=== PATIENT | male | born 1985 | race African-American/Black ===

== ENCOUNTER 2022-05-28 14:54 | Emergency (ER) | payer MEDICAID, SELFPAY ==
--- NOTE | 2022-05-28 07:26 | ECG_ITS ---
Test Reason : CHEST PAIN Blood Pressure : / mmHG Vent. Rate : 058 BPM Atrial Rate : 058 BPM P-R Int : 126 ms QRS Dur : 112 ms QT Int : 436 ms P-R-T Axes : 028 004 167 degrees QTc Int : 428 ms Sinus bradycardia Minimal voltage criteria for LVH, may be normal variant ( Teddy product ) ST elevation, consider early repolarization, pericarditis, or injury T wave abnormality, consider inferior ischemia T wave abnormality, consider anterolateral ischemia Abnormal ECG When compared with ECG of 28-MAY-2022 19:39, No significant change was found Referred By: Mayi Barbour Electronically Signed By:MAHESH ARREOLA MD
[2022-05-28 15:09] VITALS: BP 138/82; BP 179/99; PULSE 93; PULSE 95; RESP 14; O2SAT 95; BMI 21.7
--- NOTE | 2022-05-28 15:13 | PC.NURSE ---
Security at bedside to change pt over, belongings brought to decon. Patient observer at bedside.
--- NOTE | 2022-05-28 15:16 | PC.NURSE ---
Pt keeps stating I don't think the cocaine was cocaine, my bones are on fire .
--- NOTE | 2022-05-28 15:30 | ED.PSYCH ---
HPI - Psych General Chief Complaint: ETOH/Substance Use <Arielle OwensOSIRIS - Last Filed: 05/28/22 17:27> Stated Complaint: crisis <Arielle Owens OSIRIS - Last Filed: 05/28/22 17:27> Time Seen by Provider: 05/28/22 15:08 <Arielle OwensOSIRIS - Last Filed: 05/28/22 17:27> Source: patient <Arielle Owens OSIRIS - Last Filed: 05/28/22 17:27> Mode of arrival: EMS <Arielle OwensOSIRIS - Last Filed: 05/28/22 17:27> Limitations: no limitations <Arielle Owens OSIRIS - Last Filed: 05/28/22 17:27> History of Present Illness HPI Narrative: Patient is a 36-year-old male who presents to the emergency department today requesting detox services. He states he is tired and has not slept in the past 3 days. He reports ?my bones are on fire? reporting to his entire body. He states that he has been snorting and injecting cocaine that he believes is laced, at 1 point of time he states it was laced with methadone. Denies knowingly using methadone or taking prescribed methadone. He denies any additional recreational drug usage. Reports some alcohol consumption stating that he drinks about 10 minutes a week, is not certain when he last drank. Denies fevers, chills, dizziness, lightheadedness, chest pain, palpitations, shortness of breath, difficulty breathing, upper respiratory symptoms, nausea, vomiting, abdominal pain, numbness and tingling of his extremities. Denies any difficulty with ambulation. Denies any suicidal or homicidal ideations. <Arielle OwensOSIRIS - Last Filed: 05/28/22 17:27> Related Data Allergies/Adverse Reactions: Allergies Allergy/AdvReac Type Severity Reaction Status Date / Time No Known Allergies Allergy Verified 05/28/22 15:29 <Arielle OwensOSIRIS - Last Filed: 05/28/22 17:27> Review of Systems Review of Systems: Constitutional : No Fever, No Chills ENT/Mouth : No Ear Pain, No Nasal Congestion, No sore throat Eyes: No Eye Pain, No Swelling, No Redness Cardiovascular : No Chest Pain, No SOB Respiratory : No Cough, No Sputum, No Dyspnea Gastrointestinal : No Nausea, No Vomiting, No Diarrhea, No Hematochezia, No Melena Genitourinary : No Dysuria, No Urinary Frequency, No Hematuria Musculoskeletal : No Myalgias Skin : No Skin Lesions, No rash Neuro : No Weakness, No Numbness, No Paresthesias, No Dizziness, No Headache Psych : No Anxiety, no Depression, no SI/HI, positive substance use <Arielle Owens CNP - Last Filed: 05/28/22 17:27> Yes all other systems are reviewed and are negative <Arielle Owens CNP - Last Filed: 05/28/22 17:27> [facility] Past Medical History Attestation statement: The following information was validated with the patient. <Arielle Owens CNP - Last Filed: 05/28/22 17:27> Source: old records reviewed <Arielle Owens CNP - Last Filed: 05/28/22 17:27> Social History Social History: Social History Advance Directives: No Advance Directives Information Provided: No <Arielle Owens CNP - Last Filed: 05/28/22 17:27> Physical Exam Vital Signs: Vital Signs: Last Vital Signs Temp 97.8 F 05/28/22 21:10 Pulse 57 05/28/22 21:10 Resp 17 05/28/22 21:10 BP 138/82 05/28/22 21:10 Pulse Ox 95 05/28/22 21:10 O2 Del Method 05/28/22 21:10 BMI result Body Mass Index 21.9 <Arielle Owens CNP - Last Filed: 05/28/22 17:27> Vital Signs: Last Vital Signs Temp 97.8 F 05/28/22 21:10 Pulse 57 05/28/22 21:10 Resp 17 05/28/22 21:10 BP 138/82 05/28/22 21:10 Pulse Ox 95 05/28/22 21:10 O2 Del Method 05/28/22 21:10 BMI result Body Mass Index 21.9 <GENTRY Rodríguez - Last Filed: 05/28/22 22:15> Appearance: Oriented to person, place and time. No acute distress.? Biazarre affect, noted at times to be twitching, unable to sit still, and then falling asleep while talking Eyes: Pupils equal, round and reactive to light.? ENT: Pharynx normal.?? Neck: Normal inspection.? Neck supple.?? CVS: Heart sounds normal. Normal heart rate and rhythm.? Pulses normal.?? Respiratory: No respiratory distress.? Lung sounds clear to auscultation bilaterally?? Abdomen: Soft and non-tender. Normoactive bowel sounds. Skin: Skin warm and dry.? Normal skin color.? Extremities: No lower extremity edema.? Neuro: Moves all extremities spontaneously. Sensation intact bilaterally. No focal neuro deficits. Ambulates with normal steady gait. <Arielle Owens CNP - Last Filed: 05/28/22 17:27> Course Course Course Narrative: Patient is a 36-year-old male presents emergency department for evaluation requesting detox services. Only endorses cocaine usage, but does state that he believes his cocaine may have been laced recently. Is unclear exactly how much cocaine he is currently using he reports $200-$300 dollars worth daily, and states that he drinks approximately 10 nips of alcohol weekly uncertain of when last consumption was. He does appear to have a bizarre affect, which appears consistent with drug usage. Will obtain basic labs, drug of abuse screen, ethanol screen, and referred to care team for assistance detox services. Denying any suicidal or homicidal ideations. Patient received acetaminophen for pain at this time. <Arielle Owens CNP - Last Filed: 05/28/22 17:27> Reevaluation(s) Reevaluation #1: Labs overall unremarkable. Drug abuse screen is positive for fentanyl and cocaine. Patient placed in physician obervation at this time, reson being that he requires additional time to be evaluated by caare team for assistance with detox, he is here voluntarily, he is CA&Ox4, no apparent distress. <Arielle Owens CNP - Last Filed: 05/28/22 17:27> Time: 17:01 <Arielle Owens CNP - Last Filed: 05/28/22 17:27> Reevaluation #2: I ordered an EKG on this patient for medical clearance and went to evaluate him myself, patient reports that he has been experiencing intermittent substernal 4 to 5/10 chest pain described as stabbing in nature, patient tells me it is intermittent and he does not have it at this time however it comes back last a few seconds and then subsides. Patient does report using 200-300 dollars worth of cocaine last night along w/ alcohol, patient tells me that the chest pain is very uncomfortable when it comes on. Never had anything like this before. No significant personal or family history of heart disease. Patient tells me other than polysubstance abuse he has no significant medical history. I sent 8 image of the initial EKG to Cardiology and obtain troponin troponin negative EKG is showing abnormal ST segments diffusely ? Wellens with a rate of 60, concerns for ischemia. Will reach out to Cardiology for input will give aspirin. <GENTRY Rodríguez - Last Filed: 05/28/22 22:15> Time: 21:01 <GENTRY Rodríguez - Last Filed: 05/28/22 22:15> Reevaluation #3: Banks text from Dr. Rao requesting heparin, and requesting input from interventional cardiology will reach out to [facility] at this time STAT. Patient will be transferred to [facility] Dr. Chu, for abnormal EKG that may require laboratory aide. Heparin ordered at this time. Calling ambulance to schedule stat transport. Patient is still reporting chest pain. <GENTRY Rodríguez - Last Filed: 05/28/22 22:15> Time: 21:57 <GENTRY Rodríguez - Last Filed: 05/28/22 22:15> Medications Administered Discontinued Medications Generic Name Dose Route Start Last Admin Trade Name Charla PRN Reason Stop Dose Admin Aspirin 325 mg 05/28/22 21:21 05/28/22 22:06 Aspirin Enteric Coated 325 [address] Tablet.Dr VASQUEZ 05/28/22 21:22 325 mg ONCE ONE Administration Heparin Sodium (Porcine) 4,000 unit 05/28/22 21:45 05/28/22 22:06 Heparin Sodium,Porcine 5,000 Unit/Ml Vial IVPUSH 05/28/22 21:46 4,000 unit ONCE ONE Administration <Arielle Owens CNP - Last Filed: 05/28/22 17:27> Medications Administered Discontinued Medications Generic Name Dose Route Start Last Admin Trade Name Charla PRN Reason Stop Dose Admin Aspirin 325 mg 05/28/22 21:21 05/28/22 22:06 Aspirin Enteric Coated 325 Mg Tablet.Dr VASQUEZ 05/28/22 21:22 325 mg ONCE ONE Administration Heparin Sodium (Porcine) 4,000 unit 05/28/22 21:45 05/28/22 22:06 Heparin Sodium,Porcine 5,000 Unit/Ml Vial IVPUSH 05/28/22 21:46 4,000 unit ONCE ONE Administration <GENTRY Rodríguez - Last Filed: 05/28/22 22:15> MDM - Psych Medical Records Attestation: I reviewed the patient's medical records. <Arielle Owens CNP - Last Filed: 05/28/22 17:27> Lab Data Attestation: I reviewed the patient's lab results. <Arielle Owens CNP - Last Filed: 05/28/22 17:27> Result diagrams: : 05/28/22 22:00 05/28/22 16:11 <Arielle Owens CNP - Last Filed: 05/28/22 17:27> Labs: Lab Results 05/28/22 05/28/22 05/28/22 Range/Units 15:45 16:11 16:11 WBC 5.6 (4.8-10.8) X10*3/uL RBC 4.96 (4.60-5.80) X10*6/uL Hgb 14.2 (14.0-18.0) g/dl Hct 42.4 (42.0-52.0) % MCV 85.5 (80.0-98.0) fL MCH 28.6 (27.0-33.0) pg MCHC 33.5 (31.0-36.0) g/dl RDW 12.3 (11.0-16.0) % Plt Count 218 (160-400) X10*3/uL MPV 9.9 (9.4-12.4) fL Immature Gran % (Auto) 0.2 (0.0-0.4) % Neut % (Auto) 48.8 (45-73) % Lymph % (Auto) 36.7 (20-40) % [place] % (Auto) 10.8 (2-11) % Eos % (Auto) 2.8 (0-4) % Baso % (Auto) 0.7 (0-2) % Lymph # (Auto) 2.1 (1.2-4.9) X10*3/uL [place] # (Auto) 0.6 (0.1-1.2) X10*3/uL Eos # (Auto) 0.2 (0.0-0.4) X10*3/uL Baso # (Auto) 0.0 (0.0-0.2) X10*3/uL Abs Immat Gran (auto) 0.01 (0.00-0.03) X10*3/uL Absolute Neuts (auto) 2.8 (2.0-8.3) x10*3/uL Absolute Nucleated RBC 0.000 (0.0-0.012) X10*3/uL Nucleated RBC % (auto) 0.0 (0.0-0.2) /100WBC PT (10.0-13.1) SEC INR (0.9-1.1) Sodium 141 (135-145) mmol/L Potassium 3.6 (3.3-5.1) mmol/L Chloride 103 (96-108) mmol/L Carbon Dioxide 27 (22-29) mmol/L Anion Gap 15 (12-20) BUN 11 (9-16) mg/dL Creatinine 1.07 (0.5-1.4) mg/dL Estim Creat Clear Calc 94.3 Estimated GFR > 60 Random Glucose 152 H (60-115) mg/dL Calcium 9.4 (8.4-10.2) mg/dL Total Bilirubin 0.6 (0.0-1.0) mg/dL AST 34 (5-37) U/L ALT 37 (0-40) U/L Alkaline Phosphatase 76 (39-117) U/L Total Creatine Kinase 449 H (38-174) U/L Troponin I High Sens (<3.5-35.0) ng/L Total Protein 6.6 (6.5-8.0) g/dL Albumin 3.8 (3.5-5.0) g/dL Urine Color Yellow Urine Appearance Clear Urine pH 7.0 (5.0-9.0) Ur Specific [place] <= 1.005 (1.005-1.025) Urine Protein Negative (Neg-Trace) mg/dL Urine Glucose (UA) Negative (Negative) mg/dL Urine Ketones Negative (Negative) mg/dL Urine Blood Negative (Negative) Urine Nitrite Negative (Negative) Ur Leukocyte Esterase Negative (Negative) Urine Opiates Screen (Not Detect) Urine Fentanyl Screen (Not Detect) Ur Barbiturates Screen (Not Detect) Ur Phencyclidine Scrn (Not Detect) Ur Amphetamines Screen (Not Detect) U Benzodiazepines Scrn (Not Detect) Urine Cocaine Screen (Not Detect) U Marijuana (THC) Screen (Not Detect) Ethyl Alcohol < 10 mg/dL COVID-19 ([facility]) (Negative) COVID-19 Clin Com 05/28/22 05/28/22 05/28/22 Range/Units 16:11 16:11 20:25 WBC (4.8-10.8) X10*3/uL RBC (4.60-5.80) X10*6/uL Hgb (14.0-18.0) g/dl Hct (42.0-52.0) % MCV (80.0-98.0) fL MCH (27.0-33.0) pg MCHC (31.0-36.0) g/dl RDW (11.0-16.0) % Plt Count (160-400) X10*3/uL MPV (9.4-12.4) fL Immature Gran % (Auto) (0.0-0.4) % Neut % (Auto) (45-73) % Lymph % (Auto) (20-40) % [place] % (Auto) (2-11) % Eos % (Auto) (0-4) % Baso % (Auto) (0-2) % Lymph # (Auto) (1.2-4.9) X10*3/uL [place] # (Auto) (0.1-1.2) X10*3/uL Eos # (Auto) (0.0-0.4) X10*3/uL Baso # (Auto) (0.0-0.2) X10*3/uL Abs Immat Gran (auto) (0.00-0.03) X10*3/uL Absolute Neuts (auto) (2.0-8.3) x10*3/uL Absolute Nucleated RBC (0.0-0.012) X10*3/uL Nucleated RBC % (auto) (0.0-0.2) /100WBC PT (10.0-13.1) SEC INR (0.9-1.1) Sodium (135-145) mmol/L Potassium (3.3-5.1) mmol/L Chloride (96-108) mmol/L Carbon Dioxide (22-29) mmol/L Anion Gap (12-20) BUN (9-16) mg/dL Creatinine (0.5-1.4) mg/dL Estim Creat Clear Calc Estimated GFR Random Glucose (60-115) mg/dL Calcium (8.4-10.2) mg/dL Total Bilirubin (0.0-1.0) mg/dL AST (5-37) U/L ALT (0-40) U/L Alkaline Phosphatase (39-117) U/L Total Creatine Kinase (38-174) U/L Troponin I High Sens < 3.5 (<3.5-35.0) ng/L Total Protein (6.5-8.0) g/dL Albumin (3.5-5.0) g/dL Urine Color Urine Appearance Urine pH (5.0-9.0) Ur Specific [place] (1.005-1.025) Urine Protein (Neg-Trace) mg/dL Urine Glucose (UA) (Negative) mg/dL Urine Ketones (Negative) mg/dL Urine Blood (Negative) Urine Nitrite (Negative) Ur Leukocyte Esterase (Negative) Urine Opiates Screen Not Detected (Not Detect) Urine Fentanyl Screen POSITIVE H (Not Detect) Ur Barbiturates Screen Not Detected (Not Detect) Ur Phencyclidine Scrn Not Detected (Not Detect) Ur Amphetamines Screen Not Detected (Not Detect) U Benzodiazepines Scrn Not Detected (Not Detect) Urine Cocaine Screen POSITIVE H (Not Detect) U Marijuana (THC) Screen Not Detected (Not Detect) Ethyl Alcohol mg/dL COVID-19 ([place]) Negative (Negative) COVID-19 Clin Com See Note 05/28/22 05/28/22 Range/Units 21:12 22:00 WBC 6.7 (4.8-10.8) X10*3/uL RBC 4.94 (4.60-5.80) X10*6/uL Hgb 14.4 (14.0-18.0) g/dl Hct 42.5 (42.0-52.0) % MCV 86.0 (80.0-98.0) fL MCH 29.1 (27.0-33.0) pg MCHC 33.9 (31.0-36.0) g/dl RDW 12.4 (11.0-16.0) % Plt Count 213 (160-400) X10*3/uL MPV 9.8 (9.4-12.4) fL Immature Gran % (Auto) (0.0-0.4) % Neut % (Auto) (45-73) % Lymph % (Auto) (20-40) % [place] % (Auto) (2-11) % Eos % (Auto) (0-4) % Baso % (Auto) (0-2) % Lymph # (Auto) (1.2-4.9) X10*3/uL [place] # (Auto) (0.1-1.2) X10*3/uL Eos # (Auto) (0.0-0.4) X10*3/uL Baso # (Auto) (0.0-0.2) X10*3/uL Abs Immat Gran (auto) (0.00-0.03) X10*3/uL Absolute Neuts (auto) (2.0-8.3) x10*3/uL Absolute Nucleated RBC 0.000 (0.0-0.012) X10*3/uL Nucleated RBC % (auto) 0.0 (0.0-0.2) /100WBC PT 12.2 (10.0-13.1) SEC INR 1.1 (0.9-1.1) Sodium (135-145) mmol/L Potassium (3.3-5.1) mmol/L Chloride (96-108) mmol/L Carbon Dioxide (22-29) mmol/L Anion Gap (12-20) BUN (9-16) mg/dL Creatinine (0.5-1.4) mg/dL Estim Creat Clear Calc Estimated GFR Random Glucose (60-115) mg/dL Calcium (8.4-10.2) mg/dL Total Bilirubin (0.0-1.0) mg/dL AST (5-37) U/L ALT (0-40) U/L Alkaline Phosphatase (39-117) U/L Total Creatine Kinase (38-174) U/L Troponin I High Sens (<3.5-35.0) ng/L Total Protein (6.5-8.0) g/dL Albumin (3.5-5.0) g/dL Urine Color Urine Appearance Urine pH (5.0-9.0) Ur Specific [place] (1.005-1.025) Urine Protein (Neg-Trace) mg/dL Urine Glucose (UA) (Negative) mg/dL Urine Ketones (Negative) mg/dL Urine Blood (Negative) Urine Nitrite (Negative) Ur Leukocyte Esterase (Negative) Urine Opiates Screen (Not Detect) Urine Fentanyl Screen (Not Detect) Ur Barbiturates Screen (Not Detect) Ur Phencyclidine Scrn (Not Detect) Ur Amphetamines Screen (Not Detect) U Benzodiazepines Scrn (Not Detect) Urine Cocaine Screen (Not Detect) U Marijuana (THC) Screen (Not Detect) Ethyl Alcohol mg/dL COVID-19 ([place]) (Negative) COVID-19 Clin Com <Arielle Owens, CULINARY SPECIALIST - Last Filed: 05/28/22 17:27> Lab Results 05/28/22 05/28/22 05/28/22 Range/Units 15:45 16:11 16:11 WBC 5.6 (4.8-10.8) X10*3/uL RBC 4.96 (4.60-5.80) X10*6/uL Hgb 14.2 (14.0-18.0) g/dl Hct 42.4 (42.0-52.0) % MCV 85.5 (80.0-98.0) fL MCH 28.6 (27.0-33.0) pg MCHC 33.5 (31.0-36.0) g/dl RDW 12.3 (11.0-16.0) % Plt Count 218 (160-400) X10*3/uL MPV 9.9 (9.4-12.4) fL Immature Gran % (Auto) 0.2 (0.0-0.4) % Neut % (Auto) 48.8 (45-73) % Lymph % (Auto) 36.7 (20-40) % [place] % (Auto) 10.8 (2-11) % Eos % (Auto) 2.8 (0-4) % Baso % (Auto) 0.7 (0-2) % Lymph # (Auto) 2.1 (1.2-4.9) X10*3/uL [place] # (Auto) 0.6 (0.1-1.2) X10*3/uL Eos # (Auto) 0.2 (0.0-0.4) X10*3/uL Baso # (Auto) 0.0 (0.0-0.2) X10*3/uL Abs Immat Gran (auto) 0.01 (0.00-0.03) X10*3/uL Absolute Neuts (auto) 2.8 (2.0-8.3) x10*3/uL Absolute Nucleated RBC 0.000 (0.0-0.012) X10*3/uL Nucleated RBC % (auto) 0.0 (0.0-0.2) /100WBC PT (10.0-13.1) SEC INR (0.9-1.1) Sodium 141 (135-145) mmol/L Potassium 3.6 (3.3-5.1) mmol/L Chloride 103 (96-108) mmol/L Carbon Dioxide 27 (22-29) mmol/L Anion Gap 15 (12-20) BUN 11 (9-16) mg/dL Creatinine 1.07 (0.5-1.4) mg/dL Estim Creat Clear Calc 94.3 Estimated GFR > 60 Random Glucose 152 H (60-115) mg/dL Calcium 9.4 (8.4-10.2) mg/dL Total Bilirubin 0.6 (0.0-1.0) mg/dL AST 34 (5-37) U/L ALT 37 (0-40) U/L Alkaline Phosphatase 76 (39-117) U/L Total Creatine Kinase 449 H (38-174) U/L Troponin I High Sens (<3.5-35.0) ng/L Total Protein 6.6 (6.5-8.0) g/dL Albumin 3.8 (3.5-5.0) g/dL Urine Color Yellow Urine Appearance Clear Urine pH 7.0 (5.0-9.0) Ur Specific [place] <= 1.005 (1.005-1.025) Urine Protein Negative (Neg-Trace) mg/dL Urine Glucose (UA) Negative (Negative) mg/dL Urine Ketones Negative (Negative) mg/dL Urine Blood Negative (Negative) Urine Nitrite Negative (Negative) Ur Leukocyte Esterase Negative (Negative) Urine Opiates Screen (Not Detect) Urine Fentanyl Screen (Not Detect) Ur Barbiturates Screen (Not Detect) Ur Phencyclidine Scrn (Not Detect) Ur Amphetamines Screen (Not Detect) U Benzodiazepines Scrn (Not Detect) Urine Cocaine Screen (Not Detect) U Marijuana (THC) Screen (Not Detect) Ethyl Alcohol < 10 mg/dL COVID-19 ([place]) (Negative) COVID-19 Clin Com 05/28/22 05/28/22 05/28/22 Range/Units 16:11 16:11 20:25 WBC (4.8-10.8) X10*3/uL RBC (4.60-5.80) X10*6/uL Hgb (14.0-18.0) g/dl Hct (42.0-52.0) % MCV (80.0-98.0) fL MCH (27.0-33.0) pg MCHC (31.0-36.0) g/dl RDW (11.0-16.0) % Plt Count (160-400) X10*3/uL MPV (9.4-12.4) fL Immature Gran % (Auto) (0.0-0.4) % Neut % (Auto) (45-73) % Lymph % (Auto) (20-40) % [place] % (Auto) (2-11) % Eos % (Auto) (0-4) % Baso % (Auto) (0-2) % Lymph # (Auto) (1.2-4.9) X10*3/uL [place] # (Auto) (0.1-1.2) X10*3/uL Eos # (Auto) (0.0-0.4) X10*3/uL Baso # (Auto) (0.0-0.2) X10*3/uL Abs Immat Gran (auto) (0.00-0.03) X10*3/uL Absolute Neuts (auto) (2.0-8.3) x10*3/uL Absolute Nucleated RBC (0.0-0.012) X10*3/uL Nucleated RBC % (auto) (0.0-0.2) /100WBC PT (10.0-13.1) SEC INR (0.9-1.1) Sodium (135-145) mmol/L Potassium (3.3-5.1) mmol/L Chloride (96-108) mmol/L Carbon Dioxide (22-29) mmol/L Anion Gap (12-20) BUN (9-16) mg/dL Creatinine (0.5-1.4) mg/dL Estim Creat Clear Calc Estimated GFR Random Glucose (60-115) mg/dL Calcium (8.4-10.2) mg/dL Total Bilirubin (0.0-1.0) mg/dL AST (5-37) U/L ALT (0-40) U/L Alkaline Phosphatase (39-117) U/L Total Creatine Kinase (38-174) U/L Troponin I High Sens < 3.5 (<3.5-35.0) ng/L Total Protein (6.5-8.0) g/dL Albumin (3.5-5.0) g/dL Urine Color Urine Appearance Urine pH (5.0-9.0) Ur Specific [place] (1.005-1.025) Urine Protein (Neg-Trace) mg/dL Urine Glucose (UA) (Negative) mg/dL Urine Ketones (Negative) mg/dL Urine Blood (Negative) Urine Nitrite (Negative) Ur Leukocyte Esterase (Negative) Urine Opiates Screen Not Detected (Not Detect) Urine Fentanyl Screen POSITIVE H (Not Detect) Ur Barbiturates Screen Not Detected (Not Detect) Ur Phencyclidine Scrn Not Detected (Not Detect) Ur Amphetamines Screen Not Detected (Not Detect) U Benzodiazepines Scrn Not Detected (Not Detect) Urine Cocaine Screen POSITIVE H (Not Detect) U Marijuana (THC) Screen Not Detected (Not Detect) Ethyl Alcohol mg/dL COVID-19 ([place]) Negative (Negative) COVID-19 Clin Com See Note 05/28/22 05/28/22 Range/Units 21:12 22:00 WBC 6.7 (4.8-10.8) X10*3/uL RBC 4.94 (4.60-5.80) X10*6/uL Hgb 14.4 (14.0-18.0) g/dl Hct 42.5 (42.0-52.0) % MCV 86.0 (80.0-98.0) fL MCH 29.1 (27.0-33.0) pg MCHC 33.9 (31.0-36.0) g/dl RDW 12.4 (11.0-16.0) % Plt Count 213 (160-400) X10*3/uL MPV 9.8 (9.4-12.4) fL Immature Gran % (Auto) (0.0-0.4) % Neut % (Auto) (45-73) % Lymph % (Auto) (20-40) % [place] % (Auto) (2-11) % Eos % (Auto) (0-4) % Baso % (Auto) (0-2) % Lymph # (Auto) (1.2-4.9) X10*3/uL [place] # (Auto) (0.1-1.2) X10*3/uL Eos # (Auto) (0.0-0.4) X10*3/uL Baso # (Auto) (0.0-0.2) X10*3/uL Abs Immat Gran (auto) (0.00-0.03) X10*3/uL Absolute Neuts (auto) (2.0-8.3) x10*3/uL Absolute Nucleated RBC 0.000 (0.0-0.012) X10*3/uL Nucleated RBC % (auto) 0.0 (0.0-0.2) /100WBC PT 12.2 (10.0-13.1) SEC INR 1.1 (0.9-1.1) Sodium (135-145) mmol/L Potassium (3.3-5.1) mmol/L Chloride (96-108) mmol/L Carbon Dioxide (22-29) mmol/L Anion Gap (12-20) BUN (9-16) mg/dL Creatinine (0.5-1.4) mg/dL Estim Creat Clear Calc Estimated GFR Random Glucose (60-115) mg/dL Calcium (8.4-10.2) mg/dL Total Bilirubin (0.0-1.0) mg/dL AST (5-37) U/L ALT (0-40) U/L Alkaline Phosphatase (39-117) U/L Total Creatine Kinase (38-174) U/L Troponin I High Sens (<3.5-35.0) ng/L Total Protein (6.5-8.0) g/dL Albumin (3.5-5.0) g/dL Urine Color Urine Appearance Urine pH (5.0-9.0) Ur Specific [place] (1.005-1.025) Urine Protein (Neg-Trace) mg/dL Urine Glucose (UA) (Negative) mg/dL Urine Ketones (Negative) mg/dL Urine Blood (Negative) Urine Nitrite (Negative) Ur Leukocyte Esterase (Negative) Urine Opiates Screen (Not Detect) Urine Fentanyl Screen (Not Detect) Ur Barbiturates Screen (Not Detect) Ur Phencyclidine Scrn (Not Detect) Ur Amphetamines Screen (Not Detect) U Benzodiazepines Scrn (Not Detect) Urine Cocaine Screen (Not Detect) U Marijuana (THC) Screen (Not Detect) Ethyl Alcohol mg/dL COVID-19 (FRANCISCO) (Negative) COVID-19 Clin Com <GENTRY Rodríguez - Last Filed: 05/28/22 22:15> Critical Care Time Critical Care Time Critical Care Time: Yes <GENTRY Rodríguez - Last Filed: 05/28/22 22:15> Total Critical Care Time: 60 <GENTRY Rodríguez - Last Filed: 05/28/22 22:15> Attestation: I attest to this time spent taking care of the patient, obtaining history, physical, reviewing labs, imaging, speaking to my attending, speaking to specialist. <GENTRY Rodríguez - Last Filed: 05/28/22 22:15> Discharge Plan Discharge Clinical Impression: Polysubstance use disorder, Abnormal EKG <Arielle Owens CNP - Last Filed: 05/28/22 17:27> Patient Disposition: Still a Patient <Arielle Owens CNP - Last Filed: 05/28/22 17:27> Transfer Details: [facility] [id number] <Arielle Owens CNP - Last Filed: 05/28/22 17:27> [facility] [address] [id number] <GENTRY Rodríguez - Last Filed: 05/28/22 22:15>
[2022-05-28 15:40] VITALS: TEMP 36.7
[2022-05-28 15:55] LABS: Appearance Urine Clear; Color Urine Yellow; Glucose Urine UA Negative (Negative); Leukocyte Esterase Urine Negative (Negative); Nitrite Urine Negative (Negative); Specific Gravity - Urine <= 1.005 (1.005-1.025); Urine Blood Negative (Negative); Urine Ketones Negative (Negative); Urine Protein Negative (Neg-Trace)
[2022-05-28 16:17] LABS: MANUAL DIFF FLAG NO
[2022-05-28 16:19] LABS: Basophils Percent Auto 0.7 % (0-2); Eosinophils Absolute Auto 0.2 X10*3/uL (0.0-0.4); Eosinophils Percent Auto 2.8 % (0-4); Hematocrit 42.4 % (42.0-52.0); Hemoglobin 14.2 g/dl (14.0-18.0); Imm Gran Abs Auto 0.01 X10*3/uL (0.00-0.03); Imm Gran Pct Auto 0.2 % (0.0-0.4); Lymphocytes Absolute Auto 2.1 X10*3/uL (1.2-4.9); Lymphocytes Percent Auto 36.7 % (20-40); Mean Corpuscular HGB Conc 33.5 g/dl (31.0-36.0); Mean Corpuscular Hemoglobin 28.6 pg (27.0-33.0); Mean Corpuscular Volume 85.5 fL (80.0-98.0); Mean Platelet Volume 9.9 fL (9.4-12.4); Monocytes Absolute Auto 0.6 X10*3/uL (0.1-1.2); Monocytes Percent Auto 10.8 % (2-11); Neutrophils Absolute Auto 2.8 x10*3/uL (2.0-8.3); Neutrophils Percent Auto 48.8 % (45-73); Platelet Count 218 X10*3/uL (160-400); Red Blood Count 4.96 X10*6/uL (4.60-5.80); Red Cell Distribution Width 12.3 % (11.0-16.0); White Blood Count 5.6 X10*3/uL (4.8-10.8)
[2022-05-28 16:34] LABS: Amphetamine Screen Urine Not Detected (Not Detect); Barbiturates, Urine Not Detected (Not Detect); Benzodiazepines Screen Urine Not Detected (Not Detect); COVID-19 Test Negative (Negative); Cannabinoid Screen Urine Not Detected (Not Detect); Cocaine Screen Urine POSITIVE (Not Detect); Fentanyl, urine POSITIVE (Not Detect); Opiate Screen Urine Not Detected (Not Detect); Phencyclidine Screen Urine Not Detected (Not Detect)
[2022-05-28 16:46] LABS: Alanine Aminotransferase 37 U/L (0-40); Albumin Level 3.8 g/dL (3.5-5.0); Alkaline Phosphatase 76 U/L (39-117); Anion Gap 15 (12-20); Aspartate Amino Transferase 34 U/L (5-37); Bilirubin Total 0.6 mg/dL (0.0-1.0); Blood Urea Nitrogen 11 mg/dL (9-16); Calcium 9.4 mg/dL (8.4-10.2); Carbon Dioxide 27 mmol/L (22-29); Chloride 103 mmol/L (96-108); Creatinine Clr Calc Pharmacy 94.3; Estimated Glomerular Filt Rate > 60; Ethanol < 10 mg/dL; Glucose Random 152 mg/dL (60-115); Potassium 3.6 mmol/L (3.3-5.1); Sodium 141 mmol/L (135-145); Total Protein 6.6 g/dL (6.5-8.0)
[2022-05-28 16:58] VITALS: RESP 20
--- NOTE | 2022-05-28 18:54 | ECG_ITS ---
Test Reason : ETOH Blood Pressure : / mmHG Vent. Rate : 060 BPM Atrial Rate : 060 BPM P-R Int : 128 ms QRS Dur : 116 ms QT Int : 420 ms P-R-T Axes : 040 001 242 degrees QTc Int : 420 ms Normal sinus rhythm Minimal voltage criteria for LVH, may be normal variant ( Teddy product ) ST elevation, consider early repolarization, pericarditis, or injury T wave abnormality, consider inferior ischemia T wave abnormality, consider anterolateral ischemia Abnormal ECG No previous ECGs available Referred By: Mayi Barbour Electronically Signed By:MAHESH ARREOLA MD
--- NOTE | 2022-05-28 19:00 | MHC.CARE ---
CARE team met with pt to discuss interest in detox services. Pt endorsed IV cocaine use and alcohol use. Tox screen positive for cocaine and fentanyl. Pt reported that he has a preference for a facility in the [facility]. Referral has been faxed to [facility].
[2022-05-28 19:59] VITALS: BP 135/85; PULSE 96; RESP 15; TEMP 36.8; O2SAT 95
[2022-05-28 20:51] LABS: Troponin-I High Sensitivity < 3.5 ng/L (<3.5-35.0)
[2022-05-28 21:10] VITALS: BP 138/82; PULSE 57; RESP 17; TEMP 36.6; O2SAT 95
[2022-05-28 21:28] LABS: INTERNATIONAL NORM RATIO 1.1 (0.9-1.1); Prothrombin Time 12.2 SEC (10.0-13.1)
--- NOTE | 2022-05-28 21:54 | MHC.CARE ---
[facility] declined patient. No other beds available this evening. Recovery team will follow up with pt in the morning.
[2022-05-28 22:01] VITALS: BMI 21.9
[2022-05-28] MEDS: Aspirin Enteric Coated 325 MG TABLET.DR PO (22:06)
[2022-05-28] MEDS: Heparin Sodium,Porcine 5,000 UNIT/ML VIAL 4000 UNIT IVPUSH (22:06)
[2022-05-28 22:08] LABS: Hematocrit 42.5 % (42.0-52.0); Hemoglobin 14.4 g/dl (14.0-18.0); Mean Corpuscular HGB Conc 33.9 g/dl (31.0-36.0); Mean Corpuscular Hemoglobin 29.1 pg (27.0-33.0); Mean Platelet Volume 9.8 fL (9.4-12.4); Platelet Count 213 X10*3/uL (160-400); Red Blood Count 4.94 X10*6/uL (4.60-5.80); Red Cell Distribution Width 12.4 % (11.0-16.0); White Blood Count 6.7 X10*3/uL (4.8-10.8)
[2022-05-28 22:17] LABS: Prothrombin Time 11.9 SEC (10.0-13.1)
[2022-05-28 22:20] LABS: PTT Heparin Drip 29.1 SEC (53-77.9)
[2022-05-28 22:28] VITALS: BP 125/84; PULSE 65; RESP 22; O2SAT 99
[2022-05-28] MEDS: Heparin Sodium,Porcine/1/2NS 25,000 UNIT/250 ML IV.SOLN 8.54 UNIT IVCONT (22:34)
--- NOTE | 2022-05-28 23:10 | PC.NURSE ---
RN to RN report given to ZULY Blue at [facility]. Pt being transferred and aware of plan of care.
== END 2022-05-28 23:11 | disposition still patient (30) ==
PROVIDERS: Nurse Practitioner Family; Physician Assistant; Emergency Provider Emergency Medicine
DX: F14.19 Cocaine abuse with unspecified cocaine-induced disorder (principal); R07.89 Other chest pain; Z20.822 Contact with and (suspected) exposure to COVID-19; Z71.51 Drug abuse counseling and surveillance of drug abuser; Z79.899 Other long term (current) drug therapy
CPT/HCPCS: 36415; 80053; 80307; 81003; 82077; 82550; 84484; 85025; 85027; 85610; 85730; 87635; 93005; 99285

== ENCOUNTER 2022-07-20 06:08 | Inpatient (IN) | payer OTHER, MEDICAID, SELFPAY ==
--- NOTE | 2022-07-20 | ECG_ITS ---
Test Reason : SYNCOPE Blood Pressure : / mmHG Vent. Rate : 062 BPM Atrial Rate : 062 BPM P-R Int : 146 ms QRS Dur : 104 ms QT Int : 398 ms P-R-T Axes : 048 002 103 degrees QTc Int : 403 ms Normal sinus rhythm Minimal voltage criteria for LVH, may be normal variant ( [place] product ) ST & T wave abnormality, consider anterolateral ischemia Abnormal ECG When compared with ECG of 28-MAY-2022 21:04, T wave inversion no longer evident in Inferior leads T wave inversion less evident in Lateral leads Referred By: Generic ED Physician Electronically Signed By:JASMIN ORO
--- NOTE | ~2022-07-20 | CT_ITS ---
EXAMINATION: CT HEAD AND FACIAL BONES WITHOUT CONTRAST CLINICAL INFORMATION: Status post fall, positive loss of consciousness, right orbital tenderness and swelling COMPARISON: None TECHNIQUE: Contiguous axial imaging was performed from the skull base to vertex without intravenous administration of contrast. This CT examination was performed using dose optimization techniques as appropriate, variously including the following: *Automated exposure control *Adjustment of mA and/or kV according to patient size (this includes techniques or standardized protocols for targeted exams where dose is matched to indication/reason for exam; i.e. extremities or head) *Use of iterative reconstruction technique DLP: 1120 mGy-cm FINDINGS: There is no evidence of acute intracranial hemorrhage or territorial infarction. No abnormal mass effect or midline shift is seen. Jackson to white matter differentiation is well preserved. No extra-axial fluid collections are identified. The ventricles are normal in size. There is no abnormal attenuation within the brain parenchyma. Mild soft tissue swelling overlying the left paramedian posterior scalp without underlying bony defect. The osseous structures and soft tissues are normal. The mastoid air cells and visualized portions of the paranasal sinuses are well aerated. CT/CT head/brain wo IV con IMPRESSION: 1. No acute intracranial pathology. 2. Mild soft tissue swelling overlying the left paramedian posterior scalp without underlying bony defect.
--- NOTE | ~2022-07-20 | MR_ITS ---
EXAMINATION: MR CERVICAL AND THORACIC SPINE WITHOUT CONTRAST CLINICAL INFORMATION: Paresthesias. COMPARISON: None TECHNIQUE: Multiplanar multisequence MRI of the cervical and thoracic spine was performed without contrast. FINDINGS: Cervical spine: There is expansile intramedullary T2 hyperintensity at the C5-C6 level with contiguous long segment T2 hyperintense intramedullary signal change extending cranially to the C2 level and caudally to the T2 level. No definite intramedullary hemorrhage is seen. The cervical vertebral bodies maintain normal heights and alignment. There is no significant disc height loss. There is disc osteophyte complex at C5-C6 and at C6-C7 with approximately mild spinal canal stenosis at both these levels. Extensive edema is seen within the posterior soft tissues (asymmetrically on the left) including within the paraspinal musculature as well as within the supraspinous and interspinous ligaments. Some ligamentum flavum edema is also seen across multiple levels without evidence of gross disruption. The craniovertebral stabilizing structures appear intact without edema. The imaged intracranial contents appear normal. Thoracic spine: The thoracic vertebral bodies maintain normal heights and alignment. The disc heights are preserved. No bone marrow edema is seen. The thoracic cord signal appears normal. There is no focal disc herniation, spinal canal stenosis, or neural foraminal stenosis. The extraspinal soft tissues are within normal limits allowing for small bilateral pleural effusions. MR/MR thoracic spine wo con IMPRESSION: CERVICAL SPINE: 1. Expansile intramedullary T2 hyperintensity at the C5-C6 level with contiguous long segment intramedullary signal abnormality extending cranially to the C2 level and caudally to the T2 level. No definite intramedullary hemorrhage. In a prolonged unconsciousness state, a flexion myelopathy resulting in acute edematous cord infarct could account for these findings. An acute cord contusion is a consideration however the degree of edema appears disproportionate. Toxic/metabolic myelopathy is also a differential consideration but considered less likely. 2. Extensive edema is seen within the posterior soft tissues including within the left-sided paraspinal soft tissues. THORACIC SPINE: 1. Normal cord signal. No spinal canal or neural foraminal stenosis. 2. Small bilateral pleural effusions. This critical result was discussed with Dr. Renee on 07/26/2022 3:54 PM, and it was ascertained that the content and urgency of the report was understood at the time of direct communication.
--- NOTE | ~2022-07-20 | CT_ITS ---
EXAMINATION: CT CHEST, ABDOMEN AND PELVIS WITH CONTRAST CLINICAL INFORMATION: Reason for Exam Fall, positive LOC, on floor 4 hours COMPARISON: No pertinent prior studies are available for comparison. TECHNIQUE: Multidetector volumetric imaging was performed from the thoracic inlet through the pubic symphysis following administration of 85 mL of Omnipaque 350. Sagittal and coronal reformatted images were obtained on the technologist's workstation. This CT examination was performed using dose optimization techniques as appropriate, variously including the following: *Automated exposure control *Adjustment of mA and/or kV according to patient size (this includes techniques or standardized protocols for targeted exams where dose is matched to indication/reason for exam; i.e. extremities or head) *Use of iterative reconstruction technique DLP: 588 mGy-cm FINDINGS: CHEST: Lung: Consolidation is present throughout the right lung with the densest consolidation seen in the lower lobe adjacent to the fissure with branching opacities in the right upper lobe and to a lesser extent the right middle lobe. Left lung is clear. Mediastinum: The mediastinum is unremarkable. The central vascular structures are unremarkable. No hilar or mediastinal lymphadenopathy. Pericardium/Pleura: No significant effusion. No pleural mass or thickening. Chest Wall/Axilla: Unremarkable ABDOMEN/PELVIS: Peritoneal Space: No significant free air or free fluid identified. Liver, Gallbladder, Biliary Tree: The liver is normal in size, shape, and attenuation. No focal hepatic lesion or biliary ductal dilatation is present. The gallbladder is contracted but otherwise unremarkable with no evidence of radiopaque gallstones, gallbladder wall thickening, or obvious pericholecystic inflammatory changes. Pancreas: Unremarkable Spleen: Unremarkable Adrenal Glands: Unremarkable Kidneys and Ureters: The kidneys are normal in size, shape, and attenuation. No hydronephrosis, hydroureter, or calculi seen. No perinephric stranding. Bladder: The bladder is very distended extending up to the umbilicus. Gastrointestinal Tract: The small and large bowel are unremarkable. The appendix is unremarkable. Abdominal Wall: No significant hernia is appreciated. Lymph Nodes: No lymphadenopathy. Vascular: The aorta appears normal.. The IVC appears unremarkable. PELVIC VISCERA: Unremarkable OSSEUS STRUCTURES: Unremarkable. No fractures are seen. CT/CT abdomen pelvis w IV con IMPRESSION: 1. No evidence of a traumatic injury in the chest, abdomen or pelvis. 2. Extensive right-sided pneumonia. Infectious etiologies are considerations as is aspiration given this patient's history. 3. Distended bladder. Consider Melendrez catheter is patient cannot void. Fleischner guidelines were followed.
--- NOTE | ~2022-07-20 | CT_ITS ---
EXAMINATION: CT HEAD AND FACIAL BONES WITHOUT CONTRAST CLINICAL INFORMATION: Status post fall, positive loss of consciousness, right orbital tenderness and swelling COMPARISON: None TECHNIQUE: Contiguous axial imaging was performed from the skull base to vertex without intravenous administration of contrast. This CT examination was performed using dose optimization techniques as appropriate, variously including the following: *Automated exposure control *Adjustment of mA and/or kV according to patient size (this includes techniques or standardized protocols for targeted exams where dose is matched to indication/reason for exam; i.e. extremities or head) *Use of iterative reconstruction technique DLP: 1120 mGy-cm FINDINGS: There is no evidence of acute intracranial hemorrhage or territorial infarction. No abnormal mass effect or midline shift is seen. [place] to white matter differentiation is well preserved. No extra-axial fluid collections are identified. The ventricles are normal in size. There is no abnormal attenuation within the brain parenchyma. Mild soft tissue swelling overlying the left paramedian posterior scalp without underlying bony defect. The osseous structures and soft tissues are normal. The mastoid air cells and visualized portions of the paranasal sinuses are well aerated. CT/CT facial bones wo IV con IMPRESSION: 1. No acute intracranial pathology. 2. Mild soft tissue swelling overlying the left paramedian posterior scalp without underlying bony defect.
[2022-07-20 06:32] LABS: Glucose, Whole Blood 115 mg/dL (60-115)
[2022-07-20 06:36] VITALS: BP 139/88; BP 152/97; PULSE 52; PULSE 54; RESP 16; TEMP 34.8; O2SAT 97; BMI 27.2
--- NOTE | 2022-07-20 06:48 | PC.NURSE ---
Patient is alert and oriented to baseline. Complains of pain. Patient come in with 20 in to Left AC. New IV 18 placed to Left AC. Patient is placed under warmer blanket, appears to be comfortable. Patient belongings are by a side. Doctor is by bed side.
[2022-07-20 06:52] LABS: MANUAL DIFF FLAG NO
[2022-07-20 06:53] LABS: Basophils Percent Auto 0.2 % (0-2); Hematocrit 50.1 % (42.0-52.0); Hemoglobin 16.4 g/dl (14.0-18.0); Imm Gran Abs Auto 0.02 X10*3/uL (0.00-0.03); Imm Gran Pct Auto 0.2 % (0.0-0.4); Lymphocytes Absolute Auto 0.6 X10*3/uL (1.2-4.9); Lymphocytes Percent Auto 6.7 % (20-40); Mean Corpuscular HGB Conc 32.7 g/dl (31.0-36.0); Mean Corpuscular Hemoglobin 28.4 pg (27.0-33.0); Mean Corpuscular Volume 86.8 fL (80.0-98.0); Mean Platelet Volume 9.5 fL (9.4-12.4); Monocytes Absolute Auto 0.5 X10*3/uL (0.1-1.2); Monocytes Percent Auto 5.7 % (2-11); Neutrophils Absolute Auto 8.2 x10*3/uL (2.0-8.3); Neutrophils Percent Auto 87.2 % (45-73); Platelet Count 208 X10*3/uL (160-400); Red Blood Count 5.77 X10*6/uL (4.60-5.80); Red Cell Distribution Width 13.1 % (11.0-16.0); White Blood Count 9.4 X10*3/uL (4.8-10.8)
--- NOTE | 2022-07-20 06:59 | ED_ITS ---
HPI - Fall General Chief Complaint: Overdose Stated Complaint: FALL,BRADYCARDIA Time Seen by Provider: 07/20/22 06:35 Source: patient Mode of arrival: EMS Limitations: no limitations History of Present Illness HPI Narrative: 36-year-old male who presents emergency department for evaluation non intentional overdose, loss of consciousness, fall, prolonged time on floor of his kitchen with exposure to cold. The patient has a history of polysubstance use. He states that he injected cocaine mixed with heroin. He states that he was in his kitchen and then loss consciousness. The patient woke up on the floor of his kitchen, the kitchen door was open making the kitchen very cold. The patient states that when he woke up he was unable to move secondary to weakness. He is not certain how long he was on the floor but he believes that it was 8 hours or more. Patient states he woke up on his kitchen floor yelled for help in his neighbor called an ambulance. At the time my evaluation the patient is complaining of a headache, right facial pain, diffuse abdominal swelling and pain, right hip pain. He states that his abdominal pain is a constant, severe, sharp pain which is new and, he has never had this type of pain before. States that the pain is greater than 10/10. States that his entire body feels weak and he is having difficulty moving his muscles. Patient is also complaining of right hip pain which is worse with movement. On presentation the patient was found to be hypothermic with a temperature of 94.6 degrees. Related Data Home Medications Medication Instructions Recorded Confirmed No Known Home Meds 07/20/22 07/20/22 Allergies Allergy/AdvReac Type Severity Reaction Status Date / Time No Known Allergies Allergy Verified 05/28/22 15:29 Review of Systems Review of Systems: Yes all other systems are reviewed and are negative COUNTS INCLUDE 234 BEDS AT THE [facility] Past Medical History COUNTS INCLUDE 234 BEDS AT THE [facility] Narrative: Past medical history: Diabetes mellitus, hypertension, gastritis, cocaine and opiate use disorder. Social history: The patient does smoke cigarettes, 1 pack per day times many years. Occasionally drinks alcohol, he does admit to drinking 2 vodka drinks last night, the patient uses injection and intranasal cocaine 2 to 3 times a week. He states that he often injects heroin with cocaine. Social History Social History Alcohol intake: current Alcohol intake frequency: a few times a week Smoked in Last 30 Days: Yes Use of substances other than those prescribed or required for medical reasons: Yes Substance Use Type: Crack/Cocaine and Heroin Substance Use Frequency: Weekly Advance Directives: No Advance Directives Information Provided: Yes Physical Exam Vital Signs: Vital Signs: Last Vital Signs Temp 99.0 F 07/20/22 10:19 Pulse 66 07/20/22 10:19 Resp 18 07/20/22 10:19 BP 111/68 07/20/22 10:19 Pulse Ox 95 07/20/22 10:19 O2 Del Method 07/20/22 10:19 O2 Flow Rate 2 07/20/22 10:19 BMI result Body Mass Index 27.2 Const: Other: Awake, alert, male patient, able to give a history without any difficulty, he has generalized weakness but is able to move his extremities from side to side but limited movement against gravity secondary to weakness, his weakness is symmetric HEENT: Head: Yes normal to inspection and Yes normocephalic Ears: external ears normal General nose exam: Normal external nose present Face and sinus: Yes other (Ecchymosis to the right inferior orbital rim with tenderness) Mouth: Normal oral and palatal mucosa present Throat: Yes posterior oropharynx normal Eyes: General: appearance normal, both eyes and all related structures Neck: Neck: Yes normal visual inspection, Yes no lymphadenopathy, Yes trachea midline and Yes supple Chest: Chest palpation & inspection: normal inspection of the chest and normal palpation of entire chest wall Resp: Effort & Inspection: normal respiratory effort and able to speak in complete sentences Auscultation: clear to auscultation bilaterally Cardio: Rate: regular rate Rhythm: regular rhythm Heart sounds: S1 normal heart sound present, S2 normal heart sound present and no murmurs GI: Other: Patient's abdomen does appear to be distended, he has diffuse moderate to severe tenderness, he has detectable bowel sounds but this sound diminished : General: Yes no CVA tenderness Back/Spine/Pelvis: Back: no CVA tenderness Skin: General skin exam: no rashes or lesions noted Neuro: Other: Patient is awake and alert, oriented to person place, cranial nerves are intact, the patient has symmetric weakness of his upper and lower extremities Extrem: General: Yes normal to inspection Psych: Appearance: grossly normal Speech and movement: Normal speech and movement present Affect: normal affect Attitude: cooperative Thought process: Normal thought process present Thought content: Normal thought content present Medications Administered Discontinued Medications Generic Name Dose Route Start Last Admin Trade Name Charla PRN Reason Stop Dose Admin Sodium Chloride 2,299.71 mls @ 2,299.71 mls/hr 07/20/22 06:53 07/20/22 10:21 Ns 30 ml/kg infuse over 1 hr (2299.71 ml) 07/20/22 07:52 Infused IV Infusion .Q1H STA Iohexol 100 ml 07/20/22 09:44 07/20/22 09:45 Iohexol 350 Mg/Ml 100 Ml Infus..Btl IV 07/20/22 09:45 85 ml ONCE ONE Administration Morphine Sulfate 4 mg 07/20/22 06:53 07/20/22 07:25 Morphine Sulfate 4 Mg/Ml Cartridge IVPUSH 07/20/22 06:54 4 mg ONCE STA Administration Protocol Ondansetron HCl 4 mg 07/20/22 06:53 07/20/22 07:25 Ondansetron Hcl 4 Mg/2 Ml Vial IVPUSH 07/20/22 06:54 4 mg ONCE ONE Administration Medical Decision Making Medical Decision Making MDM Narrative: 36-year-old male patient who presents emergency department for evaluation syncopal episode and fall after using IV cocaine and heroin as well as drinking alcohol. The patient fell in his kitchen and believes that he had a down time of approximately 8 hours. The patient's kitchen door was open and the patient's kitchen was very cold when the paramedics I arrived on the scene. Patient states that he woke up on the kitchen floor and yelled for help in his neighbor called an ambulance. The patient is hypothermic with a temperature of 94.6 degrees most likely secondary to exposure to cold. The patient has evidence of head injury and facial injury with swelling of his right lower orbital rim and tenderness with palpation of this area. Patient also has diffuse abdominal pain with abdominal swelling, concerned that he may have ischemic bowel. Patient is also high risk of rhabdomyolysis. I ordered CBC, BMP, liver profile, BNP, CK, urine tox screen, alcohol level, troponin, lactic acid, lipase, PT/INR, PTT blood cultures x2. Given the patient's fall and his unknown down time, I ordered CT scan of the patient's head, cervical spine, without IV contrast. I ordered CT scan of the chest, abdomen, pelvis with IV contrast. I also ordered right hip x-ray with pelvic x-rays. The patient was placed on a Rodriguez Hugger. The patient is at high risk for rhabdomyolysis I ordered a 30 cc/kilogram normal saline IV bolus, the fluid will be given through a fluid warmer. Patient was also ordered to get morphine 4 mg IV and Zofran 4 mg IV for pain and nausea. 11 20: Laboratory evaluation: My independent interpretation is as follows: CBC normal, CMP revealed elevated AST and ALT of 051624. CK markedly elevated at 31,433 one thousand four hundred thirty three consistent with rhabdomyolysis. Troponin was detectable but not elevated at 14.9. Lactic acid is normal 1.4. COVID-19, influenza and RSV were negative. Urinalysis was positive for blood, microscopic negative for blood which is consistent with rhabdomyolysis. Urine tox screen was positive for opiates, fentanyl and cocaine. Patient most likely had a fentanyl overdose. CT scan of the patient's head, neck and facial bones revealed no acute fracture, bleed. CT scan chest, abdomen pelvis revealed no acute fractures, right lower lobe solid a delvalle which is consistent with an aspiration pneumonia. Patient was also noted to have a distended bladder, he was unable to urinate so Melendrez catheter was placed by the nursing staff. The patient has a normal temperature and was taken off the Rodriguez Hugger. I did order Zofran 4.5 g IV for aspiration pneumonia. Patient has completed his 3 L of warmed normal saline and I will repeat his CK. I will discuss admission with the covering hospitalist. The patient is feeling better after the above treatment but he is requesting more pain medications and he was ordered to get morphine 4 mg IV. Differential Diagnosis Differential diagnosis includes but is not limited to the following: Rhabdomyolysis, skull fracture/intracranial bleed, cervical spine fracture, rib fractures, aspiration pneumonia, ischemic bowel, traumatic bowel injury, spinal fracture, hypothermia secondary to cold exposure, right hip fracture, pelvic fracture Consult Healthcare Provider Management of the patient was discussed with: Hospitalist Lab Data MDM Lab Attestation statement: I reviewed the patient's lab results. Please see MDM from my independent interpretation of laboratories. Result Diagrams: 07/20/22 06:45 07/20/22 06:45 Labs: Lab Results 07/20/22 07/20/22 07/20/22 Range/Units 06:29 06:45 06:45 WBC 9.4 (4.8-10.8) X10*3/uL RBC 5.77 (4.60-5.80) X10*6/uL Hgb 16.4 (14.0-18.0) g/dl Hct 50.1 (42.0-52.0) % MCV 86.8 (80.0-98.0) fL MCH 28.4 (27.0-33.0) pg MCHC 32.7 (31.0-36.0) g/dl RDW 13.1 (11.0-16.0) % Plt Count 208 (160-400) X10*3/uL MPV 9.5 (9.4-12.4) fL Immature Gran % (Auto) 0.2 (0.0-0.4) % Neut % (Auto) 87.2 H (45-73) % Lymph % (Auto) 6.7 L (20-40) % [place] % (Auto) 5.7 (2-11) % Eos % (Auto) 0.0 (0-4) % Baso % (Auto) 0.2 (0-2) % Lymph # (Auto) 0.6 L (1.2-4.9) X10*3/uL [place] # (Auto) 0.5 (0.1-1.2) X10*3/uL Eos # (Auto) 0.0 (0.0-0.4) X10*3/uL Baso # (Auto) 0.0 (0.0-0.2) X10*3/uL Abs Immat Gran (auto) 0.02 (0.00-0.03) X10*3/uL Absolute Neuts (auto) 8.2 (2.0-8.3) x10*3/uL Absolute Nucleated RBC 0.000 (0.0-0.012) X10*3/uL Nucleated RBC % (auto) 0.0 (0.0-0.2) /100WBC Sodium 139 (135-145) mmol/L Potassium 4.5 D (3.3-5.1) mmol/L Chloride 100 (96-108) mmol/L Carbon Dioxide 28 (22-29) mmol/L Anion Gap 16 (12-20) BUN 16 (9-16) mg/dL Creatinine 1.05 (0.5-1.4) mg/dL Estim Creat Clear Calc 93.9 Estimated GFR > 60 POC Glucose 115 (60-115) mg/dL Random Glucose 114 (60-115) mg/dL Lactic Acid (0.5-2.0) mmol/L Calcium 9.8 (8.4-10.2) mg/dL Total Bilirubin 0.6 (0.0-1.0) mg/dL Direct Bilirubin 0.3 (0.0-0.5) mg/dL AST 489 H (5-37) U/L ALT 145 H (0-40) U/L Alkaline Phosphatase 72 (39-117) U/L Total Creatine Kinase (38-174) U/L Troponin I High Sens (<3.5-35.0) ng/L B-Natriuretic Peptide (<100) pg/mL Total Protein 7.5 (6.5-8.0) g/dL Albumin 4.3 (3.5-5.0) g/dL Lipase 18 (8-78) U/L TSH 0.35 (0.32-4.0) uIU/mL Urine Color Urine Appearance Urine pH (5.0-9.0) Ur Specific [place] (1.005-1.025) Urine Protein (Neg-Trace) mg/dL Urine Glucose (UA) (Negative) mg/dL Urine Ketones (Negative) mg/dL Urine Blood (Negative) Urine Nitrite (Negative) Ur Leukocyte Esterase (Negative) Urine RBC (0-2) /HPF Urine WBC (0-5) /HPF Ur Squamous Epith Cells (0-2) /HPF Urine Bacteria (None Seen) Hyaline Casts (0-2) /LPF Granular Casts Urine Opiates Screen (Not Detect) Urine Fentanyl Screen (Not Detect) Ur Barbiturates Screen (Not Detect) Ur Phencyclidine Scrn (Not Detect) Ur Amphetamines Screen (Not Detect) U Benzodiazepines Scrn (Not Detect) Urine Cocaine Screen (Not Detect) U Marijuana (THC) Screen (Not Detect) Ethyl Alcohol mg/dL Influenza Type A (PCR) (Negative) Influenza Type B (PCR) (Negative) RSV RNA Qual (PCR) (Negative) SARS-CoV-2 RNA (RT-PCR) (Negative) 07/20/22 07/20/22 07/20/22 Range/Units 06:45 06:45 06:45 WBC (4.8-10.8) X10*3/uL RBC (4.60-5.80) X10*6/uL Hgb (14.0-18.0) g/dl Hct (42.0-52.0) % MCV (80.0-98.0) fL MCH (27.0-33.0) pg MCHC (31.0-36.0) g/dl RDW (11.0-16.0) % Plt Count (160-400) X10*3/uL MPV (9.4-12.4) fL Immature Gran % (Auto) (0.0-0.4) % Neut % (Auto) (45-73) % Lymph % (Auto) (20-40) % [place] % (Auto) (2-11) % Eos % (Auto) (0-4) % Baso % (Auto) (0-2) % Lymph # (Auto) (1.2-4.9) X10*3/uL [place] # (Auto) (0.1-1.2) X10*3/uL Eos # (Auto) (0.0-0.4) X10*3/uL Baso # (Auto) (0.0-0.2) X10*3/uL Abs Immat Gran (auto) (0.00-0.03) X10*3/uL Absolute Neuts (auto) (2.0-8.3) x10*3/uL Absolute Nucleated RBC (0.0-0.012) X10*3/uL Nucleated RBC % (auto) (0.0-0.2) /100WBC Sodium (135-145) mmol/L Potassium (3.3-5.1) mmol/L Chloride (96-108) mmol/L Carbon Dioxide (22-29) mmol/L Anion Gap (12-20) BUN (9-16) mg/dL Creatinine (0.5-1.4) mg/dL Estim Creat Clear Calc Estimated GFR POC Glucose (60-115) mg/dL Random Glucose (60-115) mg/dL Lactic Acid 1.4 (0.5-2.0) mmol/L Calcium (8.4-10.2) mg/dL Total Bilirubin (0.0-1.0) mg/dL Direct Bilirubin (0.0-0.5) mg/dL AST (5-37) U/L ALT (0-40) U/L Alkaline Phosphatase (39-117) U/L Total Creatine Kinase (38-174) U/L Troponin I High Sens 14.9 D (<3.5-35.0) ng/L B-Natriuretic Peptide 75 (<100) pg/mL Total Protein (6.5-8.0) g/dL Albumin (3.5-5.0) g/dL Lipase (8-78) U/L TSH (0.32-4.0) uIU/mL Urine Color Urine Appearance Urine pH (5.0-9.0) Ur Specific [place] (1.005-1.025) Urine Protein (Neg-Trace) mg/dL Urine Glucose (UA) (Negative) mg/dL Urine Ketones (Negative) mg/dL Urine Blood (Negative) Urine Nitrite (Negative) Ur Leukocyte Esterase (Negative) Urine RBC (0-2) /HPF Urine WBC (0-5) /HPF Ur Squamous Epith Cells (0-2) /HPF Urine Bacteria (None Seen) Hyaline Casts (0-2) /LPF Granular Casts Urine Opiates Screen (Not Detect) Urine Fentanyl Screen (Not Detect) Ur Barbiturates Screen (Not Detect) Ur Phencyclidine Scrn (Not Detect) Ur Amphetamines Screen (Not Detect) U Benzodiazepines Scrn (Not Detect) Urine Cocaine Screen (Not Detect) U Marijuana (THC) Screen (Not Detect) Ethyl Alcohol mg/dL Influenza Type A (PCR) (Negative) Influenza Type B (PCR) (Negative) RSV RNA Qual (PCR) (Negative) SARS-CoV-2 RNA (RT-PCR) (Negative) 07/20/22 07/20/22 07/20/22 Range/Units 06:45 06:45 10:12 WBC (4.8-10.8) X10*3/uL RBC (4.60-5.80) X10*6/uL Hgb (14.0-18.0) g/dl Hct (42.0-52.0) % MCV (80.0-98.0) fL MCH (27.0-33.0) pg MCHC (31.0-36.0) g/dl RDW (11.0-16.0) % Plt Count (160-400) X10*3/uL MPV (9.4-12.4) fL Immature Gran % (Auto) (0.0-0.4) % Neut % (Auto) (45-73) % Lymph % (Auto) (20-40) % [place] % (Auto) (2-11) % Eos % (Auto) (0-4) % Baso % (Auto) (0-2) % Lymph # (Auto) (1.2-4.9) X10*3/uL [place] # (Auto) (0.1-1.2) X10*3/uL Eos # (Auto) (0.0-0.4) X10*3/uL Baso # (Auto) (0.0-0.2) X10*3/uL Abs Immat Gran (auto) (0.00-0.03) X10*3/uL Absolute Neuts (auto) (2.0-8.3) x10*3/uL Absolute Nucleated RBC (0.0-0.012) X10*3/uL Nucleated RBC % (auto) (0.0-0.2) /100WBC Sodium (135-145) mmol/L Potassium (3.3-5.1) mmol/L Chloride (96-108) mmol/L Carbon Dioxide (22-29) mmol/L Anion Gap (12-20) BUN (9-16) mg/dL Creatinine (0.5-1.4) mg/dL Estim Creat Clear Calc Estimated GFR POC Glucose (60-115) mg/dL Random Glucose (60-115) mg/dL Lactic Acid (0.5-2.0) mmol/L Calcium (8.4-10.2) mg/dL Total Bilirubin (0.0-1.0) mg/dL Direct Bilirubin (0.0-0.5) mg/dL AST (5-37) U/L ALT (0-40) U/L Alkaline Phosphatase (39-117) U/L Total Creatine Kinase 70910 H D (38-174) U/L Troponin I High Sens (<3.5-35.0) ng/L B-Natriuretic Peptide (<100) pg/mL Total Protein (6.5-8.0) g/dL Albumin (3.5-5.0) g/dL Lipase (8-78) U/L TSH (0.32-4.0) uIU/mL Urine Color Dark Yellow Urine Appearance Cloudy Urine pH 6.0 (5.0-9.0) Ur Specific [place] 1.020 (1.005-1.025) Urine Protein 100 (2+) H (Neg-Trace) mg/dL Urine Glucose (UA) Negative (Negative) mg/dL Urine Ketones Negative (Negative) mg/dL Urine Blood Large (3+) H (Negative) Urine Nitrite Negative (Negative) Ur Leukocyte Esterase Trace H (Negative) Urine RBC 0-2 (0-2) /HPF Urine WBC 0-5 (0-5) /HPF Ur Squamous Epith Cells 3-5 (0-2) /HPF Urine Bacteria None Seen (None Seen) Hyaline Casts 6-10 (0-2) /LPF Granular Casts Present Urine Opiates Screen (Not Detect) Urine Fentanyl Screen (Not Detect) Ur Barbiturates Screen (Not Detect) Ur Phencyclidine Scrn (Not Detect) Ur Amphetamines Screen (Not Detect) U Benzodiazepines Scrn (Not Detect) Urine Cocaine Screen (Not Detect) U Marijuana (THC) Screen (Not Detect) Ethyl Alcohol < 10 mg/dL Influenza Type A (PCR) NEGATIVE (Negative) Influenza Type B (PCR) NEGATIVE (Negative) RSV RNA Qual (PCR) NEGATIVE (Negative) SARS-CoV-2 RNA (RT-PCR) NEGATIVE (Negative) 07/20/22 Range/Units 10:12 WBC (4.8-10.8) X10*3/uL RBC (4.60-5.80) X10*6/uL Hgb (14.0-18.0) g/dl Hct (42.0-52.0) % MCV (80.0-98.0) fL MCH (27.0-33.0) pg MCHC (31.0-36.0) g/dl RDW (11.0-16.0) % Plt Count (160-400) X10*3/uL MPV (9.4-12.4) fL Immature Gran % (Auto) (0.0-0.4) % Neut % (Auto) (45-73) % Lymph % (Auto) (20-40) % [place] % (Auto) (2-11) % Eos % (Auto) (0-4) % Baso % (Auto) (0-2) % Lymph # (Auto) (1.2-4.9) X10*3/uL [place] # (Auto) (0.1-1.2) X10*3/uL Eos # (Auto) (0.0-0.4) X10*3/uL Baso # (Auto) (0.0-0.2) X10*3/uL Abs Immat Gran (auto) (0.00-0.03) X10*3/uL Absolute Neuts (auto) (2.0-8.3) x10*3/uL Absolute Nucleated RBC (0.0-0.012) X10*3/uL Nucleated RBC % (auto) (0.0-0.2) /100WBC Sodium (135-145) mmol/L Potassium (3.3-5.1) mmol/L Chloride (96-108) mmol/L Carbon Dioxide (22-29) mmol/L Anion Gap (12-20) BUN (9-16) mg/dL Creatinine (0.5-1.4) mg/dL Estim Creat Clear Calc Estimated GFR POC Glucose (60-115) mg/dL Random Glucose (60-115) mg/dL Lactic Acid (0.5-2.0) mmol/L Calcium (8.4-10.2) mg/dL Total Bilirubin (0.0-1.0) mg/dL Direct Bilirubin (0.0-0.5) mg/dL AST (5-37) U/L ALT (0-40) U/L Alkaline Phosphatase (39-117) U/L Total Creatine Kinase (38-174) U/L Troponin I High Sens (<3.5-35.0) ng/L B-Natriuretic Peptide (<100) pg/mL Total Protein (6.5-8.0) g/dL Albumin (3.5-5.0) g/dL Lipase (8-78) U/L TSH (0.32-4.0) uIU/mL Urine Color Urine Appearance Urine pH (5.0-9.0) Ur Specific [place] (1.005-1.025) Urine Protein (Neg-Trace) mg/dL Urine Glucose (UA) (Negative) mg/dL Urine Ketones (Negative) mg/dL Urine Blood (Negative) Urine Nitrite (Negative) Ur Leukocyte Esterase (Negative) Urine RBC (0-2) /HPF Urine WBC (0-5) /HPF Ur Squamous Epith Cells (0-2) /HPF Urine Bacteria (None Seen) Hyaline Casts (0-2) /LPF Granular Casts Urine Opiates Screen POSITIVE H (Not Detect) Urine Fentanyl Screen POSITIVE H (Not Detect) Ur Barbiturates Screen Not Detected (Not Detect) Ur Phencyclidine Scrn Not Detected (Not Detect) Ur Amphetamines Screen Not Detected (Not Detect) U Benzodiazepines Scrn Not Detected (Not Detect) Urine Cocaine Screen POSITIVE H (Not Detect) U Marijuana (THC) Screen Not Detected (Not Detect) Ethyl Alcohol mg/dL Influenza Type A (PCR) (Negative) Influenza Type B (PCR) (Negative) RSV RNA Qual (PCR) (Negative) SARS-CoV-2 RNA (RT-PCR) (Negative) Independent Interpretation I performed an independent interpretation of an: EKG Interpretation: 0 7 1 3: My independent interpretation of the patient's EKG done at 06:27 hours: Normal sinus rhythm rate of 62, normal PA interval of 146 milliseconds, prolonged QRS duration of 104 milliseconds, normal QTC interval of 403 milliseconds, inverted T-waves in lead 1, V2 and V3, ST segment elevation 1 mm in V2 V3 and V4, no ST segment depression, no PVCs, no PACs. Compared to EKG dated 05/28/2022 the inverted T-waves and ST segment elevations are not new. Radiology Impression Discussion of test interpretation with radiology: I have reviewed the radiologist's reading. Radiologist Impression: CT chest, abdomen, pelvis with IV contrast: IMPRESSION: 1. No evidence of a traumatic injury in the chest, abdomen or pelvis. 2. Extensive right-sided pneumonia. Infectious etiologies are considerations as is aspiration given this patient's history. 3. Distended bladder. Consider Melendrez catheter is patient cannot void. Fleischner guidelines were followed. Dictated By:Rolando Borrero MDSigned By:<Electronically signed by Rolando Borrero MD in [place]>07/20/[address] scan head, cervical spine and facial bones Critical Care Time Critical Care Time Critical Care Time: Yes Total Critical Care Time: 65 Attestation: Critical Care: The patient was critically ill with a high probability of imminent or life threatening deterioration. I spent greater than 30 minutes of discontinuous time evaluating the patient,delivering critical care at the bedside, discussing and evaluating pertinent data with consultants. Critical care time does not include time spent performing separately billable procedures or teaching. Total time spent performing critical care was 55 minutes. Discharge Plan Discharge Patient Disposition: Admitted As Inpatient Prescriptions: No Action No Known Home Meds Interventions: [place]-Suicide Risk Severity Scale Last Done: 07/20/22 07:31
[2022-07-20 07:04] LABS: Lactic Acid 1.4 mmol/L (0.5-2.0)
[2022-07-20 07:11] LABS: Alanine Aminotransferase 145 U/L (0-40); Albumin Level 4.3 g/dL (3.5-5.0); Alkaline Phosphatase 72 U/L (39-117); Anion Gap 16 (12-20); Aspartate Amino Transferase 489 U/L (5-37); Bilirubin Direct 0.3 mg/dL (0.0-0.5); Bilirubin Total 0.6 mg/dL (0.0-1.0); Blood Urea Nitrogen 16 mg/dL (9-16); Calcium 9.8 mg/dL (8.4-10.2); Carbon Dioxide 28 mmol/L (22-29); Chloride 100 mmol/L (96-108); Creatinine Clr Calc Pharmacy 93.9; Estimated Glomerular Filt Rate > 60; Glucose Random 114 mg/dL (60-115); Lipase 18 U/L (8-78); Potassium 4.5 mmol/L (3.3-5.1); Sodium 139 mmol/L (135-145); Total Protein 7.5 g/dL (6.5-8.0)
[2022-07-20 07:12] LABS: Ethanol < 10 mg/dL
[2022-07-20 07:17] LABS: B Type Natriuretic Peptide 75 pg/mL (<100)
[2022-07-20 07:21] LABS: Troponin-I High Sensitivity 14.9 ng/L (<3.5-35.0)
[2022-07-20] MEDS: ondansetron HCL 4 MG/2 ML VIAL IVPUSH ×2 (07:25→21:09)
[2022-07-20] MEDS: Morphine Sulfate 4 MG/ML CARTRIDGE IVPUSH ×4 (07:25→21:09)
[2022-07-20 07:29] VITALS: BP 136/87; PULSE 55; RESP 18; O2SAT 100
[2022-07-20 07:30] LABS: Influenza A PCR NEGATIVE (Negative); Influenza B PCR NEGATIVE (Negative); Resp Syncy Virus RNA Qual PCR NEGATIVE (Negative); SARS COV2 PCR INHOUSE NEGATIVE (Negative)
--- NOTE | 2022-07-20 07:37 | PC.NURSE ---
pt is sleepy but easily arousable, skin appropriate for ethnicity, respirations even and unlabored, pupils pin point but reactive, pt reports bilateral shoulder pain, pain at 6/10, daryl to normal sinus on the monitor, bp stable, and the bear hugger on and fluids running through the warmer.
[2022-07-20 07:49] LABS: TSH reflex Free T4 0.35 uIU/mL (0.32-4.0)
--- NOTE | 2022-07-20 07:59 | PHA.MEDREC ---
Pharmacy Consult ? Medication Reconciliation Pharmacy has completed the medication reconciliation. Spoke to patient at bedside, however, the patient was very out of it. He mentioned he does not know his meds, he takes whats prescribed and told me he picks up at [facility]. Called [facility] and [place] near [facility] and they have no claims. Patient has no claim history available other than a doxycycline from [facility] a couple months ago. In the midst of talking to the patient he briefly mentioned metformin but did not say a dose or anything. Could not find a metformin claim.
[2022-07-20] MEDS: iohexoL 350 MG/ML 100 ML INFUS..BTL IV (09:45)
--- NOTE | 2022-07-20 10:16 | PC.NURSE ---
pt reporting need to urinate, pt unable to voide at this time, having lots of pain and pressure, unable to find the bladder scannermd aware, plan to insert a alvarez- alvarez in place about 750ml of tea color urine. core team at 99.0, the bear hugger off at this time
[2022-07-20 10:19] VITALS: BP 111/68; PULSE 66; RESP 18; TEMP 37.2; O2SAT 95
[2022-07-20 10:38] LABS: Amphetamine Screen Urine Not Detected (Not Detect); Barbiturates, Urine Not Detected (Not Detect); Benzodiazepines Screen Urine Not Detected (Not Detect); Cannabinoid Screen Urine Not Detected (Not Detect); Cocaine Screen Urine POSITIVE (Not Detect); Fentanyl, urine POSITIVE (Not Detect); Opiate Screen Urine POSITIVE (Not Detect); Phencyclidine Screen Urine Not Detected (Not Detect)
[2022-07-20 10:44] LABS: Appearance Urine Cloudy; Glucose Urine UA Negative (Negative); Leukocyte Esterase Urine Trace (Negative); Nitrite Urine Negative (Negative); UMIC TRIGGER UACC YES; Urine Blood Large (3+) (Negative); Urine Ketones Negative (Negative); Urine Protein 100 (2+) mg/dL (Neg-Trace)
[2022-07-20 10:45] LABS: Color Urine Dark Yellow
[2022-07-20 10:46] LABS: Bacteria Urine None Seen (None Seen); Granular Casts Urine Present; RBC Urine 0-2 /HPF (0-2); WBC Urine 0-5 /HPF (0-5)
--- NOTE | 2022-07-20 11:38 | P.HPHOSP_ITS ---
History of Present Illness Date of Service: 07/20/22 Attending physician on admission: Steve Edwards Chief Complaint: Opiate Overdose Pt is a 36-year-old male with a PMH significant for?opiate use disorder and diabetes who presents to the ED after an apparent overdose. Patient injected heroin abuse cocaine last night, went to kitchen and then passed out. Was on the floor unresponsive for an undetermined amount of time, somewhere between 4 and 8 hours. When he awoke he could not move and called out to a neighbor who called for an ambulance. Patient complains of overall body weakness and numbness especially in his hands and feet. Also has tingling in fingertips and toes. Patient also complains of right sided facial pain where he says he likely struck the floor. Endorses abdominal pain as well. Patient said he has not been able to urinate on his own. In the ED patient was hypothermic 94.6 F. Labs were significant for no leukocytosis, AST 489, ALT of 145, creatinine kinase 31,433. Tox screen positive for opiates, fentanyl, cocaine. CT?of head, face, cervical spine were negative for acute intracranial pathology. CT of chest and abdomen found no evidence of traumatic injury to chest abdomen pelvis, were positive for extensive right- sided pneumonia with likely etiology of aspiration. Also found bladder distended. EKG negative for acute ischemia. Pt was placed in a Bear Hugger and treated with 3 L of warm saline and treated with morphine and Zosyn. Pt will be admitted to the hospital for treatment of rhabdomyolysis with aggressive IV fluids. Review of Systems Review of Systems: Generalized body weakness and the numbness Tingling in fingers and toes Diffuse abdominal pain 10/10 Right-sided facial pain and swelling Yes all other systems are reviewed and are negative [facility] Family History (Updated 07/20/22 @ 12:42 by GENTRY Smith) Father HTN (hypertension) Diabetes Social History Alcohol intake: current Alcohol intake frequency: a few times a week Smoked in Last 30 Days: Yes Use of substances other than those prescribed or required for medical reasons: Yes Substance Use Type: Crack/Cocaine and Heroin Substance Use Frequency: Weekly Advance Directives: No Advance Directives Information Provided: Yes Meds Allergies Allergy/AdvReac Type Severity Reaction Status Date / Time No Known Allergies Allergy Verified 05/28/22 15:29 Active Medications: Current Medications Lactated Ringer's (Lr) 1,000 mls @ 150 mls/hr IVCONT .[id number] [facility] Pharmacy Consult (Consult Rx Perform Med Rec) 1 each MISCELLANE ONCE PRN PRN Reason: Consult order Home Medications Medication Instructions Recorded Confirmed Last Taken Type No Known Home Meds 07/20/22 07/20/22 Unknown History Physical Exam Vital Signs and Narrative: Vital Signs: Last Vital Signs Temp 99.0 F 07/20/22 10:19 Pulse 66 07/20/22 10:19 Resp 18 07/20/22 10:19 BP 111/68 07/20/22 10:19 Pulse Ox 95 07/20/22 10:19 O2 Del Method 07/20/22 10:19 O2 Flow Rate 2 07/20/22 10:19 BMI result Body Mass Index 27.2 Constitutional: Somnolent, in no acute distress. Mental Status: Oriented to person, place and time. Eyes: Pupils are equal, round, and reactive to light. Ear, Nose, and Throat: Oropharynx clear, mucous membranes moist. Ears and nose without deformities. Trachea midline. Respiratory: Diffuse expiratory rhonci bilaterally. Cardiovascular: S1, S2 regular. No murmurs, rubs, or gallops. Gastrointestinal: Abdomen soft, diffusely tender, non-distended. Normal bowel sounds. Radial and dorsalis pedal pulses 2+ Genitourinary: Alvarez in place, draining dark brown urine Neurologic: Cranial nerves II-XI are grossly intact. No focal neurological deficits. Skin: No rashes or lesions noted. Musculoskeletal: Reduced strength throughout, unable to move legs, feet, or toes. Fingers cool to the touch bilaterally, cap refill diminished Extremities: No edema. Psychiatric: Normal mood and affect. Results Labs 07/21/22 04:22 07/21/22 04:22 Labs: Laboratory Results - last 24 hr 07/20/22 07/20/22 07/20/22 06:29 06:45 06:45 MCV 86.8 MCH 28.4 MCHC 32.7 RDW 13.1 Plt Count 208 MPV 9.5 Immature Gran % (Auto) 0.2 Neut % (Auto) 87.2 H Lymph % (Auto) 6.7 L [place] % (Auto) 5.7 Eos % (Auto) 0.0 Baso % (Auto) 0.2 Lymph # (Auto) 0.6 L [place] # (Auto) 0.5 Eos # (Auto) 0.0 Baso # (Auto) 0.0 Abs Immat Gran (auto) 0.02 Absolute Neuts (auto) 8.2 Absolute Nucleated RBC 0.000 Nucleated RBC % (auto) 0.0 Anion Gap 16 Estim Creat Clear Calc 93.9 Estimated GFR > 60 POC Glucose 115 Random Glucose 114 Lactic Acid Calcium 9.8 Total Bilirubin 0.6 Direct Bilirubin 0.3 AST 489 H ALT 145 H Alkaline Phosphatase 72 Total Creatine Kinase Troponin I High Sens B-Natriuretic Peptide Total Protein 7.5 Albumin 4.3 Lipase 18 TSH 0.35 Urine Color Urine Appearance Urine pH Ur Specific [place] Urine Protein Urine Glucose (UA) Urine Ketones Urine Blood Urine Nitrite Ur Leukocyte Esterase Urine RBC Urine WBC Ur Squamous Epith Cells Urine Bacteria Hyaline Casts Granular Casts Urine Opiates Screen Urine Fentanyl Screen Ur Barbiturates Screen Ur Phencyclidine Scrn Ur Amphetamines Screen U Benzodiazepines Scrn Urine Cocaine Screen U Marijuana (THC) Screen Ethyl Alcohol Influenza Type A (PCR) Influenza Type B (PCR) RSV RNA Qual (PCR) SARS-CoV-2 RNA (RT-PCR) 07/20/22 07/20/22 07/20/22 06:45 06:45 06:45 MCV MCH MCHC RDW Plt Count MPV Immature Gran % (Auto) Neut % (Auto) Lymph % (Auto) [place] % (Auto) Eos % (Auto) Baso % (Auto) Lymph # (Auto) [place] # (Auto) Eos # (Auto) Baso # (Auto) Abs Immat Gran (auto) Absolute Neuts (auto) Absolute Nucleated RBC Nucleated RBC % (auto) Anion Gap Estim Creat Clear Calc Estimated GFR POC Glucose Random Glucose Lactic Acid 1.4 Calcium Total Bilirubin Direct Bilirubin AST ALT Alkaline Phosphatase Total Creatine Kinase Troponin I High Sens 14.9 D B-Natriuretic Peptide 75 Total Protein Albumin Lipase TSH Urine Color Urine Appearance Urine pH Ur Specific [place] Urine Protein Urine Glucose (UA) Urine Ketones Urine Blood Urine Nitrite Ur Leukocyte Esterase Urine RBC Urine WBC Ur Squamous Epith Cells Urine Bacteria Hyaline Casts Granular Casts Urine Opiates Screen Urine Fentanyl Screen Ur Barbiturates Screen Ur Phencyclidine Scrn Ur Amphetamines Screen U Benzodiazepines Scrn Urine Cocaine Screen U Marijuana (THC) Screen Ethyl Alcohol Influenza Type A (PCR) Influenza Type B (PCR) RSV RNA Qual (PCR) SARS-CoV-2 RNA (RT-PCR) 07/20/22 07/20/22 07/20/22 06:45 06:45 10:12 MCV MCH MCHC RDW Plt Count MPV Immature Gran % (Auto) Neut % (Auto) Lymph % (Auto) [place] % (Auto) Eos % (Auto) Baso % (Auto) Lymph # (Auto) [place] # (Auto) Eos # (Auto) Baso # (Auto) Abs Immat Gran (auto) Absolute Neuts (auto) Absolute Nucleated RBC Nucleated RBC % (auto) Anion Gap Estim Creat Clear Calc Estimated GFR POC Glucose Random Glucose Lactic Acid Calcium Total Bilirubin Direct Bilirubin AST ALT Alkaline Phosphatase Total Creatine Kinase 93802 H D Troponin I High Sens B-Natriuretic Peptide Total Protein Albumin Lipase TSH Urine Color Dark Yellow Urine Appearance Cloudy Urine pH 6.0 Ur Specific [place] 1.020 Urine Protein 100 (2+) H Urine Glucose (UA) Negative Urine Ketones Negative Urine Blood Large (3+) H Urine Nitrite Negative Ur Leukocyte Esterase Trace H Urine RBC 0-2 Urine WBC 0-5 Ur Squamous Epith Cells 3-5 Urine Bacteria None Seen Hyaline Casts 6-10 Granular Casts Present Urine Opiates Screen Urine Fentanyl Screen Ur Barbiturates Screen Ur Phencyclidine Scrn Ur Amphetamines Screen U Benzodiazepines Scrn Urine Cocaine Screen U Marijuana (THC) Screen Ethyl Alcohol < 10 Influenza Type A (PCR) NEGATIVE Influenza Type B (PCR) NEGATIVE RSV RNA Qual (PCR) NEGATIVE SARS-CoV-2 RNA (RT-PCR) NEGATIVE 07/20/22 10:12 MCV MCH MCHC RDW Plt Count MPV Immature Gran % (Auto) Neut % (Auto) Lymph % (Auto) [place] % (Auto) Eos % (Auto) Baso % (Auto) Lymph # (Auto) [place] # (Auto) Eos # (Auto) Baso # (Auto) Abs Immat Gran (auto) Absolute Neuts (auto) Absolute Nucleated RBC Nucleated RBC % (auto) Anion Gap Estim Creat Clear Calc Estimated GFR POC Glucose Random Glucose Lactic Acid Calcium Total Bilirubin Direct Bilirubin AST ALT Alkaline Phosphatase Total Creatine Kinase Troponin I High Sens B-Natriuretic Peptide Total Protein Albumin Lipase TSH Urine Color Urine Appearance Urine pH Ur Specific [place] Urine Protein Urine Glucose (UA) Urine Ketones Urine Blood Urine Nitrite Ur Leukocyte Esterase Urine RBC Urine WBC Ur Squamous Epith Cells Urine Bacteria Hyaline Casts Granular Casts Urine Opiates Screen POSITIVE H Urine Fentanyl Screen POSITIVE H Ur Barbiturates Screen Not Detected Ur Phencyclidine Scrn Not Detected Ur Amphetamines Screen Not Detected U Benzodiazepines Scrn Not Detected Urine Cocaine Screen POSITIVE H U Marijuana (THC) Screen Not Detected Ethyl Alcohol Influenza Type A (PCR) Influenza Type B (PCR) RSV RNA Qual (PCR) SARS-CoV-2 RNA (RT-PCR) Imaging Radiologist's Impressions: Impressions Face CT 07/20/22 09:41 IMPRESSION: 1. No acute intracranial pathology. 2. Mild soft tissue swelling overlying the left paramedian posterior scalp without underlying bony defect. Head CT 07/20/22 09:41 IMPRESSION: 1. No acute intracranial pathology. 2. Mild soft tissue swelling overlying the left paramedian posterior scalp without underlying bony defect. Abdomen/Pelvis CT 07/20/22 09:42 IMPRESSION: 1. No evidence of a traumatic injury in the chest, abdomen or pelvis. 2. Extensive right-sided pneumonia. Infectious etiologies are considerations as is aspiration given this patient's history. 3. Distended bladder. Consider Alvarez catheter is patient cannot void. Fleischner guidelines were followed. Chest CT 07/20/22 09:42 IMPRESSION: 1. No evidence of a traumatic injury in the chest, abdomen or pelvis. 2. Extensive right-sided pneumonia. Infectious etiologies are considerations as is aspiration given this patient's history. 3. Distended bladder. Consider Alvarez catheter is patient cannot void. Fleischner guidelines were followed. Assessment and Plan (1) Accidental overdose of non-opiate analgesics: Status: Acute (2) Cocaine use disorder: Status: Acute (3) Rhabdomyolysis: Qualifiers: Rhabdomyolysis type: non-traumatic Qualified Code(s): M62.82 - Rhabdomyolysis Status: Acute (4) Pneumonia: Qualifiers: Laterality: right Lung location: lower lobe of lung Pneumonia type: aspiration pneumonia Status: Acute (5) Acute urinary retention: Status: Acute Plan Pt is a 36-year-old male with a PMH significant for?opiate use disorder and diabetes who presents to the ED after an apparent overdose with LOC and unknown period of unresponsiveness, likely 48 hours long. Patient remained in hospital for treatment of rhabdomyolysis with aggressive IV fluids. Rhabdomyolysis Creatinine kinase 31,433 at time of presentation Urine dark brown Aggressive volume expansion with IVF Bicarb Keep alvarez in until can urinate on own Repeat labs tomorrow Hypothermia, resolved Patient's temperature 94.6 degrees presentation, now 99.0 F Patient placed on Bear Hugger in ED Given 3 L of warmed saline Cool upper extremities Pt's fingers still cool to the touch, 0/5 ROM and strength Radial pulses intact Should improve with IVF Question of aspiration pneumonia CT showed evidence of extensive right-sided pneumonia consistent with aspiration No leukocytosis, physical exam revealed diffuse rhonchi Zosyn q6, 1 day/7 Opioid use disorder Morphine for pain and as a bridge to methadone [place] medicine consult [id number] DM 2 Prescribed metformin but has not been taking SSI Full Code Attending:?Dr. Suarez DVT Prophylaxis: Lovenox Pt will require a hospitalization of at least two nights for treatment of?rhabdomyolysis with aggressive volume expansion with IVF. Time Spent With Patient Time: Total time managing care of this patient today ____ minutes. Quality Stroke Does the patient have a stroke diagnosis?: No VTE Prior VTE?: No VTE Risk Level:: Medical - moderate - high VTE Device Contraindication: Treatment Not Indicated VTE Drug Contraindication: N/A - Med Ordered
[2022-07-20] MEDS: Piperacillin Sodium/Tazobactam 4.5 GM in 0.9 % Sodium Chloride 100 ML IV ×2 (11:51→18:44)
[2022-07-20] MEDS: Lactated Ringers 1,000 ML 150 ML IVCONT ×2 (11:51→19:11)
[2022-07-20 14:23] VITALS: BP 129/65; PULSE 64; RESP 19; O2SAT 95
[2022-07-20] MEDS: Sodium Bicarbonate 8.4% 150 MEQ in Dextrose 5 % 850 ML 100 MEQ IV (14:41)
[2022-07-20] MEDS: Lactated Ringers 1,000 ML 999 ML IV ×2 (14:41)
--- NOTE | 2022-07-20 16:46 | MHC.RECOVRN ---
This automobile and property underwriter met w/ patient, patient awake, sitting up in bed. Patient reports using 1-2 times per week a dime of heroin, and a dime of KT, ETOH 2 shots per week. Patient reports this is first overdose. Patient reports no history of substance use treatment, no history of medications for opiate use. This automobile and property underwriter reviewed MAT for opiates. Patient reports not interested at this time. Harm reduction reviewed. Patient agreeable to meet with Addiction team tomorrow, as patient reports lots of physical discomfort currently. This automobile and property underwriter inquired about s/s of withdrawal, patient replied its hard to tell whats going on in my body. Will check in with patient tomorrow.
[2022-07-20 17:22] VITALS: BP 122/82; PULSE 63; RESP 19; O2SAT 92
[2022-07-20] MEDS: Acetaminophen 325 MG TABLET 650 MG PO (17:37)
[2022-07-20 20:35] LABS: Glucose, Whole Blood 119 mg/dL (60-115)
[2022-07-20 20:35] LABS: Glucose, Whole Blood 126 mg/dL (60-115)
[2022-07-20 20:57] VITALS: BP 128/77; PULSE 64; RESP 22; TEMP 36.4; O2SAT 91
--- NOTE | 2022-07-20 21:01 | MHC.EDTECH ---
pt is watching tv , he was put on 2 liters of O2 he stated he had trouble breathing, and in pain . his bed was lower down for comfort. vitals were taken and POC was done , his alvarez bag was leaking has a pin hole in it must of been rolled over
[2022-07-21] VITALS (8 sets, daily range): BP systolic 112–136; BP diastolic 60–79; PULSE 52–75; RESP 11–19; TEMP 36.7–38.2; O2SAT 94–98
[2022-07-21] MEDS: Sodium Bicarbonate 8.4% 150 MEQ in Dextrose 5 % 850 ML 100 MEQ IV ×3 (00:24→21:26)
[2022-07-21] MEDS: Piperacillin Sodium/Tazobactam 4.5 GM in 0.9 % Sodium Chloride 100 ML IV ×4 (00:25→18:19)
[2022-07-21] MEDS: Morphine Sulfate 4 MG/ML CARTRIDGE IVPUSH ×5 (01:08→21:21)
[2022-07-21] MEDS: Lactated Ringers 1,000 ML 150 ML IVCONT ×4 (01:29→21:29)
[2022-07-21] MEDS: Acetaminophen 325 MG TABLET 650 MG PO ×3 (04:12→19:53)
[2022-07-21 05:12] LABS: Hematocrit 37.4 % (42.0-52.0); Hemoglobin 12.3 g/dl (14.0-18.0); Mean Corpuscular HGB Conc 32.9 g/dl (31.0-36.0); Mean Corpuscular Hemoglobin 29.3 pg (27.0-33.0); Mean Platelet Volume 10.2 fL (9.4-12.4); Platelet Count 160 X10*3/uL (160-400); Red Cell Distribution Width 13.3 % (11.0-16.0); White Blood Count 7.1 X10*3/uL (4.8-10.8)
[2022-07-21 05:31] LABS: Anion Gap 10 (12-20); Blood Urea Nitrogen 8 mg/dL (9-16); Calcium 8.1 mg/dL (8.4-10.2); Carbon Dioxide 30 mmol/L (22-29); Chloride 106 mmol/L (96-108); Creatinine Clr Calc Pharmacy 99.6; Estimated Glomerular Filt Rate > 60; Glucose Random 125 mg/dL (60-115); Sodium 142 mmol/L (135-145)
--- NOTE | 2022-07-21 06:50 | PC.NURSE ---
Patient c/o 8/10 generalized pain. Morphine administered as ordered with good effect. Patient resting comfortably.
[2022-07-21 07:21] LABS: Glucose, Whole Blood 100 mg/dL (60-115)
--- NOTE | 2022-07-21 09:17 | P.PNIM_ITS ---
Subjective Subjective Date of Service: 07/21/22 Interval History: Patient is feeling much better today, continued to have pain in the fingers and difficulty moving the fingers. No longer hypoxic Review of Systems Generalized body weakness and the numbness Tingling in fingers and toes Diffuse abdominal pain 10/10 Right-sided facial pain and swelling Physical Exam Vital Signs: Vital Signs: Last Vital Signs Temp 98.0 F 07/21/22 00:00 Pulse 56 07/21/22 08:06 Resp 17 07/21/22 08:06 BP 112/66 07/21/22 08:06 Pulse Ox 94 07/21/22 08:06 O2 Del Method 07/21/22 08:06 O2 Flow Rate 2 07/21/22 04:09 BMI result Body Mass Index 27.2 Const: Other: General: AO X 3, no acute distress Resp: CTA bilateral CVS: S1,S2,RRR GI: +BS, NT, no distention Skin: extremities are slightly cool on fingers, no sings of frosbite Neuro: motor grossly intact Psych: appropriate affect Objective Data Active Medications Acetaminophen (Acetaminophen 325 Mg Tablet) 650 mg PO Q6H PRN PRN Reason: Pain, Mild (Pain Scale 1-3) Last Admin: 07/21/22 04:12 Dose: 650 mg Documented By: ROSA M Dextrose (Dextrose 50 % 25 Gm/50 Ml Syringe) 25 gm IVPUSH Q15M PRN; Protocol PRN Reason: per Hypoglycemia Standing Ord. Docusate Sodium (Docusate Sodium 100 Mg Capsule) 100 mg PO DAILY PRN PRN Reason: Constipation Enoxaparin Sodium (Enoxaparin Sodium 40 Mg/0.4 Ml Syringe) 40 mg SUBCUT Q24H [facility] Last Admin: 07/20/22 15:46 Dose: Not Given Documented By: KOLE-LLOYD Non-Admin Reason: Patient Refused Glucose (Glucose Gel 15 Gm Gel..Gram.) 15 gm PO Q15M PRN; Protocol PRN Reason: per Hypoglycemia Standing Ord. Lactated Ringer's (Lr) 1,000 mls @ 150 mls/hr IVCONT .Q6H40M [facility] Last Admin: 07/21/22 06:17 Dose: 150 mls/hr Documented By: ROSA M Piperacillin Sod/Tazobactam (Sod 4.5 gm/ Sodium Chloride) 100 mls @ 200 mls/hr IV Q6H [facility] Last Infusion: 07/21/22 06:52 Dose: 200 mls/hr Documented By: ROSA M Sodium Bicarbonate 150 meq/ (Dextrose) 1,000 mls @ 100 mls/hr IV .Q10H [facility] Last Admin: 07/21/22 00:24 Dose: 100 mls/hr Documented By: ROSA M Insulin Human Lispro (Insulin Lispro 100 Unit/Ml 3 Ml Vial) 0 unit SUBCUT QIDACHS [facility]; Protocol Last Admin: 07/21/22 07:08 Dose: Not Given Documented By: AURORA Non-Admin Reason: No Insulin Coverage Comments: 100 Morphine Sulfate (Morphine Sulfate 4 Mg/Ml Cartridge) 4 mg IVPUSH Q4H PRN; Protocol PRN Reason: Pain, Severe (Pain Scale 7-10) Last Admin: 07/21/22 06:05 Dose: 4 mg Documented By: ROSA M Ondansetron HCl (Ondansetron Hcl 4 Mg/2 Ml Vial) 4 mg IVPUSH Q8H PRN PRN Reason: Nausea and Vomiting Last Admin: 07/20/22 21:09 Dose: 4 mg Documented By: HE Pharmacy Consult (Consult Rx Perform Med Rec) 1 each MISCELLANE ONCE PRN PRN Reason: Consult order Sodium Chloride (0.9 % Sodium Chloride Flush 3 Ml Syringe) 3 ml IVFLUSH QSHIFT [facility] Last Admin: 07/21/22 07:09 Dose: Not Given Documented By: AURORA Non-Admin Reason: IV Running Labs 07/21/22 04:22 07/21/22 04:22 Labs: Laboratory Results - last 24 hr 07/20/22 07/20/22 07/20/22 10:12 10:12 11:43 MCV MCH MCHC RDW Plt Count MPV Absolute Nucleated RBC Nucleated RBC % (auto) Anion Gap Estim Creat Clear Calc Estimated GFR POC Glucose Random Glucose Calcium Total Creatine Kinase 81102 H Urine Color Dark Yellow Urine Appearance Cloudy Urine pH 6.0 Ur Specific [place] 1.020 Urine Protein 100 (2+) H Urine Glucose (UA) Negative Urine Ketones Negative Urine Blood Large (3+) H Urine Nitrite Negative Ur Leukocyte Esterase Trace H Urine RBC 0-2 Urine WBC 0-5 Ur Squamous Epith Cells 3-5 Urine Bacteria None Seen Hyaline Casts 6-10 Granular Casts Present Urine Opiates Screen POSITIVE H Urine Fentanyl Screen POSITIVE H Ur Barbiturates Screen Not Detected Ur Phencyclidine Scrn Not Detected Ur Amphetamines Screen Not Detected U Benzodiazepines Scrn Not Detected Urine Cocaine Screen POSITIVE H U Marijuana (THC) Screen Not Detected 07/20/22 07/20/22 07/20/22 13:35 18:32 20:32 MCV MCH MCHC RDW Plt Count MPV Absolute Nucleated RBC Nucleated RBC % (auto) Anion Gap Estim Creat Clear Calc Estimated GFR POC Glucose 119 H 126 H Random Glucose Calcium Total Creatine Kinase 45202 H Urine Color Urine Appearance Urine pH Ur Specific [place] Urine Protein Urine Glucose (UA) Urine Ketones Urine Blood Urine Nitrite Ur Leukocyte Esterase Urine RBC Urine WBC Ur Squamous Epith Cells Urine Bacteria Hyaline Casts Granular Casts Urine Opiates Screen Urine Fentanyl Screen Ur Barbiturates Screen Ur Phencyclidine Scrn Ur Amphetamines Screen U Benzodiazepines Scrn Urine Cocaine Screen U Marijuana (THC) Screen 07/21/22 07/21/22 07/21/22 04:22 04:22 07:07 MCV 89.0 MCH 29.3 MCHC 32.9 RDW 13.3 Plt Count 160 MPV 10.2 Absolute Nucleated RBC 0.000 Nucleated RBC % (auto) 0.0 Anion Gap 10 L Estim Creat Clear Calc 99.6 Estimated GFR > 60 POC Glucose 100 Random Glucose 125 H Calcium 8.1 L D Total Creatine Kinase Urine Color Urine Appearance Urine pH Ur Specific [place] Urine Protein Urine Glucose (UA) Urine Ketones Urine Blood Urine Nitrite Ur Leukocyte Esterase Urine RBC Urine WBC Ur Squamous Epith Cells Urine Bacteria Hyaline Casts Granular Casts Urine Opiates Screen Urine Fentanyl Screen Ur Barbiturates Screen Ur Phencyclidine Scrn Ur Amphetamines Screen U Benzodiazepines Scrn Urine Cocaine Screen U Marijuana (THC) Screen Microbiology Microbiology Results: Microbiology 07/20/22 06:44 Blood Culture - Preliminary Blood - Venous No growth after 24 hours. 07/20/22 06:45 Blood Culture - Preliminary Blood - Venous No growth after 24 hours. Assessment and Plan (1) Accidental overdose of non-opiate analgesics: Status: Acute (2) Cocaine use disorder: Status: Acute (3) Rhabdomyolysis: Status: Acute (4) Opiate use: Status: Acute Plan Pt is a 36-year-old male with a PMH significant for?opiate use disorder and diabetes who presents to the ED after an apparent overdose with LOC and unknown period of unresponsiveness, likely 48 hours long. Patient remained in hospital for treatment of rhabdomyolysis with aggressive IV fluids. Rhabdomyolysis Creatinine kinase 31K-->23K same day repeat CPK, continue IVF with baicab follow renal function Hypothermia, resolved Patient's temperature 94.6 degrees presentation, now 99.0 F Patient placed on Bear Hugger in ED Given 3 L of warmed saline Cool upper extremities but ashlie frosbite Pt's fingers still cool to the touch, 0/5 ROM and strength Radial pulses intact Should improve with IVF Aspiration pneumonia as shown on CT, continue Zosyn, once improve change to Augmentin Opioid use disorder Morphine for pain and as a bridge to methadone Addition medicine consult [id number] DM 2 Prescribed metformin but has not been taking SSI Full Code Attending:?Dr. Suarez DVT Prophylaxis: Lovenox Need for inpatient: Pt will require a hospitalization of at least two nights for treatment of?rhabdomyolysis with aggressive volume expansion with IVF. Time Spent With Patient Time: Total time managing care of this patient today ____ minutes. Quality Stroke Does the patient have a stroke diagnosis?: No VTE Prior VTE?: No VTE Risk Level:: Medical - moderate - high VTE Device Contraindication: Treatment Not Indicated VTE Drug Contraindication: N/A - Med Ordered
--- NOTE | 2022-07-21 10:04 | MHC.EDTECH ---
Pt repositioned with PT, bed in low, locked position. Call chi in reach, able to make needs known.
--- NOTE | 2022-07-21 11:28 | P.CDIC_ITS ---
CDI Concurrent Query Documentation Clarification: PHYSICIAN'S DOCUMENTATION REQUEST Date of Query: 07/21/22 1129 Patient Name: Mikey Lester Admit Date: 07/20/22 Dear Doctor, A review of the medical record indicates additional documentation may be needed. Please review below and update the documentation accordingly. Clinical Indicators: Risk Factors/Clinical Indicators/Treatments Dx. Rhabdomyolysis Patient had a head injury, fell at home, lost consciousness, prolonged time on the floor, right hip pain, headache, [place] [id number] Based on the above, could you clarify in the Progress Notes the appropriate diagnosis, if significant, that supports the above abnormalities and additional evaluation, monitoring, and/or treatment rendered: * Rhabdomyolysis * Traumatic Rhabdomyolysis * Other (please specify) * Unable to determine Use of terms such as suspected, likely, concern for, or probable (associated with a specific diagnosis that is being evaluated, monitored, or treated as if it exists) are acceptable and can be coded in the inpatient setting, when documented at the time of discharge. Thank you, Vanna Mayfield [facility], CDIS Extension: [phone] Please use your independent medical judgment in providing your response. THIS QUERY IS PART OF THE PERMANENT MEDICAL RECORD Provider Response: Other Other Diagnosis: rhabdomylosis,
--- NOTE | 2022-07-21 11:32 | MHC.RECOVRN ---
Attempted to meet with pt this morning to follow up regarding substance use. Pt falling asleep during conversation, requesting t/w to return later. Lucila Epstein APRN, aware.
--- NOTE | 2022-07-21 12:24 | MHC.EDTECH ---
Melendrez catheter emptied and recorded. Pt repositioned for comfort
[2022-07-21 13:02] LABS: Glucose, Whole Blood 74 mg/dL (60-115)
--- NOTE | 2022-07-21 15:19 | PM.CNNEP ---
History of Present Illness Reason for Consult Consult date: 07/21/22 Reason for consult: Rhabdomyolysis management Chief Complaint Chief complaint: I cannot move my feet History of Present Illness Narrative: Mikey is a 36 yo AA male who was admitted after LOC associated with opioid use. He was admitted for management of rhabdomyolysis. He has been receiving IVF and his CPK is slowly improving. I was not notified of this patient's problem but he was on my list of hospital coverage today with no sign out for me to see as a consult. His initial CPK was >30,000. The patient tells me that since yesterday, he has been unable to move his feet or toes. He denies back pain or bowel or bladder dysfunction. He has muscle aches in his legs and hands and arms and paresthesias in his toes and fingers. He also had some right sided facial swelling and pain which is resolving. Review of Systems Review of Systems Paresthesias in fingers and toes Unable to move his toes Unable to flex his ankles numbness in feet right facial discomfort No shortness of breath or chest pain Yes all other systems are reviewed and are negative [facility] Family History Family History Father HTN (hypertension) Diabetes Social History Social History Alcohol intake: current Alcohol intake frequency: a few times a week Smoked in Last 30 Days: Yes Use of substances other than those prescribed or required for medical reasons: Yes Substance Use Type: Crack/Cocaine and Heroin Substance Use Frequency: Weekly Advance Directives: No Advance Directives Information Provided: Yes Meds Allergies Allergy/AdvReac Type Severity Reaction Status Date / Time No Known Allergies Allergy Verified 05/28/22 15:29 Active Medications: Current Medications Acetaminophen (Acetaminophen 325 Mg Tablet) 650 mg PO Q6H PRN PRN Reason: Pain, Mild (Pain Scale 1-3) Last Admin: 07/21/22 04:12 Dose: 650 mg Dextrose (Dextrose 50 % 25 Gm/50 Ml Syringe) 25 gm IVPUSH Q15M PRN; Protocol PRN Reason: per Hypoglycemia Standing Ord. Docusate Sodium (Docusate Sodium 100 Mg Capsule) 100 mg PO DAILY PRN PRN Reason: Constipation Enoxaparin Sodium (Enoxaparin Sodium 40 Mg/0.4 Ml Syringe) 40 mg SUBCUT Q24H [facility] Last Admin: 07/20/22 15:46 Dose: Not Given Glucose (Glucose Gel 15 Gm Gel..Gram.) 15 gm PO Q15M PRN; Protocol PRN Reason: per Hypoglycemia Standing Ord. Lactated Ringer's (Lr) 1,000 mls @ 150 mls/hr IVCONT .Q6H40M [facility] Last Admin: 07/21/22 14:45 Dose: 150 mls/hr Piperacillin Sod/Tazobactam (Sod 4.5 gm/ Sodium Chloride) 100 mls @ 200 mls/hr IV Q6H [facility] Last Infusion: 07/21/22 14:46 Dose: Infused Sodium Bicarbonate 150 meq/ (Dextrose) 1,000 mls @ 100 mls/hr IV .Q10H [facility] Last Admin: 07/21/22 12:34 Dose: 100 mls/hr Insulin Human Lispro (Insulin Lispro 100 Unit/Ml 3 Ml Vial) 0 unit SUBCUT QIDACHS [facility]; Protocol Last Admin: 07/21/22 12:46 Dose: Not Given Morphine Sulfate (Morphine Sulfate 4 Mg/Ml Cartridge) 4 mg IVPUSH Q4H PRN; Protocol PRN Reason: Pain, Severe (Pain Scale 7-10) Last Admin: 07/21/22 12:25 Dose: 4 mg Ondansetron HCl (Ondansetron Hcl 4 Mg/2 Ml Vial) 4 mg IVPUSH Q8H PRN PRN Reason: Nausea and Vomiting Last Admin: 07/20/22 21:09 Dose: 4 mg Pharmacy Consult (Consult Rx Perform Med Rec) 1 each MISCELLANE ONCE PRN PRN Reason: Consult order Sodium Chloride (0.9 % Sodium Chloride Flush 3 Ml Syringe) 3 ml IVFLUSH QSHIFT [facility] Last Admin: 07/21/22 07:09 Dose: Not Given Home Medications Medication Instructions Recorded Confirmed Last Taken Type No Known Home Meds 07/20/22 07/20/22 Unknown History Physical Exam Vital Signs: Last Vital Signs Temp 100.2 F 07/21/22 12:22 Pulse 65 07/21/22 12:22 Resp 11 L 07/21/22 12:22 BP 135/79 07/21/22 12:22 Pulse Ox 95 07/21/22 12:22 O2 Del Method 07/21/22 12:22 O2 Flow Rate 2 07/21/22 04:09 BMI result Body Mass Index 27.2 Const Other: General: AO X 3, no acute distress Resp: CTA bilateral CVS: S1,S2,RRR GI: +BS, NT, no distention Skin: without skin loss or ulceration Legs: no significant edema Unable to flex ankles or wiggle toes on either foot Facial muscles intact on exam Sensation to touch intact at ankles and dorsum of feet HEENT Head: Yes normal to inspection and Yes normocephalic Ears: external ears normal General nose exam: Normal external nose present Face and sinus: Yes other (Ecchymosis to the right inferior orbital rim with tenderness) Mouth: Normal oral and palatal mucosa present Throat: Yes posterior oropharynx normal Eyes General: appearance normal, both eyes and all related structures Neck Neck: Yes normal visual inspection, Yes no lymphadenopathy, Yes trachea midline and Yes supple Chest Chest palpation & inspection: normal inspection of the chest and normal palpation of entire chest wall Resp Effort & Inspection: normal respiratory effort and able to speak in complete sentences Auscultation: clear to auscultation bilaterally Cardio Rate: regular rate Rhythm: regular rhythm Heart sounds: S1 normal heart sound present, S2 normal heart sound present and no murmurs GI Other: Patient's abdomen does appear to be distended, he has diffuse moderate to severe tenderness, he has detectable bowel sounds but this sound diminished General: Yes no CVA tenderness Back/Spine/Pelvis Back: no CVA tenderness Skin General skin exam: no rashes or lesions noted Neuro Other: Patient is awake and alert, oriented to person place, cranial nerves are intact, the patient has symmetric weakness of his upper and lower extremities Extrem General: Yes normal to inspection Psych Appearance: grossly normal Speech and movement: Normal speech and movement present Affect: normal affect Attitude: cooperative Thought process: Normal thought process present Thought content: Normal thought content present Results Lab Results 07/21/22 04:22 07/21/22 04:22 Lab results: Chemistry 07/20/22 07/21/22 06:45 04:22 Sodium 139 142 Potassium 4.5 D 4.0 Carbon Dioxide 28 30 H BUN 16 8 L Creatinine 1.05 0.99 Calcium 9.8 8.1 L D Hematology 07/20/22 07/21/22 06:45 04:22 WBC 9.4 7.1 Hgb 16.4 12.3 L D Plt Count 208 160 Urinalysis 07/20/22 10:12 Urine Color Dark Yellow Urine Appearance Cloudy Urine pH 6.0 Ur Specific [place] 1.020 Urine Protein 100 (2+) H Urine Glucose (UA) Negative Urine Ketones Negative Urine Blood Large (3+) H Urine Nitrite Negative Ur Leukocyte Esterase Trace H Urine RBC 0-2 Urine WBC 0-5 Ur Squamous Epith Cells 3-5 Hyaline Casts 6-10 Assessment and Plan (1) Rhabdomyolysis: Qualifiers: Rhabdomyolysis type: non-traumatic Qualified Code(s): M62.82 - Rhabdomyolysis Status: Acute (2) Cocaine use disorder: Status: Acute (3) Opiate use: Status: Acute Plan Pt is a 36-year-old male with a PMH significant for?opiate use disorder and diabetes who presents to the ED after an apparent overdose with LOC and unknown period of unresponsiveness, likely 48 hours long. Patient remained in hospital for treatment of rhabdomyolysis with aggressive IV fluids. His bicarb now is 30 and renal function is normal. He is claiming he cannot move his feet or flex ankles. Pulses are intact but I would advise getting vascular surgical consult to rule out compartment syndrome given history. This could be neuropathic given hx of diabetes. Recommend: Surgical consult/vascular: rule out compartment syndrome Neuro consult to assess for acute spinal or peripheral nerve injury Change fluids to normal saline as now he has alkalosis Track CPK Reduce IVF rate now to 100/hr Time Spent With Patient Time: Total time managing care of this patient today ____ minutes. Procedures Date of Service Date of Service: 07/21/22
--- NOTE | 2022-07-21 16:24 | HO.ADDICT_ITS ---
History of Present Illness Date of Service: 07/21/2022 Chief Complaint: I cannot move my feet Reason for Consult: eval and rec for substance use HPI Narrative: Patient is a 36 year old male currently medically admitted following accidental opioid overdose,rhabdo and frostbite. Patient seen in room 1 overflow area. Awake, alert, somewhat engaged in interview. Patient denies opioid use to this fha underwriter, states opioid overdose was an acc ident as he didn't know he was using it. Difficult to obtain history, as patient presented as guarded and providing minimal responses--very focused on not having feeling in his toes. Denies any withdrawal sx. Denies any history of withdrawal sx. Review of Systems Constitutional: Reports as per HPI Diagnostics Vital Signs (24Hr): Vital Signs - 24 hr 07/20/22 17:22 07/20/22 20:57 07/21/22 00:00 Temperature 97.5 F 98.0 F Pulse Rate 63 64 58 Respiratory Rate 19 22 H 19 Blood Pressure 122/82 128/77 112/70 Pulse Oximetry 92 91 L 96 Oxygen Delivery Method Room Air Nasal Cannula Nasal Cannula Oxygen Flow Rate 2 2 07/21/22 04:09 07/21/22 08:06 07/21/22 10:04 Temperature Pulse Rate 52 56 56 Respiratory Rate 19 17 Blood Pressure 122/69 112/66 112/66 Pulse Oximetry 98 94 94 Oxygen Delivery Method Nasal Cannula Room Air Oxygen Flow Rate 2 07/21/22 12:22 07/21/22 15:27 Temperature 100.2 F 99.6 F Pulse Rate 65 75 Respiratory Rate 11 L 16 Blood Pressure 135/79 131/60 Pulse Oximetry 95 94 Oxygen Delivery Method Room Air Room Air Oxygen Flow Rate BMI result Body Mass Index 27.2 Labs 07/21/22 04:22 07/21/22 04:22 Labs: Laboratory Results - last 48 hr 07/20/22 07/20/22 07/20/22 06:29 06:45 06:45 WBC 9.4 RBC 5.77 Hgb 16.4 Hct 50.1 MCV 86.8 MCH 28.4 MCHC 32.7 RDW 13.1 Plt Count 208 MPV 9.5 Immature Gran % (Auto) 0.2 Neut % (Auto) 87.2 H Lymph % (Auto) 6.7 L [place] % (Auto) 5.7 Eos % (Auto) 0.0 Baso % (Auto) 0.2 Lymph # (Auto) 0.6 L [place] # (Auto) 0.5 Eos # (Auto) 0.0 Baso # (Auto) 0.0 Abs Immat Gran (auto) 0.02 Absolute Neuts (auto) 8.2 Absolute Nucleated RBC 0.000 Nucleated RBC % (auto) 0.0 Sodium 139 Potassium 4.5 D Chloride 100 Carbon Dioxide 28 Anion Gap 16 BUN 16 Creatinine 1.05 Estim Creat Clear Calc 93.9 Estimated GFR > 60 POC Glucose 115 Random Glucose 114 Lactic Acid Calcium 9.8 Total Bilirubin 0.6 Direct Bilirubin 0.3 AST 489 H ALT 145 H Alkaline Phosphatase 72 Total Creatine Kinase Troponin I High Sens B-Natriuretic Peptide Total Protein 7.5 Albumin 4.3 Lipase 18 TSH 0.35 Urine Color Urine Appearance Urine pH Ur Specific Willis Urine Protein Urine Glucose (UA) Urine Ketones Urine Blood Urine Nitrite Ur Leukocyte Esterase Urine RBC Urine WBC Ur Squamous Epith Cells Urine Bacteria Hyaline Casts Granular Casts Urine Opiates Screen Urine Fentanyl Screen Ur Barbiturates Screen Ur Phencyclidine Scrn Ur Amphetamines Screen U Benzodiazepines Scrn Urine Cocaine Screen U Marijuana (THC) Screen Ethyl Alcohol Influenza Type A (PCR) Influenza Type B (PCR) RSV RNA Qual (PCR) SARS-CoV-2 RNA (RT-PCR) 07/20/22 07/20/22 07/20/22 06:45 06:45 06:45 WBC RBC Hgb Hct MCV MCH MCHC RDW Plt Count MPV Immature Gran % (Auto) Neut % (Auto) Lymph % (Auto) [place] % (Auto) Eos % (Auto) Baso % (Auto) Lymph # (Auto) [place] # (Auto) Eos # (Auto) Baso # (Auto) Abs Immat Gran (auto) Absolute Neuts (auto) Absolute Nucleated RBC Nucleated RBC % (auto) Sodium Potassium Chloride Carbon Dioxide Anion Gap BUN Creatinine Estim Creat Clear Calc Estimated GFR POC Glucose Random Glucose Lactic Acid 1.4 Calcium Total Bilirubin Direct Bilirubin AST ALT Alkaline Phosphatase Total Creatine Kinase Troponin I High Sens 14.9 D B-Natriuretic Peptide 75 Total Protein Albumin Lipase TSH Urine Color Urine Appearance Urine pH Ur Specific Willis Urine Protein Urine Glucose (UA) Urine Ketones Urine Blood Urine Nitrite Ur Leukocyte Esterase Urine RBC Urine WBC Ur Squamous Epith Cells Urine Bacteria Hyaline Casts Granular Casts Urine Opiates Screen Urine Fentanyl Screen Ur Barbiturates Screen Ur Phencyclidine Scrn Ur Amphetamines Screen U Benzodiazepines Scrn Urine Cocaine Screen U Marijuana (THC) Screen Ethyl Alcohol Influenza Type A (PCR) Influenza Type B (PCR) RSV RNA Qual (PCR) SARS-CoV-2 RNA (RT-PCR) 07/20/22 07/20/22 07/20/22 06:45 06:45 10:12 WBC RBC Hgb Hct MCV MCH MCHC RDW Plt Count MPV Immature Gran % (Auto) Neut % (Auto) Lymph % (Auto) [place] % (Auto) Eos % (Auto) Baso % (Auto) Lymph # (Auto) [place] # (Auto) Eos # (Auto) Baso # (Auto) Abs Immat Gran (auto) Absolute Neuts (auto) Absolute Nucleated RBC Nucleated RBC % (auto) Sodium Potassium Chloride Carbon Dioxide Anion Gap BUN Creatinine Estim Creat Clear Calc Estimated GFR POC Glucose Random Glucose Lactic Acid Calcium Total Bilirubin Direct Bilirubin AST ALT Alkaline Phosphatase Total Creatine Kinase 49567 H D Troponin I High Sens B-Natriuretic Peptide Total Protein Albumin Lipase TSH Urine Color Dark Yellow Urine Appearance Cloudy Urine pH 6.0 Ur Specific Willis 1.020 Urine Protein 100 (2+) H Urine Glucose (UA) Negative Urine Ketones Negative Urine Blood Large (3+) H Urine Nitrite Negative Ur Leukocyte Esterase Trace H Urine RBC 0-2 Urine WBC 0-5 Ur Squamous Epith Cells 3-5 Urine Bacteria None Seen Hyaline Casts 6-10 Granular Casts Present Urine Opiates Screen Urine Fentanyl Screen Ur Barbiturates Screen Ur Phencyclidine Scrn Ur Amphetamines Screen U Benzodiazepines Scrn Urine Cocaine Screen U Marijuana (THC) Screen Ethyl Alcohol < 10 Influenza Type A (PCR) NEGATIVE Influenza Type B (PCR) NEGATIVE RSV RNA Qual (PCR) NEGATIVE SARS-CoV-2 RNA (RT-PCR) NEGATIVE 07/20/22 07/20/22 07/20/22 10:12 11:43 13:35 WBC RBC Hgb Hct MCV MCH MCHC RDW Plt Count MPV Immature Gran % (Auto) Neut % (Auto) Lymph % (Auto) [place] % (Auto) Eos % (Auto) Baso % (Auto) Lymph # (Auto) [place] # (Auto) Eos # (Auto) Baso # (Auto) Abs Immat Gran (auto) Absolute Neuts (auto) Absolute Nucleated RBC Nucleated RBC % (auto) Sodium Potassium Chloride Carbon Dioxide Anion Gap BUN Creatinine Estim Creat Clear Calc Estimated GFR POC Glucose Random Glucose Lactic Acid Calcium Total Bilirubin Direct Bilirubin AST ALT Alkaline Phosphatase Total Creatine Kinase 02945 H 10529 H Troponin I High Sens B-Natriuretic Peptide Total Protein Albumin Lipase TSH Urine Color Urine Appearance Urine pH Ur Specific [place] Urine Protein Urine Glucose (UA) Urine Ketones Urine Blood Urine Nitrite Ur Leukocyte Esterase Urine RBC Urine WBC Ur Squamous Epith Cells Urine Bacteria Hyaline Casts Granular Casts Urine Opiates Screen POSITIVE H Urine Fentanyl Screen POSITIVE H Ur Barbiturates Screen Not Detected Ur Phencyclidine Scrn Not Detected Ur Amphetamines Screen Not Detected U Benzodiazepines Scrn Not Detected Urine Cocaine Screen POSITIVE H U Marijuana (THC) Screen Not Detected Ethyl Alcohol Influenza Type A (PCR) Influenza Type B (PCR) RSV RNA Qual (PCR) SARS-CoV-2 RNA (RT-PCR) 07/20/22 07/20/22 07/21/22 18:32 20:32 04:22 WBC 7.1 RBC 4.20 L D Hgb 12.3 L D Hct 37.4 L D MCV 89.0 MCH 29.3 MCHC 32.9 RDW 13.3 Plt Count 160 MPV 10.2 Immature Gran % (Auto) Neut % (Auto) Lymph % (Auto) [place] % (Auto) Eos % (Auto) Baso % (Auto) Lymph # (Auto) [place] # (Auto) Eos # (Auto) Baso # (Auto) Abs Immat Gran (auto) Absolute Neuts (auto) Absolute Nucleated RBC 0.000 Nucleated RBC % (auto) 0.0 Sodium Potassium Chloride Carbon Dioxide Anion Gap BUN Creatinine Estim Creat Clear Calc Estimated GFR POC Glucose 119 H 126 H Random Glucose Lactic Acid Calcium Total Bilirubin Direct Bilirubin AST ALT Alkaline Phosphatase Total Creatine Kinase Troponin I High Sens B-Natriuretic Peptide Total Protein Albumin Lipase TSH Urine Color Urine Appearance Urine pH Ur Specific [place] Urine Protein Urine Glucose (UA) Urine Ketones Urine Blood Urine Nitrite Ur Leukocyte Esterase Urine RBC Urine WBC Ur Squamous Epith Cells Urine Bacteria Hyaline Casts Granular Casts Urine Opiates Screen Urine Fentanyl Screen Ur Barbiturates Screen Ur Phencyclidine Scrn Ur Amphetamines Screen U Benzodiazepines Scrn Urine Cocaine Screen U Marijuana (THC) Screen Ethyl Alcohol Influenza Type A (PCR) Influenza Type B (PCR) RSV RNA Qual (PCR) SARS-CoV-2 RNA (RT-PCR) 07/21/22 07/21/22 07/21/22 04:22 07:07 12:40 WBC RBC Hgb Hct MCV MCH MCHC RDW Plt Count MPV Immature Gran % (Auto) Neut % (Auto) Lymph % (Auto) [place] % (Auto) Eos % (Auto) Baso % (Auto) Lymph # (Auto) [place] # (Auto) Eos # (Auto) Baso # (Auto) Abs Immat Gran (auto) Absolute Neuts (auto) Absolute Nucleated RBC Nucleated RBC % (auto) Sodium 142 Potassium 4.0 Chloride 106 Carbon Dioxide 30 H Anion Gap 10 L BUN 8 L Creatinine 0.99 Estim Creat Clear Calc 99.6 Estimated GFR > 60 POC Glucose 100 74 Random Glucose 125 H Lactic Acid Calcium 8.1 L D Total Bilirubin Direct Bilirubin AST ALT Alkaline Phosphatase Total Creatine Kinase 40841 H Troponin I High Sens B-Natriuretic Peptide Total Protein Albumin Lipase TSH Urine Color Urine Appearance Urine pH Ur Specific [place] Urine Protein Urine Glucose (UA) Urine Ketones Urine Blood Urine Nitrite Ur Leukocyte Esterase Urine RBC Urine WBC Ur Squamous Epith Cells Urine Bacteria Hyaline Casts Granular Casts Urine Opiates Screen Urine Fentanyl Screen Ur Barbiturates Screen Ur Phencyclidine Scrn Ur Amphetamines Screen U Benzodiazepines Scrn Urine Cocaine Screen U Marijuana (THC) Screen Ethyl Alcohol Influenza Type A (PCR) Influenza Type B (PCR) RSV RNA Qual (PCR) SARS-CoV-2 RNA (RT-PCR) Imaging Radiology Impressions: ITS Impressions Face CT 07/20/22 09:41 IMPRESSION: 1. No acute intracranial pathology. 2. Mild soft tissue swelling overlying the left paramedian posterior scalp without underlying bony defect. Head CT 07/20/22 09:41 IMPRESSION: 1. No acute intracranial pathology. 2. Mild soft tissue swelling overlying the left paramedian posterior scalp without underlying bony defect. Abdomen/Pelvis CT 07/20/22 09:42 IMPRESSION: 1. No evidence of a traumatic injury in the chest, abdomen or pelvis. 2. Extensive right-sided pneumonia. Infectious etiologies are considerations as is aspiration given this patient's history. 3. Distended bladder. Consider Melendrez catheter is patient cannot void. Fleischner guidelines were followed. Chest CT 07/20/22 09:42 IMPRESSION: 1. No evidence of a traumatic injury in the chest, abdomen or pelvis. 2. Extensive right-sided pneumonia. Infectious etiologies are considerations as is aspiration given this patient's history. 3. Distended bladder. Consider Melendrez catheter is patient cannot void. Fleischner guidelines were followed. Mental Status Exam Mental Status Exam Patient Appearance: Appropriate Level of Consciousness: Awake and Alert Patient Behavior: Appropriate and Guarded Affect Description: Constricted Medications Medications Current Medications Acetaminophen (Acetaminophen 325 Mg Tablet) 650 mg PO Q6H PRN PRN Reason: Pain, Mild (Pain Scale 1-3) Last Admin: 07/21/22 15:51 Dose: 650 mg Dextrose (Dextrose 50 % 25 Gm/50 Ml Syringe) 25 gm IVPUSH Q15M PRN; Protocol PRN Reason: per Hypoglycemia Standing Ord. Docusate Sodium (Docusate Sodium 100 Mg Capsule) 100 mg PO DAILY PRN PRN Reason: Constipation Enoxaparin Sodium (Enoxaparin Sodium 40 Mg/0.4 Ml Syringe) 40 mg SUBCUT Q24H [facility] Last Admin: 07/21/22 15:22 Dose: Not Given Glucose (Glucose Gel 15 Gm Gel..Gram.) 15 gm PO Q15M PRN; Protocol PRN Reason: per Hypoglycemia Standing Ord. Lactated Ringer's (Lr) 1,000 mls @ 150 mls/hr IVCONT .Q6H40M [facility] Last Admin: 07/21/22 14:45 Dose: 150 mls/hr Piperacillin Sod/Tazobactam (Sod 4.5 gm/ Sodium Chloride) 100 mls @ 200 mls/hr IV Q6H [facility] Last Infusion: 07/21/22 14:46 Dose: Infused Sodium Bicarbonate 150 meq/ (Dextrose) 1,000 mls @ 100 mls/hr IV .Q10H [facility] Last Admin: 07/21/22 12:34 Dose: 100 mls/hr Insulin Human Lispro (Insulin Lispro 100 Unit/Ml 3 Ml Vial) 0 unit SUBCUT QIDACHS [facility]; Protocol Last Admin: 07/21/22 12:46 Dose: Not Given Morphine Sulfate (Morphine Sulfate 4 Mg/Ml Cartridge) 4 mg IVPUSH Q4H PRN; Protocol PRN Reason: Pain, Severe (Pain Scale 7-10) Last Admin: 07/21/22 12:25 Dose: 4 mg Ondansetron HCl (Ondansetron Hcl 4 Mg/2 Ml Vial) 4 mg IVPUSH Q8H PRN PRN Reason: Nausea and Vomiting Last Admin: 07/20/22 21:09 Dose: 4 mg Pharmacy Consult (Consult Rx Perform Med Rec) 1 each MISCELLANE ONCE PRN PRN Reason: Consult order Sodium Chloride (0.9 % Sodium Chloride Flush 3 Ml Syringe) 3 ml IVFLUSH QSHIFT [facility] Last Admin: 07/21/22 15:22 Dose: Not Given Allergies Allergies Allergy/AdvReac Type Severity Reaction Status Date / Time No Known Allergies Allergy Verified 05/28/22 15:29 Assessment & Plan Assessment & Plan (1) Opiate use: Status: Acute Code(s): F11.90 - Opioid use, unspecified, uncomplicated Assessment and Plan: * patient open to meet with Recovery Support RN over the weekend. * no medication recs at this time Total time managing care of this patient today _15___ minutes. PMFSH Family History Family History Father HTN (hypertension) Diabetes Social History Social History Household Members: None Housing: Apartment Do you presently have visiting nurse or other home services: No Alcohol intake: current Alcohol intake frequency: a few times a week Patient Tobacco Use Status: Current someday Tobacco user Tobacco use type: Cigarette Cigarette Packs Per Day: 0.25 Cigarettes Per Day: 5.0 e-Cigarette/Vaping Use: Never Used Second Hand Smoke Exposure: No Substance Use Type: Crack/Cocaine
[2022-07-21 16:35] LABS: Glucose, Whole Blood 140 mg/dL (60-115)
--- NOTE | 2022-07-21 18:56 | PM.EVENT ---
Event Note Date of Service: 07/21/22 Event Note: Pt reassess for leg pain, difficulty moving the legs, legs are wark, all distal pulses are palpable, leg, calf, tigh soft to touch, with no clinical evidence of compartmental syndrome, pain and lack of movement likely related to rhabdo and expected to improve and will continue to closely monitored Time Spent With Patient Time: Total time managing care of this patient today ____ minutes.
[2022-07-21] MEDS: Docusate Sodium 100 MG CAPSULE PO (19:53)
[2022-07-21 20:31] LABS: Glucose, Whole Blood 156 mg/dL (60-115)
[2022-07-21] MEDS: Insulin Lispro 100 UNIT/ML 3 ML VIAL SUBCUT (21:20)
[2022-07-22] MEDS: Piperacillin Sodium/Tazobactam 4.5 GM in 0.9 % Sodium Chloride 100 ML IV ×5 (00:02→23:56)
[2022-07-22] MEDS: Morphine Sulfate 4 MG/ML CARTRIDGE IVPUSH ×5 (01:25→21:58)
[2022-07-22 04:00] VITALS: BP 133/79; PULSE 61; RESP 17; TEMP 36.8; O2SAT 95
[2022-07-22] MEDS: Lactated Ringers 1,000 ML 150 ML IVCONT ×2 (04:53→17:26)
[2022-07-22] MEDS: Sodium Bicarbonate 8.4% 150 MEQ in Dextrose 5 % 850 ML 100 MEQ IV (07:51)
[2022-07-22 07:53] LABS: Glucose, Whole Blood 108 mg/dL (60-115)
[2022-07-22 08:00] VITALS: BP 127/68; PULSE 68; RESP 18; TEMP 37.7; O2SAT 93
--- NOTE | 2022-07-22 08:01 | P.PNIM_ITS ---
Subjective Subjective Date of Service: 07/22/22 Interval History: Patient is feeling much better today, continued to have pain in the fingers and difficulty moving the fingers. Off oxygen, has good movement in the arms and hands now, he's now able to wiggle the left toes, he continues to have pain everywhere, and difficulty moving legs Review of Systems Generalized body weakness and the numbness no more tingling in hands, sensation is intact Diffuse abdominal pain 10/10 Right-sided facial pain and swelling Physical Exam Vital Signs: Vital Signs: Last Vital Signs Temp 98.2 F 07/22/22 04:00 Pulse 61 07/22/22 04:00 Resp 17 07/22/22 04:00 BP 133/79 07/22/22 04:00 Pulse Ox 95 07/22/22 04:00 O2 Del Method 07/22/22 04:00 O2 Flow Rate 2 07/21/22 04:09 BMI result Body Mass Index 27.2 Const: Other: General: AO X 3, no acute distress Resp: CTA bilateral CVS: S1,S2,RRR GI: +BS, NT, no distention Skin: without skin loss or ulceration (fretted instruments inspector all the extremities without signs of ischemic_ Legs: no significant edema, legs are soft not tense --including tighs Unable to flex ankles or wiggle toes on either foot he has normal movment in the arms now and more movement in the hands digits and able to use finger to more extent today normal sensation to touch intact at ankles and dorsum of feet Objective Data Active Medications Acetaminophen (Acetaminophen 325 Mg Tablet) 650 mg PO Q6H PRN PRN Reason: Pain, Mild (Pain Scale 1-3) Last Admin: 07/21/22 19:53 Dose: 650 mg Documented By: SYLVIA Dextrose (Dextrose 50 % 25 Gm/50 Ml Syringe) 25 gm IVPUSH Q15M PRN; Protocol PRN Reason: per Hypoglycemia Standing Ord. Docusate Sodium (Docusate Sodium 100 Mg Capsule) 100 mg PO DAILY PRN PRN Reason: Constipation Last Admin: 07/21/22 19:53 Dose: 100 mg Documented By: SYLVIA Enoxaparin Sodium (Enoxaparin Sodium 40 Mg/0.4 Ml Syringe) 40 mg SUBCUT Q24H [facility] Last Admin: 07/21/22 15:22 Dose: Not Given Documented By: LELE Non-Admin Reason: Patient Refused Glucose (Glucose Gel 15 Gm Gel..Gram.) 15 gm PO Q15M PRN; Protocol PRN Reason: per Hypoglycemia Standing Ord. Lactated Ringer's (Lr) 1,000 mls @ 150 mls/hr IVCONT .Q6H40M [facility] Last Admin: 07/22/22 04:53 Dose: 150 mls/hr Documented By: SYLVIA Piperacillin Sod/Tazobactam (Sod 4.5 gm/ Sodium Chloride) 100 mls @ 200 mls/hr IV Q6H [facility] Last Infusion: 07/22/22 05:54 Dose: 0 mls/hr Documented By: SYLVIA Sodium Bicarbonate 150 meq/ (Dextrose) 1,000 mls @ 100 mls/hr IV .Q10H [facility] Last Admin: 07/22/22 07:51 Dose: 100 mls/hr Documented By: MAJO Insulin Human Lispro (Insulin Lispro 100 Unit/Ml 3 Ml Vial) 0 unit SUBCUT QIDACHS [facility] [place]; Protocol Last Admin: 07/22/22 07:54 Dose: Not Given Documented By: MAJO Non-Admin Reason: No Insulin Coverage Morphine Sulfate (Morphine Sulfate 4 Mg/Ml Cartridge) 4 mg IVPUSH Q4H PRN; Protocol PRN Reason: Pain, Severe (Pain Scale 7-10) Last Admin: 07/22/22 05:16 Dose: 4 mg Documented By: SYLVIA Ondansetron HCl (Ondansetron Hcl 4 Mg/2 Ml Vial) 4 mg IVPUSH Q8H PRN PRN Reason: Nausea and Vomiting Last Admin: 07/20/22 21:09 Dose: 4 mg Documented By: HE Pharmacy Consult (Consult Rx Perform Med Rec) 1 each MISCELLANE ONCE PRN PRN Reason: Consult order Sodium Chloride (0.9 % Sodium Chloride Flush 3 Ml Syringe) 3 ml IVFLUSH QSHIFT [facility] Last Admin: 07/22/22 07:54 Dose: Not Given Documented By: MAJO Non-Admin Reason: IV Running Labs 07/21/22 04:22 07/21/22 04:22 Labs: Laboratory Results - last 24 hr 07/21/22 07/21/22 07/21/22 04:22 12:40 16:30 POC Glucose 74 140 H Total Creatine Kinase 63512 H 07/21/22 07/22/22 20:25 07:41 POC Glucose 156 H 108 Total Creatine Kinase Microbiology Microbiology Results: Microbiology 07/20/22 06:44 Blood Culture - Preliminary Blood - Venous No growth after 24 hours. 07/20/22 06:45 Blood Culture - Preliminary Blood - Venous No growth after 24 hours. Assessment and Plan (1) Accidental overdose of non-opiate analgesics: Status: Acute (2) Cocaine use disorder: Status: Acute (3) Rhabdomyolysis: Status: Acute (4) Opiate use: Status: Acute Plan Pt is a 36-year-old male with a PMH significant for?opiate use disorder and diabetes who presents to the ED after an apparent overdose with LOC and unknown period of unresponsiveness, likely 48 hours long. Patient remained in hospital for treatment of rhabdomyolysis with aggressive IV fluids. Rhabdomyolysis Creatinine kinase 31K-->23K same day-->13k Continue IVF follow renal function Hypothermia, resolved after Bear Hugger and warm IVF in ED Cool upper extremities but no ashlie frosbite fingers are now warm, has difficulty moving fingers and legs Aspiration pneumonia as shown on CT, continue Zosyn, once improve change to Augmentin Opioid use disorder Morphine for pain and as a bridge to methadone Addition medicine following [id number] DM 2 Prescribed metformin but has not been taking SSI Paralysis of legs.. legs are warm with no evidence of frosbite, soft to touch wi thout any feature of compartmental syndrome, he has normal distal pules in dorsalis pedis, posterior tibia Full Code Attending:?Dr. Suarez DVT Prophylaxis: Lovenox Need for inpatient: Pt will require a hospitalization of at least two nights for treatment of?rhabdomyolysis with aggressive volume expansion with IVF. Time Spent With Patient Time: Total time managing care of this patient today ____ minutes. Quality Stroke Does the patient have a stroke diagnosis?: No VTE Prior VTE?: No VTE Risk Level:: Medical - moderate - high VTE Device Contraindication: Treatment Not Indicated VTE Drug Contraindication: N/A - Med Ordered
[2022-07-22 08:42] LABS: Anion Gap 11 (12-20); Blood Urea Nitrogen 7 mg/dL (9-16); Calcium 8.4 mg/dL (8.4-10.2); Carbon Dioxide 29 mmol/L (22-29); Chloride 106 mmol/L (96-108); Creatinine Clr Calc Pharmacy 92.1; Estimated Glomerular Filt Rate > 60; Glucose Random 101 mg/dL (60-115); Potassium 3.9 mmol/L (3.3-5.1); Sodium 142 mmol/L (135-145)
--- NOTE | 2022-07-22 10:14 | MHC.RECOVRN ---
Met with pt to follow up and provide support. Pt resting in bed, awake, alert, engages in conversation, guarded. Does not appear to be in withdrawal, denies withdrawal symptoms. Pt continues to deny opiate use, states this was a fluke. Pt reports using cocaine a couple times a week and is open to fentanyl test strips, which will be provided.. Denies questions or concerns, t/w available as needed.
[2022-07-22 11:43] LABS: Glucose, Whole Blood 119 mg/dL (60-115)
[2022-07-22] MEDS: Enoxaparin Sodium 40 MG/0.4 ML SYRINGE SUBCUT (12:06)
[2022-07-22] MEDS: Morphine Sulfate 2 MG/ML CARTRIDGE IVPUSH (14:31)
[2022-07-22] MEDS: 0.9 % Sodium Chloride Flush 3 ML SYRINGE IVFLUSH ×2 (14:33→21:59)
--- NOTE | 2022-07-22 15:18 | MHC.CM.PN ---
PT REPORT SHE LIVES ALONE AND IS USUALLY INDEPENDENT HE DENIES USE OF DME OR SERVICES PT HAS NO PCP AND NO HEALTH INSURANCE PT REPORTS HE IS COVID VAX REFERRAL SENT TO [facility] FS DCP TBD PENDING RECOVERY AND PT USMANAL
[2022-07-22 15:46] VITALS: BP 129/61; PULSE 64; RESP 16; TEMP 38.3; O2SAT 93
[2022-07-22] MEDS: Docusate Sodium 100 MG CAPSULE PO (16:26)
[2022-07-22 16:29] LABS: Glucose, Whole Blood 128 mg/dL (60-115)
[2022-07-22] MEDS: Acetaminophen 325 MG TABLET 650 MG PO (18:53)
[2022-07-22] MEDS: Milk of Magnesia 30 ML ORAL.SUSP PO (18:54)
[2022-07-22 19:51] VITALS: BP 125/65; PULSE 65; RESP 16; TEMP 37.7; O2SAT 95
[2022-07-22 21:01] LABS: Glucose, Whole Blood 156 mg/dL (60-115)
[2022-07-22] MEDS: Insulin Lispro 100 UNIT/ML 3 ML VIAL SUBCUT (22:03)
[2022-07-23] VITALS (7 sets, daily range): BP systolic 116–128; BP diastolic 56–73; PULSE 56–71; RESP 16–18; TEMP 36.3–38.3; O2SAT 94–95
[2022-07-23] MEDS: Lactated Ringers 1,000 ML 150 ML IVCONT ×4 (00:02→20:58)
[2022-07-23] MEDS: Acetaminophen 325 MG TABLET 650 MG PO ×2 (00:36→16:23)
[2022-07-23] MEDS: Morphine Sulfate 4 MG/ML CARTRIDGE IVPUSH ×6 (03:05→20:59)
[2022-07-23] MEDS: Piperacillin Sodium/Tazobactam 4.5 GM in 0.9 % Sodium Chloride 100 ML IV ×4 (06:19→23:36)
[2022-07-23 07:44] LABS: PLT CLUMP 1
[2022-07-23 07:46] LABS: Red Blood Count 4.15 X10*6/uL (4.60-5.80)
[2022-07-23 07:52] LABS: Hematocrit 36.8 % (42.0-52.0); Hemoglobin 12.2 g/dl (14.0-18.0); Mean Corpuscular HGB Conc 33.2 g/dl (31.0-36.0); Mean Corpuscular Hemoglobin 29.4 pg (27.0-33.0); Mean Corpuscular Volume 88.7 fL (80.0-98.0); Mean Platelet Volume 10.1 fL (9.4-12.4); Red Cell Distribution Width 13.2 % (11.0-16.0)
[2022-07-23 07:53] LABS: White Blood Count 5.5 X10*3/uL (4.8-10.8)
[2022-07-23 07:54] LABS: Platelet Count 137 X10*3/uL (160-400)
[2022-07-23 08:01] LABS: Glucose, Whole Blood 78 mg/dL (60-115)
[2022-07-23 08:02] LABS: Anion Gap 10 (12-20); Blood Urea Nitrogen 9 mg/dL (9-16); Calcium 8.3 mg/dL (8.4-10.2); Carbon Dioxide 29 mmol/L (22-29); Chloride 106 mmol/L (96-108); Creatinine Clr Calc Pharmacy 90.4; Estimated Glomerular Filt Rate > 60; Glucose Random 86 mg/dL (60-115); Potassium 4.2 mmol/L (3.3-5.1); Sodium 141 mmol/L (135-145)
--- NOTE | 2022-07-23 08:31 | P.PNIM_ITS ---
Subjective Subjective Date of Service: 07/23/22 Interval History: Doing better, has more movement in the feet, particularly the left side, hand movement is also better, especially on the left side as he is able eat which he wasn't able to do better Review of Systems weakness in the legs Physical Exam Vital Signs: Vital Signs: Last Vital Signs Temp 98.4 F 07/23/22 07:48 Pulse 56 07/23/22 07:48 Resp 18 07/23/22 07:48 BP 121/73 07/23/22 07:48 Pulse Ox 94 07/23/22 07:48 O2 Del Method 07/23/22 07:48 O2 Flow Rate 2 07/21/22 04:09 BMI result Body Mass Index 27.2 Const: Other: General: AO X 3, no acute distress Resp: CTA bilateral CVS: S1,S2,RRR GI: +BS, NT, no distention 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_ Legs: no significant edema, legs are soft not tense --including tighs Unable to flex ankles or wiggle toes on either foot he has normal movment in the arms now and more movement in the hands digits and able to use finger to more extent today normal sensation to touch intact at ankles and dorsum of feet Objective Data Active Medications Acetaminophen (Acetaminophen 325 Mg Tablet) 650 mg PO Q6H PRN PRN Reason: Pain, Mild (Pain Scale 1-3) Last Admin: 07/23/22 00:36 Dose: 650 mg Documented By: MIKO Dextrose (Dextrose 50 % 25 Gm/50 Ml Syringe) 25 gm IVPUSH Q15M PRN; Protocol PRN Reason: per Hypoglycemia Standing Ord. Docusate Sodium (Docusate Sodium 100 Mg Capsule) 100 mg PO DAILY PRN PRN Reason: Constipation Last Admin: 07/22/22 16:26 Dose: 100 mg Documented By: MAJO Enoxaparin Sodium (Enoxaparin Sodium 40 Mg/0.4 Ml Syringe) 40 mg SUBCUT Q24H HARRY Last Admin: 07/22/22 12:06 Dose: 40 mg Documented By: MAJO Glucose (Glucose Gel 15 Gm Gel..Gram.) 15 gm PO Q15M PRN; Protocol PRN Reason: per Hypoglycemia Standing Ord. Piperacillin Sod/Tazobactam (Sod 4.5 gm/ Sodium Chloride) 100 mls @ 200 mls/hr IV Q6H ON LICENSE OF [facility] Last Infusion: 07/23/22 07:09 Dose: 0 mls/hr Documented By: MAJO Lactated Ringer's (Lr) 1,000 mls @ 150 mls/hr IVCONT .Q6H40M ON LICENSE OF [facility] Last Admin: 07/23/22 08:16 Dose: 150 mls/hr Documented By: MAJO Insulin Human Lispro (Insulin Lispro 100 Unit/Ml 3 Ml Vial) 0 unit SUBCUT QIDACHS ON LICENSE OF [facility]; Protocol Last Admin: 07/23/22 07:48 Dose: Not Given Documented By: MAJO Non-Admin Reason: No Insulin Coverage Morphine Sulfate (Morphine Sulfate 4 Mg/Ml Cartridge) 4 mg IVPUSH Q3H PRN; Protocol PRN Reason: Pain, Severe (Pain Scale 7-10) Last Admin: 07/23/22 06:24 Dose: 4 mg Documented By: MIKO Ondansetron HCl (Ondansetron Hcl 4 Mg/2 Ml Vial) 4 mg IVPUSH Q8H PRN PRN Reason: Nausea and Vomiting Last Admin: 07/20/22 21:09 Dose: 4 mg Documented By: HE Pharmacy Consult (Consult Rx Perform Med Rec) 1 each MISCELLANE ONCE PRN PRN Reason: Consult order Sodium Chloride (0.9 % Sodium Chloride Flush 3 Ml Syringe) [facility] Last Admin: 07/22/22 21:59 Dose: 3 ml Documented By: FLORY Labs 07/23/22 07:37 07/23/22 07:37 Labs: Laboratory Results - last 24 hr 07/22/22 07/22/22 07/22/22 08:10 11:40 16:21 MCV MCH MCHC RDW Plt Count MPV Absolute Nucleated RBC Nucleated RBC % (auto) Anion Gap 11 L Estim Creat Clear Calc 92.1 Estimated GFR > 60 POC Glucose 119 H 128 H Random Glucose 101 Calcium 8.4 Total Creatine Kinase 6154 H 07/22/22 07/23/22 07/23/22 20:51 07:33 07:37 MCV 88.7 MCH 29.4 MCHC 33.2 RDW 13.2 Plt Count 137 L MPV 10.1 Absolute Nucleated RBC 0.000 Nucleated RBC % (auto) 0.0 Anion Gap Estim Creat Clear Calc Estimated GFR POC Glucose 156 H 78 Random Glucose Calcium Total Creatine Kinase 07/23/22 07:37 MCV MCH MCHC RDW Plt Count MPV Absolute Nucleated RBC Nucleated RBC % (auto) Anion Gap 10 L Estim Creat Clear Calc 90.4 Estimated GFR > 60 POC Glucose Random Glucose 86 Calcium 8.3 L Total Creatine Kinase 2670 H D Microbiology Microbiology Results: Microbiology 07/20/22 06:44 Blood Culture - Preliminary Blood - Venous No growth after 48 hours. 07/20/22 06:45 Blood Culture - Preliminary Blood - Venous No growth after 48 hours. Assessment and Plan (1) Accidental overdose of non-opiate analgesics: Status: Acute (2) Cocaine use disorder: Status: Acute (3) Rhabdomyolysis: Status: Acute (4) Opiate use: Status: Acute Plan Pt is a 36-year-old male with a PMH significant for?opiate use disorder and diabetes who presents to the ED after an apparent overdose with LOC and unknown period of unresponsiveness, likely 48 hours long. Patient remained in hospital for treatment of rhabdomyolysis with aggressive IV fluids. Rhabdomyolysis Creatinine kinase 31K-->23K same day-->13k-->2K today Continue IVF follow renal function Hypothermia, resolved after Bear Hugger and warm IVF in ED Cool upper extremities but no ashlie frosbite fingers are now warm, has difficulty moving fingers and legs Aspiration pneumonia as shown on CT, continue Zosyn, once improve change to Au gmentin Opioid use disorder Morphine for pain and as a bridge to methadone Addition medicine following Kny-tbaheqh-yrpirolap DM 2 Prescribed metformin but has not been taking SSI Paralysis .. legs are warm with no evidence of frosbite, soft to touch without any feature of compartmental syndrome, he has normal distal pules in dorsalis pedis, posterior tibia there is more movments in the legs, his arm movement and strenght are nearly back to normal..I will get Neuro input to see if any additional recommendation othe conservative mangement, he will need extensive therapy Full Code Attending:?Dr. Suarez DVT Prophylaxis: Lovenox Need for inpatient: Pt will require a hospitalization of at least two nights for treatment of?rhabdomyolysis with aggressive volume expansion with IVF. Time Spent With Patient Time: Total time managing care of this patient today ____ minutes. Quality Stroke Does the patient have a stroke diagnosis?: No VTE Prior VTE?: No VTE Risk Level:: Medical - moderate - high VTE Device Contraindication: Treatment Not Indicated VTE Drug Contraindication: N/A - Med Ordered
[2022-07-23 11:56] LABS: Glucose, Whole Blood 127 mg/dL (60-115)
[2022-07-23] MEDS: Enoxaparin Sodium 40 MG/0.4 ML SYRINGE SUBCUT (12:12)
[2022-07-23 16:21] LABS: Glucose, Whole Blood 91 mg/dL (60-115)
[2022-07-23 20:28] LABS: Glucose, Whole Blood 146 mg/dL (60-115)
[2022-07-24] MEDS: Morphine Sulfate 4 MG/ML CARTRIDGE IVPUSH ×6 (00:16→20:22)
[2022-07-24] MEDS: Lactated Ringers 1,000 ML 150 ML IVCONT ×3 (03:41→15:49)
[2022-07-24 03:57] VITALS: BP 124/68; PULSE 50; RESP 18; TEMP 37.2; O2SAT 95
[2022-07-24] MEDS: Piperacillin Sodium/Tazobactam 4.5 GM in 0.9 % Sodium Chloride 100 ML IV ×3 (06:34→18:03)
[2022-07-24 07:28] VITALS: BP 119/60; PULSE 55; RESP 16; TEMP 37.7; O2SAT 93
[2022-07-24 07:43] LABS: Glucose, Whole Blood 84 mg/dL (60-115)
[2022-07-24] MEDS: 0.9 % Sodium Chloride Flush 3 ML SYRINGE IVFLUSH (08:54)
--- NOTE | 2022-07-24 09:58 | P.PNIM_ITS ---
Subjective Subjective Date of Service: 07/24/22 Interval History: Found down Doing better, has more movement in the feet, particularly the left side, right side remain limp, hand movement is nearing normal, no other complaint Review of Systems weakness in the legs Physical Exam Vital Signs: Vital Signs: Last Vital Signs Temp 99.9 F 07/24/22 07:28 Pulse 55 07/24/22 07:28 Resp 16 07/24/22 07:28 BP 119/60 07/24/22 07:28 Pulse Ox 93 07/24/22 07:28 O2 Del Method 07/24/22 07:28 O2 Flow Rate 2 07/21/22 04:09 BMI result Body Mass Index 27.2 Const: Other: General: AO X 3, no acute distress Resp: CTA bilateral CVS: S1,S2,RRR GI: +BS, NT, no distention 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_ Legs: no significant edema, legs are soft not tense --including tighs Unable to flex ankles or wiggle toes on either foot he has normal movment in the arms now and more movement in the hands digits and able to use finger to more extent today normal sensation to touch intact at ankles and dorsum of feet Objective Data Active Medications Acetaminophen (Acetaminophen 325 Mg Tablet) 650 mg PO Q6H PRN PRN Reason: Pain, Mild (Pain Scale 1-3) Last Admin: 07/23/22 16:23 Dose: 650 mg Documented By: MAJO Dextrose (Dextrose 50 % 25 Gm/50 Ml Syringe) 25 gm IVPUSH Q15M PRN; Protocol PRN Reason: per Hypoglycemia Standing Ord. Docusate Sodium (Docusate Sodium 100 Mg Capsule) 100 mg PO DAILY PRN PRN Reason: Constipation Last Admin: 07/22/22 16:26 Dose: 100 mg Documented By: MAJO Enoxaparin Sodium (Enoxaparin Sodium 40 Mg/0.4 Ml Syringe) 40 mg SUBCUT Q24H HARRY Last Admin: 07/23/22 12:12 Dose: 40 mg Documented By: MAJO Glucose (Glucose Gel 15 Gm Gel..Gram.) 15 gm PO Q15M PRN; Protocol PRN Reason: per Hypoglycemia Standing Ord. Piperacillin Sod/Tazobactam (Sod 4.5 gm/ Sodium Chloride) 100 mls @ 200 mls/hr IV Q6H [facility] Last Infusion: 07/24/22 08:52 Dose: 0 mls/hr Documented By: CHIP Lactated Ringer's (Lr) 1,000 mls @ 150 mls/hr IVCONT .Q6H40M [facility] Last Admin: 07/24/22 03:41 Dose: 150 mls/hr Documented By: CHANDRAKANT Insulin Human Lispro (Insulin Lispro 100 Unit/Ml 3 Ml Vial) 0 unit SUBCUT QIDACHS [facility]; Protocol Last Admin: 07/24/22 08:51 Dose: Not Given Documented By: CHIP Non-Admin Reason: No Insulin Coverage Morphine Sulfate (Morphine Sulfate 4 Mg/Ml Cartridge) 4 mg IVPUSH Q3H PRN; Protocol PRN Reason: Pain, Severe (Pain Scale 7-10) Last Admin: 07/24/22 06:37 Dose: 4 mg Documented By: CHANDRAKANT Ondansetron HCl (Ondansetron Hcl 4 Mg/2 Ml Vial) 4 mg IVPUSH Q8H PRN PRN Reason: Nausea and Vomiting Last Admin: 07/20/22 21:09 Dose: 4 mg Documented By: HE Pharmacy Consult (Consult Rx Perform Med Rec) 1 each MISCELLANE ONCE PRN PRN Reason: Consult order Sodium Chloride (0.9 % Sodium Chloride Flush 3 Ml Syringe) 3 ml IVFLUSH QSHIFT [facility] Last Admin: 07/24/22 08:54 Dose: 3 ml Documented By: CHIP Labs 07/23/22 07:37 07/23/22 07:37 Labs: Laboratory Results - last 24 hr 07/23/22 07/23/22 07/23/22 11:51 16:17 20:23 POC Glucose 127 H 91 146 H 07/24/22 07:30 POC Glucose 84 Assessment and Plan (1) Accidental overdose of non-opiate analgesics: Status: Acute (2) Cocaine use disorder: Status: Acute (3) Rhabdomyolysis: Status: Acute (4) Opiate use: Status: Acute Plan Pt is a 36-year-old male with a PMH significant for?opiate use disorder and diabetes who presents to the ED after an apparent overdose with LOC and unknown period of unresponsiveness, likely 48 hours long. Patient remained in hospital for treatment of rhabdomyolysis with aggressive IV fluids. Rhabdomyolysis Creatinine kinase 31K-->23K same day-->13k-->2K as of 07/23 DC IVF at this time renal function has been ok HypOthermia, resolved after Bear Hugger and warm IVF in ED Cool upper extremities but no ashlie frosbite fingers toes are normal and normal in appearnce, normal distal pulses, hand and fingers movements are markedly improved, legs movement remain tepid but improving on the right left more so Aspiration pneumonia as shown on CT, continue Zosyn, once improve change to Augmentin Opioid use disorder Morphine for pain and as a bridge to methadone Addition medicine following Mfn-lynqfno-ymfloeqez DM 2 Prescribed metformin but has not been taking SSI Paralysis .. legs are warm with no evidence of frosbite, soft to touch without any feature of compartmental syndrome, he has normal distal pules in dorsalis pedis, posterior tibia there is more movments in the legs, his arm movement and strenght are nearly back to normal..I will get Neuro input to see if any additional recommendation othe conservative management, he will need extensive therapy Full Code Attending:?Dr. Suarez DVT Prophylaxis: Lovenox Need for inpatient: Pt will require a hospitalization of at least two nights for treatment of?rhabdomyolysis with aggressive volume expansion with IVF. Time Spent With Patient Time: Total time managing care of this patient today ____ minutes. Quality Stroke Does the patient have a stroke diagnosis?: No VTE Prior VTE?: No VTE Risk Level:: Medical - moderate - high VTE Device Contraindication: Treatment Not Indicated VTE Drug Contraindication: N/A - Med Ordered
[2022-07-24 11:23] LABS: Glucose, Whole Blood 95 mg/dL (60-115)
[2022-07-24] MEDS: Enoxaparin Sodium 40 MG/0.4 ML SYRINGE SUBCUT (12:06)
[2022-07-24 15:14] VITALS: BP 134/79; PULSE 53; RESP 18; TEMP 37.1; O2SAT 94
[2022-07-24] MEDS: Acetaminophen 325 MG TABLET 650 MG PO (15:48)
--- NOTE | 2022-07-24 16:12 | MHC.CM.PN ---
EMR REVIEWED, FS REQUESTING ASSISTANCE W/PT HE NEEDED A PHONE/TABLET TO LOOK UP HIS [facility] AND TO CALL [facility] PT DID NOT LET THEM KNOW HE WAS ADMITTED. CM DID ASSIST W/TABLET AND FS CAME UP TO ASSIST PT HE WAS HAVING DIFFICULTY TYPING. PT ALSO NEEDED ASSISTANCE CONTACTING [facility] WHICH THIS CM DID FOR PT AND [facility] REPORTED THEY COULD COVER STAY RETROACTIVELY AND PROVIDED CM W/AUTH #[id number].
--- NOTE | 2022-07-24 16:21 | PM.NEUROCN ---
History of Present Illness Data of Consult Service Date: 07/24/22 Primary Care Provider: None Physician HPI Reason for consult: Leg weakness 36 years old man with polydrug abuse came to hospital after he passed out probably from overdosing. Down time was unclear but his CPK level was quite high suggestive of prolonged time in rhabdomyolysis. He complained of bilateral leg weakness and continued to complain of that problem. There was no speech or language difficulty or any significant back pain. Review of Systems Review of Systems: No recent cold or flu-like illness PMFSH Family History Family History Father HTN (hypertension) Diabetes Social History Social History Household Members: None Housing: Apartment Do you presently have visiting nurse or other home services: No Alcohol intake: current Alcohol intake frequency: a few times a week Patient Tobacco Use Status: Current someday Tobacco user Tobacco use type: Cigarette Cigarette Packs Per Day: 0.25 Cigarettes Per Day: 5.0 e-Cigarette/Vaping Use: Never Used Second Hand Smoke Exposure: No Substance Use Type: Crack/Cocaine service: No Current occupational status: unemployed Meds Allergies Allergy/AdvReac Type Severity Reaction Status Date / Time No Known Allergies Allergy Verified 05/28/22 15:29 Active Medications: Current Medications Acetaminophen (Acetaminophen 325 Mg Tablet) 650 mg PO Q6H PRN PRN Reason: Pain, Mild (Pain Scale 1-3) Last Admin: 07/24/22 15:48 Dose: 650 mg Dextrose (Dextrose 50 % 25 Gm/50 Ml Syringe) 25 gm IVPUSH Q15M PRN; Protocol PRN Reason: per Hypoglycemia Standing Ord. Docusate Sodium (Docusate Sodium 100 Mg Capsule) 100 mg PO DAILY PRN PRN Reason: Constipation Last Admin: 07/22/22 16:26 Dose: 100 mg Enoxaparin Sodium (Enoxaparin Sodium 40 Mg/0.4 Ml Syringe) 40 mg SUBCUT Q24H HARRY Last Admin: 07/24/22 12:06 Dose: 40 mg Glucose (Glucose Gel 15 Gm Gel..Gram.) 15 gm PO Q15M PRN; Protocol PRN Reason: per Hypoglycemia Standing Ord. Piperacillin Sod/Tazobactam (Sod 4.5 gm/ Sodium Chloride) 100 mls @ 200 mls/hr IV Q6H [facility] Last Infusion: 07/24/22 12:49 Dose: Infused Lactated Ringer's (Lr) 1,000 mls @ 150 mls/hr IVCONT .Q6H40M [facility] Last Admin: 07/24/22 15:49 Dose: 150 mls/hr Insulin Human Lispro (Insulin Lispro 100 Unit/Ml 3 Ml Vial) 0 unit SUBCUT QIDACHS [facility]; Protocol Last Admin: 07/24/22 11:52 Dose: Not Given Morphine Sulfate (Morphine Sulfate 4 Mg/Ml Cartridge) 4 mg IVPUSH Q3H PRN; Protocol PRN Reason: Pain, Severe (Pain Scale 7-10) Last Admin: 07/24/22 15:48 Dose: 4 mg Ondansetron HCl (Ondansetron Hcl 4 Mg/2 Ml Vial) 4 mg IVPUSH Q8H PRN PRN Reason: Nausea and Vomiting Last Admin: 07/20/22 21:09 Dose: 4 mg Pharmacy Consult (Consult Rx Perform Med Rec) 1 each MISCELLANE ONCE PRN PRN Reason: Consult order Sodium Chloride (0.9 % Sodium Chloride Flush 3 Ml Syringe) 3 ml IVFLUSH QSHIFT [facility] Last Admin: 07/24/22 15:44 Dose: Not Given Home Medications Medication Instructions Recorded Confirmed Last Taken Type No Known Home Meds 07/20/22 07/20/22 Unknown History Physical Exam Vital Signs: Vital Signs: Last Vital Signs Temp 98.7 F 07/24/22 15:14 Pulse 53 07/24/22 15:14 Resp 18 07/24/22 15:14 BP 134/79 07/24/22 15:14 Pulse Ox 94 07/24/22 15:14 O2 Del Method 07/24/22 15:14 O2 Flow Rate 2 07/21/22 04:09 BMI result Body Mass Index 27.2 Neuro: Other: he is alert and awake with normal spontaneity of speech fluency comprehension and affect. There was no obvious arm or hand weakness. He was unable to lift each leg against gravity but was able to wiggle toes. Deep tendon reflexes in legs were absent. Plantars were flat. Results Labs 07/23/22 07:37 07/23/22 07:37 Microbiology Microbiology Results: Microbiology 07/20/22 06:44 Blood - Venous Blood Culture - Preliminary No growth after 48 hours. 07/20/22 06:45 Blood - Venous Blood Culture - Preliminary No growth after 48 hours. Assessment and Plan (1) Rhabdomyolysis: Qualifiers: Rhabdomyolysis type: non-traumatic Qualified Code(s): M62.82 - Rhabdomyolysis Status: Acute 36 years old man with polydrug abuse passing out from probably overdosing came to hospital with bilateral leg weakness and passing out and was noted to have quite high CPK. As far as is leg exam is concerned, there is no sign of upper motor neuron pathology. Probably rhabdomyolysis is the main pathology and treatment is hydration and rehab. There is a small possibility of spinal cord pathology which in acute setting could be confusing. If he does not improve with improving CPK levels, I would recommend a noncontrast MRI of cervical and thoracic spine to rule out any cord pathology like a stroke Time Spent With Patient Time: Total time managing care of this patient today ____ minutes. Procedures Date of Service Date of Service: 07/24/22
[2022-07-24 16:53] LABS: Glucose, Whole Blood 98 mg/dL (60-115)
--- NOTE | 2022-07-24 18:43 | PC.NURSE ---
Pt is alert and oriented x4. C/O of 8-9/10 pain to the back and bilateral lower extremities. Pt continues on IV ABT therapy as well as IV Hydration. Melendrez cath removed for void trail but failed. Pt retained >900c of urine with bladder scan. Fioley cath reinserted and immediately 500cc drained.
[2022-07-24 19:40] VITALS: BP 126/59; PULSE 52; RESP 18; TEMP 37.2; O2SAT 97
[2022-07-24 19:48] LABS: Glucose, Whole Blood 152 mg/dL (60-115)
[2022-07-25] MEDS: Piperacillin Sodium/Tazobactam 4.5 GM in 0.9 % Sodium Chloride 100 ML IV ×4 (00:12→17:57)
[2022-07-25] MEDS: 0.9 % Sodium Chloride Flush 3 ML SYRINGE IVFLUSH (00:18)
[2022-07-25 04:00] VITALS: BP 116/64; PULSE 60; RESP 18; TEMP 36.3; O2SAT 99
[2022-07-25] MEDS: Morphine Sulfate 4 MG/ML CARTRIDGE IVPUSH ×5 (06:17→22:04)
[2022-07-25 07:36] VITALS: BP 119/55; PULSE 50; RESP 16; TEMP 36.9; O2SAT 95
[2022-07-25 07:41] LABS: Glucose, Whole Blood 101 mg/dL (60-115)
[2022-07-25 09:34] VITALS: BP 119/55; PULSE 50; O2SAT 95
[2022-07-25 11:13] LABS: Glucose, Whole Blood 117 mg/dL (60-115)
[2022-07-25] MEDS: Acetaminophen 325 MG TABLET 650 MG PO (12:20)
[2022-07-25] MEDS: Enoxaparin Sodium 40 MG/0.4 ML SYRINGE SUBCUT (12:21)
--- NOTE | 2022-07-25 12:53 | MHC.CM.PN ---
CM RECEIVED MESSAGES FROM [facility] AND [facility] REPORTING THEY ARE UNABLE TO OFFER PT A BED D/T VARIOUS REASONS. CM TO PLACE SNF REFERRAL TO LOCAL SNF'S AND CONT TO FOLLOW D/C NEEDS.
--- NOTE | 2022-07-25 13:52 | HO.PM.IMPN ---
Subjective Subjective Date of Service: 07/25/22 Interval History: Admitted with rhabdo and relative paralysis. States able to move right leg more today. No worsening of symptoms Review of Systems Denies chest pain Denies shortness of breath Denies nausea vomiting diarrhea Denies fever chills Physical Exam Vital Signs: Vital Signs: Last Vital Signs Temp 98.5 F 07/25/22 07:36 Pulse 50 07/25/22 09:34 Resp 16 07/25/22 07:36 BP 119/55 L 07/25/22 09:34 Pulse Ox 95 07/25/22 09:34 O2 Del Method 07/25/22 07:36 O2 Flow Rate 2 07/21/22 04:09 BMI result Body Mass Index 27.2 Const: Other: Awake alert oriented x3 no acute distress Resp: Other: Clear to auscultation bilaterally no rales rhonchi or wheezes Cardio: Other: No S4; positive S1-S2; no S3 murmurs rubs or gallops Neuro: Other: Cranial nerves 2-12 grossly intact motor 3 to 4/5 in the left lower extremity now right lower extremity with hip flexor/quadriceps movement 2 to 3/5. Sensation intact distally Extrem: Other: No edema bilaterally Objective Data Active Medications Acetaminophen (Acetaminophen 325 Mg Tablet) 650 mg PO Q6H PRN PRN Reason: Pain, Mild (Pain Scale 1-3) Last Admin: 07/25/22 12:20 Dose: 650 mg Documented By: MANOLO Dextrose (Dextrose 50 % 25 Gm/50 Ml Syringe) 25 gm IVPUSH Q15M PRN; Protocol PRN Reason: per Hypoglycemia Standing Ord. Docusate Sodium (Docusate Sodium 100 Mg Capsule) 100 mg PO DAILY PRN PRN Reason: Constipation Last Admin: 07/22/22 16:26 Dose: 100 mg Documented By: MAJO Enoxaparin Sodium (Enoxaparin Sodium 40 Mg/0.4 Ml Syringe) 40 mg SUBCUT Q24H HARRY Last Admin: 07/25/22 12:21 Dose: 40 mg Documented By: MANOLO Glucose (Glucose Gel 15 Gm Gel..Gram.) 15 gm PO Q15M PRN; Protocol PRN Reason: per Hypoglycemia Standing Ord. Piperacillin Sod/Tazobactam (Sod 4.5 gm/ Sodium Chloride) 100 mls @ 200 mls/hr IV Q6H [facility] Last Infusion: 07/25/22 13:14 Dose: 0 mls/hr Documented By: MANOLO Insulin Human Lispro (Insulin Lispro 100 Unit/Ml 3 Ml Vial) 0 unit SUBCUT QIDACHS [facility]; Protocol Last Admin: 07/25/22 11:15 Dose: Not Given Documented By: KOLE-JERRY Non-Admin Reason: See Note Morphine Sulfate (Morphine Sulfate 4 Mg/Ml Cartridge) 4 mg IVPUSH Q3H PRN; Protocol PRN Reason: Pain, Severe (Pain Scale 7-10) Last Admin: 07/25/22 10:32 Dose: 4 mg Documented By: MANOLO Ondansetron HCl (Ondansetron Hcl 4 Mg/2 Ml Vial) 4 mg IVPUSH Q8H PRN PRN Reason: Nausea and Vomiting Last Admin: 07/20/22 21:09 Dose: 4 mg Documented By: HE Pharmacy Consult (Consult Rx Perform Med Rec) 1 each MISCELLANE ONCE PRN PRN Reason: Consult order Sodium Chloride (0.9 % Sodium Chloride Flush 3 Ml Syringe) 3 ml IVFLUSH QSHIFT [facility] Last Admin: 07/25/22 12:33 Dose: Not Given Documented By: MANOLO Non-Admin Reason: See Note Labs 07/23/22 07:37 07/23/22 07:37 Labs: Laboratory Results - last 24 hr 07/24/22 07/24/22 07/25/22 16:46 19:44 07:35 POC Glucose 98 152 H 101 07/25/22 11:07 POC Glucose 117 H Microbiology Microbiology Results: Microbiology 07/20/22 06:44 Blood Culture - Final Blood - Venous No growth after 5 days. 07/20/22 06:45 Blood Culture - Final Blood - Venous No growth after 5 days. Assessment and Plan (1) Rhabdomyolysis: Status: Acute (2) Accidental overdose of non-opiate analgesics: Status: Acute (3) Pneumonia: Status: Acute (4) Opiate use: Status: Acute (5) Acute urinary retention: Status: Acute (6) Hyperglycemia: Status: Acute Plan Pt is a 36-year-old male with a PMH significant for?opiate use disorder and diabetes who presents to the ED after an apparent overdose with LOC and unknown period of unresponsiveness, likely 48 hours long. Patient remained in hospital for treatment of rhabdomyolysis with aggressive IV fluids. Noted to have relative paralysis on arrival; as rhabdo improved functioning returning 1.Rhabdomyolysis -will check total CKs in a.m. -likely improved secondary to increase movement and extremities 2.Aspiration pneumonia -continue Zosyn -switch to Augmentin upon DC 3.Opioid use disorder -Morphine for pain and as a bridge to methadone -Addition medicine following....CSS search 4.Axw-gxzpwrm-pmozuxdse DM 2 -lispro sliding scale 5.Paralysis . -likely related to rhabdo. -function improving; improved since a.m. Full Code Sylvie Will need ongoing hospitalization to monitor total CKs and utilize volume repletion if remained elevated and to begin extensive therapy Time Spent With Patient Time: Total time managing care of this patient today ____ minutes. Quality Stroke Does the patient have a stroke diagnosis?: No VTE Prior VTE?: No VTE Risk Level:: Medical - moderate - high VTE Device Contraindication: Treatment Not Indicated VTE Drug Contraindication: N/A - Med Ordered
[2022-07-25] MEDS: Lactated Ringers 1,000 ML 125 ML IVCONT ×2 (14:32→22:07)
[2022-07-25 15:17] VITALS: BP 107/59; PULSE 49; RESP 17; TEMP 36.3; O2SAT 95
[2022-07-25 15:47] LABS: Glucose, Whole Blood 115 mg/dL (60-115)
[2022-07-25 17:57] VITALS: BP 101/54; PULSE 53; RESP 20
[2022-07-25 19:30] VITALS: BP 119/55; PULSE 50; RESP 16; TEMP 37.1; O2SAT 95
[2022-07-25 19:44] LABS: Glucose, Whole Blood 131 mg/dL (60-115)
[2022-07-26] VITALS (7 sets, daily range): BP systolic 101–126; BP diastolic 53–63; PULSE 50–60; RESP 16–20; TEMP 36.6–37.4; O2SAT 93–97
[2022-07-26] MEDS: Morphine Sulfate 4 MG/ML CARTRIDGE IVPUSH ×6 (01:22→22:57)
[2022-07-26] MEDS: Piperacillin Sodium/Tazobactam 4.5 GM in 0.9 % Sodium Chloride 100 ML IV ×4 (06:07→19:07)
[2022-07-26] MEDS: Lactated Ringers 1,000 ML 125 ML IVCONT ×3 (06:37→19:54)
[2022-07-26 07:04] LABS: MANUAL DIFF FLAG NO
[2022-07-26 07:08] LABS: Basophils Percent Auto 0.9 % (0-2); Eosinophils Absolute Auto 0.4 X10*3/uL (0.0-0.4); Eosinophils Percent Auto 8.5 % (0-4); Hematocrit 37.1 % (42.0-52.0); Hemoglobin 12.1 g/dl (14.0-18.0); Lymphocytes Absolute Auto 1.8 X10*3/uL (1.2-4.9); Lymphocytes Percent Auto 40.3 % (20-40); Mean Corpuscular HGB Conc 32.6 g/dl (31.0-36.0); Mean Corpuscular Hemoglobin 28.5 pg (27.0-33.0); Mean Corpuscular Volume 87.5 fL (80.0-98.0); Mean Platelet Volume 10.7 fL (9.4-12.4); Monocytes Absolute Auto 0.5 X10*3/uL (0.1-1.2); Monocytes Percent Auto 10.2 % (2-11); Neutrophils Absolute Auto 1.8 x10*3/uL (2.0-8.3); Neutrophils Percent Auto 40.1 % (45-73); Platelet Count 150 X10*3/uL (160-400); Red Blood Count 4.24 X10*6/uL (4.60-5.80); Red Cell Distribution Width 13.2 % (11.0-16.0); White Blood Count 4.5 X10*3/uL (4.8-10.8)
[2022-07-26 07:22] LABS: Glucose, Whole Blood 109 mg/dL (60-115)
[2022-07-26 07:49] LABS: Alanine Aminotransferase 60 U/L (0-40); Albumin Level 2.6 g/dL (3.5-5.0); Alkaline Phosphatase 40 U/L (39-117); Anion Gap 10 (12-20); Aspartate Amino Transferase 46 U/L (5-37); Bilirubin Total 0.4 mg/dL (0.0-1.0); Blood Urea Nitrogen 17 mg/dL (9-16); Calcium 8.2 mg/dL (8.4-10.2); Carbon Dioxide 25 mmol/L (22-29); Chloride 108 mmol/L (96-108); Creatinine Clr Calc Pharmacy 95.7; Estimated Glomerular Filt Rate > 60; Glucose Fasting 91 mg/dL (60-99); Potassium 4.3 mmol/L (3.3-5.1); Sodium 139 mmol/L (135-145); Total Protein 4.8 g/dL (6.5-8.0)
[2022-07-26] MEDS: Enoxaparin Sodium 40 MG/0.4 ML SYRINGE SUBCUT (12:42)
--- NOTE | 2022-07-26 13:02 | P.PNIM_ITS ---
Subjective Subjective Date of Service: 07/26/22 Interval History: Notes little improvement overnight with IV fluids. States possibly right hand is a little better. No worsening per patient Review of Systems Denies chest pain Denies shortness of breath Denies nausea vomiting diarrhea Denies fever chills Physical Exam Vital Signs: Vital Signs: Last Vital Signs Temp 98.8 F 07/26/22 07:23 Pulse 51 07/26/22 09:50 Resp 16 07/26/22 07:23 BP 101/53 L 07/26/22 09:50 Pulse Ox 97 07/26/22 09:50 O2 Del Method 07/26/22 07:23 O2 Flow Rate 2 07/21/22 04:09 BMI result Body Mass Index 27.2 Const: Other: Awake alert oriented x3 no acute distress Resp: Other: Clear to auscultation bilaterally no rales rhonchi or wheezes Cardio: Other: No S4; positive S1-S2; no S3 murmurs rubs or gallops Neuro: Other: Cranial nerves 2-12 grossly intact motor 3 to 4/5 in the left lower extremity now right lower extremity with hip flexor/quadriceps movement 2 to 3/5. Sensation intact distally Extrem: Other: No edema bilaterally Objective Data Active Medications Acetaminophen (Acetaminophen 325 Mg Tablet) 650 mg PO Q6H PRN PRN Reason: Pain, Mild (Pain Scale 1-3) Last Admin: 07/25/22 12:20 Dose: 650 mg Documented By: MANOLO Dextrose (Dextrose 50 % 25 Gm/50 Ml Syringe) 25 gm IVPUSH Q15M PRN; Protocol PRN Reason: per Hypoglycemia Standing Ord. Docusate Sodium (Docusate Sodium 100 Mg Capsule) 100 mg PO DAILY PRN PRN Reason: Constipation Last Admin: 07/22/22 16:26 Dose: 100 mg Documented By: MAJO Enoxaparin Sodium (Enoxaparin Sodium 40 Mg/0.4 Ml Syringe) 40 mg SUBCUT Q24H [facility] Last Admin: 07/26/22 12:42 Dose: 40 mg Documented By: EVIE Glucose (Glucose Gel 15 Gm Gel..Gram.) 15 gm PO Q15M PRN; Protocol PRN Reason: per Hypoglycemia Standing Ord. Piperacillin Sod/Tazobactam (Sod 4.5 gm/ Sodium Chloride) 100 mls @ 200 mls/hr IV Q6H [facility] Last Admin: 07/26/22 12:44 Dose: 200 mls/hr Documented By: EVIE Lactated Ringer's (Lr) 1,000 mls @ 125 mls/hr IVCONT .Q8H [facility] Last Admin: 07/26/22 06:37 Dose: 125 mls/hr Documented By: EVELIO Insulin Human Lispro (Insulin Lispro 100 Unit/Ml 3 Ml Vial) 0 unit SUBCUT QIDACHS [facility]; Protocol Last Admin: 07/26/22 11:08 Dose: Not Given Documented By: EVIE Non-Admin Reason: to bed dc'd Morphine Sulfate (Morphine Sulfate 4 Mg/Ml Cartridge) 4 mg IVPUSH Q3H PRN; Protocol PRN Reason: Pain, Severe (Pain Scale 7-10) Last Admin: 07/26/22 12:43 Dose: 4 mg Documented By: EVIE Ondansetron HCl (Ondansetron Hcl 4 Mg/2 Ml Vial) 4 mg IVPUSH Q8H PRN PRN Reason: Nausea and Vomiting Last Admin: 07/20/22 21:09 Dose: 4 mg Documented By: HE Pharmacy Consult (Consult Rx Perform Med Rec) 1 each MISCELLANE ONCE PRN PRN Reason: Consult order Sodium Chloride (0.9 % Sodium Chloride Flush 3 Ml [facility]) [facility] Last Admin: 07/26/22 07:31 Dose: Not Given Documented By: EVIE Non-Admin Reason: IV Running Labs 07/26/22 06:08 07/26/22 06:08 Labs: Laboratory Results - last 24 hr 07/25/22 07/25/22 07/26/22 15:20 19:31 06:08 MCV 87.5 MCH 28.5 MCHC 32.6 RDW 13.2 Plt Count 150 L MPV 10.7 Immature Gran % (Auto) 0.0 Neut % (Auto) 40.1 L Lymph % (Auto) 40.3 H Leon % (Auto) 10.2 Eos % (Auto) 8.5 H Baso % (Auto) 0.9 Lymph # (Auto) 1.8 Leon # (Auto) 0.5 Eos # (Auto) 0.4 Baso # (Auto) 0.0 Abs Immat Gran (auto) 0.00 Absolute Neuts (auto) 1.8 L Absolute Nucleated RBC 0.000 Nucleated RBC % (auto) 0.0 Anion Gap Estim Creat Clear Calc Estimated GFR POC Glucose 115 131 H Fasting Glucose Calcium Total Bilirubin AST ALT Alkaline Phosphatase Total Creatine Kinase Total Protein Albumin 07/26/22 07/26/22 06:08 07:17 MCV MCH MCHC RDW Plt Count MPV Immature Gran % (Auto) Neut % (Auto) Lymph % (Auto) Leon % (Auto) Eos % (Auto) Baso % (Auto) Lymph # (Auto) Leon # (Auto) Eos # (Auto) Baso # (Auto) Abs Immat Gran (auto) Absolute Neuts (auto) Absolute Nucleated RBC Nucleated RBC % (auto) Anion Gap 10 L Estim Creat Clear Calc 95.7 Estimated GFR > 60 POC Glucose 109 Fasting Glucose 91 Calcium 8.2 L Total Bilirubin 0.4 AST 46 H ALT 60 H Alkaline Phosphatase 40 Total Creatine Kinase 1111 H Total Protein 4.8 L Albumin 2.6 L Microbiology Microbiology Results: Microbiology 07/20/22 06:44 Blood Culture - Final Blood - Venous No growth after 5 days. 07/20/22 06:45 Blood Culture - Final Blood - Venous No growth after 5 days. Assessment and Plan (1) Rhabdomyolysis: Status: Acute (2) Pneumonia: Status: Acute (3) Opiate use: Status: Acute Plan Pt is a 36-year-old male with a PMH significant for?opiate use disorder and diabetes who presents to the ED after an apparent overdose with LOC and unknown period of unresponsiveness, likely 48 hours long. Patient remained in hospital for treatment of rhabdomyolysis with aggressive IV fluids. Noted to have relati ve paralysis on arrival; as rhabdo improved functioning returning 1.Rhabdomyolysis -improved; now 1100 -continue IV fluids times 24 hours 2.Aspiration pneumonia -continue Zosyn -switch to Augmentin upon DC 3.Opioid use disorder -Morphine for pain and as a bridge to methadone -Addition medicine following....CSS search 4.[id number] DM 2 -lispro sliding scale 5.Paralysis . -given minimal improvement will order MRIs as per Neurology Full Code Lovenox Will need ongoing hospitalization to monitor total CKs and utilize volume repletion if remained elevated and to begin extensive therapy Time Spent With Patient Time: Total time managing care of this patient today ____ minutes. Quality Stroke Does the patient have a stroke diagnosis?: No VTE Prior VTE?: No VTE Risk Level:: Medical - moderate - high VTE Device Contraindication: Treatment Not Indicated VTE Drug Contraindication: N/A - Med Ordered
[2022-07-26] MEDS: 0.9 % Sodium Chloride Flush 3 ML SYRINGE IVFLUSH ×2 (18:13)
[2022-07-26] MEDS: methylPREDNISolone Sod Succ 1,000 MG in 0.9 % Sodium Chloride 50 ML 66 MG IV (18:14)
[2022-07-26] MEDS: Acetaminophen 325 MG TABLET 650 MG PO (22:44)
[2022-07-27 00:05] VITALS: TEMP 36.8
[2022-07-27] MEDS: Piperacillin Sodium/Tazobactam 4.5 GM in 0.9 % Sodium Chloride 100 ML IV ×4 (00:08→18:33)
[2022-07-27] MEDS: 0.9 % Sodium Chloride Flush 3 ML SYRINGE IVFLUSH ×2 (00:09→09:06)
[2022-07-27 04:00] VITALS: BP 131/67; PULSE 54; RESP 18; TEMP 36.6; O2SAT 94
[2022-07-27] MEDS: Lactated Ringers 1,000 ML 125 ML IVCONT (04:17)
[2022-07-27] MEDS: Morphine Sulfate 4 MG/ML CARTRIDGE IVPUSH ×3 (04:24→12:25)
[2022-07-27 07:35] LABS: Glucose, Whole Blood 164 mg/dL (60-115)
[2022-07-27 08:00] VITALS: BP 130/65; PULSE 53; RESP 18; TEMP 36.7; O2SAT 95
--- NOTE | 2022-07-27 08:54 | MHC.CM.PN ---
PER [facility], PT [place] [facility] PRIMARY HOWEVER WILL ALSO LIKELY QUALIFY FOR [place] ONCE THEY ARE ABLE TO OBTAIN ALL OF THE NECESSARY DOCUMENTATION. CURRENT DCP IS [facility]. REFERRALS ARE MADE AWAITING BED OFFERS
[2022-07-27 09:06] VITALS: BP 130/65; PULSE 53; O2SAT 95
[2022-07-27] MEDS: methylPREDNISolone Sod Succ 1,000 MG in 0.9 % Sodium Chloride 50 ML 66 MG IV (09:06)
--- NOTE | 2022-07-27 10:59 | MHC.CM.PN ---
Addendum entered by Elizabeth Salas 07/27/22 14:51: ALL ACUTE REHABS CONTINUE TO DECLINE REFERRAL DUE TO PTS NEEDS, THEY INDICATE THEY DO NOT FEEL HE WOULD BE ABLE TO DC IN AN APPROPRIATE TIME FRAME SUB-ACUTE PLACEMENT REFERRALS ARE OUT Original Note: PT NOW IDENTIFIED BEING ACTIVE WITH [employer] INS[facility]ANCE REFERRAL HAS BEEN RESENT TO ACUTE REHABS WITH PTS INSURANCE INFORMATION AND PT/OT EVALS SHOWING PTS PROGRESS
[2022-07-27] MEDS: Enoxaparin Sodium 40 MG/0.4 ML SYRINGE SUBCUT (12:20)
--- NOTE | 2022-07-27 15:40 | HO.PM.IMPN ---
Subjective Subjective Date of Service: 07/27/22 Interval History: Notes improvement overnight with steroids. No acute issues Review of Systems Denies chest pain Denies shortness of breath Denies nausea vomiting diarrhea Denies fever chills Physical Exam Vital Signs: Vital Signs: Last Vital Signs Temp 98.0 F 07/27/22 08:00 Pulse 53 07/27/22 09:06 Resp 18 07/27/22 08:00 BP 130/65 07/27/22 09:06 Pulse Ox 95 07/27/22 09:06 O2 Del Method 07/27/22 08:00 O2 Flow Rate 2 07/21/22 04:09 BMI result Body Mass Index 27.2 Const: Other: Awake alert oriented x3 no acute distress Resp: Other: Clear to auscultation bilaterally no rales rhonchi or wheezes Cardio: Other: No S4; positive S1-S2; no S3 murmurs rubs or gallops Neuro: Other: Cranial nerves 2-12 grossly intact motor 3 to 4/5 in the left lower extremity now right lower extremity with hip flexor/quadriceps movement 2 to 3/5. Sensation intact distally Extrem: Other: No edema bilaterally Objective Data Active Medications Acetaminophen (Acetaminophen 325 Mg Tablet) 650 mg PO Q6H PRN PRN Reason: Pain, Mild (Pain Scale 1-3) Last Admin: 07/26/22 22:44 Dose: 650 mg Documented By: ANT Docusate Sodium (Docusate Sodium 100 Mg Capsule) 100 mg PO DAILY PRN PRN Reason: Constipation Last Admin: 07/22/22 16:26 Dose: 100 mg Documented By: MAJO Enoxaparin Sodium (Enoxaparin Sodium 40 Mg/0.4 Ml Syringe) 40 mg SUBCUT Q24H [facility] Last Admin: 07/27/22 12:20 Dose: 40 mg Documented By: QUINTIN Piperacillin Sod/Tazobactam (Sod 4.5 gm/ Sodium Chloride) 100 mls @ 200 mls/hr IV Q6H [facility] Last Infusion: 07/27/22 13:14 Dose: 0 mls/hr Documented By: QUINTIN Methylprednisolone Sodium Succinate 1,000 mg/ Sodium Chloride 66 mls @ 66 mls/hr IV DAILY [facility] Stop: 07/28/22 09:59 Last Infusion: 07/27/22 10:16 Dose: 0 mls/hr Documented By: QUINTIN Ondansetron HCl (Ondansetron Hcl 4 Mg/2 Ml Vial) 4 mg IVPUSH Q8H PRN PRN Reason: Nausea and Vomiting Last Admin: 07/20/22 21:09 Dose: 4 mg Documented By: HE Pharmacy Consult (Consult Rx Perform Med Rec) 1 each MISCELLANE ONCE PRN PRN Reason: Consult order Sodium Chloride (0.9 % Sodium Chloride Flush 3 Ml Syringe) 3 ml IVFLUSH QSHIFT [facility] Last Admin: 07/27/22 15:30 Dose: Not Given Documented By: QUINTIN Non-Admin Reason: IV Running Labs 07/26/22 06:08 07/26/22 06:08 Labs: Laboratory Results - last 24 hr 07/27/22 07:18 POC Glucose 164 H Assessment and Plan (1) Rhabdomyolysis: Status: Acute (2) Pneumonia: Status: Acute (3) Opiate use: Status: Acute Plan Pt is a 36-year-old male with a PMH significant for?opiate use disorder and diabetes who presents to the ED after an apparent overdose with LOC and unknown period of unresponsiveness, likely 48 hours long. Patient remained in hospital for treatment of rhabdomyolysis with aggressive IV fluids. Noted to have relative paralysis on arrival; as rhabdo improved functioning returning 1.Rhabdomyolysis -improved -DC IV fluids 2.Aspiration pneumonia -continue Zosyn -switch to Augmentin upon DC 3.Opioid use disorder -switch morphine to q.6 hours p.r.n.; add oxycodone -Addition medicine following....CSS search 4. Hyperglycemia -continue correctional scale 5.Paralysis . -continue Solu-Medrol as per Neurology -follow clinically Full Code Sylvie Will need ongoing hospitalization to monitor total CKs and utilize volume repletion if remained elevated and to begin steroid dosing for cord edema Time Spent With Patient Time: Total time managing care of this patient today ____ minutes. Quality Stroke Does the patient have a stroke diagnosis?: No VTE Prior VTE?: No VTE Risk Level:: Medical - moderate - high VTE Device Contraindication: Treatment Not Indicated VTE Drug Contraindication: N/A - Med Ordered
[2022-07-27 16:00] VITALS: BP 132/67; PULSE 55; RESP 17; TEMP 37; O2SAT 94
[2022-07-27] MEDS: oxyCODONE HCl Immed Release 5 MG TABLET 10 MG PO ×2 (16:29→21:51)
[2022-07-27 20:00] VITALS: BP 133/68; PULSE 63; RESP 17; TEMP 36.8; O2SAT 94
[2022-07-28] MEDS: 0.9 % Sodium Chloride Flush 3 ML SYRINGE IVFLUSH ×3 (00:06→17:51)
[2022-07-28] MEDS: oxyCODONE HCl Immed Release 5 MG TABLET 10 MG PO ×4 (02:17→22:34)
[2022-07-28 04:00] VITALS: BP 128/76; PULSE 66; RESP 18; TEMP 36.7; O2SAT 99
[2022-07-28] MEDS: Piperacillin Sodium/Tazobactam 4.5 GM in 0.9 % Sodium Chloride 100 ML IV ×4 (05:14→17:50)
[2022-07-28 07:17] VITALS: BP 119/63; PULSE 55; RESP 16; TEMP 36.1; O2SAT 95
[2022-07-28] MEDS: Acetaminophen 325 MG TABLET 650 MG PO (09:45)
[2022-07-28] MEDS: methylPREDNISolone Sod Succ 1,000 MG in 0.9 % Sodium Chloride 50 ML 66 MG IV (09:45)
[2022-07-28 09:49] VITALS: BP 119/63; PULSE 55; O2SAT 95
--- NOTE | 2022-07-28 11:21 | P.PNIM_ITS ---
Subjective Subjective Date of Service: 07/28/22 Interval History: Continues to note improvement on a daily basis Review of Systems Denies chest pain Denies shortness of breath Denies nausea vomiting diarrhea Denies fever chills Physical Exam Vital Signs: Vital Signs: Last Vital Signs Temp 97 F 07/28/22 07:17 Pulse 55 07/28/22 09:49 Resp 16 07/28/22 07:17 BP 119/63 07/28/22 09:49 Pulse Ox 95 07/28/22 09:49 O2 Del Method 07/28/22 07:17 O2 Flow Rate 2 07/21/22 04:09 BMI result Body Mass Index 27.2 Const: Other: Awake alert oriented x3 no acute distress Resp: Other: Clear to auscultation bilaterally no rales rhonchi or wheezes Cardio: Other: No S4; positive S1-S2; no S3 murmurs rubs or gallops Neuro: Other: Cranial nerves 2-12 grossly intact motor 3 to 4/5 in the left lower extremity now right lower extremity with hip flexor/quadriceps movement 2 to 3/5. Sensation intact distally Extrem: Other: No edema bilaterally Objective Data Active Medications Acetaminophen (Acetaminophen 325 Mg Tablet) 650 mg PO Q6H PRN PRN Reason: Pain, Mild (Pain Scale 1-3) Last Admin: 07/28/22 09:45 Dose: 650 mg Documented By: COTMIRNA Docusate Sodium (Docusate Sodium 100 Mg Capsule) 100 mg PO DAILY PRN PRN Reason: Constipation Last Admin: 07/22/22 16:26 Dose: 100 mg Documented By: MAJO Enoxaparin Sodium (Enoxaparin Sodium 40 Mg/0.4 Ml Syringe) 40 mg SUBCUT Q24H [facility] Last Admin: 07/27/22 12:20 Dose: 40 mg Documented By: QUINTIN Piperacillin Sod/Tazobactam (Sod 4.5 gm/ Sodium Chloride) 100 mls @ 200 mls/hr IV Q6H [facility] Last Infusion: 07/28/22 06:07 Dose: 0 mls/hr Documented By: MARQUISE Ondansetron HCl (Ondansetron Hcl 4 Mg/2 Ml Vial) 4 mg IVPUSH Q8H PRN PRN Reason: Nausea and Vomiting Last Admin: 07/20/22 21:09 Dose: 4 mg Documented By: HE Oxycodone HCl (Oxycodone Hcl Immed Release 5 Mg Tablet) 10 mg PO Q4H PRN PRN Reason: Pain, Moderate (Pain Scale 4-6 Last Admin: 07/28/22 09:45 Dose: 10 mg Documented By: LELE Pharmacy Consult (Consult Rx Perform Med Rec) 1 each MISCELLANE ONCE PRN PRN Reason: Consult order Sodium Chloride (0.9 % Sodium Chloride Flush 3 Ml Syringe) [address] [facility] Last Admin: 07/28/22 09:46 Dose: 3 ml Documented By: LELE Labs 07/26/22 06:08 07/26/22 06:08 Assessment and Plan (1) Rhabdomyolysis: Status: Acute (2) Pneumonia: Status: Acute (3) Opiate use: Status: Acute Plan Pt is a 36-year-old male with a PMH significant for?opiate use disorder and diabetes who presents to the ED after an apparent overdose with LOC and unknown period of unresponsiveness, likely 48 hours long. Patient remained in hospital for treatment of rhabdomyolysis with aggressive IV fluids. Noted to have relat clay paralysis on arrival; as rhabdo improved functioning returning 1.Rhabdomyolysis -resolved -DC IV fluids 2.Aspiration pneumonia -continue Zosyn -switch to Augmentin upon DC 3.Opioid use disorder -switch morphine to q.6 hours p.r.n.; add oxycodone -Addition medicine following....CSS search 4. Hyperglycemia -continue correctional scale 5.Paralysis . -continue Solu-Medrol as per Neurology -follow clinically Full Code Sylvie Will need ongoing hospitalization to monitor total CKs and utilize volume repletion if remained elevated and to begin steroid dosing for cord edema Time Spent With Patient Time: Total time managing care of this patient today ____ minutes. Quality Stroke Does the patient have a stroke diagnosis?: No VTE Prior VTE?: No VTE Risk Level:: Medical - moderate - high VTE Device Contraindication: Treatment Not Indicated VTE Drug Contraindication: N/A - Med Ordered
[2022-07-28] MEDS: Enoxaparin Sodium 40 MG/0.4 ML SYRINGE SUBCUT (12:27)
--- NOTE | 2022-07-28 14:08 | MHC.CM.PN ---
STR REFERRALS HAVE BEEN BROADCASTED THERE ARE NO BED OFFERS AT THIS TIME CM WILL CONTINUE TO EXPAND/UPDATE REFERRAL
[2022-07-28 15:20] VITALS: BP 123/60; PULSE 66; RESP 20; TEMP 37; O2SAT 96
[2022-07-28 20:00] VITALS: BP 136/64; PULSE 60; RESP 18; TEMP 36.8; O2SAT 97
[2022-07-29] MEDS: Piperacillin Sodium/Tazobactam 4.5 GM in 0.9 % Sodium Chloride 100 ML IV ×4 (00:09→18:07)
[2022-07-29] MEDS: 0.9 % Sodium Chloride Flush 3 ML SYRINGE IVFLUSH (00:22)
[2022-07-29 03:29] VITALS: BP 138/67; PULSE 50; RESP 16; TEMP 36.2; O2SAT 94
[2022-07-29] MEDS: oxyCODONE HCl Immed Release 5 MG TABLET 10 MG PO ×3 (05:57→19:24)
[2022-07-29 07:44] LABS: Glucose, Whole Blood 264 mg/dL (60-115)
[2022-07-29 08:00] VITALS: BP 127/69; PULSE 46; RESP 16; TEMP 36.3; O2SAT 94
--- NOTE | 2022-07-29 11:47 | P.PNIM_ITS ---
Subjective Subjective Date of Service: 07/29/22 Interval History: Continues to improve with Solu-Medrol. Pain control adequate Review of Systems Denies chest pain Denies shortness of breath Denies nausea vomiting diarrhea Denies fever chills Physical Exam Vital Signs: Vital Signs: Last Vital Signs Temp 97.4 F 07/29/22 08:00 Pulse 46 L 07/29/22 08:00 Resp 16 07/29/22 08:00 BP 127/69 07/29/22 08:00 Pulse Ox 94 07/29/22 08:00 O2 Del Method 07/29/22 08:00 O2 Flow Rate 2 07/21/22 04:09 BMI result Body Mass Index 27.2 Const: Other: Awake alert oriented x3 no acute distress Resp: Other: Clear to auscultation bilaterally no rales rhonchi or wheezes Cardio: Other: No S4; positive S1-S2; no S3 murmurs rubs or gallops Neuro: Other: Cranial nerves 2-12 grossly intact motor 3 to 4/5 in the left lower extremity now right lower extremity with hip flexor/quadriceps movement 2 to 3/5. Sensation intact distally Extrem: Other: No edema bilaterally Objective Data Active Medications Acetaminophen (Acetaminophen 325 Mg Tablet) 650 mg PO Q6H PRN PRN Reason: Pain, Mild (Pain Scale 1-3) Last Admin: 07/28/22 09:45 Dose: 650 mg Documented By: LELE Docusate Sodium (Docusate Sodium 100 Mg Capsule) 100 mg PO DAILY PRN PRN Reason: Constipation Last Admin: 07/22/22 16:26 Dose: 100 mg Documented By: MAJO Enoxaparin Sodium (Enoxaparin Sodium 40 Mg/0.4 Ml Syringe) 40 mg SUBCUT Q24H [facility] Last Admin: 07/28/22 12:27 Dose: 40 mg Documented By: LELE Piperacillin Sod/Tazobactam (Sod 4.5 gm/ Sodium Chloride) 100 mls @ 200 mls/hr IV Q6H [facility] Last Infusion: 07/29/22 06:27 Dose: 0 mls/hr Documented By: MARQUISE Ondansetron HCl (Ondansetron Hcl 4 Mg/2 Ml Vial) 4 mg IVPUSH Q8H PRN PRN Reason: Nausea and Vomiting Last Admin: 07/20/22 21:09 Dose: 4 mg Documented By: HE Oxycodone HCl (Oxycodone Hcl Immed Release 5 Mg Tablet) 10 mg PO Q4H PRN PRN Reason: Pain, Moderate (Pain Scale 4-6 Last Admin: 07/29/22 05:57 Dose: 10 mg Documented By: MARQUISE Pharmacy Consult (Consult Rx Perform Med Rec) 1 each MISCELLANE ONCE PRN PRN Reason: Consult order Sodium Chloride (0.9 % Sodium Chloride Flush 3 Ml Syringe) 3 ml IVFLUSH QSHIFT [facility] Last Admin: 07/29/22 09:35 Dose: Not Given Documented By: SUKHDEV Non-Admin Reason: IV Running Labs 07/26/22 06:08 07/26/22 06:08 Labs: Laboratory Results - last 24 hr 07/29/22 07:40 POC Glucose 264 H Assessment and Plan (1) Paralysis: Status: Acute (2) Pneumonia: Status: Acute (3) Opiate use: Status: Acute Plan Pt is a 36-year-old male with a PMH significant for?opiate use disorder and diabetes who presents to the ED after an apparent overdose with LOC and unknown period of unresponsiveness, likely 48 hours long. Patient remained in hospital for treatment of rhabdomyolysis with aggressive IV fluids. Noted to have relative paralysis on arrival; as rhabdo improved functioning returning 1.Paralysis . -continue Solu-Medrol ..2 more doses -follow clinically 2.Aspiration pneumonia -completed therapy no further antibiotics at this time 3.Opioid use disorder -switch morphine to q.6 hours p.r.n.; add oxycodone -Addition medicine following....CSS search 4. Hyperglycemia -continue correctional scale Full Code Gavix Will need ongoing hospitalization to monitor total CKs and utilize volume rep letion if remained elevated and to begin steroid dosing for cord edema Time Spent With Patient Time: Total time managing care of this patient today ____ minutes. Quality Stroke Does the patient have a stroke diagnosis?: No VTE Prior VTE?: No VTE Risk Level:: Medical - moderate - high VTE Device Contraindication: Treatment Not Indicated VTE Drug Contraindication: N/A - Med Ordered
[2022-07-29] MEDS: Enoxaparin Sodium 40 MG/0.4 ML SYRINGE SUBCUT (14:29)
[2022-07-29 15:34] VITALS: BP 131/64; PULSE 73; RESP 18; TEMP 37.1; O2SAT 95
[2022-07-29 19:17] VITALS: BP 128/71; PULSE 67; RESP 18; TEMP 36.6; O2SAT 95
[2022-07-29 20:00] VITALS: RESP 18
[2022-07-30] MEDS: oxyCODONE HCl Immed Release 5 MG TABLET 10 MG PO ×4 (01:17→19:48)
[2022-07-30] MEDS: Piperacillin Sodium/Tazobactam 4.5 GM in 0.9 % Sodium Chloride 100 ML IV ×4 (01:19→17:28)
[2022-07-30] MEDS: 0.9 % Sodium Chloride Flush 3 ML SYRINGE IVFLUSH ×4 (01:21→19:50)
[2022-07-30 03:31] VITALS: BP 111/57; PULSE 51; RESP 16; TEMP 36.8; O2SAT 96
[2022-07-30 07:39] VITALS: BP 121/65; PULSE 50; RESP 12; TEMP 36.7; O2SAT 95
[2022-07-30] MEDS: Acetaminophen 325 MG TABLET 650 MG PO (09:01)
[2022-07-30] MEDS: Docusate Sodium 100 MG CAPSULE PO (10:11)
--- NOTE | 2022-07-30 11:46 | P.PNIM_ITS ---
Subjective Subjective Date of Service: 07/30/22 Interval History: Continues to improve; complains of constipation today Review of Systems Denies chest pain Denies shortness of breath Denies nausea vomiting diarrhea Denies fever chills Physical Exam Vital Signs: Vital Signs: Last Vital Signs Temp 98.0 F 07/30/22 07:39 Pulse 50 07/30/22 07:39 Resp 12 07/30/22 07:39 BP 121/65 07/30/22 07:39 Pulse Ox 95 07/30/22 07:39 O2 Del Method 07/30/22 07:39 O2 Flow Rate 2 07/21/22 04:09 BMI result Body Mass Index 27.2 Const: Other: Awake alert oriented x3 no acute distress Resp: Other: Clear to auscultation bilaterally no rales rhonchi or wheezes Cardio: Other: No S4; positive S1-S2; no S3 murmurs rubs or gallops Neuro: Other: Cranial nerves 2-12 grossly intact motor 3 to 4/5 in the left lower extremity now right lower extremity with hip flexor/quadriceps movement 2 to 3/5. Sensation intact distally Extrem: Other: No edema bilaterally Objective Data Active Medications Acetaminophen (Acetaminophen 325 Mg Tablet) 650 mg PO Q6H PRN PRN Reason: Pain, Mild (Pain Scale 1-3) Last Admin: 07/30/22 09:01 Dose: 650 mg Documented By: CHIP Docusate Sodium (Docusate Sodium 100 Mg Capsule) 100 mg PO DAILY PRN PRN Reason: Constipation Last Admin: 07/30/22 10:11 Dose: 100 mg Documented By: CHIP Enoxaparin Sodium (Enoxaparin Sodium 40 Mg/0.4 Ml Syringe) 40 mg SUBCUT Q24H [facility] Last Admin: 07/29/22 14:29 Dose: 40 mg Documented By: SUKHDEV Piperacillin Sod/Tazobactam (Sod 4.5 gm/ Sodium Chloride) 100 mls @ 200 mls/hr IV Q6H [facility] Last Infusion: 07/30/22 06:32 Dose: 100 mls/hr Documented By: ROSA M Ondansetron HCl (Ondansetron Hcl 4 Mg/2 Ml Vial) 4 mg IVPUSH Q8H PRN PRN Reason: Nausea and Vomiting Last Admin: 07/20/22 21:09 Dose: 4 mg Documented By: HE Oxycodone HCl (Oxycodone Hcl Immed Release 5 Mg Tablet) 10 mg PO Q4H PRN PRN Reason: Pain, Moderate (Pain Scale 4-6 Last Admin: 07/30/22 10:10 Dose: 10 mg Documented By: CHIP Pharmacy Consult (Consult Rx Perform Med Rec) 1 each MISCELLANE ONCE PRN PRN Reason: Consult order Sodium Chloride (0.9 % Sodium Chloride Flush 3 Ml Syringe) 3 ml IVFLUSH QSHIFT [facility] Last Admin: 07/30/22 09:02 Dose: 3 ml Documented By: CHIP Labs 07/26/22 06:08 07/26/22 06:08 Assessment and Plan (1) Paralysis: Status: Acute (2) Opiate use: Status: Acute (3) Hyperglycemia: Status: Acute Plan Pt is a 36-year-old male with a PMH significant for?opiate use disorder and diabetes who presents to the ED after an apparent overdose with LOC and unknown period of unresponsiveness, likely 48 hours long. Patient remained in hospital for treatment of rhabdomyolysis with aggressive IV fluids. Noted to have relative paralysis on arrival; as rhabdo improved functioning returning 1.Paralysis . -continue Solu-Medrol with some affect... Question role of additional doses versus oral taper -follow clinically 2.Opioid use disorder -switch morphine to q.6 hours p.r.n.; add oxycodone -Addition medicine following....CSS search 4. Hyperglycemia -continue correctional scale Full Code Gavix Will need ongoing hospitalization to monitor total CKs and utilize volume repl etion if remained elevated and to begin steroid dosing for cord edema Time Spent With Patient Time: Total time managing care of this patient today ____ minutes. Quality Stroke Does the patient have a stroke diagnosis?: No VTE Prior VTE?: No VTE Risk Level:: Medical - moderate - high VTE Device Contraindication: Treatment Not Indicated VTE Drug Contraindication: N/A - Med Ordered
[2022-07-30] MEDS: Enoxaparin Sodium 40 MG/0.4 ML SYRINGE SUBCUT (12:01)
[2022-07-30] MEDS: Lactulose 20 GM/30 ML SOLUTION 30 GM PO (12:09)
[2022-07-30 15:31] VITALS: BP 116/60; PULSE 58; RESP 19; TEMP 36.9; O2SAT 95
[2022-07-30 19:56] VITALS: BP 120/63; PULSE 65; RESP 17; TEMP 37.1; O2SAT 97
[2022-07-31 03:55] VITALS: BP 116/74; PULSE 55; RESP 16; TEMP 37.7; O2SAT 95
[2022-07-31 07:06] VITALS: BP 106/61; PULSE 49; RESP 16; TEMP 36.8; O2SAT 95
[2022-07-31] MEDS: 0.9 % Sodium Chloride Flush 3 ML SYRINGE IVFLUSH ×3 (09:40→20:51)
[2022-07-31 09:44] LABS: Anion Gap 8 (12-20); Blood Urea Nitrogen 15 mg/dL (9-16); Calcium 8.2 mg/dL (8.4-10.2); Carbon Dioxide 30 mmol/L (22-29); Chloride 105 mmol/L (96-108); Creatinine Clr Calc Pharmacy 118.8; Estimated Glomerular Filt Rate > 60; Glucose Random 109 mg/dL (60-115); Potassium 3.5 mmol/L (3.3-5.1); Sodium 139 mmol/L (135-145)
[2022-07-31 11:26] VITALS: PULSE 52
[2022-07-31] MEDS: Enoxaparin Sodium 40 MG/0.4 ML SYRINGE SUBCUT (13:13)
--- NOTE | 2022-07-31 14:13 | HO.PM.IMPN ---
Subjective Subjective Date of Service: 07/31/22 Interval History: still weak in legs though improving no pain Review of Systems Review of Systems: Yes all other systems are reviewed and are negative Physical Exam Vital Signs: Vital Signs: Last Vital Signs Temp 98.2 F 07/31/22 07:06 Pulse 52 07/31/22 11:26 Resp 16 07/31/22 07:06 BP 106/61 07/31/22 07:06 Pulse Ox 95 07/31/22 07:06 O2 Del Method 07/31/22 07:06 O2 Flow Rate 2 07/21/22 04:09 BMI result Body Mass Index 27.2 Gen: in no acute distress HEENT: sclera anicteric, moist mucus membranes Neck: supple Lungs: clear to auscultation bilaterally Heart: regular rate and rhythm, no murmurs Abd: soft, non-tender, non-distended Ext: no edema Skin: warm/well-perfused Neuro: alert and oriented x3, bilateral lower extremities with 3/5 strength throughout Psych: appropriate affect Objective Data Active Medications Acetaminophen (Acetaminophen 325 Mg Tablet) 650 mg PO Q6H PRN PRN Reason: Pain, Mild (Pain Scale 1-3) Last Admin: 07/30/22 09:01 Dose: 650 mg Documented By: CHIP Docusate Sodium (Docusate Sodium 100 Mg Capsule) 100 mg PO DAILY PRN PRN Reason: Constipation Last Admin: 07/30/22 10:11 Dose: 100 mg Documented By: CHIP Enoxaparin Sodium (Enoxaparin Sodium 40 Mg/0.4 Ml Syringe) 40 mg SUBCUT Q24H [facility] Last Admin: 07/31/22 13:13 Dose: 40 mg Documented By: QUINTIN Lactulose (Lactulose 20 Gm/30 Ml Solution) 30 gm PO DAILY [facility] Last Admin: 07/31/22 09:40 Dose: Not Given Documented By: QUINTIN Non-Admin Reason: Patient Refused Ondansetron HCl (Ondansetron Hcl 4 Mg/2 Ml Vial) 4 mg IVPUSH Q8H PRN PRN Reason: Nausea and Vomiting Last Admin: 07/20/22 21:09 Dose: 4 mg Documented By: KOLE-SVETLANA Oxycodone HCl (Oxycodone Hcl Immed Release 5 Mg Tablet) 10 mg PO Q4H PRN PRN Reason: Pain, Moderate (Pain Scale 4-6 Last Admin: 07/30/22 19:48 Dose: 10 mg Documented By: MARQUISE Pharmacy Consult (Consult Rx Perform Med Rec) 1 each MISCELLANE ONCE PRN PRN Reason: Consult order Sodium Chloride (0.9 % Sodium Chloride Flush 3 Ml Syringe) 3 ml IVFLUSH QSHIFT [facility] Last Admin: 07/31/22 09:40 Dose: 3 ml Documented By: QUINTIN Labs 07/26/22 06:08 07/31/22 09:15 Labs: Laboratory Results - last 24 hr 07/31/22 09:15 Anion Gap 8 L Estim Creat Clear Calc 118.8 Estimated GFR > 60 Random Glucose 109 Calcium 8.2 L Total Creatine Kinase [address] 07/20/22 09:41 IMPRESSION: 1. No acute intracranial pathology. 2. Mild soft tissue swelling overlying the left paramedian posterior scalp without underlying bony defect. Head CT 07/20/22 09:41 IMPRESSION: 1. No acute intracranial pathology. 2. Mild soft tissue swelling overlying the left paramedian posterior scalp without underlying bony defect. Abdomen/Pelvis CT 07/20/22 09:42 IMPRESSION: 1. No evidence of a traumatic injury in the chest, abdomen or pelvis. 2. Extensive right-sided pneumonia. Infectious etiologies are considerations as is aspiration given this patient's history. 3. Distended bladder. Consider Melendrez catheter is patient cannot void. Fleischner guidelines were followed. Chest CT 07/20/22 09:42 IMPRESSION: 1. No evidence of a traumatic injury in the chest, abdomen or pelvis. 2. Extensive right-sided pneumonia. Infectious etiologies are considerations as is aspiration given this patient's history. 3. Distended bladder. Consider Melendrez catheter is patient cannot void. Fleischner guidelines were followed. Cervical Spine MRI 07/26/22 14:25 IMPRESSION: CERVICAL SPINE: 1. Expansile intramedullary T2 hyperintensity at the C5-C6 level with contiguous long segment intramedullary signal abnormality extending cranially to the C2 level and caudally to the T2 level. No definite intramedullary hemorrhage. In a prolonged unconsciousness state, a flexion myelopathy resulting in acute edematous cord infarct could account for these findings. An acute cord contusion is a consideration however the degree of edema appears disproportionate. Toxic/metabolic myelopathy is also a differential consideration but considered less likely. 2. Extensive edema is seen within the posterior soft tissues including within the left-sided paraspinal soft tissues. THORACIC SPINE: 1. Normal cord signal. No spinal canal or neural foraminal stenosis. 2. Small bilateral pleural effusions. This critical result was discussed with Dr. Renee on 07/26/2022 3:54 PM, and it was ascertained that the content and urgency of the report was understood at the time of direct communication. Thoracic Spine MRI 07/26/22 14:55 IMPRESSION: CERVICAL SPINE: 1. Expansile intramedullary T2 hyperintensity at the C5-C6 level with contiguous long segment intramedullary signal abnormality extending cranially to the C2 level and caudally to the T2 level. No definite intramedullary hemorrhage. In a prolonged unconsciousness state, a flexion myelopathy resulting in acute edematous cord infarct could account for these findings. An acute cord contusion is a consideration however the degree of edema appears disproportionate. Toxic/metabolic myelopathy is also a differential consideration but considered less likely. 2. Extensive edema is seen within the posterior soft tissues including within the left-sided paraspinal soft tissues. THORACIC SPINE: 1. Normal cord signal. No spinal canal or neural foraminal stenosis. 2. Small bilateral pleural effusions. This critical result was discussed with Dr. Renee on 07/26/2022 3:54 PM, and it was ascertained that the content and urgency of the report was understood at the time of direct communication. 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 Quality Stroke Does the patient have a stroke diagnosis?: No VTE Prior VTE?: No VTE Risk Level:: Medical - moderate - high VTE Device Contraindication: Treatment Not Indicated VTE Drug Contraindication: N/A - Med Ordered
[2022-07-31 15:02] VITALS: PULSE 52
[2022-07-31 15:19] VITALS: BP 112/53; PULSE 60; RESP 17; TEMP 36.3; O2SAT 96
[2022-07-31 15:51] LABS: Glucose, Whole Blood 157 mg/dL (60-115)
[2022-07-31] MEDS: Insulin Lispro 100 UNIT/ML 3 ML VIAL SUBCUT ×2 (17:41→20:49)
[2022-07-31] MEDS: oxyCODONE HCl Immed Release 5 MG TABLET 10 MG PO ×2 (17:43→21:56)
[2022-07-31 19:49] LABS: Glucose, Whole Blood 163 mg/dL (60-115)
[2022-07-31 19:54] VITALS: BP 99/53; PULSE 55; RESP 18; TEMP 36; O2SAT 95
[2022-08-01 03:47] VITALS: BP 103/60; PULSE 52; RESP 18; TEMP 36.8; O2SAT 95
--- NOTE | 2022-08-01 06:38 | PC.NURSE ---
while getting pt to bed this evening SEISMOGRAPH CHIEF had to lower him to floor because he wasnt able to hold balance, she was given in report that pt is 1x assist out o bed, pt didnt get injured he was holding to bed in chair and slowly was lowered to floor. When director of recruitment and admissions called for help he was sitting comfortable on the floor. security was notified to help with transfer, all stalff was informed pt is max assist out of bed, and he was high fall risk with camera in room prior. Nursing belt and link assembly supervisor notified. incident filed .
[2022-08-01 07:37] VITALS: BP 108/59; PULSE 45; RESP 16; TEMP 36.6; O2SAT 95
[2022-08-01 07:50] LABS: Glucose, Whole Blood 125 mg/dL (60-115)
[2022-08-01] MEDS: 0.9 % Sodium Chloride Flush 3 ML SYRINGE IVFLUSH ×3 (09:23→20:19)
[2022-08-01 09:26] VITALS: BP 108/59; PULSE 45; O2SAT 95
--- NOTE | 2022-08-01 11:00 | P.PNIM_ITS ---
Subjective Subjective Date of Service: 08/01/22 Interval History: c/o bilateral leg weakness Review of Systems Review of Systems: Yes all other systems are reviewed and are negative Physical Exam Vital Signs: Vital Signs: Last Vital Signs Temp 97.9 F 08/01/22 07:37 Pulse 45 L 08/01/22 09:26 Resp 16 08/01/22 07:37 BP 108/59 L 08/01/22 09:26 Pulse Ox 95 08/01/22 09:26 O2 Del Method 08/01/22 07:37 O2 Flow Rate 2 07/21/22 04:09 BMI result Body Mass Index 27.2 Gen: in no acute distress HEENT: sclera anicteric, moist mucus membranes Neck: supple Lungs: clear to auscultation bilaterally Heart: regular rate and rhythm, no murmurs Abd: soft, non-tender, non-distended Ext: no edema Skin: warm/well-perfused Neuro: alert and oriented x3, bilateral lower extremities with 3/5 strength throughout Psych: appropriate affect ? Objective Data Active Medications Acetaminophen (Acetaminophen 325 Mg Tablet) 650 mg PO Q6H PRN PRN Reason: Pain, Mild (Pain Scale 1-3) Last Admin: 07/30/22 09:01 Dose: 650 mg Documented By: CHIP Dextrose (Dextrose 50 % 25 Gm/50 Ml Syringe) 25 gm IVPUSH Q15M PRN; Protocol PRN Reason: per Hypoglycemia Standing Ord. Docusate Sodium (Docusate Sodium 100 Mg Capsule) 100 mg PO DAILY PRN PRN Reason: Constipation Last Admin: 07/30/22 10:11 Dose: 100 mg Documented By: CHIP Enoxaparin Sodium (Enoxaparin Sodium 40 Mg/0.4 Ml Syringe) 40 mg SUBCUT Q24H [facility] Last Admin: 07/31/22 13:13 Dose: 40 mg Documented By: LYSZ Glucose (Glucose Gel 15 Gm Gel..Gram.) 15 gm PO Q15M PRN; Protocol PRN Reason: per Hypoglycemia Standing Ord. Insulin Human Lispro (Insulin Lispro 100 Unit/Ml 3 Ml Vial) 0 unit SUBCUT QIDACHS [facility]; Protocol Last Admin: 08/01/22 07:52 Dose: Not Given Documented By: DABA Non-Admin Reason: No Insulin Coverage Lactulose (Lactulose 20 Gm/30 Ml Solution) 30 gm PO DAILY [facility] Last Admin: 08/01/22 09:25 Dose: Not Given Documented By: RIANNA Non-Admin Reason: Patient Refused Ondansetron HCl (Ondansetron Hcl 4 Mg/2 Ml Vial) 4 mg IVPUSH Q8H PRN PRN Reason: Nausea and Vomiting Last Admin: 07/20/22 21:09 Dose: 4 mg Documented By: JASMINSVETLANA Oxycodone HCl (Oxycodone Hcl Immed Release 5 Mg Tablet) 10 mg PO Q4H PRN PRN Reason: Pain, Moderate (Pain Scale 4-6 Last Admin: 07/31/22 21:56 Dose: 10 mg Documented By: MARQUISE Pharmacy Consult (Consult Rx Perform Med Rec) 1 each MISCELLANE ONCE PRN PRN Reason: Consult order Sodium Chloride (0.9 % Sodium Chloride Flush 3 Ml Syringe) 3 ml IVFLUSH QSHIFT [facility] Last Admin: 08/01/22 09:23 Dose: 3 ml Documented By: RIANNA Labs 07/26/22 06:08 07/31/22 09:15 Labs: Laboratory Results - last 24 hr 07/31/22 07/31/22 08/01/22 15:18 19:12 07:42 POC Glucose 157 H 163 H 125 H Assessment and Plan (1) Paralysis: Status: Acute (2) Opiate use: Status: Acute (3) Hyperglycemia: Status: Acute Plan d#13 36yo M with OUD, DM2 presented after overdose/LOC/unknown period of unresponsiveness perhaps as long as 48 hr, admitted for rhabdomyolysis and relative paralysis # paralysis likely due to 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 Quality Stroke Does the patient have a stroke diagnosis?: No VTE Prior VTE?: No VTE Risk Level:: Medical - moderate - high VTE Device Contraindication: Treatment Not Indicated VTE Drug Contraindication: N/A - Med Ordered
[2022-08-01 11:24] LABS: Glucose, Whole Blood 138 mg/dL (60-115)
[2022-08-01] MEDS: Enoxaparin Sodium 40 MG/0.4 ML SYRINGE SUBCUT (14:07)
[2022-08-01] MEDS: oxyCODONE HCl Immed Release 5 MG TABLET 10 MG PO (14:13)
[2022-08-01 15:52] VITALS: BP 98/59; PULSE 45; RESP 18; TEMP 36.7; O2SAT 97
[2022-08-01 16:35] LABS: Glucose, Whole Blood 110 mg/dL (60-115)
[2022-08-01 19:59] VITALS: BP 104/59; PULSE 48; RESP 18; TEMP 36.8; O2SAT 97
[2022-08-01] MEDS: Acetaminophen 325 MG TABLET 650 MG PO (20:19)
[2022-08-01 20:30] LABS: Glucose, Whole Blood 176 mg/dL (60-115)
[2022-08-01] MEDS: Insulin Lispro 100 UNIT/ML 3 ML VIAL SUBCUT (20:34)
[2022-08-01] MEDS: oxyCODONE HCl Immed Release 5 MG TABLET PO (22:05)
[2022-08-02 03:11] VITALS: BP 112/52; PULSE 48; RESP 16; TEMP 37.1; O2SAT 96
[2022-08-02 07:12] VITALS: BP 107/63; PULSE 46; RESP 16; TEMP 36.3; O2SAT 97
[2022-08-02 07:20] LABS: Glucose, Whole Blood 106 mg/dL (60-115)
--- NOTE | 2022-08-02 09:54 | HO.PM.IMPN ---
Subjective Subjective Date of Service: 08/02/22 Interval History: still quite weak in legs arms/hands are fine Review of Systems Review of Systems: Yes all other systems are reviewed and are negative Physical Exam Vital Signs: Vital Signs: Last Vital Signs Temp 97.4 F 08/02/22 07:12 Pulse 46 L 08/02/22 07:12 Resp 16 08/02/22 07:12 BP 107/63 08/02/22 07:12 Pulse Ox 97 08/02/22 07:12 O2 Del Method 08/02/22 07:12 O2 Flow Rate 2 07/21/22 04:09 BMI result Body Mass Index 27.2 Gen: in no acute distress HEENT: sclera anicteric, moist mucus membranes Neck: supple Lungs: clear to auscultation bilaterally Heart: regular rate and rhythm, no murmurs Abd: soft, non-tender, non-distended Ext: no edema Skin: warm/well-perfused Neuro: alert and oriented x3, bilateral lower extremities with 3/5 strength throughout Psych: appropriate affect Objective Data Active Medications Acetaminophen (Acetaminophen 325 Mg Tablet) 650 mg PO Q6H PRN PRN Reason: Pain, Mild (Pain Scale 1-3) Last Admin: 08/01/22 20:19 Dose: 650 mg Documented By: GELA Dextrose (Dextrose 50 % 25 Gm/50 Ml Syringe) 25 gm IVPUSH Q15M PRN; Protocol PRN Reason: per Hypoglycemia Standing Ord. Docusate Sodium (Docusate Sodium 100 Mg Capsule) 100 mg PO DAILY PRN PRN Reason: Constipation Last Admin: 07/30/22 10:11 Dose: 100 mg Documented By: GILDAENOINDIA Enoxaparin Sodium (Enoxaparin Sodium 40 Mg/0.4 Ml Syringe) 40 mg SUBCUT Q24H [facility] Last Admin: 08/01/22 14:07 Dose: 40 mg Documented By: RIANNA Glucose (Glucose Gel 15 Gm Gel..Gram.) 15 gm PO Q15M PRN; Protocol PRN Reason: per Hypoglycemia Standing Ord. Insulin Human Lispro (Insulin Lispro 100 Unit/Ml 3 Ml Vial) 0 unit SUBCUT QIDACHS [facility]; Protocol Last Admin: 08/02/22 07:21 Dose: Not Given Documented By: RIANNA Non-Admin Reason: No Insulin Coverage Lactulose (Lactulose 20 Gm/30 Ml Solution) 30 gm PO DAILY [facility] Last Admin: 08/02/22 09:07 Dose: Not Given Documented By: RIANNA Non-Admin Reason: Patient Refused Ondansetron HCl (Ondansetron Hcl 4 Mg/2 Ml Vial) 4 mg IVPUSH Q8H PRN PRN Reason: Nausea and Vomiting Last Admin: 07/20/22 21:09 Dose: 4 mg Documented By: HE Oxycodone HCl (Oxycodone Hcl Immed Release 5 Mg Tablet) 5 mg PO Q4H PRN PRN Reason: Pain, Severe (Pain Scale 7-10) Last Admin: 08/01/22 22:05 Dose: 5 mg Documented By: GELA Pharmacy Consult (Consult Rx Perform Med Rec) 1 each MISCELLANE ONCE PRN PRN Reason: Consult order Sodium Chloride (0.9 % Sodium Chloride Flush 3 Ml Syringe) 3 ml IVFLUSH QSHIFT [facility] Last Admin: 08/01/22 20:19 Dose: 3 ml Documented By: GELA Labs 07/26/22 06:08 07/31/22 09:15 Labs: Laboratory Results - last 24 hr 08/01/22 08/01/22 08/01/22 11:12 16:32 20:23 POC Glucose 138 H 110 176 H 08/02/22 07:15 POC Glucose 106 Assessment and Plan (1) Paralysis: Status: Acute (2) Opiate use: Status: Acute (3) Hyperglycemia: Status: Acute Plan d#14 36yo M with OUD, DM2 presented after overdose/LOC/unknown period of unresponsiveness perhaps as long as 48 hr, admitted for rhabdomyolysis and relative paralysis # paralysis likely due to 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 Quality Stroke Does the patient have a stroke diagnosis?: No VTE Prior VTE?: No VTE Risk Level:: Medical - moderate - high VTE Device Contraindication: Treatment Not Indicated VTE Drug Contraindication: N/A - Med Ordered
[2022-08-02] MEDS: 0.9 % Sodium Chloride Flush 3 ML SYRINGE IVFLUSH ×3 (10:29→20:22)
[2022-08-02 11:02] VITALS: BP 107/63; PULSE 46; O2SAT 97
[2022-08-02 11:12] VITALS: BP 123/57; PULSE 48; RESP 16; TEMP 36.9; O2SAT 97
[2022-08-02 11:18] LABS: Glucose, Whole Blood 150 mg/dL (60-115)
[2022-08-02] MEDS: Enoxaparin Sodium 40 MG/0.4 ML SYRINGE SUBCUT (12:40)
[2022-08-02] MEDS: Acetaminophen 325 MG TABLET 650 MG PO (12:43)
[2022-08-02] MEDS: oxyCODONE HCl Immed Release 5 MG TABLET PO ×2 (12:43→20:27)
[2022-08-02 15:50] VITALS: BP 104/56; PULSE 47; RESP 18; TEMP 36.6; O2SAT 97
--- NOTE | 2022-08-02 16:21 | MHC.CM.PN ---
Addendum entered by Nadiay Nava RN 08/02/22 16:26: CM CONTACTED FS WHO REPORT PT'S MH IS PENDING INCOME VERIFICATION AND THAT HAS BEEN SENT IN TO MH, FS TO FOOLOW UP W/MH TO CHECK ON STATUS. Original Note: EMR REVIEWED, PT HAS BEEN DECLINED BY ACUTE REHABS AND CM HAS NOT RECEIVED ANY SNF BED OFFERS, SNF REFERRAL HAS BEEN UPDATED AND EXPANDED TO [facility], CM WILL CONT TO FOLLOW D/C NEEDS AND CM AWAITING UPDATE FROM FS ON STATUS OF MH CHARLENE.
[2022-08-02 16:29] LABS: Glucose, Whole Blood 112 mg/dL (60-115)
[2022-08-02 19:32] VITALS: BP 106/58; PULSE 57; RESP 18; TEMP 36.6; O2SAT 96
[2022-08-02 19:46] LABS: Glucose, Whole Blood 187 mg/dL (60-115)
[2022-08-02] MEDS: Insulin Lispro 100 UNIT/ML 3 ML VIAL SUBCUT (20:22)
[2022-08-03 03:16] VITALS: BP 100/58; PULSE 55; RESP 18; TEMP 36.7; O2SAT 98
[2022-08-03 07:48] VITALS: BP 112/54; PULSE 43; RESP 16; TEMP 37.1; O2SAT 97
[2022-08-03 07:48] LABS: Glucose, Whole Blood 118 mg/dL (60-115)
[2022-08-03] MEDS: 0.9 % Sodium Chloride Flush 3 ML SYRINGE IVFLUSH ×3 (08:29→20:39)
[2022-08-03] MEDS: oxyCODONE HCl Immed Release 5 MG TABLET PO ×3 (08:29→20:39)
[2022-08-03] MEDS: Acetaminophen 325 MG TABLET 650 MG PO ×2 (08:29→16:30)
--- NOTE | 2022-08-03 09:16 | HO.PM.IMPN ---
Subjective Subjective Date of Service: 08/03/22 Interval History: Weakness in legs No pain or paresthesias Review of Systems Review of Systems: Yes all other systems are reviewed and are negative Physical Exam Vital Signs: Vital Signs: Last Vital Signs Temp 98.8 F 08/03/22 07:48 Pulse 43 L 08/03/22 07:48 Resp 16 08/03/22 07:48 BP 112/54 L 08/03/22 07:48 Pulse Ox 97 08/03/22 07:48 O2 Del Method 08/03/22 07:48 O2 Flow Rate 2 07/21/22 04:09 BMI result Body Mass Index 27.2 Gen: in no acute distress HEENT: sclera anicteric, moist mucus membranes Neck: supple Lungs: clear to auscultation bilaterally Heart: regular rate and rhythm, no murmurs Abd: soft, non-tender, non-distended Ext: no edema Skin: warm/well-perfused Neuro: alert and oriented x3, bilateral lower extremities with 3/5 strength throughout Psych: appropriate affect Objective Data Active Medications Acetaminophen (Acetaminophen 325 Mg Tablet) 650 mg PO Q6H PRN PRN Reason: Pain, Mild (Pain Scale 1-3) Last Admin: 08/03/22 08:29 Dose: 650 mg Documented By: RIANNA Dextrose (Dextrose 50 % 25 Gm/50 Ml Syringe) 25 gm IVPUSH Q15M PRN; Protocol PRN Reason: per Hypoglycemia Standing Ord. Docusate Sodium (Docusate Sodium 100 Mg Capsule) 100 mg PO DAILY PRN PRN Reason: Constipation Last Admin: 07/30/22 10:11 Dose: 100 mg Documented By: GILDAENOAL Enoxaparin Sodium (Enoxaparin Sodium 40 Mg/0.4 Ml Syringe) 40 mg SUBCUT Q24H [facility] Last Admin: 08/02/22 12:40 Dose: 40 mg Documented By: RIANNA Glucose (Glucose Gel 15 Gm Gel..Gram.) 15 gm PO Q15M PRN; Protocol PRN Reason: per Hypoglycemia Standing Ord. Insulin Human Lispro (Insulin Lispro 100 Unit/Ml 3 Ml Vial) 0 unit SUBCUT QIDACHS [facility]; Protocol Last Admin: 08/03/22 07:21 Dose: Not Given Documented By: RIANNA Non-Admin Reason: No Insulin Coverage Lactulose (Lactulose 20 Gm/30 Ml Solution) 30 gm PO DAILY [facility] Last Admin: 08/03/22 08:31 Dose: Not Given Documented By: RIANNA Non-Admin Reason: Patient Refused Ondansetron HCl (Ondansetron Hcl 4 Mg/2 Ml Vial) 4 mg IVPUSH Q8H PRN PRN Reason: Nausea and Vomiting Last Admin: 07/20/22 21:09 Dose: 4 mg Documented By: KOLE-SVETLANA Oxycodone HCl (Oxycodone Hcl Immed Release 5 Mg Tablet) 5 mg PO Q4H PRN PRN Reason: Pain, Severe (Pain Scale 7-10) Last Admin: 08/03/22 08:29 Dose: 5 mg Documented By: RIANNA Pharmacy Consult (Consult Rx Perform Med Rec) 1 each MISCELLANE ONCE PRN PRN Reason: Consult order Sodium Chloride (0.9 % Sodium Chloride Flush 3 Ml Syringe) 3 ml IVFLUSH QSHIFT [facility] Last Admin: 08/03/22 08:29 Dose: 3 ml Documented By: RIANNA Labs 07/26/22 06:08 07/31/22 09:15 Labs: Laboratory Results - last 24 hr 08/02/22 08/02/22 08/02/22 11:14 16:23 19:22 POC Glucose 150 H 112 187 H 08/03/22 07:10 POC Glucose 118 H Assessment and Plan (1) Paralysis: Status: Acute (2) Opiate use: Status: Acute (3) Hyperglycemia: Status: Acute Plan d#15 36yo M with OUD, DM2 presented after overdose/LOC/unknown period of unresponsiveness perhaps as long as 48 hr, admitted for rhabdomyolysis and relative paralysis # paralysis likely due to 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 Quality Stroke Does the patient have a stroke diagnosis?: No VTE Prior VTE?: No VTE Risk Level:: Medical - moderate - high VTE Device Contraindication: Treatment Not Indicated VTE Drug Contraindication: N/A - Med Ordered
[2022-08-03 09:51] LABS: Estimated Average Glucose 117 mg/dL; Hemoglobin A1c % 5.7 %
--- NOTE | 2022-08-03 10:25 | PC.NURSE ---
alvarez cath removed at 1030 pt due to void at 1630
[2022-08-03 10:32] LABS: HBS Num1 > 1000.00 mIU/mL (0-7.99); HBc Num1 0.05 S/CO (0.00-0.79); HBsAGNum1 0.31 S/CO (0.00-0.99); HIV AB/AG Nonreactive (Nonreactive); HIV Num 1 0.05 S/CO (0.00-0.99); Hepatitis B Core Antibody Nonreactive (Nonreactive); Hepatitis B Surface Antigen Negative (Negative); ~HepC Num1 14.38 S/CO (0.00-0.79); ~Hepatitis B Surface Antibody REACTIVE (Nonreactive); ~Hepatitis C Antibody Reactive (Nonreactive)
--- NOTE | 2022-08-03 11:14 | MHC.CM.PN ---
PT CONTINUES TO REQUIRE REHAB PLACEMENT REFERRAL HAS BEEN DECLINED BY ALL ACUTE REHABS PT WILL LIKLEY REQUIRE A LONGER STAY THAN THAT LOC PERMITS STR REFERRALS HAVE BEEN BROADCASTED NO BED OFFERS AT THIS TIME CM UPDATED REFERRAL AND EXPANDED IT TO 100 MILES AWAITING RESPONSES
[2022-08-03 11:28] VITALS: BP 112/54; PULSE 43; O2SAT 97
[2022-08-03 12:00] LABS: Glucose, Whole Blood 110 mg/dL (60-115)
[2022-08-03] MEDS: Enoxaparin Sodium 40 MG/0.4 ML SYRINGE SUBCUT (12:53)
[2022-08-03 16:27] VITALS: BP 102/55; PULSE 45; RESP 18; TEMP 36.4; O2SAT 97
--- NOTE | 2022-08-03 16:32 | PC.NURSE ---
pt bladder scanned for 930mls , new order to place Alvarez back , 1000mls of yellow urine from alvarez bag urology consult is in for retention .
[2022-08-03 16:42] LABS: Glucose, Whole Blood 91 mg/dL (60-115)
[2022-08-03 19:58] VITALS: BP 106/58; PULSE 54; RESP 16; TEMP 36.3; O2SAT 96
[2022-08-03 20:33] LABS: Glucose, Whole Blood 161 mg/dL (60-115)
[2022-08-03] MEDS: Insulin Lispro 100 UNIT/ML 3 ML VIAL SUBCUT (20:39)
[2022-08-04 03:12] VITALS: BP 104/64; PULSE 44; RESP 18; TEMP 36.4; O2SAT 96
[2022-08-04 07:44] VITALS: BP 103/63; PULSE 44; RESP 18; TEMP 37.1; O2SAT 94
[2022-08-04] MEDS: oxyCODONE HCl Immed Release 5 MG TABLET PO ×2 (07:59→20:19)
[2022-08-04 08:04] LABS: Glucose, Whole Blood 98 mg/dL (60-115)
[2022-08-04] MEDS: 0.9 % Sodium Chloride Flush 3 ML SYRINGE IVFLUSH ×3 (08:04→20:20)
--- NOTE | 2022-08-04 10:46 | P.PNIM_ITS ---
Subjective Subjective Date of Service: 08/04/22 Interval History: Weakness in legs No pain or paresthesias Review of Systems Review of Systems: Yes all other systems are reviewed and are negative Physical Exam Vital Signs: Vital Signs: Last Vital Signs Temp 98.7 F 08/04/22 07:44 Pulse 44 L 08/04/22 07:44 Resp 18 08/04/22 07:44 BP 103/63 08/04/22 07:44 Pulse Ox 94 08/04/22 07:44 O2 Del Method 08/04/22 07:44 O2 Flow Rate 2 07/21/22 04:09 BMI result Body Mass Index 27.2 Appearing in no acute distress lung sounds are clear to auscultation heart regular rate rhythm, clear S1, S2 positive bowel sounds, abdomen is soft, nontender neuro patient is alert x3, no focal deficits Objective Data Active Medications Acetaminophen (Acetaminophen 325 Mg Tablet) 650 mg PO Q6H PRN PRN Reason: Pain, Mild (Pain Scale 1-3) Last Admin: 08/03/22 16:30 Dose: 650 mg Documented By: RIANNA Dextrose (Dextrose 50 % 25 Gm/50 Ml Syringe) 25 gm IVPUSH Q15M PRN; Protocol PRN Reason: per Hypoglycemia Standing Ord. Docusate Sodium (Docusate Sodium 100 Mg Capsule) 100 mg PO DAILY PRN PRN Reason: Constipation Last Admin: 07/30/22 10:11 Dose: 100 mg Documented By: GILDAENOAL Enoxaparin Sodium (Enoxaparin Sodium 40 Mg/0.4 Ml Syringe) 40 mg SUBCUT Q24H [facility] Last Admin: 08/03/22 12:53 Dose: 40 mg Documented By: RIANNA Glucose (Glucose Gel 15 Gm Gel..Gram.) 15 gm PO Q15M PRN; Protocol PRN Reason: per Hypoglycemia Standing Ord. Insulin Human Lispro (Insulin Lispro 100 Unit/Ml 3 Ml Vial) 0 unit SUBCUT QIDACHS [facility]; Protocol Last Admin: 08/04/22 08:20 Dose: Not Given Documented By: KB Non-Admin Reason: No Insulin Coverage Lactulose (Lactulose 20 Gm/30 Ml Solution) 30 gm PO DAILY [facility] Last Admin: 08/04/22 08:03 Dose: Not Given Documented By: KB Non-Admin Reason: Patient Refused Ondansetron HCl (Ondansetron Hcl 4 Mg/2 Ml Vial) 4 mg IVPUSH Q8H PRN PRN Reason: Nausea and Vomiting Last Admin: 07/20/22 21:09 Dose: 4 mg Documented By: HE Oxycodone HCl (Oxycodone Hcl Immed Release 5 Mg Tablet) 5 mg PO Q4H PRN PRN Reason: Pain, Severe (Pain Scale 7-10) Last Admin: 08/04/22 07:59 Dose: 5 mg Documented By: KB Pharmacy Consult (Consult Rx Perform Med Rec) 1 each MISCELLANE ONCE PRN PRN Reason: Consult order Sodium Chloride (0.9 % Sodium Chloride Flush 3 Ml Syringe) 3 ml IVFLUSH [facility] Last Admin: 08/04/22 08:04 Dose: 3 ml Documented By: KB Labs 07/26/22 06:08 07/31/22 09:15 Labs: Laboratory Results - last 24 hr 08/03/22 08/03/22 08/03/22 11:31 16:31 20:22 POC Glucose 110 91 161 H 08/04/22 07:11 POC Glucose 98 Assessment and Plan (1) Paralysis: Status: Acute (2) Opiate use: Status: Acute (3) Hyperglycemia: Status: Acute Plan 36yo M with OUD, DM2 presented after overdose/LOC/unknown period of unresponsiveness perhaps as long as 48 hr, admitted for rhabdomyolysis and relative paralysis Paralysis likely due to 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 very slowly improving after 3d of high-dose steroids 07/26-07/28/21 per Neuro Needs intensive rehab Rhabdomyolysis resolved after IV fluid hydration no renal injury OUD prn oxycodone Addiction Medicine following but pt declines MAT Hep c positive DM2 SS, ada diet A1C 5.7 VTE ppx: LMWH Attending Dr. Edwards In my clinical judgment, the patient requires continued inpatient hospitalization for the following reasons: safe disposition Time Spent With Patient Time: Total time managing care of this patient today ____ minutes. Quality Stroke Does the patient have a stroke diagnosis?: No VTE Prior VTE?: No VTE Risk Level:: Medical - moderate - high VTE Device Contraindication: Treatment Not Indicated VTE Drug Contraindication: N/A - Med Ordered
[2022-08-04 10:52] VITALS: BP 103/63; PULSE 44; O2SAT 94
[2022-08-04 11:25] LABS: Glucose, Whole Blood 104 mg/dL (60-115)
--- NOTE | 2022-08-04 12:30 | MHC.CM.PN ---
Addendum entered by Nadiya Nava RN 08/04/22 12:59: PER HOSPITALIST PT'S SISTER MARK WOOD [phone] REPORTS PT IS WELL LOVED AND CAN RETURN HOME AND HAD MOVED TO [place] D/T SUBSTANCE USE AND NOT WANTING TO EFFECT HIS FAMILY, ANTIC PT WILL BE ABLE TO RETURN HOME TO FAMILY ONCE REHAB IS COMPLETED. Original Note: EMR REVIEWED, PT/OT STILL RECOMMENDING REHAB FOR PT, CM STILL CONT'S TO WAIT FOR A BED OFFER, [facility] IN [facility] ASKING QUESTIONS HOWEVER HAS NOT OFFERED PT A BED AT TIME OF THIS NOTE, CM WILL CONT TO FOLLOW.
[2022-08-04] MEDS: Enoxaparin Sodium 40 MG/0.4 ML SYRINGE SUBCUT (13:45)
[2022-08-04 15:23] VITALS: BP 106/53; PULSE 56; RESP 18; TEMP 36.9; O2SAT 99
[2022-08-04 16:47] LABS: Glucose, Whole Blood 96 mg/dL (60-115)
[2022-08-04 20:00] VITALS: BP 106/57; PULSE 60; RESP 18; TEMP 37.2; O2SAT 98
[2022-08-04 20:07] LABS: Glucose, Whole Blood 157 mg/dL (60-115)
[2022-08-04] MEDS: Insulin Lispro 100 UNIT/ML 3 ML VIAL SUBCUT (20:19)
--- NOTE | 2022-08-04 22:56 | P.CNUR_ITS ---
History of Present Illness Consult details Consult date: 08/04/22 Reason for consult: other (urinary retention) Narrative: Mikey is a 36 year old male patient who presented to the ER on 07/20/22 after over dose, loss of consciousness for an unknown period of time and admitted for rhabdomyolysis and relative paralysis. Patient is being consulted with Urology for urinary retention. It appears since patient was admitted he has been voiding on his own however was noted to be in retention yesterday thus an indwelling alvarez was placed. Upon assessment of the patient today he was sitting up in the bedside recliner watching television. He reports to be doing better than he has been however still reports generalized pain throughout his entire body. Described pain as an ache and generalized. Endorses to feel better when given medications for pain however never gets pain below a 5. Denies aggravating factors. In discussion with the patient today he states he lives in [facility] that is sponsored by the [employer] as he does not have family around this area. Patient denies any urinary issues in his past and states I have always been able to pee on my own . It appears that yesterday 08-03 patient was found to be retention with over 1000ml's in his bladder. Alvarez today draining clear yellow urine. At this time discussed with patient alpha ree in the setting of retention. Encouraged patient to continue to drink plenty of fluids. Given retention amount of 1L patient likely to benefit from terazosin 5mg daily. Review of Systems Constitutional: Constitutional: Reports as per HPI and Reports weakness Eyes: Eyes: Reports no additional eye complaints ENT: Reports system reviewed and no additional complaints, except as documented Cardiovascular: Cardiovascular: Reports no additional cardiovascular com plaints Respiratory: Respiratory: Reports no additional respiratory complaints Gastrointestinal: Gastrointestinal: Reports no additional gastrointestinal complaints Genitourinary: Genitourinary: Reports as per HPI Musculoskeletal: Musculoskeletal: Reports as per HPI Neurologic: Reports weakness [facility] Family History Family History Father HTN (hypertension) Diabetes Social History Social History Household Members: None Housing: Apartment Do you presently have visiting nurse or other home services: No Alcohol intake: current Alcohol intake frequency: a few times a week Patient Tobacco Use Status: Current someday Tobacco user Tobacco use type: Cigarette Cigarette Packs Per Day: 0.25 Cigarettes Per Day: 5.0 e-Cigarette/Vaping Use: Never Used Second Hand Smoke Exposure: No Substance Use Type: Crack/Cocaine service: No Current occupational status: unemployed Meds Allergies Allergy/AdvReac Type Severity Reaction Status Date / Time No Known Allergies Allergy Verified 05/28/22 15:29 Active Medications: Current Medications Acetaminophen (Acetaminophen 325 Mg Tablet) 650 mg PO Q6H PRN PRN Reason: Pain, Mild (Pain Scale 1-3) Last Admin: 08/03/22 16:30 Dose: 650 mg Dextrose (Dextrose 50 % 25 Gm/50 Ml Syringe) 25 gm IVPUSH Q15M PRN; Protocol PRN Reason: per Hypoglycemia Standing Ord. Docusate Sodium (Docusate Sodium 100 Mg Capsule) 100 mg PO DAILY PRN PRN Reason: Constipation Last Admin: 07/30/22 10:11 Dose: 100 mg Enoxaparin Sodium (Enoxaparin Sodium 40 Mg/0.4 Ml Syringe) 40 mg SUBCUT Q24H [facility] Last Admin: 08/04/22 13:45 Dose: 40 mg Glucose (Glucose Gel 15 Gm Gel..Gram.) 15 gm PO Q15M PRN; Protocol PRN Reason: per Hypoglycemia Standing Ord. Insulin Human Lispro (Insulin Lispro 100 Unit/Ml 3 Ml Vial) 0 unit SUBCUT QIDACHS [facility]; Protocol Last Admin: 08/04/22 20:19 Dose: 2 unit Lactulose (Lactulose 20 Gm/30 Ml Solution) 30 gm PO DAILY [facility] Last Admin: 08/04/22 08:03 Dose: Not Given Ondansetron HCl (Ondansetron Hcl 4 Mg/2 Ml Vial) 4 mg IVPUSH Q8H PRN PRN Reason: Nausea and Vomiting Last Admin: 07/20/22 21:09 Dose: 4 mg Oxycodone HCl (Oxycodone Hcl Immed Release 5 Mg Tablet) 5 mg PO Q4H PRN PRN Reason: Pain, Severe (Pain Scale 7-10) Last Admin: 08/04/22 20:19 Dose: 5 mg Pharmacy Consult (Consult Rx Perform Med Rec) 1 each MISCELLANE ONCE PRN PRN Reason: Consult order Sodium Chloride (0.9 % Sodium Chloride Flush 3 Ml Syringe) [address] [facility] Last Admin: 08/04/22 20:20 Dose: 3 ml Home Medications Medication Instructions Recorded Confirmed Last Taken Type No Known Home Meds 07/20/22 07/20/22 Unknown History Physical Exam Vital Signs: Vital Signs: Last Vital Signs Temp 99 F 08/04/22 20:00 Pulse 60 08/04/22 20:00 Resp 18 08/04/22 20:00 BP 106/57 L 08/04/22 20:00 Pulse Ox 98 08/04/22 20:00 O2 Del Method 08/04/22 20:00 O2 Flow Rate 2 07/21/22 04:09 BMI result Body Mass Index 27.2 Const: General: cooperative, no acute distress, well developed, alert, awake and tired appearing Orientation/consciousness: patient oriented x3 HEENT: Head: Yes normal to inspection, Yes normocephalic and Yes atraumatic Eyes: General: appearance normal, both eyes and all related structures Neck: Neck: Yes normal visual inspection and Yes trachea midline Chest: Chest palpation & inspection: normal inspection of the chest Resp: Effort & Inspection: normal respiratory effort and able to speak in complete sentences Cardio: Rate: regular rate : Other: indwelling alvarez catheter in place. Draining clear yellow urine General: Yes no CVA tenderness Back/Spine/Pelvis: Back: no CVA tenderness Neuro: General: patient oriented x3 Extrem: Other: dry skin Psych: Speech and movement: Clear speech present (slow to respond at times ) Attitude: cooperative Thought process: Normal thought process present Judgement: Fair judgement present (Psych) Results Labs 07/26/22 06:08 07/31/22 09:15 Labs: Abnormal lab results 08/04/22 Range/Units 20:02 POC Glucose 157 H (60-115) mg/dL Urine 07/20/22 Range/Units 10:12 Urine Color Dark Yellow Urine Appearance Cloudy Urine pH 6.0 (5.0-9.0) Ur Specific [place] 1.020 (1.005-1.025) Urine Protein 100 (2+) H (Neg-Trace) mg/dL Urine Glucose (UA) Negative (Negative) mg/dL All other labs normal. Assessment and Plan (1) Acute urinary retention: Status: Acute Plan Alvarez in place draining clear yellow urine. Recommend 5mg Terazosin daily. Continue with alvarez/carey care. Discussed follow up in office once discharged from hospital to further assess and evaluate. Educated and instructed to continue with adequate amount of daily fluid intake. Time Spent With Patient Time: Total time managing care of this patient today ____ minutes. Procedures Date of Service Date of Service: 08/04/22
[2022-08-05 03:32] VITALS: BP 105/62; PULSE 51; RESP 17; TEMP 36.6; O2SAT 97
[2022-08-05 07:35] LABS: Glucose, Whole Blood 78 mg/dL (60-115)
[2022-08-05 07:56] VITALS: BP 100/61; PULSE 44; RESP 17; TEMP 36.3; O2SAT 96
[2022-08-05] MEDS: 0.9 % Sodium Chloride Flush 3 ML SYRINGE IVFLUSH ×3 (08:15→22:39)
[2022-08-05] MEDS: oxyCODONE HCl Immed Release 5 MG TABLET PO (08:15)
[2022-08-05] MEDS: Lactulose 20 GM/30 ML SOLUTION 30 GM PO (08:15)
--- NOTE | 2022-08-05 08:26 | HO.PM.IMPN ---
Subjective Subjective Date of Service: 08/05/22 Interval History: Weakness in legs No pain or paresthesias feeling a bit stronger but still not ambulating Review of Systems Review of Systems: Yes all other systems are reviewed and are negative Physical Exam Vital Signs: Vital Signs: Last Vital Signs Temp 97.3 F 08/05/22 07:56 Pulse 44 L 08/05/22 07:56 Resp 17 08/05/22 07:56 BP 100/61 08/05/22 07:56 Pulse Ox 96 08/05/22 07:56 O2 Del Method 08/05/22 07:56 O2 Flow Rate 2 07/21/22 04:09 BMI result Body Mass Index 27.2 Appearing in no acute distress lung sounds are clear to auscultation heart regular rate rhythm, clear S1, S2 positive bowel sounds, abdomen is soft, nontender neuro patient is alert x3, no focal deficits Objective Data Active Medications Acetaminophen (Acetaminophen 325 Mg Tablet) 650 mg PO Q6H PRN PRN Reason: Pain, Mild (Pain Scale 1-3) Last Admin: 08/03/22 16:30 Dose: 650 mg Documented By: RIANNA Dextrose (Dextrose 50 % 25 Gm/50 Ml Syringe) 25 gm IVPUSH Q15M PRN; Protocol PRN Reason: per Hypoglycemia Standing Ord. Docusate Sodium (Docusate Sodium 100 Mg Capsule) 100 mg PO DAILY PRN PRN Reason: Constipation Last Admin: 07/30/22 10:11 Dose: 100 mg Documented By: CHIP Enoxaparin Sodium (Enoxaparin Sodium 40 Mg/0.4 Ml Syringe) 40 mg SUBCUT Q24H [facility] Last Admin: 08/04/22 13:45 Dose: 40 mg Documented By: KB Glucose (Glucose Gel 15 Gm Gel..Gram.) 15 gm PO Q15M PRN; Protocol PRN Reason: per Hypoglycemia Standing Ord. Insulin Human Lispro (Insulin Lispro 100 Unit/Ml 3 Ml Vial) 0 unit SUBCUT QIDACHS [facility]; Protocol Last Admin: 08/05/22 08:17 Dose: Not Given Documented By: KB Non-Admin Reason: No Insulin Coverage Lactulose (Lactulose 20 Gm/30 Ml Solution) 30 gm PO DAILY [facility] Last Admin: 08/05/22 08:15 Dose: 30 gm Documented By: KB Ondansetron HCl (Ondansetron Hcl 4 Mg/2 Ml Vial) 4 mg IVPUSH Q8H PRN PRN Reason: Nausea and Vomiting Last Admin: 07/20/22 21:09 Dose: 4 mg Documented By: JASMINSVETLANA Oxycodone HCl (Oxycodone Hcl Immed Release 5 Mg Tablet) 5 mg PO Q4H PRN PRN Reason: Pain, Severe (Pain Scale 7-10) Last Admin: 08/05/22 08:15 Dose: 5 mg Documented By: KB Pharmacy Consult (Consult Rx Perform Med Rec) 1 each MISCELLANE ONCE PRN PRN Reason: Consult order Sodium Chloride (0.9 % Sodium Chloride Flush 3 Ml Syringe) 3 ml IVFLUSH QSWVFT [facility] Last Admin: 08/05/22 08:15 Dose: 3 ml Documented By: KB Labs 07/26/22 06:08 07/31/22 09:15 Labs: Laboratory Results - last 24 hr 08/04/22 08/04/22 08/04/22 11:20 16:42 20:02 POC Glucose 104 96 157 H 08/05/22 07:21 POC Glucose 78 Assessment and Plan (1) Paralysis: Status: Acute (2) Opiate use: Status: Acute (3) Hyperglycemia: Status: Acute Plan 36yo M with OUD, DM2 presented after overdose/LOC/unknown period of unresponsiveness perhaps as long as 48 hr, admitted for rhabdomyolysis and relative paralysis 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 Edwards Talked with his sister, Brandy, yesterday ([phone]). All of his family lives in [facility]. They would like him to return there once he is better. Plan for him is acute rehab In my clinical judgment, the patient requires continued inpatient hospitalization for the following reasons: safe disposition Time Spent With Patient Time: Total time managing care of this patient today ____ minutes. Quality Stroke Does the patient have a stroke diagnosis?: No VTE Prior VTE?: No VTE Risk Level:: Medical - moderate - high VTE Device Contraindication: Treatment Not Indicated VTE Drug Contraindication: N/A - Med Ordered
[2022-08-05 11:28] LABS: Glucose, Whole Blood 130 mg/dL (60-115)
[2022-08-05] MEDS: Enoxaparin Sodium 40 MG/0.4 ML SYRINGE SUBCUT (13:26)
[2022-08-05 15:48] VITALS: BP 105/61; PULSE 46; RESP 17; TEMP 37; O2SAT 94
[2022-08-05 16:28] LABS: Glucose, Whole Blood 86 mg/dL (60-115)
[2022-08-05 19:47] VITALS: BP 114/59; PULSE 56; RESP 18; TEMP 36.6; O2SAT 97
[2022-08-05 20:28] LABS: Glucose, Whole Blood 147 mg/dL (60-115)
[2022-08-06 03:33] VITALS: BP 104/54; PULSE 52; RESP 16; TEMP 36.6; O2SAT 95
[2022-08-06 07:47] VITALS: BP 110/58; PULSE 45; RESP 17; TEMP 36.7; O2SAT 94
[2022-08-06 07:49] LABS: Glucose, Whole Blood 86 mg/dL (60-115)
[2022-08-06] MEDS: oxyCODONE HCl Immed Release 5 MG TABLET PO ×2 (08:16→19:40)
[2022-08-06] MEDS: 0.9 % Sodium Chloride Flush 3 ML SYRINGE IVFLUSH ×3 (08:17→22:08)
[2022-08-06 08:46] LABS: Hematocrit 37.8 % (42.0-52.0); Hemoglobin 12.3 g/dl (14.0-18.0); Mean Corpuscular HGB Conc 32.5 g/dl (31.0-36.0); Mean Corpuscular Hemoglobin 28.4 pg (27.0-33.0); Mean Corpuscular Volume 87.3 fL (80.0-98.0); Mean Platelet Volume 9.9 fL (9.4-12.4); Platelet Count 238 X10*3/uL (160-400); Red Blood Count 4.33 X10*6/uL (4.60-5.80); Red Cell Distribution Width 13.3 % (11.0-16.0)
[2022-08-06 09:13] LABS: Anion Gap 12 (12-20); Blood Urea Nitrogen 14 mg/dL (9-16); Calcium 9.1 mg/dL (8.4-10.2); Carbon Dioxide 27 mmol/L (22-29); Chloride 107 mmol/L (96-108); Creatinine Clr Calc Pharmacy 113.3; Estimated Glomerular Filt Rate > 60; Glucose Random 82 mg/dL (60-115); Potassium 4.3 mmol/L (3.3-5.1); Sodium 142 mmol/L (135-145)
--- NOTE | 2022-08-06 10:16 | P.PNIM_ITS ---
Subjective Subjective Date of Service: 08/06/22 Interval History: Weakness in legs No pain or paresthesias feeling a bit stronger but still not ambulating Review of Systems Review of Systems: Yes all other systems are reviewed and are negative Physical Exam Vital Signs: Vital Signs: Last Vital Signs Temp 98.0 F 08/06/22 07:47 Pulse 45 L 08/06/22 07:47 Resp 17 08/06/22 07:47 BP 110/58 L 08/06/22 07:47 Pulse Ox 94 08/06/22 07:47 O2 Del Method 08/06/22 07:47 O2 Flow Rate 2 07/21/22 04:09 BMI result Body Mass Index 27.2 Appearing in no acute distress lung sounds are clear to auscultation heart regular rate rhythm, clear S1, S2 positive bowel sounds, abdomen is soft, nontender neuro patient is alert x3, no focal deficits Objective Data Active Medications Acetaminophen (Acetaminophen 325 Mg Tablet) 650 mg PO Q6H PRN PRN Reason: Pain, Mild (Pain Scale 1-3) Last Admin: 08/03/22 16:30 Dose: 650 mg Documented By: RIANNA Dextrose (Dextrose 50 % 25 Gm/50 Ml Syringe) 25 gm IVPUSH Q15M PRN; Protocol PRN Reason: per Hypoglycemia Standing Ord. Docusate Sodium (Docusate Sodium 100 Mg Capsule) 100 mg PO DAILY PRN PRN Reason: Constipation Last Admin: 07/30/22 10:11 Dose: 100 mg Documented By: CHIP Enoxaparin Sodium (Enoxaparin Sodium 40 Mg/0.4 Ml Syringe) 40 mg SUBCUT Q24H [facility] Last Admin: 08/05/22 13:26 Dose: 40 mg Documented By: KB Glucose (Glucose Gel 15 Gm Gel..Gram.) 15 gm PO Q15M PRN; Protocol PRN Reason: per Hypoglycemia Standing Ord. Insulin Human Lispro (Insulin Lispro 100 Unit/Ml 3 Ml Vial) 0 unit SUBCUT QIDACHS [facility]; Protocol Last Admin: 08/06/22 08:01 Dose: Not Given Documented By: STEVE Non-Admin Reason: No Insulin Coverage Lactulose (Lactulose 20 Gm/30 Ml Solution) 30 gm PO DAILY [facility] Last Admin: 08/06/22 08:17 Dose: Not Given Documented By: STEVE Non-Admin Reason: Patient Refused Ondansetron HCl (Ondansetron Hcl 4 Mg/2 Ml Vial) 4 mg IVPUSH Q8H PRN PRN Reason: Nausea and Vomiting Last Admin: 07/20/22 21:09 Dose: 4 mg Documented By: HE Oxycodone HCl (Oxycodone Hcl Immed Release 5 Mg Tablet) 5 mg PO Q4H PRN PRN Reason: Pain, Severe (Pain Scale 7-10) Last Admin: 08/06/22 08:16 Dose: 5 mg Documented By: STEVE Pharmacy Consult (Consult Rx Perform Med Rec) 1 each MISCELLANE ONCE PRN PRN Reason: Consult order Sodium Chloride (0.9 % Sodium Chloride Flush 3 Ml Syringe) [facility] Last Admin: 08/06/22 08:17 Dose: 3 ml Documented By: STEVE Labs 08/06/22 08:05 08/06/22 08:05 Labs: Laboratory Results - last 24 hr 08/05/22 08/05/22 08/05/22 11:22 16:21 20:24 MCV MCH MCHC RDW Plt Count MPV Absolute Nucleated RBC Nucleated RBC % (auto) Anion Gap Estim Creat Clear Calc Estimated GFR POC Glucose 130 H 86 147 H Random Glucose Calcium 08/06/22 08/06/22 08/06/22 07:40 08:05 08:05 MCV 87.3 MCH 28.4 MCHC 32.5 RDW 13.3 Plt Count 238 D MPV 9.9 Absolute Nucleated RBC 0.000 Nucleated RBC % (auto) 0.0 Anion Gap 12 Estim Creat Clear Calc 113.3 Estimated GFR > 60 POC Glucose 86 Random Glucose 82 Calcium 9.1 D Assessment and Plan (1) Paralysis: Status: Acute (2) Opiate use: Status: Acute (3) Hyperglycemia: Status: Acute Plan 36yo M with OUD, DM2 presented after overdose/LOC/unknown period of unresponsiveness perhaps as long as 48 hr, admitted for rhabdomyolysis and relative paralysis Bradycardia has been ongoing for the most part not on BB or rate lowering medications follow closely 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 Renee Talked with his sister, Brandy, yesterday ([phone]). All of his family lives in [facility]. They would like him to return there once he is better. Plan for him is acute rehab In my clinical judgment, the patient requires continued inpatient ho spitalization for the following reasons: safe disposition Time Spent With Patient Time: Total time managing care of this patient today ____ minutes. Quality Stroke Does the patient have a stroke diagnosis?: No VTE Prior VTE?: No VTE Risk Level:: Medical - moderate - high VTE Device Contraindication: Treatment Not Indicated VTE Drug Contraindication: N/A - Med Ordered
[2022-08-06 11:28] LABS: Glucose, Whole Blood 107 mg/dL (60-115)
[2022-08-06] MEDS: Enoxaparin Sodium 40 MG/0.4 ML SYRINGE SUBCUT (12:04)
[2022-08-06 16:00] VITALS: BP 99/55; PULSE 45; RESP 18; TEMP 36.5; O2SAT 99
[2022-08-06 16:42] LABS: Glucose, Whole Blood 118 mg/dL (60-115)
[2022-08-06 20:00] VITALS: BP 101/55; PULSE 50; RESP 18; TEMP 36.6; O2SAT 97
[2022-08-06 20:39] LABS: Glucose, Whole Blood 179 mg/dL (60-115)
[2022-08-06] MEDS: Insulin Lispro 100 UNIT/ML 3 ML VIAL SUBCUT (20:45)
--- NOTE | 2022-08-07 | ECG_ITS ---
Test Reason : bradycardia Blood Pressure : / mmHG Vent. Rate : 042 BPM Atrial Rate : 042 BPM P-R Int : 150 ms QRS Dur : 108 ms QT Int : 470 ms P-R-T Axes : 037 017 104 degrees QTc Int : 392 ms Marked sinus bradycardia Minimal voltage criteria for LVH, may be normal variant ( Teddy product ) ST elevation, consider early repolarization, pericarditis, or injury T wave abnormality, consider anterolateral ischemia Abnormal ECG When compared with ECG of 20-JUL-2022 06:27, Vent. rate has decreased BY 20 BPM Referred By: Veronique Wilson Electronically Signed By:JASMIN ORO
[2022-08-07 03:39] VITALS: BP 101/56; PULSE 43; RESP 18; TEMP 36.5; O2SAT 97
[2022-08-07 07:10] VITALS: BP 101/59; PULSE 44; RESP 16; TEMP 36.1; O2SAT 97
[2022-08-07 07:13] LABS: Glucose, Whole Blood 95 mg/dL (60-115)
[2022-08-07] MEDS: 0.9 % Sodium Chloride Flush 3 ML SYRINGE IVFLUSH ×3 (09:00→23:45)
--- NOTE | 2022-08-07 09:01 | HO.PM.IMPN ---
Subjective Subjective Date of Service: 08/07/22 Interval History: Weakness in legs No pain or paresthesias feeling a bit stronger but still not ambulating Review of Systems Review of Systems: Yes all other systems are reviewed and are negative Physical Exam Vital Signs: Vital Signs: Last Vital Signs Temp 97 F 08/07/22 07:10 Pulse 44 L 08/07/22 07:10 Resp 16 08/07/22 07:10 BP 101/59 L 08/07/22 07:10 Pulse Ox 97 08/07/22 07:10 O2 Del Method 08/07/22 07:10 O2 Flow Rate 2 07/21/22 04:09 BMI result Body Mass Index 27.2 Appearing in no acute distress lung sounds are clear to auscultation heart regular rate rhythm, clear S1, S2 positive bowel sounds, abdomen is soft, nontender neuro patient is alert x3, no focal deficits Objective Data Active Medications Acetaminophen (Acetaminophen 325 Mg Tablet) 650 mg PO Q6H PRN PRN Reason: Pain, Mild (Pain Scale 1-3) Last Admin: 08/03/22 16:30 Dose: 650 mg Documented By: RIANNA Dextrose (Dextrose 50 % 25 Gm/50 Ml Syringe) 25 gm IVPUSH Q15M PRN; Protocol PRN Reason: per Hypoglycemia Standing Ord. Docusate Sodium (Docusate Sodium 100 Mg Capsule) 100 mg PO DAILY PRN PRN Reason: Constipation Last Admin: 07/30/22 10:11 Dose: 100 mg Documented By: CHIP Enoxaparin Sodium (Enoxaparin Sodium 40 Mg/0.4 Ml Syringe) 40 mg SUBCUT Q24H [facility] Last Admin: 08/06/22 12:04 Dose: 40 mg Documented By: STEVE Glucose (Glucose Gel 15 Gm Gel..Gram.) 15 gm PO Q15M PRN; Protocol PRN Reason: per Hypoglycemia Standing Ord. Insulin Human Lispro (Insulin Lispro 100 Unit/Ml 3 Ml Vial) 0 unit SUBCUT QIDACHS [facility]; Protocol Last Admin: 08/07/22 07:41 Dose: Not Given Documented By: PATY Non-Admin Reason: No Insulin Coverage Lactulose (Lactulose 20 Gm/30 Ml Solution) 30 gm PO DAILY [facility] Last Admin: 08/07/22 09:00 Dose: Not Given Documented By: PATY Non-Admin Reason: Patient Refused Ondansetron HCl (Ondansetron Hcl 4 Mg/2 Ml Vial) 4 mg IVPUSH Q8H PRN PRN Reason: Nausea and Vomiting Last Admin: 07/20/22 21:09 Dose: 4 mg Documented By: HE Pharmacy Consult (Consult Rx Perform Med Rec) 1 each MISCELLANE ONCE PRN PRN Reason: Consult order Sodium Chloride (0.9 % Sodium Chloride Flush 3 Ml Syringe) 3 ml IVFLUSH QSHIFT [facility] Last Admin: 08/07/22 09:00 Dose: 3 ml Documented By: PATY Labs 08/06/22 08:05 08/06/22 08:05 Labs: Laboratory Results - last 24 hr 08/06/22 08/06/22 08/06/22 08:05 11:20 16:25 Anion Gap 12 Estim Creat Clear Calc 113.3 Estimated GFR > 60 POC Glucose 107 118 H Random Glucose 82 Calcium 9.1 D 08/06/22 08/07/22 20:28 07:09 Anion Gap Estim Creat Clear Calc Estimated GFR POC Glucose 179 H 95 Random Glucose Calcium Assessment and Plan (1) Paralysis: Status: Acute (2) Opiate use: Status: Acute (3) Hyperglycemia: Status: Acute Plan 36yo M with OUD, DM2 presented after overdose/LOC/unknown period of unresponsiveness perhaps as long as 48 hr, admitted for rhabdomyolysis and relative paralysis Bradycardia has been ongoing for the most part not on BB or rate lowering medications cardio consult, appears to be same on previous monitor technician on tele 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 Edwards Talked with his sister, Brandy, yesterday ([phone]). All of his family lives in [facility]. They would like him to return there once he is better. Plan for him is acute rehab In my clinical judgment, the patient requires continued inpatient hospitalization for the following reasons: safe disposition Time Spent With Patient Time: Total time managing care of this patient today ____ minutes. Quality Stroke Does the patient have a stroke diagnosis?: No VTE Prior VTE?: No VTE Risk Level:: Medical - moderate - high VTE Device Contraindication: Treatment Not Indicated VTE Drug Contraindication: N/A - Med Ordered
[2022-08-07] MEDS: Acetaminophen 325 MG TABLET 650 MG PO (09:03)
--- NOTE | 2022-08-07 09:43 | PM.CNCAR ---
History of Present Illness History of Present Illness Date of Service: 08/07/22 Chief complaint: I cannot move my feet Narrative: This is a cardiology consultation regarding abnormal EKG/bradycardia. It seems that patient actually came several days ago for overdose. Based on tox screen, he was positive for opiates, fentanyl and cocaine. Based on the initial H&P, apparently patient injected cocaine and heroin and went to the kitchen and passed out. Was unresponsive for undetermined amount of time. Then he could not move apparently then call for an ambulance. Continues to have some weakness. Initial diagnosis also includes rhabdomyolysis, hypothermia. There is a concern that the EKG is abnormal and also the heart rate is low and hence we have been asked to see him. Patient himself denies any cardiac symptoms like angina or shortness of breath or in fact anything cardiac related. Review of Systems Review of Systems: Yes all other systems are reviewed and are negative Constitutional: Constitutional: Reports as per HPI Eyes: Eyes: Reports as per HPI ENT: Reports as per HPI Cardiovascular: Cardiovascular: Reports as per HPI, Denies acrocyanosis, Denies cool extremities, Denies chest pain, Denies leg edema, Denies lightheadedness, Denies palpitations and Denies dyspnea Respiratory: Respiratory: Reports as per HPI, Reports no additional respiratory complaints and Denies dyspnea Gastrointestinal: Gastrointestinal: Reports as per HPI and Reports no additional gastrointestinal complaints Genitourinary: Genitourinary: Reports no additional male genitourinary complaints and Reports as per HPI Musculoskeletal: Musculoskeletal: Reports no additional musculoskeletal complaints and Reports as per HPI Integumentary/Breasts: Skin/Breast: Reports system reviewed and no additional complaints, except as docu Neurologic: Reports system reviewed and no additional complaints, except as documented and Reports as per HPI Psychiatric: Psychiatric: Reports no additional psychiatric complaints and Reports as per HPI Endocrine: Endocrine: Reports no additional endocrine complaints, Reports as per HPI and Denies palpitations Hematologic/Lymphatic: Hematologic/Lymphatic: Reports no additional hematologic/lymphatic complaints and Reports as per HPI Allergic/Immunologic: Allergic/Immunologic: Reports no additional allergic/immunologic complaints and Reports as per HPI [facility] Past Medical History Medical History (Updated 08/07/22 @ 09:48 by Danie Dixon MD) Type 2 diabetes mellitus Family History Family History Father HTN (hypertension) Diabetes Social History Social History Household Members: None Housing: Apartment Do you presently have visiting nurse or other home services: No Alcohol intake: current Alcohol intake frequency: a few times a week Patient Tobacco Use Status: Current someday Tobacco user Tobacco use type: Cigarette Cigarette Packs Per Day: 0.25 Cigarettes Per Day: 5.0 e-Cigarette/Vaping Use: Never Used Second Hand Smoke Exposure: No Substance Use Type: Crack/Cocaine service: No Current occupational status: unemployed Meds Allergies Allergy/AdvReac Type Severity Reaction Status Date / Time No Known Allergies Allergy Verified 05/28/22 15:29 Active Medications: Current Medications Acetaminophen (Acetaminophen 325 Mg Tablet) 650 mg PO Q6H PRN PRN Reason: Pain, Mild (Pain Scale 1-3) Last Admin: 08/07/22 09:03 Dose: 650 mg Dextrose (Dextrose 50 % 25 Gm/50 Ml Syringe) 25 gm IVPUSH Q15M PRN; Protocol PRN Reason: per Hypoglycemia Standing Ord. Docusate Sodium (Docusate Sodium 100 Mg Capsule) 100 mg PO DAILY PRN PRN Reason: Constipation Last Admin: 07/30/22 10:11 Dose: 100 mg Enoxaparin Sodium (Enoxaparin Sodium 40 Mg/0.4 Ml Syringe) 40 mg SUBCUT Q24H [facility] Last Admin: 08/06/22 12:04 Dose: 40 mg Glucose (Glucose Gel 15 Gm Gel..Gram.) 15 gm PO Q15M PRN; Protocol PRN Reason: per Hypoglycemia Standing Ord. Insulin Human Lispro (Insulin Lispro 100 Unit/Ml 3 Ml Vial) 0 unit SUBCUT QIDACHS [facility]; Protocol Last Admin: 08/07/22 07:41 Dose: Not Given Lactulose (Lactulose 20 Gm/30 Ml Solution) 30 gm PO DAILY [facility] Last Admin: 08/07/22 09:00 Dose: Not Given Ondansetron HCl (Ondansetron Hcl 4 Mg/2 Ml Vial) 4 mg IVPUSH Q8H PRN PRN Reason: Nausea and Vomiting Last Admin: 07/20/22 21:09 Dose: 4 mg Pharmacy Consult (Consult Rx Perform Med Rec) 1 each MISCELLANE ONCE PRN PRN Reason: Consult order Sodium Chloride (0.9 % Sodium Chloride Flush 3 Ml Syringe) 3 ml IVFLUSH QSHIFT HARRY Last Admin: 08/07/22 09:00 Dose: 3 ml Home Medications Medication Instructions Recorded Confirmed Last Taken Type No Known Home Meds 07/20/22 07/20/22 Unknown History Physical Exam Vital Signs: Vital Signs: Last Vital Signs Temp 97 F 08/07/22 07:10 Pulse 44 L 08/07/22 07:10 Resp 16 08/07/22 07:10 BP 101/59 L 08/07/22 07:10 Pulse Ox 97 08/07/22 07:10 O2 Del Method 08/07/22 07:10 O2 Flow Rate 2 07/21/22 04:09 BMI result Body Mass Index 27.2 Const: General: comfortable and no acute distress Orientation/consciousness: patient oriented x3 HEENT: Other: Unremarkable Head: Yes normal to inspection Neck: Neck: Yes normal visual inspection Chest: Chest palpation & inspection: normal inspection of the chest Resp: Auscultation: clear to auscultation bilaterally Cardio: Palpation: normal PMI Heart sounds: S1 normal heart sound present, S2 normal heart sound present, no gallops, no murmurs and no rubs GI: Palpation (GI): Soft to palpation Back/Spine/Pelvis: Other: unremarkable Skin: General skin exam: no rashes or lesions noted Neuro: General: patient oriented x3 Extrem: General: Yes normal to inspection Psych: Mental Status: mental status grossly normal Objective Labs and Meds 08/06/22 08:05 08/06/22 08:05 Lab results: Laboratory Results - last 24 hr 08/06/22 08/06/22 08/06/22 11:20 16:25 20:28 POC Glucose 107 118 H 179 H 08/07/22 07:09 POC Glucose 95 ECG Interpretation: EKG today with sinus bradycardia at 42/Min; some coving of the anterior ST segments with T inversions. T inversions also seen in lead 1 aVL. These are actually slightly better compared to prior EKG from May. Assessment and Plan (1) Abnormal EKG: Status: Acute (2) Polysubstance use disorder: Status: Acute (3) Rhabdomyolysis: Qualifiers: Rhabdomyolysis type: non-traumatic Qualified Code(s): M62.82 - Rhabdomyolysis Status: Acute (4) Cocaine use disorder: Status: Acute Plan High sensitivity troponins from May as well as from the time of this admission are unremarkable. Hence there is no evidence of acute infarct at any point. The changes could reflect a prior myocardial event but not clear. Could be related to cocaine use. Could have underlying cardiomyopathy. Would be reasonable to get an echocardiogram for further evaluation. Otherwise main focus is staying off drugs and rehabilitation. With regard to the bradycardia itself, no clear etiology. Could be because he is not doing much. Not on any rate slowing drugs. Keep on telemetry for now. Discussed with Veronique Wilson. Time Spent With Patient Time: Total time managing care of this patient today ____ minutes. Procedures Date of Service Date of Service: 08/07/22
[2022-08-07 11:02] LABS: Glucose, Whole Blood 95 mg/dL (60-115)
[2022-08-07] MEDS: Enoxaparin Sodium 40 MG/0.4 ML SYRINGE SUBCUT (13:40)
[2022-08-07] MEDS: oxyCODONE HCl Immed Release 5 MG TABLET PO (14:06)
[2022-08-07 14:11] VITALS: BP 101/59; PULSE 44; O2SAT 97
[2022-08-07 15:08] VITALS: BP 103/54; PULSE 54; RESP 18; TEMP 36.1; O2SAT 93
[2022-08-07 16:45] LABS: Glucose, Whole Blood 87 mg/dL (60-115)
[2022-08-07 19:52] VITALS: BP 105/63; PULSE 45; RESP 18; TEMP 36.8; O2SAT 98
[2022-08-07 20:54] LABS: Glucose, Whole Blood 91 mg/dL (60-115)
[2022-08-08 03:19] VITALS: BP 100/60; PULSE 50; RESP 18; TEMP 36.2; O2SAT 98
[2022-08-08 06:57] VITALS: BP 100/65; PULSE 44; RESP 16; TEMP 36.1; O2SAT 98
--- NOTE | 2022-08-08 07:00 | CA_ITS ---
Transthoracic Echocardiogram Patient (Last, First, Middle): Mikey Lester, Gender: Male Date of : 1985 Age: 36 Procedure Date: 08/08/2022 Procedure Type: Transthoracic Echocardiogram Location: S3W Height: 167.64 cm Weight: 76.66 kg BSA: 1.86 m2 Heart Rate: 50 bpm BP: 101 / 59 mmHg Associate Professor Of Medicine: SB Referring MD: Danie Dixon MD Symptoms: Abnormal EKG, overdose Study Quality: Adequate ECG Rhythm: Bradycardia Conclusions: - The left ventricular systolic function is normal. The calculated ejection fraction is 73% by biplane method. - There is mild septal asymmetric hypertrophy. - Mildly increased right ventricular cavity size. - No obvious valvular pathology seen on this study. Findings Left Ventricle Normal left ventricular cavity size. The left ventricular systolic function is normal. The calculated ejection fraction is 73% by biplane method. There is no evidence of regional wall motion abnormalities. Diastolic function is normal for age. There is mild septal asymmetric hypertrophy. Right Ventricle Mildly increased right ventricular cavity size. There is normal right ventricular systolic function. Atria Both atria are normal in size. Aortic Valve There is a normal trileaflet aortic valve. There is no aortic valve stenosis. There is no aortic valve regurgitation. Mitral Valve The mitral valve appears myxomatous. There is trace mitral valve regurgitation. There is no mitral valve stenosis. Pulmonic Valve The pulmonic valve is likely normal. There is trace pulmonic valve regurgitation. Tricuspid Valve Normal tricuspid valve structure. There is mild tricuspid valve regurgitation. There is no evidence of pulmonary hypertension. Great Vessels The asc aorta is normal in size. Venous The inferior vena cava is normal in size and collapses less than 50% with inspiration. Pericardium/Pleural There is no evidence of pericardial effusion. Prior Study Comparison No prior study available for comparison. Recommendations, Care & Conclusions No obvious valvular pathology seen on this study. Measurements 2D Linear Measurements IVSd: 1.12 0.6-0.9/0.6-1.0 cm LVIDd: 5.13 3.9-5.3/4.2-5.9 cm LVIDd Index: 2.76 2.4-3.2/2.2-3.1 cm/m2 LVIDs: 3.13 2.0-3.6 cm LVPWd: 0.85 0.7-1.1 cm LA Diam: 3.50 2.7-3.8/3.0-4.0 cm LAIDs Index: 1.88 1.5-2.3 cm/m2 LV Mass: 231.82 67-162/88-224 g LV Mass Index: 124.64 43-95/49-115 g/m2 LVOT Diam: 2.00 3.0+(-)1.3 cm 2D Systolic Function EF 4C: 65.00 >55% EF 2C: 77.30 >55% EF BiP: 72.90 >55% Mitral Valve MV Pk E: 0.99 MV PK A: 0.25 MV Decel Time: 188.00 E/A: 3.90 E'Lateral: 11.60 E'Medial: 10.30 E/E' Med: 9.60 E/E' Lat: 8.50 PHT: 55.00 MVA PHT: 4.00 Decel [place]: 5.23 Aortic Valve AoV Pk Parviz: 1.40 AoV Pk Grad: 8.00 DANIELLE: 2.78 LVOT LVOT Pk Parviz: 1.24 LVOT Mn Parviz: 0.89 LVOT VTI: 0.27 LVOT Pk Grad: 6.00 LVOT Mn Grad: 4.00 LVOT Diam: 2.00 LVOT Area: 3.14 Diastolic Function MV Pk E: 0.99 MV Pk A: 0.25 E/A: 3.90 E'Medial: 10.30 E/E' Med: 9.60 E' Laterial: 11.60 E/E' Lat: 8.50 Right Ventricle TAPSE (mm): 25.60 TVS' Parviz: 17.30 Tricuspid Valve TR Pk Parviz: 2.52 TR Pk Grad: 25.00 RA Press: 8.00 RVSP: 33.00 Great Vessels Aorta Sinus of Valsalva: 2.50 2.0-3.5 cm Ao Asc: 2.90 2.1-3.4 cm Pulmonary Veins Pulm Vein S/D 0.60 Pulmonary Valve PV Pk Parviz: 0.94 Peak PV Grad: 4.00 Updated in Other Vendor System with Status of Final Danie Dixon MD electronically signed on 08/08/2022 11:18:23 AM with status of Final
--- NOTE | 2022-08-08 07:16 | P.PNIM_ITS ---
Subjective Subjective Date of Service: 08/08/22 Interval History: Weakness in legs No pain or paresthesias slowly improving everyday still with some weakness in legs Review of Systems Review of Systems: Yes all other systems are reviewed and are negative Physical Exam Vital Signs: Vital Signs: Last Vital Signs Temp 97 F 08/08/22 06:57 Pulse 44 L 08/08/22 06:57 Resp 16 08/08/22 06:57 BP 100/65 08/08/22 06:57 Pulse Ox 98 08/08/22 06:57 O2 Del Method 08/08/22 06:57 O2 Flow Rate 2 07/21/22 04:09 BMI result Body Mass Index 27.2 Appearing in no acute distress lung sounds are clear to auscultation heart regular rate rhythm, clear S1, S2 positive bowel sounds, abdomen is soft, nontender neuro patient is alert x3, no focal deficits Objective Data Active Medications Acetaminophen (Acetaminophen 325 Mg Tablet) 650 mg PO Q6H PRN PRN Reason: Pain, Mild (Pain Scale 1-3) Last Admin: 08/07/22 09:03 Dose: 650 mg Documented By: PATY Dextrose (Dextrose 50 % 25 Gm/50 Ml Syringe) 25 gm IVPUSH Q15M PRN; Protocol PRN Reason: per Hypoglycemia Standing Ord. Docusate Sodium (Docusate Sodium 100 Mg Capsule) 100 mg PO DAILY PRN PRN Reason: Constipation Last Admin: 07/30/22 10:11 Dose: 100 mg Documented By: CHIP Enoxaparin Sodium (Enoxaparin Sodium 40 Mg/0.4 Ml Syringe) 40 mg SUBCUT Q24H [facility] Last Admin: 08/07/22 13:40 Dose: 40 mg Documented By: PATY Glucose (Glucose Gel 15 Gm Gel..Gram.) 15 gm PO Q15M PRN; Protocol PRN Reason: per Hypoglycemia Standing Ord. Insulin Human Lispro (Insulin Lispro 100 Unit/Ml 3 Ml Vial) 0 unit SUBCUT QIDACHS [facility]; Protocol Last Admin: 08/07/22 20:58 Dose: Not Given Documented By: ANT Non-Admin Reason: No Insulin Coverage Lactulose (Lactulose 20 Gm/30 Ml Solution) 30 gm PO DAILY [facility] Last Admin: 08/07/22 09:00 Dose: Not Given Documented By: PATY Non-Admin Reason: Patient Refused Ondansetron HCl (Ondansetron Hcl 4 Mg/2 Ml Vial) 4 mg IVPUSH Q8H PRN PRN Reason: Nausea and Vomiting Last Admin: 07/20/22 21:09 Dose: 4 mg Documented By: HE Oxycodone HCl (Oxycodone Hcl Immed Release 5 Mg Tablet) 5 mg PO Q4H PRN PRN Reason: Pain, Mild (Pain Scale 1-3) Last Admin: 08/07/22 14:06 Dose: 5 mg Documented By: PATY Pharmacy Consult (Consult Rx Perform Med Rec) 1 each MISCELLANE ONCE PRN PRN Reason: Consult order Sodium Chloride (0.9 % Sodium Chloride Flush 3 Ml Syringe) 3 ml IVFLUSH QSHIFT [facility] Last Admin: 08/07/22 23:45 Dose: 3 ml Documented By: EVELIO Labs 08/06/22 08:05 08/06/22 08:05 Labs: Laboratory Results - last 24 hr 08/07/22 08/07/22 08/07/22 10:54 16:42 20:44 POC Glucose 95 87 91 Assessment and Plan (1) Paralysis: Status: Acute (2) Opiate use: Status: Acute (3) Hyperglycemia: Status: Acute Plan 36yo M with OUD, DM2 presented after overdose/LOC/unknown period of unresponsiveness perhaps as long as 48 hr, admitted for rhabdomyolysis and relative paralysis Bradycardia has been ongoing for the most part, down in 30's overnight not on BB or rate lowering medications cardio consult, appears to be same on previous surgical elastic knitter hand frame on tele neg trop some chronic findings on EKG echo pending 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 Edwards Spoke with his sister, Brandy, yesterday ([phone]). All of his family lives in [facility]. They would like him to return there once he is better. Plan for him is acute rehab In my clinical judgment, the patient requires continued inpatient hospitalization for the following reasons: safe disposition Time Spent With Patient Time: Total time managing care of this patient today ____ minutes. Quality Stroke Does the patient have a stroke diagnosis?: No VTE Prior VTE?: No VTE Risk Level:: Medical - moderate - high VTE Device Contraindication: Treatment Not Indicated VTE Drug Contraindication: N/A - Med Ordered
[2022-08-08 08:34] LABS: Glucose, Whole Blood 76 mg/dL (60-115)
[2022-08-08] MEDS: oxyCODONE HCl Immed Release 5 MG TABLET PO ×2 (08:36→13:00)
[2022-08-08] MEDS: 0.9 % Sodium Chloride Flush 3 ML SYRINGE IVFLUSH ×2 (08:36→16:04)
[2022-08-08 09:52] VITALS: BP 100/65; PULSE 44; O2SAT 98
[2022-08-08 11:13] LABS: Glucose, Whole Blood 91 mg/dL (60-115)
[2022-08-08] MEDS: Enoxaparin Sodium 40 MG/0.4 ML SYRINGE SUBCUT (13:00)
[2022-08-08] MEDS: Tamsulosin HCL 0.4 MG CAPSULE PO (13:01)
--- NOTE | 2022-08-08 15:22 | MHC.CM.PN ---
DP: CM REACHED OUT TO [facility] TO INQUIRE IF SPOKE WITH [facility]OL[facility]. LIAISON FOR [place], STATES SHE HAS LEFT A MESSAGE AND AWITING HIS RETURN CALL. THIS CM ALSO LEFT A MESAGE WITH A REQUEST FOR CALL BACK. NO OTHER BED OFFERS AT THIS TIME. CM CONTINUES TO FOLLOW.
[2022-08-08 15:44] VITALS: BP 132/58; PULSE 48; RESP 18; TEMP 36.8; O2SAT 96
[2022-08-08 16:40] LABS: Glucose, Whole Blood 125 mg/dL (60-115)
[2022-08-08 19:37] VITALS: BP 114/63; PULSE 54; RESP 18; TEMP 36.8; O2SAT 97
[2022-08-08 20:41] LABS: Glucose, Whole Blood 133 mg/dL (60-115)
[2022-08-09] MEDS: 0.9 % Sodium Chloride Flush 3 ML SYRINGE IVFLUSH ×3 (00:30→16:36)
[2022-08-09 03:20] VITALS: BP 103/56; PULSE 60; RESP 18; TEMP 36.4; O2SAT 97
[2022-08-09 07:23] VITALS: BP 102/52; PULSE 46; RESP 16; TEMP 36.5; O2SAT 97
[2022-08-09 07:50] LABS: Glucose, Whole Blood 102 mg/dL (60-115)
[2022-08-09] MEDS: Tamsulosin HCL 0.4 MG CAPSULE PO (08:29)
[2022-08-09] MEDS: oxyCODONE HCl Immed Release 5 MG TABLET PO (08:33)
[2022-08-09] MEDS: Acetaminophen 325 MG TABLET 650 MG PO (08:33)
[2022-08-09] MEDS: Docusate Sodium 100 MG CAPSULE PO (09:55)
--- NOTE | 2022-08-09 10:26 | PM.PNCARD ---
Subjective Subjective Date of Service: 08/09/22 Interval history: He states that he feels okay. No specific complaints. Review of Systems Review of Systems Yes all other systems are reviewed and are negative Constitutional: Reports as per HPI Eyes: Reports as per HPI Reports as per HPI Cardiovascular: Reports as per HPI, Denies acrocyanosis, Denies cool extremities, Denies chest pain, Denies leg edema, Denies lightheadedness, Denies palpitations and Denies dyspnea Respiratory: Reports as per HPI, Reports no additional respiratory complaints and Denies dyspnea Gastrointestinal: Reports as per HPI and Reports no additional gastrointestinal complaints Genitourinary: Reports no additional male genitourinary complaints and Reports as per HPI Musculoskeletal: Reports no additional musculoskeletal complaints and Reports as per HPI Skin/Breast: Reports system reviewed and no additional complaints, except as docu Reports system reviewed and no additional complaints, except as documented and Reports as per HPI Psychiatric: Reports no additional psychiatric complaints and Reports as per HPI Endocrine: Reports no additional endocrine complaints, Reports as per HPI and Denies palpitations Hematologic/Lymphatic: Reports no additional hematologic/lymphatic complaints and Reports as per HPI Allergic/Immunologic: Reports no additional allergic/immunologic complaints and Reports as per HPI Physical Exam Vital Signs: Last Vital Signs Temp 97.7 F 08/09/22 07:23 Pulse 46 L 08/09/22 07:23 Resp 16 08/09/22 07:23 BP 102/52 L 08/09/22 07:23 Pulse Ox 97 08/09/22 07:23 O2 Del Method 08/09/22 07:23 O2 Flow Rate 2 07/21/22 04:09 BMI result Body Mass Index 27.2 Const General: comfortable and no acute distress Orientation/consciousness: patient oriented x3 HEENT Other: Unremarkable Head: Yes normal to inspection Neck Neck: Yes normal visual inspection Chest Chest palpation & inspection: normal inspection of the chest Resp Auscultation: clear to auscultation bilaterally Cardio Palpation: normal PMI Heart sounds: S1 normal heart sound present, S2 normal heart sound present, no gallops, no murmurs and no rubs GI Palpation (GI): Soft to palpation Back/Spine/Pelvis Other: unremarkable Skin General skin exam: no rashes or lesions noted Neuro General: patient oriented x3 Extrem General: Yes normal to inspection Psych Mental Status: mental status grossly normal Objective Labs and Meds 08/06/22 08:05 08/06/22 08:05 Lab results: Laboratory Results - last 24 hr 08/08/22 08/08/22 08/08/22 11:06 16:36 20:15 POC Glucose 91 125 H 133 H 08/09/22 07:42 POC Glucose 102 Progress Note: A&P Assessment and plan (1) Abnormal EKG: Status: Acute (2) Polysubstance use disorder: Status: Acute (3) Rhabdomyolysis: Status: Acute (4) Cocaine use disorder: Status: Acute Plan Recent EKG with sinus bradycardia at 42/Min; some coving of the anterior ST segments with T inversions.? T inversions also seen in lead 1 aVL.? These are actually slightly better compared to prior EKG from May. On telemetry, sinus rhythm is 60s. At nighttime, somewhat slower. High sensitivity troponins from May as well as from the time of this admission are unremarkable. Hence there is no evidence of acute infarct at any point. The changes could reflect a prior myocardial event but not clear. In the echocardiogram, LV function seems normal. Otherwise, no clear-cut abnormality. Etiology for the EKG changes not clear. In the absence of symptoms and with ongoing substance abuse, will hold further workup. Possibly ischemia workup as an outpatient if he is able to comply with that. With regard to bradycardia, no specific management. Discussed with Dr. Ross. Time Spent With Patient Time: Total time managing care of this patient today 30 minutes. Progress Note: Quality Stroke Does the patient have a stroke diagnosis?: No Procedures Date of Service Date of Service: 08/09/22
--- NOTE | 2022-08-09 11:18 | P.PNIM_ITS ---
Subjective Subjective Date of Service: 08/10/22 Interval History: Offers no acute complaints tolerating diet no nausea, no vomiting, no abdominal pain, not taking lactulose due to loose stools, denies chest pain, no lightheadedness, or dizziness, complaining of decreased sensation lower e xtremities moving both legs Review of Systems Review of Systems: Yes all other systems are reviewed and are negative Physical Exam Vital Signs: Vital Signs: Last Vital Signs Temp 97.7 F 08/09/22 07:23 Pulse 46 L 08/09/22 07:23 Resp 16 08/09/22 07:23 BP 102/52 L 08/09/22 07:23 Pulse Ox 97 08/09/22 07:23 O2 Del Method 08/09/22 07:23 O2 Flow Rate 2 07/21/22 04:09 BMI result Body Mass Index 27.2 Const: Other: General patient resting comfortably in no acute distress. Neck no JVD. CVS regular rate rhythm, Respiratory lungs clear to auscultation, no respiratory distress, no wheeze, no rhonchi. Gastrointestinal abdomen soft, nontender, bowel sounds audible, no guarding , no rigidity. Extremities no edema. Neuro face symmetrical, speech clear, decreased sensation lower extremities, normal strength, tone, both upper and lower extremities no pronator drift. Skin no rash Psych appropriate affect Objective Data Active Medications Acetaminophen (Acetaminophen 325 Mg Tablet) 650 mg PO Q6H PRN PRN Reason: Pain, Mild (Pain Scale 1-3) Last Admin: 08/09/22 08:33 Dose: 650 mg Documented By: PATY Dextrose (Dextrose 50 % 25 Gm/50 Ml Syringe) 25 gm IVPUSH Q15M PRN; Protocol PRN Reason: per Hypoglycemia Standing Ord. Docusate Sodium (Docusate Sodium 100 Mg Capsule) 100 mg PO DAILY PRN PRN Reason: Constipation Last Admin: 08/09/22 09:55 Dose: 100 mg Documented By: PATY Enoxaparin Sodium (Enoxaparin Sodium 40 Mg/0.4 Ml Syringe) 40 mg SUBCUT Q24H HARRY Last Admin: 08/08/22 13:00 Dose: 40 mg Documented By: PATY Glucose (Glucose Gel 15 Gm Gel..Gram.) 15 gm PO Q15M PRN; Protocol PRN Reason: per Hypoglycemia Standing Ord. Insulin Human Lispro (Insulin Lispro 100 Unit/Ml 3 Ml Vial) 0 unit SUBCUT QIDACHS [facility]; Protocol Last Admin: 08/09/22 08:22 Dose: Not Given Documented By: PATY Non-Admin Reason: No Insulin Coverage Lactulose (Lactulose 20 Gm/30 Ml Solution) 30 gm PO DAILY [facility] Last Admin: 08/09/22 08:34 Dose: Not Given Documented By: PATY Non-Admin Reason: Patient Refused Ondansetron HCl (Ondansetron Hcl 4 Mg/2 Ml Vial) 4 mg IVPUSH Q8H PRN PRN Reason: Nausea and Vomiting Last Admin: 07/20/22 21:09 Dose: 4 mg Documented By: HE Oxycodone HCl (Oxycodone Hcl Immed Release 5 Mg Tablet) 5 mg PO Q4H PRN PRN Reason: Pain, Mild (Pain Scale 1-3) Last Admin: 08/09/22 08:33 Dose: 5 mg Documented By: PATY Pharmacy Consult (Consult Rx Perform Med Rec) 1 each MISCELLANE ONCE PRN PRN Reason: Consult order Sodium Chloride (0.9 % Sodium Chloride Flush 3 Ml Syringe) 3 ml IVFLUSH QSHIFT [facility] Last Admin: 08/09/22 08:34 Dose: 3 ml Documented By: APTY Tamsulosin HCl (Tamsulosin Hcl 0.4 Mg Capsule) 0.4 mg PO DAILY [facility] Last Admin: 08/09/22 08:29 Dose: 0.4 mg Documented By: PATY Labs 08/06/22 08:05 08/06/22 08:05 Labs: Laboratory Results - last 24 hr 08/08/22 08/08/22 08/09/22 16:36 20:15 07:42 POC Glucose 125 H 133 H 102 Assessment and Plan (1) Paralysis: Status: Acute (2) Opiate use: Status: Acute (3) Hyperglycemia: Status: Acute Plan 36yo M with OUD, DM2 presented after overdose/LOC/unknown period of unre sponsiveness perhaps as long as 48 hr, admitted for rhabdomyolysis and relative paralysis Bradycardia Heart rate remains slow, but stable, patient asymptomatic not on beta-blockers or rate-controlling medication Echo showed EF 73% , abnormal EKG with coving of the anterior ST segments with T-wave inversions, T-wave inversions also in lead 1 and aVL, normal troponin, patient denies chest pain Case discussed with Cardiology no specific management for bradycardia, ischemia workup as an outpatient monitor on tele 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 Rhabdomyolysis resolved after IV fluid hydration no renal injury OUD prn oxycodone, gradually taper will change to oxycodone 5 mg q.6 hours as needed Addiction Medicine following but pt. declines MAT Hep c positive, consider tx as o/p DM2 Blood sugars stable, Will discontinue insulin sliding scale,hbaiC 5.7 VTE ppx: LMWH sister, Brandy, ([phone]) informed that all of his family lives in [facility]. They would like him to return there once he is better. Plan for him is acute rehab In my clinical judgment, the patient requires continued inpatient hospitalization for the following reasons: safe disposition Time Spent With Patient Time: Total time managing care of this patient today ____ minutes. Quality Stroke Does the patient have a stroke diagnosis?: No VTE Prior VTE?: No VTE Risk Level:: Medical - moderate - high VTE Device Contraindication: Treatment Not Indicated VTE Drug Contraindication: N/A - Med Ordered
[2022-08-09 11:39] LABS: Glucose, Whole Blood 91 mg/dL (60-115)
[2022-08-09 12:46] VITALS: BP 102/52; PULSE 46; O2SAT 97
[2022-08-09] MEDS: Enoxaparin Sodium 40 MG/0.4 ML SYRINGE SUBCUT (13:08)
--- NOTE | 2022-08-09 13:14 | MHC.CM.PN ---
EMR REVIEWED, PT REMAINS MEDICALLY CLEARED FOR D/C, CM STILL AWAITING CONFIRMATION FROM [place] [facility] THAT SHE HAS SPOKEN TO [facility] FROM THE [facility], PT CONT'S TO HAVE NO OTHER BED OFFERS, CM WILL CONT TO FOLLOW D/C NEEDS.
[2022-08-09 15:49] VITALS: BP 104/59; PULSE 51; RESP 18; TEMP 36.6; O2SAT 97
[2022-08-09 16:44] VITALS: PULSE 48
[2022-08-09 16:49] LABS: Glucose, Whole Blood 95 mg/dL (60-115)
[2022-08-09 19:33] VITALS: BP 128/60; PULSE 52; RESP 18; TEMP 36.9; O2SAT 96
[2022-08-09 20:13] LABS: Glucose, Whole Blood 110 mg/dL (60-115)
[2022-08-10] MEDS: 0.9 % Sodium Chloride Flush 3 ML SYRINGE IVFLUSH ×4 (00:11→19:42)
[2022-08-10 03:53] VITALS: BP 118/64; PULSE 50; RESP 18; TEMP 36.8; O2SAT 96
[2022-08-10 07:42] LABS: Glucose, Whole Blood 81 mg/dL (60-115)
[2022-08-10 08:00] VITALS: BP 115/71; PULSE 50; RESP 16; TEMP 37; O2SAT 97
[2022-08-10] MEDS: polyethylene glycoL 3350 17 GM POWD.PACK PO (08:47)
[2022-08-10] MEDS: Tamsulosin HCL 0.4 MG CAPSULE PO (08:47)
[2022-08-10] MEDS: Acetaminophen 325 MG TABLET 650 MG PO (08:50)
[2022-08-10] MEDS: oxyCODONE HCl Immed Release 5 MG TABLET PO (08:51)
[2022-08-10 10:54] VITALS: BP 115/71; PULSE 50; O2SAT 97
[2022-08-10 12:22] LABS: Glucose, Whole Blood 82 mg/dL (60-115)
[2022-08-10] MEDS: Enoxaparin Sodium 40 MG/0.4 ML SYRINGE SUBCUT (13:08)
--- NOTE | 2022-08-10 13:44 | MHC.CM.PN ---
PT AWAITING STR PLACEMENT BRETT THIELLSBayron IS FOLLOWING [facility] AUTH UPDATES WERE SENT AND THEY ARE AWARE PT IS READY TO DC
[2022-08-10 15:55] VITALS: BP 113/59; PULSE 50; RESP 16; TEMP 36.3; O2SAT 94
[2022-08-10 16:03] LABS: Glucose, Whole Blood 151 mg/dL (60-115)
--- NOTE | 2022-08-10 17:07 | PC.NURSE ---
Pt alvarez removed at 1300. DTV at 1900
--- NOTE | 2022-08-10 17:27 | HO.PM.IMPN ---
Subjective Subjective Date of Service: 08/10/22 Interval History: Offers no acute complaints resting comfortably tolerating diet, moving all 4 extremities participating well with physical therapy, denies nausea, vomiting, abdominal pain or diarrhea, no acute issues overnight. Review of Systems Review of Systems: Yes all other systems are reviewed and are negative Physical Exam Vital Signs: Vital Signs: Last Vital Signs Temp 97.3 F 08/10/22 15:55 Pulse 50 08/10/22 15:55 Resp 16 08/10/22 15:55 BP 113/59 L 08/10/22 15:55 Pulse Ox 94 08/10/22 15:55 O2 Del Method 08/10/22 15:55 O2 Flow Rate 2 07/21/22 04:09 BMI result Body Mass Index 27.2 Const: Other: General patient resting comfortably in no acute distress.? Neck no JVD. CVS? regular rate rhythm, Respiratory lungs clear to auscultation, no respiratory distress, no wheeze, no rhonchi. Gastrointestinal abdomen soft, nontender, bowel sounds audible, no guarding , no rigidity. Extremities no edema. Neuro face symmetrical, speech clear, decreased sensation lower extremities, normal strength, tone, both upper and lower extremities, no pronator drift. Skin no rash Psych appropriate affect Objective Data Active Medications Acetaminophen (Acetaminophen 325 Mg Tablet) 650 mg PO Q6H PRN PRN Reason: Pain, Mild (Pain Scale 1-3) Last Admin: 08/10/22 08:50 Dose: 650 mg Documented By: VALENCIA Docusate Sodium (Docusate Sodium 100 Mg Capsule) 100 mg PO DAILY PRN PRN Reason: Constipation Last Admin: 08/09/22 09:55 Dose: 100 mg Documented By: PATY Enoxaparin Sodium (Enoxaparin Sodium 40 Mg/0.4 Ml Syringe) 40 mg SUBCUT Q24H [facility]ARRY Last Admin: 08/10/22 13:08 Dose: 40 mg Documented By: VALENCIA Ondansetron HCl (Ondansetron Hcl 4 Mg/2 Ml Vial) 4 mg IVPUSH Q8H PRN PRN Reason: Nausea and Vomiting Last Admin: 07/20/22 21:09 Dose: 4 mg Documented By: HE Oxycodone HCl (Oxycodone Hcl Immed Release 5 Mg Tablet) 5 mg PO Q6H PRN PRN Reason: Pain, Severe (Pain Scale 7-10) Last Admin: 08/10/22 08:51 Dose: 5 mg Documented By: VALENCIA Pharmacy Consult (Consult Rx Perform Med Rec) 1 each MISCELLANE ONCE PRN PRN Reason: Consult order Polyethylene Glycol (Polyethylene Glycol 3350 17 Gm Powd.Pack) 17 gm PO DAILY [facility] Last Admin: 08/10/22 08:47 Dose: 17 gm Documented By: VALENCIA Sodium Chloride (0.9 % Sodium Chloride Flush 3 Ml Syringe) 3 ml IVFLUSH QSHIFT [facility] Last Admin: 08/10/22 16:04 Dose: 3 ml Documented By: VALENCIA Tamsulosin HCl (Tamsulosin Hcl 0.4 Mg Capsule) 0.4 mg PO DAILY [facility] Last Admin: 08/10/22 08:47 Dose: 0.4 mg Documented By: VALENCIA Labs 08/06/22 08:05 08/06/22 08:05 Labs: Laboratory Results - last 24 hr 08/09/22 08/10/22 08/10/22 20:02 07:33 11:12 POC Glucose 110 81 82 08/10/22 15:59 POC Glucose 151 H Assessment and Plan (1) Paralysis: Status: Acute (2) Opiate use: Status: Acute (3) Hyperglycemia: Status: Acute Plan 36yo M with OUD, DM2 presented after overdose/LOC/unknown period of unresponsiveness perhaps as long as 48 hr, admitted for rhabdomyolysis and relative paralysis Bradycardia Heart rate around 50, patient asymptomatic, no chest pain, not on beta-blockers or rate-controlling medication Echo showed EF 73% , abnormal EKG with coving of the anterior ST segments with T-wave inversions, T-wave inversions also in lead 1 and aVL, normal troponin Cardiology recommend no specific management for bradycardia, ischemia workup as an outpatient monitor on tele 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 Rhabdomyolysis resolved after IV fluid hydration no renal injury OUD prn oxycodone, gradually taper changed oxycodone 5 mg q.6 hours as needed on 08/09 Addiction Medicine following but pt. declines MAT Hep C positive, consider tx as o/p DM2 Blood sugars stable, hbaiC 5.7, no further blood sugar monitoring. VTE ppx: LMWH sister, Brandy, ([phone]) informed that all of his family lives in [facility]. They would like him to return there once he is better. Plan for him is acute rehab In my clinical judgment, the patient requires continued inpatient hospitalization for the following reasons: safe disposition Time Spent With Patient Time: Total time managing care of this patient today ____ minutes. Quality Stroke Does the patient have a stroke diagnosis?: No VTE Prior VTE?: No VTE Risk Level:: Medical - moderate - high VTE Device Contraindication: Treatment Not Indicated VTE Drug Contraindication: N/A - Med Ordered
[2022-08-10 19:43] VITALS: BP 121/74; PULSE 53; RESP 17; TEMP 36.9; O2SAT 96
[2022-08-10 19:55] LABS: Glucose, Whole Blood 133 mg/dL (60-115)
--- NOTE | 2022-08-10 22:40 | PC.NURSE ---
Pt failed voiding trail post alvarez removal; bladder scanned for 519 mL, denies pain or pressure at this time. Dr. Pham notified and alvarez ordered, 600 mL post cath; urine is clear, no clots, no sediments. Pt tolerated well, aware of plan of care.
[2022-08-11 03:16] VITALS: BP 114/70; PULSE 50; RESP 18; TEMP 36.5; O2SAT 98
[2022-08-11 07:01] VITALS: BP 112/69; PULSE 44; RESP 16; TEMP 36.6; O2SAT 95
[2022-08-11 07:20] LABS: Glucose, Whole Blood 73 mg/dL (60-115)
[2022-08-11] MEDS: oxyCODONE HCl Immed Release 5 MG TABLET PO ×2 (09:42→16:34)
[2022-08-11] MEDS: Acetaminophen 325 MG TABLET 650 MG PO ×2 (09:42→16:34)
[2022-08-11] MEDS: 0.9 % Sodium Chloride Flush 3 ML SYRINGE IVFLUSH ×3 (09:42→19:49)
[2022-08-11] MEDS: Tamsulosin HCL 0.4 MG CAPSULE PO (09:42)
--- NOTE | 2022-08-11 09:58 | P.PNIM_ITS ---
Subjective Subjective Date of Service: 08/11/22 Interval History: No acute complaints this morning sitting on chair, participating with physical therapy moving bowels, has no urge to urinate, no nausea, no vomiting no abdominal pain tolerating bowel no other acute issues overnight. Review of Systems Review of Systems: Yes all other systems are reviewed and are negative Physical Exam Vital Signs: Vital Signs: Last Vital Signs Temp 98 F 08/11/22 07:01 Pulse 44 L 08/11/22 07:01 Resp 16 08/11/22 07:01 BP 112/69 08/11/22 07:01 Pulse Ox 95 08/11/22 07:01 O2 Del Method 08/11/22 07:01 O2 Flow Rate 2 07/21/22 04:09 BMI result Body Mass Index 27.2 Const: Other: General patient resting comfortably in no acute distress.? Neck no JVD. CVS? regular rate rhythm, Respiratory lungs clear to auscultation, no respiratory distress, no wheeze, no rhonchi. Gastrointestinal abdomen soft, nontender, bowel sounds audible, no guarding , no rigidity. Extremities no edema. Neuro face symmetrical, speech clear, decreased sensation lower extremities, normal strength, tone, both upper and lower extremities, no pronator drift. Skin no rash Psych appropriate affect Objective Data Active Medications Acetaminophen (Acetaminophen 325 Mg Tablet) 650 mg PO Q6H PRN PRN Reason: Pain, Mild (Pain Scale 1-3) Last Admin: 08/11/22 09:42 Dose: 650 mg Documented By: MARIEL Docusate Sodium (Docusate Sodium 100 Mg Capsule) 100 mg PO DAILY PRN PRN Reason: Constipation Last Admin: 08/09/22 09:55 Dose: 100 mg Documented By: PATY Enoxaparin Sodium (Enoxaparin Sodium 40 Mg/0.4 Ml Syringe) 40 mg SUBCUT Q24H HARRY Last Admin: 08/10/22 13:08 Dose: 40 mg Documented By: VALENCIA Ondansetron HCl (Ondansetron Hcl 4 Mg/2 Ml Vial) 4 mg IVPUSH Q8H PRN PRN Reason: Nausea and Vomiting Last Admin: 07/20/22 21:09 Dose: 4 mg Documented By: HE Oxycodone HCl (Oxycodone Hcl Immed Release 5 Mg Tablet) 5 mg PO Q6H PRN PRN Reason: Pain, Severe (Pain Scale 7-10) Last Admin: 08/11/22 09:42 Dose: 5 mg Documented By: MARIEL Pharmacy Consult (Consult Rx Perform Med Rec) 1 each MISCELLANE ONCE PRN PRN Reason: Consult order Polyethylene Glycol (Polyethylene Glycol 3350 17 Gm Powd.Pack) 17 gm PO DAILY [facility] Last Admin: 08/11/22 09:43 Dose: Not Given Documented By: MARIEL Non-Admin Reason: Patient Refused Sodium Chloride (0.9 % Sodium Chloride Flush 3 Ml Syringe) 3 ml IVFLUSH QSHIFT [facility] Last Admin: 08/11/22 09:42 Dose: 3 ml Documented By: MARIEL Tamsulosin HCl (Tamsulosin Hcl 0.4 Mg Capsule) 0.4 mg PO DAILY [facility] Last Admin: 08/11/22 09:42 Dose: 0.4 mg Documented By: MARIEL Labs 08/06/22 08:05 08/06/22 08:05 Labs: Laboratory Results - last 24 hr 08/10/22 08/10/22 08/10/22 11:12 15:59 19:45 POC Glucose 82 151 H 133 H 08/11/22 07:01 POC Glucose 73 Assessment and Plan (1) Paralysis: Status: Acute (2) Opiate use: Status: Acute (3) Hyperglycemia: Status: Acute Plan 36yo M with OUD, DM2 presented after overdose/LOC/unknown period of unresponsiveness perhaps as long as 48 hr, admitted for rhabdomyolysis and relative paralysis Bradycardia Heart rate fluctuates mid 40-50 range, patient asymptomatic, no chest pain, not on beta-blockers or rate-controlling medication Echo showed EF 73% , abnormal EKG with coving of the anterior ST segments with T -wave inversions, T-wave inversions also in lead 1 and aVL, normal troponin Cardiology recommend no specific management for bradycardia, ischemia workup as an outpatient due to abnormal EKG dc please tele 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 Continue indwelling Melendrez catheter since failed voiding trial, continue Flomax Rhabdomyolysis resolved after IV fluid hydration no renal injury OUD prn oxycodone, gradually taper changed oxycodone 5 mg q.6 hours as needed on 08/09 Addiction Medicine following but pt. declines MAT Hep C positive, consider tx as o/p DM2 Blood sugars stable, hbaiC 5.7, no further blood sugar monitoring. VTE ppx: LMWH sister, Brandy, ([phone]) informed that all of his family lives in [facility]. They would like him to return there once he is better. Plan for him is acute rehab In my clinical judgment, the patient requires continued inpatient hospitalization for the following reasons: safe disposition Time Spent With Patient Time: Total time managing care of this patient today ____ minutes. Quality Stroke Does the patient have a stroke diagnosis?: No VTE Prior VTE?: No VTE Risk Level:: Medical - moderate - high VTE Device Contraindication: Treatment Not Indicated VTE Drug Contraindication: N/A - Med Ordered
[2022-08-11 11:01] VITALS: BP 112/69; PULSE 44; O2SAT 95
[2022-08-11 11:06] LABS: Glucose, Whole Blood 80 mg/dL (60-115)
[2022-08-11] MEDS: Enoxaparin Sodium 40 MG/0.4 ML SYRINGE SUBCUT (13:25)
[2022-08-11 15:58] VITALS: BP 124/61; PULSE 52; RESP 16; TEMP 36.1; O2SAT 94
[2022-08-11 16:10] LABS: Glucose, Whole Blood 90 mg/dL (60-115)
[2022-08-11 19:44] VITALS: BP 125/69; PULSE 49; RESP 16; TEMP 36.3; O2SAT 95
[2022-08-11 19:50] LABS: Glucose, Whole Blood 138 mg/dL (60-115)
[2022-08-12 03:12] VITALS: BP 105/63; PULSE 49; RESP 16; TEMP 36.1; O2SAT 98
[2022-08-12 07:00] VITALS: BP 110/59; PULSE 48; RESP 16; TEMP 36.4; O2SAT 96
[2022-08-12 07:06] LABS: Glucose, Whole Blood 85 mg/dL (60-115)
[2022-08-12] MEDS: Tamsulosin HCL 0.4 MG CAPSULE PO (08:56)
[2022-08-12] MEDS: 0.9 % Sodium Chloride Flush 3 ML SYRINGE IVFLUSH ×2 (08:56→12:11)
[2022-08-12] MEDS: oxyCODONE HCl Immed Release 5 MG TABLET PO (08:56)
[2022-08-12] MEDS: polyethylene glycoL 3350 17 GM POWD.PACK PO (08:56)
--- NOTE | 2022-08-12 11:36 | P.PNIM_ITS ---
Subjective Subjective Date of Service: 08/12/22 Interval History: Leg strength very slowly improving. Still has Melendrez for urinary retention. No other complaints. Review of Systems Review of Systems: Yes all other systems are reviewed and are negative Physical Exam Vital Signs: Vital Signs: Last Vital Signs Temp 97.6 F 08/12/22 07:00 Pulse 48 L 08/12/22 07:00 Resp 16 08/12/22 07:00 BP 110/59 L 08/12/22 07:00 Pulse Ox 96 08/12/22 07:00 O2 Del Method 08/12/22 07:00 O2 Flow Rate 2 07/21/22 04:09 BMI result Body Mass Index 27.2 Gen: in no acute distress HEENT: sclera anicteric, moist mucus membranes Neck: supple Lungs: clear to auscultation bilaterally Heart: regular rate and rhythm, no murmurs Abd: soft, non-tender, non-distended Ext: no edema Skin: warm/well-perfused Neuro: alert and oriented x3, bilateral lower extremities with 4/5 strength throughout Psych: appropriate affect Objective Data Active Medications Acetaminophen (Acetaminophen 325 Mg Tablet) 650 mg PO Q6H PRN PRN Reason: Pain, Mild (Pain Scale 1-3) Last Admin: 08/11/22 16:34 Dose: 650 mg Documented By: MARIEL Docusate Sodium (Docusate Sodium 100 Mg Capsule) 100 mg PO DAILY PRN PRN Reason: Constipation Last Admin: 08/09/22 09:55 Dose: 100 mg Documented By: PATY Enoxaparin Sodium (Enoxaparin Sodium 40 Mg/0.4 Ml Syringe) 40 mg SUBCUT Q24H [facility] Last Admin: 08/11/22 13:25 Dose: 40 mg Documented By: MARIEL Ondansetron HCl (Ondansetron Hcl 4 Mg/2 Ml Vial) 4 mg IVPUSH Q8H PRN PRN Reason: Nausea and Vomiting Last Admin: 07/20/22 21:09 Dose: 4 mg Documented By: HE Oxycodone HCl (Oxycodone Hcl Immed Release 5 Mg Tablet) 5 mg PO Q6H PRN PRN Reason: Pain, Severe (Pain Scale 7-10) Last Admin: 08/12/22 08:56 Dose: 5 mg Documented By: AZALIA Pharmacy Consult (Consult Rx Perform Med Rec) 1 each MISCELLANE ONCE PRN PRN Reason: Consult order Polyethylene Glycol (Polyethylene Glycol 3350 17 Gm Powd.Pack) 17 gm PO DAILY [facility] Last Admin: 08/12/22 08:56 Dose: 17 gm Documented By: AZALIA Sodium Chloride (0.9 % Sodium Chloride Flush 3 Ml Syringe) 3 ml IVFLUSH QSHIFT [facility] Last Admin: 08/12/22 08:56 Dose: 3 ml Documented By: AZALIA Tamsulosin HCl (Tamsulosin Hcl 0.4 Mg Capsule) 0.4 mg PO DAILY [facility] Last Admin: 08/12/22 08:56 Dose: 0.4 mg Documented By: AZALIA Labs 08/06/22 08:05 08/06/22 08:05 Labs: Laboratory Results - last 24 hr 08/11/22 08/11/22 08/12/22 16:00 19:45 07:01 POC Glucose 90 138 H 85 Assessment and Plan (1) Paralysis: Status: Acute (2) Opiate use: Status: Acute (3) Hyperglycemia: Status: Acute Plan d#24 36yo M with OUD, DM2 presented after overdose/LOC/unknown period of unresponsiveness perhaps as long as 48 hr, admitted for rhabdomyolysis and relative paralysis # bradycardia - Heart rate fluctuates in the mid 40-50s range, patient asymptomatic; no chest pain, not on beta-blockers or rate-controlling medication - Echo showed EF 73%. Abnormal EKG with coving of the anterior ST segments with T-wave inversions; also T-wave inversions in lead 1 and aVL. Normal troponin. - Cardiology recommends no specific management for bradycardia; ischemia workup as an outpatient due to abnormal EKG. 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 Recommended range of motion exercises in bed; being followed by Physical Therapy and continues to make progress with each treatment. PT recommends acute rehab when medically cleared. - Continue indwelling Melendrez catheter since failed voiding trial; continue Flomax. # rhabdomyolysis - Resolved after IV fluid hydration; no renal injury # OUD - prn oxycodone, gradually taper; changed oxycodone to 5 mg q.6 hours as needed on 08/09; Addiction Medicine following but pt declines MAT. # HCV - outpt viral load and treatment if positive # DM2 - blood sugars stable, A1c 5.7, no further fingersticks needed # VTE ppx: LMWH # dispo: awaiting AIR vs STR In my clinical judgment, the patient requires continued inpatient hospitalization for the following reasons: safe disposition Time Spent With Patient Time: Total time managing care of this patient today __25__ minutes. Quality Stroke Does the patient have a stroke diagnosis?: No VTE Prior VTE?: No VTE Risk Level:: Medical - moderate - high VTE Device Contraindication: Treatment Not Indicated VTE Drug Contraindication: N/A - Med Ordered
[2022-08-12] MEDS: Enoxaparin Sodium 40 MG/0.4 ML SYRINGE SUBCUT (12:09)
[2022-08-12] MEDS: Acetaminophen 325 MG TABLET 650 MG PO (12:09)
[2022-08-12 15:31] VITALS: BP 111/59; PULSE 48; RESP 18; TEMP 36.7; O2SAT 98
[2022-08-12 19:41] VITALS: BP 119/66; PULSE 53; RESP 18; TEMP 37.2; O2SAT 100
[2022-08-13 04:00] VITALS: BP 98/61; PULSE 52; RESP 20; TEMP 36.7; O2SAT 98
[2022-08-13 07:24] VITALS: BP 109/62; PULSE 44; RESP 16; TEMP 36; O2SAT 96
[2022-08-13] MEDS: Tamsulosin HCL 0.4 MG CAPSULE PO (09:47)
[2022-08-13] MEDS: 0.9 % Sodium Chloride Flush 3 ML SYRINGE IVFLUSH ×3 (09:48→21:25)
[2022-08-13] MEDS: oxyCODONE HCl Immed Release 5 MG TABLET PO ×2 (09:52→16:40)
--- NOTE | 2022-08-13 11:58 | HO.PM.IMPN ---
Subjective Subjective Date of Service: 08/13/22 Interval History: legs numb but strength improving Review of Systems Review of Systems: Yes all other systems are reviewed and are negative Physical Exam Vital Signs: Vital Signs: Last Vital Signs Temp 96.8 F 08/13/22 07:24 Pulse 44 L 08/13/22 07:24 Resp 16 08/13/22 07:24 BP 109/62 08/13/22 07:24 Pulse Ox 96 08/13/22 07:24 O2 Del Method 08/13/22 07:24 O2 Flow Rate 2 07/21/22 04:09 BMI result Body Mass Index 27.2 Gen: in no acute distress HEENT: sclera anicteric, moist mucus membranes Neck: supple Lungs: clear to auscultation bilaterally Heart: regular rate and rhythm, no murmurs Abd: soft, non-tender, non-distended Ext: no edema Skin: warm/well-perfused Neuro: alert and oriented x3, bilateral lower extremities with 4/5 strength throughout Psych: appropriate affect Objective Data Active Medications Acetaminophen (Acetaminophen 325 Mg Tablet) 650 mg PO Q6H PRN PRN Reason: Pain, Mild (Pain Scale 1-3) Last Admin: 08/12/22 12:09 Dose: 650 mg Documented By: AZALIA Docusate Sodium (Docusate Sodium 100 Mg Capsule) 100 mg PO DAILY PRN PRN Reason: Constipation Last Admin: 08/09/22 09:55 Dose: 100 mg Documented By: PATY Enoxaparin Sodium (Enoxaparin Sodium 40 Mg/0.4 Ml Syringe) 40 mg SUBCUT Q24H HARRY Last Admin: 08/12/22 12:09 Dose: 40 mg Documented By: AZALIA Ondansetron HCl (Ondansetron Hcl 4 Mg/2 Ml Vial) 4 mg IVPUSH Q8H PRN PRN Reason: Nausea and Vomiting Last Admin: 07/20/22 21:09 Dose: 4 mg Documented By: HE Oxycodone HCl (Oxycodone Hcl Immed Release 5 Mg Tablet) 5 mg PO Q6H PRN PRN Reason: Pain, Severe (Pain Scale 7-10) Last Admin: 08/13/22 09:52 Dose: 5 mg Documented By: PATY Pharmacy Consult (Consult Rx Perform Med Rec) 1 each MISCELLANE ONCE PRN PRN Reason: Consult order Polyethylene Glycol (Polyethylene Glycol 3350 17 Gm Powd.Pack) 17 gm PO DAILY [facility] Last Admin: 08/13/22 09:48 Dose: Not Given Documented By: PATY Non-Admin Reason: Patient Refused Sodium Chloride (0.9 % Sodium Chloride Flush 3 Ml Syringe) 3 ml IVFLUSH QSHIFT [facility] Last Admin: 08/13/22 09:48 Dose: 3 ml Documented By: PATY Tamsulosin HCl (Tamsulosin Hcl 0.4 Mg Capsule) 0.4 mg PO DAILY [facility] Last Admin: 08/13/22 09:47 Dose: 0.4 mg Documented By: PATY Labs 08/06/22 08:05 08/06/22 08:05 Assessment and Plan (1) Paralysis: Status: Acute (2) Opiate use: Status: Acute (3) Hyperglycemia: Status: Acute Plan d#25 36yo M with OUD, DM2 presented after overdose/LOC/unknown period of unresponsiveness perhaps as long as 48 hr, admitted for rhabdomyolysis and relative paralysis # bradycardia - Heart rate fluctuates in the mid 40-50s range, patient asymptomatic; no chest pain, not on beta-blockers or rate-controlling medication - Echo showed EF 73%. Abnormal EKG with coving of the anterior ST segments with T-wave inversions; also T-wave inversions in lead 1 and aVL. Normal troponin. - Cardiology recommends no specific management for bradycardia; ischemia workup as an outpatient due to abnormal EKG. 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 Recommended range of motion exercises in bed; being followed by Physical Therapy and continues to make progress with each treatment. PT recommends acute rehab when medically cleared. - Continue indwelling Melendrez catheter since failed voiding trial; continue Flomax. # rhabdomyolysis - Resolved after IV fluid hydration; no renal injury # OUD - prn oxycodone, gradually taper; changed oxycodone to 5 mg q.6 hours as needed on 08/09; Addiction Medicine following but pt declines MAT. # HCV - outpt viral load and treatment if positive # DM2 - blood sugars stable, A1c 5.7, no further fingersticks needed # VTE ppx: LMWH # dispo: awaiting AIR vs STR In my clinical judgment, the patient requires continued inpatient hospitalization for the following reasons: safe disposition Time Spent With Patient Time: Total time managing care of this patient today __25__ minutes. Quality Stroke Does the patient have a stroke diagnosis?: No VTE Prior VTE?: No VTE Risk Level:: Medical - moderate - high VTE Device Contraindication: Treatment Not Indicated VTE Drug Contraindication: N/A - Med Ordered
[2022-08-13] MEDS: Enoxaparin Sodium 40 MG/0.4 ML SYRINGE SUBCUT (13:04)
[2022-08-13] MEDS: Acetaminophen 325 MG TABLET 650 MG PO ×2 (13:10→21:17)
[2022-08-13 15:09] VITALS: BP 111/56; PULSE 55; RESP 18; TEMP 37.1; O2SAT 99
[2022-08-13] MEDS: Mineral Oil/Petrolatum,White 106 GM Tube 1 APPL TOPICAL ×2 (16:38→21:15)
[2022-08-13 19:14] VITALS: BP 109/55; PULSE 48; RESP 18; TEMP 37.1; O2SAT 97
[2022-08-14 04:00] VITALS: BP 110/68; PULSE 45; RESP 20; TEMP 36.7; O2SAT 99
[2022-08-14 07:38] VITALS: BP 116/63; PULSE 44; RESP 19; TEMP 36.6; O2SAT 94
[2022-08-14 07:50] LABS: Glucose, Whole Blood 86 mg/dL (60-115)
--- NOTE | 2022-08-14 10:15 | HO.PM.IMPN ---
Subjective Subjective Date of Service: 08/14/22 Interval History: LE strength slowly improving. Still has paresthesias/numbness of LEs. Review of Systems Review of Systems: Yes all other systems are reviewed and are negative Physical Exam Vital Signs: Vital Signs: Last Vital Signs Temp 97.9 F 08/14/22 07:38 Pulse 44 L 08/14/22 07:38 Resp 19 08/14/22 07:38 BP 116/63 08/14/22 07:38 Pulse Ox 94 08/14/22 07:38 O2 Del Method 08/14/22 07:38 O2 Flow Rate 2 07/21/22 04:09 BMI result Body Mass Index 27.2 Const: Other: Gen: in no acute distress HEENT: sclera anicteric, moist mucus membranes Neck: supple Lungs: clear to auscultation bilaterally Heart: regular rate and rhythm, no murmurs Abd: soft, non-tender, non-distended Ext: no edema Skin: warm/well-perfused Neuro: alert and oriented x3, bilateral lower extremities with 4/5 strength throughout Psych: appropriate affect Objective Data Active Medications Acetaminophen (Acetaminophen 325 Mg Tablet) 650 mg PO Q6H PRN PRN Reason: Pain, Mild (Pain Scale 1-3) Last Admin: 08/13/22 21:17 Dose: 650 mg Documented By: ANT Docusate Sodium (Docusate Sodium 100 Mg Capsule) 100 mg PO DAILY PRN PRN Reason: Constipation Last Admin: 08/09/22 09:55 Dose: 100 mg Documented By: PATY Enoxaparin Sodium (Enoxaparin Sodium 40 Mg/0.4 Ml Syringe) 40 mg SUBCUT Q24H HARRY Last Admin: 08/13/22 13:04 Dose: 40 mg Documented By: PATY Multi-Ingred Cream/Lotion/Oil/Oint (Mineral Oil/Petrolatum,White 106 Gm Tube) 1 appl TOPICAL TID HARRY; Protocol Last Admin: 08/13/22 21:15 Dose: 1 appl Documented By: ANT Ondansetron HCl (Ondansetron Hcl 4 Mg/2 Ml Vial) 4 mg IVPUSH Q8H PRN PRN Reason: Nausea and Vomiting Last Admin: 07/20/22 21:09 Dose: 4 mg Documented By: HE Oxycodone HCl (Oxycodone Hcl Immed Release 5 Mg Tablet) 5 mg PO Q6H PRN PRN Reason: Pain, Severe (Pain Scale 7-10) Last Admin: 08/13/22 16:40 Dose: 5 mg Documented By: KORTNEY Pharmacy Consult (Consult Rx Perform Med Rec) 1 each MISCELLANE ONCE PRN PRN Reason: Consult order Polyethylene Glycol (Polyethylene Glycol 3350 17 Gm Powd.Pack) 17 gm PO DAILY [facility] Last Admin: 08/13/22 09:48 Dose: Not Given Documented By: PATY Non-Admin Reason: Patient Refused Sodium Chloride (0.9 % Sodium Chloride Flush 3 Ml Syringe) 3 ml IVFLUSH QSHIFT [facility] Last Admin: 08/13/22 21:25 Dose: 3 ml Documented By: SYLVIA Tamsulosin HCl (Tamsulosin Hcl 0.4 Mg Capsule) 0.4 mg PO DAILY [facility] Last Admin: 08/13/22 09:47 Dose: 0.4 mg Documented By: PATY Labs 08/06/22 08:05 08/06/22 08:05 Labs: Laboratory Results - last 24 hr 08/14/22 07:35 POC Glucose 86 Assessment and Plan (1) Paralysis: Status: Acute (2) Opiate use: Status: Acute (3) Hyperglycemia: Status: Acute Plan d#26 36yo M with OUD, DM2 presented after overdose/LOC/unknown period of unresponsiveness perhaps as long as 48 hr, admitted for rhabdomyolysis and relative paralysis # bradycardia - Heart rate fluctuates in the mid 40-50s range, patient asymptomatic; no chest pain, not on beta-blockers or rate-controlling medication - Echo showed EF 73%. Abnormal EKG with coving of the anterior ST segments with T-wave inversions; also T-wave inversions in lead 1 and aVL. Normal troponin. - Cardiology recommends no specific management for bradycardia; ischemia workup as an outpatient due to abnormal EKG. 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 Recommended range of motion exercises in bed; being followed by Physical Therapy and continues to make progress with each treatment. PT recommends acute rehab when medically cleared. - Continue indwelling Melendrez catheter since failed voiding trial; continue Flomax. # rhabdomyolysis - Resolved after IV fluid hydration; no renal injury # OUD - prn oxycodone, gradually taper; changed oxycodone to 5 mg q.6 hours as needed on 08/09; Addiction Medicine following but pt declines MAT. # HCV - outpt viral load and treatment if positive # DM2 - blood sugars stable, A1c 5.7, no further fingersticks needed # VTE ppx: LMWH # dispo: awaiting AIR vs STR In my clinical judgment, the patient requires continued inpatient hospitalization for the following reasons: safe disposition Time Spent With Patient Time: Total time managing care of this patient today __25__ minutes. Quality Stroke Does the patient have a stroke diagnosis?: No VTE Prior VTE?: No VTE Risk Level:: Medical - moderate - high VTE Device Contraindication: Treatment Not Indicated VTE Drug Contraindication: N/A - Med Ordered
[2022-08-14] MEDS: Tamsulosin HCL 0.4 MG CAPSULE PO (10:21)
[2022-08-14] MEDS: 0.9 % Sodium Chloride Flush 3 ML SYRINGE IVFLUSH ×2 (10:21→14:44)
[2022-08-14] MEDS: Mineral Oil/Petrolatum,White 106 GM Tube 1 APPL TOPICAL ×3 (10:21→21:22)
[2022-08-14] MEDS: oxyCODONE HCl Immed Release 5 MG TABLET PO ×2 (10:26→22:00)
[2022-08-14] MEDS: Enoxaparin Sodium 40 MG/0.4 ML SYRINGE SUBCUT (13:16)
[2022-08-14] MEDS: Acetaminophen 325 MG TABLET 650 MG PO (13:19)
--- NOTE | 2022-08-14 14:21 | MHC.CM.PN ---
PT CONTINUES TO WAIT FOR STR PLACEMENT [facility] [place] [facility] INDICATED [facility] WILL [facility] LIAISON STATES SHE HAS LEFT M[facility] BUT HAS NOT BEEN ABLE TO TOUCH BASE WITH HIM CM LEFT A MESSAGE WITH [facility] TODAY TO DETERMINE IF LIAISON IS ON VACATION, NO ONE HAS RESPONDED FROM THIS EXT EITHER CM WILL CONTINUE TO CALL [facility] AND [facility] THIS IS THE ONLY BED OFFER
[2022-08-14 16:00] VITALS: BP 120/69; PULSE 40; RESP 16; TEMP 36.7; O2SAT 98
[2022-08-14 16:52] VITALS: BP 116/63; PULSE 44; O2SAT 94
[2022-08-14 20:00] VITALS: BP 125/58; PULSE 56; RESP 16; TEMP 36.4; O2SAT 96
[2022-08-15] MEDS: 0.9 % Sodium Chloride Flush 3 ML SYRINGE IVFLUSH ×4 (00:21→23:31)
[2022-08-15 03:19] VITALS: BP 112/66; PULSE 50; RESP 18; TEMP 37; O2SAT 97
[2022-08-15 07:37] VITALS: BP 111/68; PULSE 44; RESP 18; TEMP 37.6; O2SAT 93
--- NOTE | 2022-08-15 08:48 | MHC.CM.PN ---
CM RECEIVED A CALL THIS MORNING FROM [facility] AT [facility] WHO REPORTS PT ACTUALLY IS NOT SERVICE CONNECTED AND HAS NO STR BENEFIT AND RECOMMENDS PT GET SIGNED UP FOR MH WHICH HAS ALREADY BEEN DONE, [facility] REPORTS IF THERE ARE ANY ISSUES PT WE CAN SUBMIT FOR REVIEW/SPECIAL AUTH HOWEVER [facility] WAS NOT CONVINCED IT WOULD BE APPROVED. [facility] UPDATED VIA [facility] AND PROVIDED W/PT'S MH NUMBER, CM AWAITING RESPONSE.
[2022-08-15] MEDS: Tamsulosin HCL 0.4 MG CAPSULE PO (09:11)
[2022-08-15] MEDS: oxyCODONE HCl Immed Release 5 MG TABLET PO ×2 (09:12→19:28)
[2022-08-15] MEDS: Mineral Oil/Petrolatum,White 106 GM Tube 1 APPL TOPICAL ×3 (09:14→20:29)
[2022-08-15 09:53] VITALS: BP 111/68; PULSE 44; O2SAT 93
--- NOTE | 2022-08-15 13:16 | P.PNIM_ITS ---
Subjective Subjective Date of Service: 08/15/22 Interval History: Being followed for placement patient making great progress was physical therapy able to ambulate, no other acute issues overnight, complaining of persistent paresthesias and numbness of lower extremities. Review of Systems Review of Systems: Yes all other systems are reviewed and are negative Physical Exam Vital Signs: Vital Signs: Last Vital Signs Temp 99.7 F 08/15/22 07:37 Pulse 44 L 08/15/22 09:53 Resp 18 08/15/22 07:37 BP 111/68 08/15/22 09:53 Pulse Ox 93 08/15/22 09:53 O2 Del Method 08/15/22 07:37 O2 Flow Rate 2 07/21/22 04:09 BMI result Body Mass Index 27.2 Const: Other: General patient re sting comfortably in no acute distre ss.? Neck no JVD. CVS? regular rate rhythm, Respirator y lungs clear to a uscultation, no re spiratory distress , no wheeze, no rh onchi. Gastrointes tinal abdomen soft , nontender, bowel sounds audible, n o guarding , no ri gidity. Extremitie s no edema. Neuro face symmetrical, speech clear, decr eased sensation lo wer extremities, n ormal strength, to ne, both upper and lower extremities , no pronator drif t. Skin no rash Ps ych appropriate af fect Objective Data Active Medications Acetaminophen (Acetaminophen 325 Mg Tablet) 650 mg PO Q6H PRN PRN Reason: Pain, Mild (Pain Scale 1-3) Last Admin: 08/14/22 13:19 Dose: 650 mg Documented By: PATY Docusate Sodium (Docusate Sodium 100 Mg Capsule) 100 mg PO DAILY PRN PRN Reason: Constipation Last Admin: 08/09/22 09:55 Dose: 100 mg Documented By: PATY Enoxaparin Sodium (Enoxaparin Sodium 40 Mg/0.4 Ml Syringe) 40 mg SUBCUT Q24H [facility]ARR[facility] Last Admin: 08/14/22 13:16 Dose: 40 mg Documented By: PATY Multi-Ingred Cream/Lotion/Oil/Oint (Mineral Oil/Petrolatum,White 106 Gm Tube) 1 appl TOPICAL TID HARRY; Protocol Last Admin: 08/15/22 09:14 Dose: 1 appl Documented By: PATY Ondansetron HCl (Ondansetron Hcl 4 Mg/2 Ml Vial) 4 mg IVPUSH Q8H PRN PRN Reason: Nausea and Vomiting Last Admin: 07/20/22 21:09 Dose: 4 mg Documented By: HE Oxycodone HCl (Oxycodone Hcl Immed Release 5 Mg Tablet) 5 mg PO Q6H PRN PRN Reason: Pain, Severe (Pain Scale 7-10) Last Admin: 08/15/22 09:12 Dose: 5 mg Documented By: PATY Pharmacy Consult (Consult Rx Perform Med Rec) 1 each MISCELLANE ONCE PRN PRN Reason: Consult order Polyethylene Glycol (Polyethylene Glycol 3350 17 Gm Powd.Pack) 17 gm PO DAILY [facility] Last Admin: 08/15/22 09:12 Dose: Not Given Documented By: PATY Non-Admin Reason: Patient Refused Sodium Chloride (0.9 % Sodium Chloride Flush 3 Ml Syringe) 3 ml IVFLUSH QSHIFT [facility] Last Admin: 08/15/22 09:12 Dose: 3 ml Documented By: PATY Tamsulosin HCl (Tamsulosin Hcl 0.4 Mg Capsule) 0.4 mg PO DAILY [facility] Last Admin: 08/15/22 09:11 Dose: 0.4 mg Documented By: PATY Labs 08/06/22 08:05 08/06/22 08:05 Assessment and Plan (1) Paralysis: Status: Acute (2) Opiate use: Status: Acute (3) Hyperglycemia: Status: Acute Plan d#26 36yo M with OUD, DM2 presented after overdose/LOC/unknown period of unresp onsiveness perhaps as long as 48 hr, admitted for rhabdomyolysis and relative paralysis # bradycardia - Heart rate fluctuates in the mid 40-50s range, patient asymptomatic; no chest pain, not on beta-blockers or rate-controlling medication - Echo showed EF 73%. Abnormal EKG with coving of the anterior ST segments with T-wave inversions; also T-wave inversions in lead 1 and aVL. Normal troponin. - Cardiology recommends no specific management for bradycardia; ischemia workup as an outpatient due to abnormal EKG. # paralysis likely due to acute edematous cord infarction due to flexion myelop athy - Slowly improving s/p 3d of high-dose steroids 07/26-07/28/21 per Neuro - Since making good progress will hold off on repeat imaging study. Recommended range of motion exercises in bed; being followed by Physical Therapy and continues to make progress with each treatment. PT recommends acute rehab when medically cleared. - Continue indwelling Melendrez catheter since failed voiding trial; continue Flomax. # rhabdomyolysis - Resolved after IV fluid hydration; no renal injury # OUD - prn oxycodone, gradually taper; changed oxycodone to 5 mg q.6 hours as needed on 08/09; Addiction Medicine following but pt declines MAT. # HCV - outpt viral load and treatment if positive # DM2 - blood sugars stable, A1c 5.7, no further fingersticks needed # VTE ppx: LMWH # dispo: awaiting AIR vs STR In my clinical judgment, the patient requires continued inpatient hospitalization for the following reasons: safe disposition Time Spent With Patient Time: Total time managing care of this patient today ____ minutes. Quality Stroke Does the patient have a stroke diagnosis?: No VTE Prior VTE?: No VTE Risk Level:: Medical - moderate - high VTE Device Contraindication: Treatment Not Indicated VTE Drug Contraindication: N/A - Med Ordered
[2022-08-15] MEDS: Enoxaparin Sodium 40 MG/0.4 ML SYRINGE SUBCUT (13:41)
[2022-08-15 15:25] VITALS: BP 103/50; PULSE 54; RESP 16; TEMP 37.2; O2SAT 97
[2022-08-15 19:52] VITALS: BP 111/59; PULSE 47; RESP 18; TEMP 36.8; O2SAT 97
[2022-08-16 03:43] VITALS: BP 107/63; PULSE 44; RESP 16; TEMP 36.8; O2SAT 96
[2022-08-16 07:52] VITALS: BP 119/75; PULSE 86; RESP 18; TEMP 36.6; O2SAT 96
[2022-08-16] MEDS: Tamsulosin HCL 0.4 MG CAPSULE PO (09:45)
[2022-08-16] MEDS: oxyCODONE HCl Immed Release 5 MG TABLET PO ×2 (09:45→16:26)
[2022-08-16] MEDS: 0.9 % Sodium Chloride Flush 3 ML SYRINGE IVFLUSH ×3 (09:45→23:31)
[2022-08-16] MEDS: Mineral Oil/Petrolatum,White 106 GM Tube 1 APPL TOPICAL (09:45)
[2022-08-16 11:00] VITALS: BP 119/75; PULSE 86; O2SAT 96
--- NOTE | 2022-08-16 12:02 | P.PNIM_ITS ---
Subjective Subjective Date of Service: 08/16/22 Interval History: Being followed for placement, making progress with physical therapy able to ambulate short distance with walker, no acute issues overnight tolerating diet with no nausea, no vomiting, no abdominal pain, Melendrez catheter with clear urine. Review of Systems Review of Systems: Yes all other systems are reviewed and are negative Physical Exam Vital Signs: Vital Signs: Last Vital Signs Temp 97.9 F 08/16/22 07:52 Pulse 86 08/16/22 11:00 Resp 18 08/16/22 07:52 BP 119/75 08/16/22 11:00 Pulse Ox 96 08/16/22 11:00 O2 Del Method 08/16/22 07:52 O2 Flow Rate 2 07/21/22 04:09 BMI result Body Mass Index 27.2 Const: Other: Gen: in no acute d istress HEENT: scl era anicteric, jaqui st mucus membranes Neck: supple Lung s: clear to auscul tation bilaterally Heart: regular ra te and rhythm, no murmurs Abd: soft, non-tender, non-d istended Ext: no e reji Skin: warm/we ll-perfused Neuro: alert and oriente d x3, bilateral lo wer extremities wi th 4/5 strength th roughout Psych: ap propriate affect Objective Data Active Medications Acetaminophen (Acetaminophen 325 Mg Tablet) 650 mg PO Q6H PRN PRN Reason: Pain, Mild (Pain Scale 1-3) Last Admin: 08/14/22 13:19 Dose: 650 mg Documented By: PATY Docusate Sodium (Docusate Sodium 100 Mg Capsule) 100 mg PO DAILY PRN PRN Reason: Constipation Last Admin: 08/09/22 09:55 Dose: 100 mg Documented By: PATY Enoxaparin Sodium (Enoxaparin Sodium 40 Mg/0.4 Ml Syringe) 40 mg SUBCUT Q24H [facility]ARRY Last Admin: 08/15/22 13:41 Dose: 40 mg Documented By: MAJO Multi-Ingred Cream/Lotion/Oil/Oint (Mineral Oil/Petrolatum,White 106 Gm Tube) 1 appl TOPICAL TID HARRY; Protocol Last Admin: 08/16/22 09:45 Dose: 1 appl Documented By: PATY Ondansetron HCl (Ondansetron Hcl 4 Mg/2 Ml Vial) 4 mg IVPUSH Q8H PRN PRN Reason: Nausea and Vomiting Last Admin: 07/20/22 21:09 Dose: 4 mg Documented By: HE Oxycodone HCl (Oxycodone Hcl Immed Release 5 Mg Tablet) 5 mg PO Q6H PRN PRN Reason: Pain, Severe (Pain Scale 7-10) Last Admin: 08/16/22 09:45 Dose: 5 mg Documented By: PATY Pharmacy Consult (Consult Rx Perform Med Rec) 1 each MISCELLANE ONCE PRN PRN Reason: Consult order Polyethylene Glycol (Polyethylene Glycol 3350 17 Gm Powd.Pack) 17 gm PO DAILY [facility] Last Admin: 08/16/22 09:46 Dose: Not Given Documented By: PATY Non-Admin Reason: Patient Refused Sodium Chloride (0.9 % Sodium Chloride Flush 3 Ml Syringe) 3 ml IVFLUSH QSHIFT [facility] Last Admin: 08/16/22 09:45 Dose: 3 ml Documented By: PATY Tamsulosin HCl (Tamsulosin Hcl 0.4 Mg Capsule) 0.4 mg PO DAILY [facility] Last Admin: 08/16/22 09:45 Dose: 0.4 mg Documented By: PATY Labs 08/06/22 08:05 08/06/22 08:05 Assessment and Plan (1) Paralysis: Status: Acute (2) Opiate use: Status: Acute (3) Hyperglycemia: Status: Acute Plan d#26 36yo M with OUD, DM2 presented after overdose/LOC/unknown period of unresponsive ness perhaps as long as 48 hr, admitted for rhabdomyolysis and relative paralysis # bradycardia - Heart rate fluctuates in the mid 40-50s range, patient asymptomatic; no chest pain, not on beta-blockers or rate-controlling medication - Echo showed EF 73%. Abnormal EKG with coving of the anterior ST segments with T-wave inversions; also T-wave inversions in lead 1 and aVL. Normal troponin. - Cardiology recommends no specific management for bradycardia; ischemia workup as an outpatient due to abnormal EKG. 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 Recommended range of motion exercises in bed; being followed by Physical Therapy and continues to make progress with each treatment. PT recommends acute rehab when medically cleared. - Continue indwelling Melendrez catheter since failed voiding trial; continue F rashid. # rhabdomyolysis - Resolved after IV fluid hydration; no renal injury # OUD - prn oxycodone, gradually taper; changed oxycodone to 5 mg q.6 hours as needed on 08/09; Addiction Medicine following but pt declines MAT. # HCV - outpt viral load and treatment if positive # DM2 - blood sugars stable, A1c 5.7, no further fingersticks needed # VTE ppx: LMWH # dispo: awaiting AIR vs STR In my clinical judgment, the patient requires continued inpatient hospitalization for the following reasons: safe disposition Time Spent With Patient Time: Total time managing care of this patient today ____ minutes. Quality Stroke Does the patient have a stroke diagnosis?: No VTE Prior VTE?: No VTE Risk Level:: Medical - moderate - high VTE Device Contraindication: Treatment Not Indicated VTE Drug Contraindication: N/A - Med Ordered
[2022-08-16] MEDS: Enoxaparin Sodium 40 MG/0.4 ML SYRINGE SUBCUT (13:51)
[2022-08-16] MEDS: Acetaminophen 325 MG TABLET 650 MG PO (13:58)
--- NOTE | 2022-08-16 14:28 | MHC.CM.PN ---
[facility] REVIEWED, PER [facility] WAS CALLED W/PT AND MH REPORTS THEY ARE STILL WORKING ON HIS APPLICATION, CM ALSO STILL AWAITING BED OFFERS, SNF REFERRAL UPDATED. CM WILL CONT TO FOLLOW.
[2022-08-16 16:00] VITALS: BP 122/74; PULSE 47; RESP 16; TEMP 36.7; O2SAT 99
[2022-08-16 20:00] VITALS: BP 112/61; PULSE 50; RESP 18; TEMP 36.4; O2SAT 97
[2022-08-17 04:00] VITALS: BP 107/62; PULSE 80; RESP 18; TEMP 36.8; O2SAT 97
[2022-08-17] MEDS: Tamsulosin HCL 0.4 MG CAPSULE PO (07:48)
[2022-08-17] MEDS: 0.9 % Sodium Chloride Flush 3 ML SYRINGE IVFLUSH (07:48)
[2022-08-17] MEDS: oxyCODONE HCl Immed Release 5 MG TABLET PO ×3 (07:48→21:00)
[2022-08-17 07:56] VITALS: BP 111/66; PULSE 56; RESP 18; TEMP 36.4; O2SAT 98
[2022-08-17 10:34] VITALS: BP 111/66; PULSE 56; O2SAT 98
[2022-08-17] MEDS: Enoxaparin Sodium 40 MG/0.4 ML SYRINGE SUBCUT (12:22)
--- NOTE | 2022-08-17 12:54 | P.PNIM_ITS ---
Subjective Subjective Date of Service: 08/17/22 Interval History: Being followed for placement, no acute complaints this morning no pain participating with physical therapy motivated to ambulate. Review of Systems Review of Systems: Yes all other systems are reviewed and are negative Physical Exam Vital Signs: Vital Signs: Last Vital Signs Temp 97.6 F 08/17/22 07:56 Pulse 56 08/17/22 10:34 Resp 18 08/17/22 07:56 BP 111/66 08/17/22 10:34 Pulse Ox 98 08/17/22 10:34 O2 Del Method 08/17/22 07:56 O2 Flow Rate 2 07/21/22 04:09 BMI result Body Mass Index 27.2 Const: Other: Gen: in no acute d istress HEENT: scl era anicteric, jaqui st mucus membranes Neck: supple Lung s: clear to auscul tation bilaterally Heart: regular ra te and rhythm, no murmurs Abd: soft, non-tender, non-d istended Ext: no e reji Skin: warm/we ll-perfused Neuro: alert and oriente d x3, bilateral lo wer extremities wi th 4/5 strength th roughout Psych: ap propriate affect Objective Data Active Medications Acetaminophen (Acetaminophen 325 Mg Tablet) 650 mg PO Q6H PRN PRN Reason: Pain, Mild (Pain Scale 1-3) Last Admin: 08/16/22 13:58 Dose: 650 mg Documented By: PATY Docusate Sodium (Docusate Sodium 100 Mg Capsule) 100 mg PO DAILY PRN PRN Reason: Constipation Last Admin: 08/09/22 09:55 Dose: 100 mg Documented By: PATY Enoxaparin Sodium (Enoxaparin Sodium 40 Mg/0.4 Ml Syringe) 40 mg SUBCUT Q24H [facility] Last Admin: 08/17/22 12:22 Dose: 40 mg Documented By: PETE Multi-Ingred Cream/Lotion/Oil/Oint (Mineral Oil/Petrolatum,White 106 Gm Tube) 1 appl TOPICAL TID [facility]; Protocol Last Admin: 08/17/22 07:48 Dose: Not Given Documented By: PETE Non-Admin Reason: Patient Refused Ondansetron HCl (Ondansetron Hcl 4 Mg/2 Ml Vial) 4 mg IVPUSH Q8H PRN PRN Reason: Nausea and Vomiting Last Admin: 07/20/22 21:09 Dose: 4 mg Documented By: KOLE-SVETLANA Oxycodone HCl (Oxycodone Hcl Immed Release 5 Mg Tablet) 5 mg PO Q6H PRN PRN Reason: Pain, Severe (Pain Scale 7-10) Last Admin: 08/17/22 07:48 Dose: 5 mg Documented By: PETE Pharmacy Consult (Consult Rx Perform Med Rec) 1 each MISCELLANE ONCE PRN PRN Reason: Consult order Polyethylene Glycol (Polyethylene Glycol 3350 17 Gm Powd.Pack) 17 gm PO DAILY [facility] Last Admin: 08/17/22 07:48 Dose: Not Given Documented By: PETE Non-Admin Reason: Patient Refused Sodium Chloride (0.9 % Sodium Chloride Flush 3 Ml Syringe) 3 ml IVFLUSH QSHIFT [facility] Last Admin: 08/17/22 07:48 Dose: 3 ml Documented By: PETE Tamsulosin HCl (Tamsulosin Hcl 0.4 Mg Capsule) 0.4 mg PO DAILY [facility] Last Admin: 08/17/22 07:48 Dose: 0.4 mg Documented By: PETE Labs 08/06/22 08:05 08/06/22 08:05 Assessment and Plan (1) Paralysis: Status: Acute (2) Opiate use: Status: Acute (3) Hyperglycemia: Status: Acute Plan d#26 36yo M with OUD, DM2 presented after overdose/LOC/unknown period of unresponsiveness perhaps as long as 48 hr, admitted for rhabdomyolysis and relative paralysis # bradycardia - Heart rate fluctuates in the mid 40-50s range, patient asymptomatic; no chest pain, not on beta-blockers or rate-controlling medication - Echo showed EF 73%. Abnormal EKG with coving of the anterior ST segments with T-wave inversions; also T-wave inversions in lead 1 and aVL. Normal troponin. - Cardiology recommends no specific management for bradycardia; ischemia workup as an outpatient due to abnormal EKG. 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 Recommended range of motion exercises in bed; being followed by Physical Therapy and continues to make progress with each treatment. PT recommends acute rehab when medically cleared. - Dc indwelling Melendrez catheter and give voiding trial; continue Flomax. # rhabdomyolysis - Resolved after IV fluid hydration; no renal injury # OUD - prn oxycodone, gradually taper; changed oxycodone to 5 mg q.6 hours as needed on 08/09; Addiction Medicine following but pt declines MAT. # HCV - outpt viral load and treatment if positive # DM2 - blood sugars stable, A1c 5.7, no further fingersticks needed # VTE ppx: LMWH # dispo: awaiting AIR vs STR In my clinical judgment, the patient requires continued inpatient h ospitalization for the following reasons: safe disposition Time Spent With Patient Time: Total time managing care of this patient today ____ minutes. Quality Stroke Does the patient have a stroke diagnosis?: No VTE Prior VTE?: No VTE Risk Level:: Medical - moderate - high VTE Device Contraindication: Treatment Not Indicated VTE Drug Contraindication: N/A - Med Ordered
[2022-08-17] MEDS: Mineral Oil/Petrolatum,White 106 GM Tube 1 APPL TOPICAL ×2 (13:40→20:55)
[2022-08-17 16:00] VITALS: BP 108/56; PULSE 50; RESP 19; TEMP 37.1; O2SAT 97
[2022-08-17 16:38] LABS: Glucose, Whole Blood 110 mg/dL (60-115)
--- NOTE | 2022-08-17 17:43 | PC.NURSE ---
Nursing communication order per Dr. Ross, Melendrez catherter removed, patient bladder scan Q shift, This nurse performed a bladder scan at 17:30 with a result of 253. Straight catheter patient if PVR is above 300, No straight catheter needed at this time.
[2022-08-17 19:08] VITALS: BP 114/58; PULSE 52; RESP 18; TEMP 36.9; O2SAT 96
[2022-08-17] MEDS: Docusate Sodium 100 MG CAPSULE PO (21:03)
[2022-08-18 03:44] VITALS: BP 114/61; PULSE 59; RESP 18; TEMP 36.8; O2SAT 97
--- NOTE | 2022-08-18 04:09 | PC.NURSE ---
At 2200 Pt was unable to void even after several nursing measures, tender hypogastric area, bladder scan >999, Dr. Adan was notified, Straight cath ordered, explained to pt and complied, Straight cath done aseptically with clear yellow of 950 ml, pt verbalized relief.
[2022-08-18 07:38] VITALS: BP 123/80; PULSE 52; RESP 18; TEMP 36.4; O2SAT 96
[2022-08-18] MEDS: polyethylene glycoL 3350 17 GM POWD.PACK PO (07:47)
[2022-08-18] MEDS: oxyCODONE HCl Immed Release 5 MG TABLET PO ×3 (07:50→20:36)
[2022-08-18] MEDS: Mineral Oil/Petrolatum,White 106 GM Tube 1 APPL TOPICAL ×3 (07:51→20:30)
[2022-08-18] MEDS: Tamsulosin HCL 0.4 MG CAPSULE PO (07:54)
--- NOTE | 2022-08-18 08:49 | PC.NURSE ---
Pt complaining of lower abdominal pain and urine retention, has 200ml in urinal, this nurse bladder scanned patient with the result of <999. I informed Dr Ross and explained to procedure of straight catheterizing to patient, straight cath of 400ml of clear yellow urine. Pt voices some relief.
[2022-08-18 10:42] VITALS: BP 123/80; PULSE 52; O2SAT 96
--- NOTE | 2022-08-18 11:54 | HO.PM.IMPN ---
Subjective Subjective Date of Service: 08/18/22 Interval History: Ambulating with physical therapy, Melendrez catheter removed yesterday patient unable to void therefore will place Melendrez back , offers no complain of pain, no nausea, no vomiting, no abdominal pain, tolerating diet no acute issues overnight. Review of Systems Review of Systems: Yes all other systems are reviewed and are negative Physical Exam Vital Signs: Vital Signs: Last Vital Signs Temp 97.6 F 08/18/22 07:38 Pulse 52 08/18/22 10:42 Resp 18 08/18/22 07:38 BP 123/80 08/18/22 10:42 Pulse Ox 96 08/18/22 10:42 O2 Del Method 08/18/22 07:38 O2 Flow Rate 2 07/21/22 04:09 BMI result Body Mass Index 27.2 Const: Other: Gen: in no acute d istress HEENT: scl era anicteric, jaqui st mucus membranes Neck: supple Lung s: clear to auscul tation bilaterally Heart: regular ra te and rhythm, no murmurs Abd: soft, non-tender, non-d istended Ext: no e reji Skin: warm/we ll-perfused Neuro: alert and oriente d x3, bilateral lo wer extremities wi th 4/5 strength th roughout Psych: ap propriate affect Objective Data Active Medications Acetaminophen (Acetaminophen 325 Mg Tablet) 650 mg PO Q6H PRN PRN Reason: Pain, Mild (Pain Scale 1-3) Last Admin: 08/16/22 13:58 Dose: 650 mg Documented By: PATY Docusate Sodium (Docusate Sodium 100 Mg Capsule) 100 mg PO DAILY PRN PRN Reason: Constipation Last Admin: 08/17/22 21:03 Dose: 100 mg Documented By: CASTDANITZA Enoxaparin Sodium (Enoxaparin Sodium 40 Mg/0.4 Ml Syringe) 40 mg SUBCUT Q24H [facility] Last Admin: 08/17/22 12:22 Dose: 40 mg Documented By: PETE Multi-Ingred Cream/Lotion/Oil/Oint (Mineral Oil/Petrolatum,White 106 Gm Tube) 1 appl TOPICAL TID [facility]; Protocol Last Admin: 08/18/22 07:51 Dose: 1 appl Documented By: PETE Ondansetron HCl (Ondansetron Hcl 4 Mg/2 Ml Vial) 4 mg IVPUSH Q8H PRN PRN Reason: Nausea and Vomiting Last Admin: 07/20/22 21:09 Dose: 4 mg Documented By: HE Oxycodone HCl (Oxycodone Hcl Immed Release 5 Mg Tablet) 5 mg PO Q6H PRN PRN Reason: Pain, Severe (Pain Scale 7-10) Last Admin: 08/18/22 07:50 Dose: 5 mg Documented By: PETE Pharmacy Consult (Consult Rx Perform Med Rec) 1 each MISCELLANE ONCE PRN PRN Reason: Consult order Polyethylene Glycol (Polyethylene Glycol 3350 17 Gm Powd.Pack) 17 gm PO DAILY [facility] Last Admin: 08/18/22 07:47 Dose: 17 gm Documented By: PETE Sodium Chloride (0.9 % Sodium Chloride Flush 3 Ml Syringe) 3 ml IVFLUSH QSHIFT [facility] Last Admin: 08/18/22 07:10 Dose: Not Given Documented By: PETE Non-Admin Reason: No Access Tamsulosin HCl (Tamsulosin Hcl 0.4 Mg Capsule) 0.4 mg PO DAILY [facility] Last Admin: 08/18/22 07:54 Dose: 0.4 mg Documented By: PETE Labs 08/06/22 08:05 08/06/22 08:05 Labs: Laboratory Results - last 24 hr 08/17/22 16:14 POC Glucose 110 Assessment and Plan (1) Paralysis: Status: Acute (2) Opiate use: Status: Acute (3) Hyperglycemia: Status: Acute Plan d#26 36yo M with OUD, DM2 presented after overdose/LOC/unknown period of unresponsiveness perhaps as long as 48 hr, admitted for rhabdomyolysis and relative paralysis # bradycardia - Heart rate fluctuates in the mid 40-50s range, patient asymptomatic; no chest pain, not on beta-blockers or rate-controlling medication - Echo showed EF 73%. Abnormal EKG with coving of the anterior ST segments with T-wave inversions; also T-wave inversions in lead 1 and aVL. Normal troponin. - Cardiology recommends no specific management for bradycardia; ischemia workup as an outpatient due to abnormal EKG. 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 Recommended range of motion exercises in bed; being followed by Physical Therapy and continues to make progress with each treatment. PT recommends acute rehab when medically cleared. - urinary retention Melendrez catheter discontinued yesterday on 08/17, voiding trial given, patient again unable to void will place Melendrez back, continue Flomax. # rhabdomyolysis - Resolved after IV fluid hydration; no renal injury # OUD - prn oxycodone, gradually taper; changed oxycodone to 5 mg q.6 hours as needed on 08/09; Addiction Medicine following but pt declines MAT. # HCV - outpt viral load and treatment if positive # DM2 - blood sugars stable, A1c 5.7, no further fingersticks needed # VTE ppx: LMWH # dispo: awaiting AIR vs STR In my clinical judgment, the patient requires continued inpatient hospitalization for the following reasons: safe disposition Time Spent With Patient Time: Total time managing care of this patient today ____ minutes. Quality Stroke Does the patient have a stroke diagnosis?: No VTE Prior VTE?: No VTE Risk Level:: Medical - moderate - high VTE Device Contraindication: Treatment Not Indicated VTE Drug Contraindication: N/A - Med Ordered
[2022-08-18] MEDS: Enoxaparin Sodium 40 MG/0.4 ML SYRINGE SUBCUT (13:15)
--- NOTE | 2022-08-18 14:16 | MHC.CM.PN ---
EMR REVIEWED, PER PT PT GREATLY IMPROVED AND ABLE TO AMBULATE W/WALKER IN [place], ACUTE REHAB REFERRAL HAS BEEN UPDATED AND EXPANDED TO [facility], STR REFERRAL ALSO UPDATED/EXPANDED, CM CONT'S TO AWAIT BED OFFER, CM WILL CONT TO FOLLOW D/C NEEDS.
[2022-08-18 15:38] VITALS: BP 113/59; PULSE 57; RESP 16; TEMP 37.3; O2SAT 95
[2022-08-18 19:58] VITALS: BP 124/77; PULSE 68; RESP 15; TEMP 37.1; O2SAT 97
[2022-08-19 04:00] VITALS: BP 106/56; PULSE 44; RESP 16; TEMP 36.7; O2SAT 96
[2022-08-19 08:00] VITALS: BP 116/61; PULSE 51; RESP 16; TEMP 37.1; O2SAT 98
[2022-08-19] MEDS: Tamsulosin HCL 0.4 MG CAPSULE PO (10:12)
[2022-08-19] MEDS: oxyCODONE HCl Immed Release 5 MG TABLET PO ×2 (10:12→18:05)
--- NOTE | 2022-08-19 13:38 | P.PNIM_ITS ---
Subjective Subjective Date of Service: 08/19/22 Interval History: Continues to improve; ambulates with walker with physical therapy. Continues to require indwelling catheter Review of Systems Denies chest pain Denies shortness of breath Denies nausea vomiting diarrhea Denies fever chills Physical Exam Vital Signs: Vital Signs: Last Vital Signs Temp 98.7 F 08/19/22 08:00 Pulse 51 08/19/22 08:00 Resp 16 08/19/22 08:00 BP 116/61 08/19/22 08:00 Pulse Ox 98 08/19/22 08:00 O2 Del Method 08/19/22 08:00 O2 Flow Rate 2 07/21/22 04:09 BMI result Body Mass Index 27.2 Const: Other: No acute distress Resp: Other: Clear to auscultation bilaterally no rales rhonchi or wheezes Cardio: Other: No S4; positive S1-S2; no S3 murmurs rubs or gallops GI: Other: Soft nontender nondistended normoactive bowel sounds Extrem: Other: No edema bilaterally Objective Data Active Medications Acetaminophen (Acetaminophen 325 Mg Tablet) 650 mg PO Q6H PRN PRN Reason: Pain, Mild (Pain Scale 1-3) Last Admin: 08/16/22 13:58 Dose: 650 mg Documented By: PATY Docusate Sodium (Docusate Sodium 100 Mg Capsule) 100 mg PO DAILY PRN PRN Reason: Constipation Last Admin: 08/17/22 21:03 Dose: 100 mg Documented By: DARLING Enoxaparin Sodium (Enoxaparin Sodium 40 Mg/0.4 Ml Syringe) 40 mg SUBCUT Q24H [facility] Last Admin: 08/18/22 13:15 Dose: 40 mg Documented By: PETE Multi-Ingred Cream/Lotion/Oil/Oint (Mineral Oil/Petrolatum,White 106 Gm Tube) 1 appl TOPICAL TID [facility]; Protocol Last Admin: 08/19/22 10:13 Dose: Not Given Documented By: ROSEANN Non-Admin Reason: Patient Refused Ondansetron HCl (Ondansetron Hcl 4 Mg/2 Ml Vial) 4 mg IVPUSH Q8H PRN PRN Reason: Nausea and Vomiting Last Admin: 07/20/22 21:09 Dose: 4 mg Documented By: HO.N-SVETLANA Oxycodone HCl (Oxycodone Hcl Immed Release 5 Mg Tablet) 5 mg PO Q6H PRN PRN Reason: Pain, Severe (Pain Scale 7-10) Last Admin: 08/19/22 10:12 Dose: 5 mg Documented By: ROSEANN Pharmacy Consult (Consult Rx Perform Med Rec) 1 each MISCELLANE ONCE PRN PRN Reason: Consult order Polyethylene Glycol (Polyethylene Glycol 3350 17 Gm Powd.Pack) 17 gm PO DAILY [facility] Last Admin: 08/19/22 10:12 Dose: Not Given Documented By: ROSEANN Non-Admin Reason: Patient Refused Sodium Chloride (0.9 % Sodium Chloride Flush 3 Ml Syringe) 3 ml IVFLUSH QSHIFT [facility] Last Admin: 08/19/22 09:32 Dose: Not Given Documented By: ROSEANN Non-Admin Reason: No Access Tamsulosin HCl (Tamsulosin Hcl 0.4 Mg Capsule) 0.4 mg PO DAILY [facility] Last Admin: 08/19/22 10:12 Dose: 0.4 mg Documented By: ROSEANN Labs 08/06/22 08:05 08/06/22 08:05 Assessment and Plan (1) Paralysis: Status: Acute (2) Bradycardia: Status: Acute (3) Hyperglycemia: Status: Acute (4) Opiate use: Status: Acute Plan d#26 36yo M with OUD, DM2 presented after overdose/LOC/unknown period of unresponsiveness perhaps as long as 48 hr, admitted for rhabdomyolysis and relative paralysis 1.Paralysis....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 Failed multiple voiding trials -discussed suprapubic catheter as a temporary measure -will consult Urology 2 6 3.Bradycardia - Cardiology recommends no specific management for bradycardia; ischemia workup as an outpatient due to abnormal EKG. 4.OUD - -p.r.n. oxycodone -Addiction Medicine following 5.DM II -sugars normalized LMWH Full code In my clinical judgment, the patient requires continued inpatient hospitalization for the following reasons: safe disposition Time Spent With Patient Time: Total time managing care of this patient today ____ minutes. Quality Stroke Does the patient have a stroke diagnosis?: No VTE Prior VTE?: No VTE Risk Level:: Medical - moderate - high VTE Device Contraindication: Treatment Not Indicated VTE Drug Contraindication: N/A - Med Ordered
[2022-08-19] MEDS: Enoxaparin Sodium 40 MG/0.4 ML SYRINGE SUBCUT (14:18)
[2022-08-19 15:29] VITALS: BP 127/68; PULSE 52; RESP 16; TEMP 37.1; O2SAT 96
[2022-08-19 19:15] VITALS: BP 108/57; PULSE 54; RESP 14; TEMP 36.9; O2SAT 94
[2022-08-19] MEDS: Mineral Oil/Petrolatum,White 106 GM Tube 1 APPL TOPICAL (22:22)
[2022-08-20 02:52] VITALS: BP 112/60; PULSE 40; RESP 20; TEMP 36.7
[2022-08-20 08:00] VITALS: BP 104/63; PULSE 40; RESP 19; TEMP 37.1; O2SAT 95
[2022-08-20] MEDS: Acetaminophen 325 MG TABLET 650 MG PO ×2 (08:48→18:33)
[2022-08-20] MEDS: Tamsulosin HCL 0.4 MG CAPSULE PO (08:49)
[2022-08-20] MEDS: Mineral Oil/Petrolatum,White 106 GM Tube 1 APPL TOPICAL ×3 (08:49→19:09)
--- NOTE | 2022-08-20 10:58 | P.PNIM_ITS ---
Subjective Subjective Date of Service: 08/20/22 Interval History: Continues to feel well. Ambulating with walker Review of Systems Denies chest pain Denies shortness of breath Denies nausea vomiting diarrhea Denies fever chills Physical Exam Vital Signs: Vital Signs: Last Vital Signs Temp 98.8 F 08/20/22 08:00 Pulse 40 L 08/20/22 08:00 Resp 19 08/20/22 08:00 BP 104/63 08/20/22 08:00 Pulse Ox 95 08/20/22 08:00 O2 Del Method 08/20/22 08:00 O2 Flow Rate 2 07/21/22 04:09 BMI result Body Mass Index 27.2 Const: Other: No acute distress Resp: Other: Clear to auscultation bilaterally no rales rhonchi or wheezes Cardio: Other: No S4; positive S1-S2; no S3 murmurs rubs or gallops GI: Other: Soft nontender nondistended normoactive bowel sounds Neuro: Other: Cranial nerves 2-12 grossly intact motor 3 to 4/5 in the left lower extremity now right lower extremity with hip flexor/quadriceps movement 2 to 3/5. Sensat ion intact distally Extrem: Other: No edema bilaterally Objective Data Active Medications Acetaminophen (Acetaminophen 325 Mg Tablet) 650 mg PO Q6H PRN PRN Reason: Pain, Mild (Pain Scale 1-3) Last Admin: 08/20/22 08:48 Dose: 650 mg Documented By: MARIEL Docusate Sodium (Docusate Sodium 100 Mg Capsule) 100 mg PO DAILY PRN PRN Reason: Constipation Last Admin: 08/17/22 21:03 Dose: 100 mg Documented By: DARLING Enoxaparin Sodium (Enoxaparin Sodium 40 Mg/0.4 Ml Syringe) 40 mg SUBCUT Q24H [facility] Last Admin: 08/19/22 14:18 Dose: 40 mg Documented By: ROSEANN Multi-Ingred Cream/Lotion/Oil/Oint (Mineral Oil/Petrolatum,White 106 Gm Tube) 1 appl TOPICAL TID [facility]; Protocol Last Admin: 08/20/22 08:49 Dose: 1 appl Documented By: MARIEL Ondansetron HCl (Ondansetron Hcl 4 Mg/2 Ml Vial) 4 mg IVPUSH Q8H PRN PRN Reason: Nausea and Vomiting Last Admin: 07/20/22 21:09 Dose: 4 mg Documented By: HE Pharmacy Consult (Consult Rx Perform Med Rec) 1 each MISCELLANE ONCE PRN PRN Reason: Consult order Polyethylene Glycol (Polyethylene Glycol 3350 17 Gm Powd.Pack) 17 gm PO DAILY [facility] Last Admin: 08/19/22 10:12 Dose: Not Given Documented By: ROSEANN Non-Admin Reason: Patient Refused Sodium Chloride (0.9 % Sodium Chloride Flush 3 Ml Syringe) 3 ml IVFLUSH QSHIFT [facility] Last Admin: 08/20/22 08:49 Dose: Not Given Documented By: MARIEL Non-Admin Reason: No Access Tamsulosin HCl (Tamsulosin Hcl 0.4 Mg Capsule) 0.4 mg PO DAILY [facility] Last Admin: 08/20/22 08:49 Dose: 0.4 mg Documented By: MARIEL Labs 08/06/22 08:05 08/06/22 08:05 Assessment and Plan (1) Paralysis: Status: Acute (2) Acute urinary retention: Status: Acute (3) Bradycardia: Status: Acute Plan d#26 36yo M with OUD, DM2 presented after overdose/LOC/unknown period of unres ponsiveness perhaps as long as 48 hr, admitted for rhabdomyolysis and relative paralysis 1.Paralysis....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 Failed multiple voiding trials -discussed suprapubic catheter as a temporary measure -will consult Urology 2/6 3.Bradycardia - Cardiology recommends no specific management for bradycardia; ischemia workup as an outpatient due to abnormal EKG. 4.OUD - -p.r.n. oxycodone -Addiction Medicine following 5.DM II -sugars normalized LMWH Full code In my clinical judgment, the patient requires continued inpatient hospitalization for the following reasons: safe disposition Time Spent With Patient Time: Total time managing care of this patient today ____ minutes. Quality Stroke Does the patient have a stroke diagnosis?: No VTE Prior VTE?: No VTE Risk Level:: Medical - moderate - high VTE Device Contraindication: Treatment Not Indicated VTE Drug Contraindication: N/A - Med Ordered
[2022-08-20] MEDS: Enoxaparin Sodium 40 MG/0.4 ML SYRINGE SUBCUT (14:27)
[2022-08-20 15:45] VITALS: BP 142/81; PULSE 54; RESP 16; TEMP 37.2; O2SAT 97
[2022-08-20] MEDS: oxyCODONE HCl Immed Release 5 MG TABLET PO (19:19)
[2022-08-20 19:31] VITALS: BP 112/60; PULSE 54; RESP 15; TEMP 37.2; O2SAT 96
[2022-08-21 04:00] VITALS: BP 113/70; PULSE 57; RESP 16; TEMP 36.1; O2SAT 95
[2022-08-21 07:40] VITALS: BP 114/66; PULSE 50; RESP 16; TEMP 36.9; O2SAT 94
--- NOTE | 2022-08-21 09:12 | MHC.CM.PN ---
EMR REVIEWED, PT DECLINED BY ALL LOCAL ACUTE REHABS AND ACUTE REHABS IN [facility], SNF REFERRAL TO BE UPDATED AND EXPANDED. CM WILL CONT TO FOLLOW.
[2022-08-21] MEDS: oxyCODONE HCl Immed Release 5 MG TABLET PO ×3 (09:39→23:44)
[2022-08-21] MEDS: Tamsulosin HCL 0.4 MG CAPSULE PO (09:40)
--- NOTE | 2022-08-21 13:23 | P.PNIM_ITS ---
Subjective Subjective Date of Service: 08/21/22 Interval History: Continues improved. No acute issues Review of Systems Denies chest pain Denies shortness of breath Denies nausea vomiting diarrhea Denies fever chills Physical Exam Vital Signs: Vital Signs: Last Vital Signs Temp 98.5 F 08/21/22 07:40 Pulse 50 08/21/22 07:40 Resp 16 08/21/22 07:40 BP 114/66 08/21/22 07:40 Pulse Ox 94 08/21/22 07:40 O2 Del Method 08/21/22 07:40 O2 Flow Rate 2 07/21/22 04:09 BMI result Body Mass Index 27.2 Const: Other: No acute distress Resp: Other: Clear to auscultation bilaterally no rales rhonchi or wheezes Cardio: Other: No S4; positive S1-S2; no S3 murmurs rubs or gallops GI: Other: Soft nontender nondistended normoactive bowel sounds Neuro: Other: Cranial nerves 2-12 grossly intact motor 3 to 4/5 in the left lower extremity now right lower extremity with hip flexor/quadriceps movement 2 to 3/5. Sensation intact distally Extrem: Other: No edema bilaterally Objective Data Active Medications Acetaminophen (Acetaminophen 325 Mg Tablet) 650 mg PO Q6H PRN PRN Reason: Pain, Mild (Pain Scale 1-3) Last Admin: 08/20/22 18:33 Dose: 650 mg Documented By: MARIEL Docusate Sodium (Docusate Sodium 100 Mg Capsule) 100 mg PO DAILY PRN PRN Reason: Constipation Last Admin: 08/17/22 21:03 Dose: 100 mg Documented By: DARLING Enoxaparin Sodium (Enoxaparin Sodium 40 Mg/0.4 Ml Syringe) 40 mg SUBCUT Q24H [facility] Last Admin: 08/20/22 14:27 Dose: 40 mg Documented By: MARIEL Multi-Ingred Cream/Lotion/Oil/Oint (Mineral Oil/Petrolatum,White 106 Gm Tube) 1 appl TOPICAL TID [facility]; Protocol Last Admin: 08/21/22 09:40 Dose: Not Given Documented By: PATY Non-Admin Reason: Patient Refused Ondansetron HCl (Ondansetron Hcl 4 Mg/2 Ml Vial) 4 mg IVPUSH Q8H PRN PRN Reason: Nausea and Vomiting Last Admin: 07/20/22 21:09 Dose: 4 mg Documented By: HE Oxycodone HCl (Oxycodone Hcl Immed Release 5 Mg Tablet) 5 mg PO Q6H PRN PRN Reason: Pain, Severe (Pain Scale 7-10) Last Admin: 08/21/22 09:39 Dose: 5 mg Documented By: PATY Pharmacy Consult (Consult Rx Perform Med Rec) 1 each MISCELLANE ONCE PRN PRN Reason: Consult order Polyethylene Glycol (Polyethylene Glycol 3350 17 Gm Powd.Pack) 17 gm PO DAILY [facility] Last Admin: 08/21/22 09:41 Dose: Not Given Documented By: PATY Non-Admin Reason: Patient Refused Sodium Chloride (0.9 % Sodium Chloride Flush 3 Ml Syringe) 3 ml IVFLUSH QSHIFT [facility] Last Admin: 08/21/22 09:40 Dose: Not Given Documented By: PATY Non-Admin Reason: No Access Tamsulosin HCl (Tamsulosin Hcl 0.4 Mg Capsule) 0.4 mg PO DAILY [facility] Last Admin: 08/21/22 09:40 Dose: 0.4 mg Documented By: PATY Labs 08/06/22 08:05 08/06/22 08:05 Assessment and Plan (1) Paralysis: Status: Acute (2) Urinary retention: Status: Acute Plan d#26 36yo M with OUD, DM2 presented after overdose/LOC/unknown period of unresponsiveness perhaps as long as 48 hr, admitted for rhabdomyolysis and r elative paralysis 1.Paralysis....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 Failed multiple voiding trials -discussed with Urology -teach the patient straight catheterization 3.Bradycardia - Cardiology recommends no specific management for bradycardia; ischemia workup as an outpatient due to abnormal EKG. 4.OUD - -p.r.n. oxycodone -Addiction Medicine following 5.DM II -sugars normalized LMWH Full code In my clinical judgment, the patient requires continued inpatient hospitalization for the following reasons: safe disposition Time Spent With Patient Time: Total time managing care of this patient today ____ minutes. Quality Stroke Does the patient have a stroke diagnosis?: No VTE Prior VTE?: No VTE Risk Level:: Medical - moderate - high VTE Device Contraindication: Treatment Not Indicated VTE Drug Contraindication: N/A - Med Ordered
[2022-08-21] MEDS: Enoxaparin Sodium 40 MG/0.4 ML SYRINGE SUBCUT (13:35)
[2022-08-21] MEDS: Acetaminophen 325 MG TABLET 650 MG PO ×2 (13:41→23:45)
[2022-08-21 15:06] VITALS: BP 109/59; PULSE 49; RESP 18; TEMP 37; O2SAT 97
[2022-08-21 19:16] VITALS: BP 105/58; PULSE 54; RESP 18; TEMP 36.8; O2SAT 97
[2022-08-22 04:00] VITALS: BP 98/56; PULSE 50; RESP 16; TEMP 36.6; O2SAT 94
[2022-08-22 07:49] VITALS: BP 133/60; PULSE 55; RESP 19; TEMP 36.7; O2SAT 96
[2022-08-22] MEDS: oxyCODONE HCl Immed Release 5 MG TABLET PO ×2 (09:23→19:41)
[2022-08-22] MEDS: Tamsulosin HCL 0.4 MG CAPSULE PO (09:24)
[2022-08-22 09:50] VITALS: BP 133/60; PULSE 55; O2SAT 96
--- NOTE | 2022-08-22 12:48 | HO.PM.IMPN ---
Subjective Subjective Date of Service: 08/22/22 Interval History: No acute issues overnight. Continues to walk with walker and assist. Indwelling Melendrez remains Review of Systems Denies chest pain Denies shortness of breath Denies nausea vomiting diarrhea Denies fever chills Physical Exam Vital Signs: Vital Signs: Last Vital Signs Temp 98.1 F 08/22/22 07:49 Pulse 55 08/22/22 09:50 Resp 19 08/22/22 07:49 BP 133/60 08/22/22 09:50 Pulse Ox 96 08/22/22 09:50 O2 Del Method 08/22/22 07:49 O2 Flow Rate 2 07/21/22 04:09 BMI result Body Mass Index 27.2 Const: Other: No acute distress Resp: Other: Clear to auscultation bilaterally no rales rhonchi or wheezes Cardio: Other: No S4; positive S1-S2; no S3 murmurs rubs or gallops GI: Other: Soft nontender nondistended normoactive bowel sounds Neuro: Other: Cranial nerves 2-12 grossly intact motor 3 to 4/5 in the left lower extremity now right lower extremity with hip flexor/quadriceps movement 2 to 3/5. Sensation intact distally Extrem: Other: No edema bilaterally Objective Data Active Medications Acetaminophen (Acetaminophen 325 Mg Tablet) 650 mg PO Q6H PRN PRN Reason: Pain, Mild (Pain Scale 1-3) Last Admin: 08/21/22 23:45 Dose: 650 mg Documented By: CHAPINCITO Docusate Sodium (Docusate Sodium 100 Mg Capsule) 100 mg PO DAILY PRN PRN Reason: Constipation Last Admin: 08/17/22 21:03 Dose: 100 mg Documented By: DARLING Enoxaparin Sodium (Enoxaparin Sodium 40 Mg/0.4 Ml Syringe) 40 mg SUBCUT Q24H [facility] Last Admin: 08/21/22 13:35 Dose: 40 mg Documented By: PATY Multi-Ingred Cream/Lotion/Oil/Oint (Mineral Oil/Petrolatum,White 106 Gm Tube) 1 appl TOPICAL TID [facility]; Protocol Last Admin: 08/22/22 09:24 Dose: Not Given Documented By: PATY Non-Admin Reason: Patient Refused Ondansetron HCl (Ondansetron Hcl 4 Mg/2 Ml Vial) 4 mg IVPUSH Q8H PRN PRN Reason: Nausea and Vomiting Last Admin: 07/20/22 21:09 Dose: 4 mg Documented By: HE Oxycodone HCl (Oxycodone Hcl Immed Release 5 Mg Tablet) 5 mg PO Q6H PRN PRN Reason: Pain, Severe (Pain Scale 7-10) Last Admin: 08/22/22 09:23 Dose: 5 mg Documented By: PATY Pharmacy Consult (Consult Rx Perform Med Rec) 1 each MISCELLANE ONCE PRN PRN Reason: Consult order Polyethylene Glycol (Polyethylene Glycol 3350 17 Gm Powd.Pack) 17 gm PO DAILY [facility] Last Admin: 08/22/22 09:24 Dose: Not Given Documented By: PATY Non-Admin Reason: Patient Refused Sodium Chloride (0.9 % Sodium Chloride Flush 3 Ml Syringe) 3 ml IVFLUSH QSHIFT [facility] Last Admin: 08/22/22 09:24 Dose: Not Given Documented By: PATY Non-Admin Reason: No Access Tamsulosin HCl (Tamsulosin Hcl 0.4 Mg Capsule) 0.4 mg PO DAILY [facility] Last Admin: 08/22/22 09:24 Dose: 0.4 mg Documented By: PATY Labs 08/06/22 08:05 08/06/22 08:05 Assessment and Plan (1) Paralysis: Status: Acute (2) Urinary retention: Status: Acute Plan [id number] 36yo M with OUD, DM2 presented after overdose/LOC/unknown period of unresponsiveness perhaps as long as 48 hr, admitted for rhabdomyolysis and relative paralysis 1.Paralysis....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 Failed multiple voiding trials -discussed with Urology.... DC indwelling -teach the patient straight catheterization 3.Bradycardia - Cardiology recommends no specific management for bradycardia; ischemia workup as an outpatient due to abnormal EKG. 4.OUD - -p.r.n. oxycodone -Addiction Medicine following 5.DM II -sugars normalized LMWH Full code In my clinical judgment, the patient requires continued inpatient hospitalization for the following reasons: safe disposition Time Spent With Patient Time: Total time managing care of this patient today ____ minutes. Quality Stroke Does the patient have a stroke diagnosis?: No VTE Prior VTE?: No VTE Risk Level:: Medical - moderate - high VTE Device Contraindication: Treatment Not Indicated VTE Drug Contraindication: N/A - Med Ordered
[2022-08-22] MEDS: Enoxaparin Sodium 40 MG/0.4 ML SYRINGE SUBCUT (14:33)
[2022-08-22] MEDS: Mineral Oil/Petrolatum,White 106 GM Tube 1 APPL TOPICAL ×2 (14:34→19:40)
[2022-08-22] MEDS: Acetaminophen 325 MG TABLET 650 MG PO (14:38)
[2022-08-22 15:30] VITALS: BP 103/58; PULSE 56; RESP 18; TEMP 37.6; O2SAT 96
--- NOTE | 2022-08-22 18:02 | PC.NURSE ---
alvarez cath removed at 1800 pt due to be straight cath at 1200 midnight
[2022-08-22 20:00] VITALS: BP 131/83; PULSE 52; RESP 18; TEMP 36.9; O2SAT 99
[2022-08-23 03:26] VITALS: BP 121/76; PULSE 52; RESP 18; TEMP 36.8; O2SAT 97
[2022-08-23 07:53] VITALS: BP 108/66; PULSE 54; RESP 18; TEMP 36.9; O2SAT 97
[2022-08-23] MEDS: Mineral Oil/Petrolatum,White 106 GM Tube 1 APPL TOPICAL ×2 (09:33→19:24)
[2022-08-23] MEDS: polyethylene glycoL 3350 17 GM POWD.PACK PO (09:34)
[2022-08-23] MEDS: Acetaminophen 325 MG TABLET 650 MG PO ×2 (09:34→17:05)
[2022-08-23] MEDS: Tamsulosin HCL 0.4 MG CAPSULE PO (09:34)
[2022-08-23] MEDS: oxyCODONE HCl Immed Release 5 MG TABLET PO ×2 (09:37→17:05)
[2022-08-23 11:29] VITALS: BP 108/66; PULSE 54; O2SAT 97
--- NOTE | 2022-08-23 11:37 | MHC.CM.PN ---
EMR REVIEWED, PT CONT'S TO SLOWLY IMPROVE W/PT, PER HOSPITALIST WILL CONSULT PSYCH FOR DEPRESSION CM HAS BEEN UNABLE TO FIND PLACEMENT AT THIS TIME, SNF REFERRAL UPDATED AND EXPANDED, CM WILL CONT TO FOLLOW.
--- NOTE | 2022-08-23 14:01 | HO.PM.IMPN ---
Subjective Subjective Date of Service: 08/23/22 Interval History: No acute issues overnight. Continues to walk with walker and assist. Indwelling Melendrez remains Review of Systems Denies chest pain Denies shortness of breath Denies nausea vomiting diarrhea Denies fever chills Physical Exam Vital Signs: Vital Signs: Last Vital Signs Temp 98.4 F 08/23/22 07:53 Pulse 54 08/23/22 11:29 Resp 18 08/23/22 07:53 BP 108/66 08/23/22 11:29 Pulse Ox 97 08/23/22 11:29 O2 Del Method 08/23/22 07:53 O2 Flow Rate 2 07/21/22 04:09 BMI result Body Mass Index 27.2 Const: Other: No acute distress Resp: Other: Clear to auscultation bilaterally no rales rhonchi or wheezes Cardio: Other: No S4; positive S1-S2; no S3 murmurs rubs or gallops GI: Other: Soft nontender nondistended normoactive bowel sounds Neuro: Other: Cranial nerves 2-12 grossly intact motor 3 to 4/5 in the left lower extremity now right lower extremity with hip flexor/quadriceps movement 2 to 3/5. Sensation intact distally Extrem: Other: No edema bilaterally Objective Data Active Medications Acetaminophen (Acetaminophen 325 Mg Tablet) 650 mg PO Q6H PRN PRN Reason: Pain, Mild (Pain Scale 1-3) Last Admin: 08/23/22 09:34 Dose: 650 mg Documented By: CHAD Docusate Sodium (Docusate Sodium 100 Mg Capsule) 100 mg PO DAILY PRN PRN Reason: Constipation Last Admin: 08/17/22 21:03 Dose: 100 mg Documented By: DARLING Enoxaparin Sodium (Enoxaparin Sodium 40 Mg/0.4 Ml Syringe) 40 mg SUBCUT Q24H [facility] Last Admin: 08/22/22 14:33 Dose: 40 mg Documented By: NATHAN Multi-Ingred Cream/Lotion/Oil/Oint (Mineral Oil/Petrolatum,White 106 Gm Tube) 1 appl TOPICAL TID [facility]; Protocol Last Admin: 08/23/22 09:33 Dose: 1 appl Documented By: CHAD Ondansetron HCl (Ondansetron Hcl 4 Mg/2 Ml Vial) 4 mg IVPUSH Q8H PRN PRN Reason: Nausea and Vomiting Last Admin: 07/20/22 21:09 Dose: 4 mg Documented By: HE Oxycodone HCl (Oxycodone Hcl Immed Release 5 Mg Tablet) 5 mg PO Q6H PRN PRN Reason: Pain, Severe (Pain Scale 7-10) Last Admin: 08/23/22 09:37 Dose: 5 mg Documented By: CHAD Pharmacy Consult (Consult Rx Perform Med Rec) 1 each MISCELLANE ONCE PRN PRN Reason: Consult order Polyethylene Glycol (Polyethylene Glycol 3350 17 Gm Powd.Pack) 17 gm PO DAILY [facility] Last Admin: 08/23/22 09:34 Dose: 17 gm Documented By: CHAD Sodium Chloride (0.9 % Sodium Chloride Flush 3 Ml Syringe) 3 ml IVFLUSH QSHIFT [facility] Last Admin: 08/23/22 09:33 Dose: Not Given Documented By: CHAD Non-Admin Reason: No Access Tamsulosin HCl (Tamsulosin Hcl 0.4 Mg Capsule) 0.4 mg PO DAILY [facility] Last Admin: 08/23/22 09:34 Dose: 0.4 mg Documented By: CHAD Labs 08/06/22 08:05 08/06/22 08:05 Assessment and Plan (1) Paralysis: Status: Acute (2) Urinary retention: Status: Acute Plan 36yo M with OUD, DM2 presented after overdose/LOC/unknown period of unresponsiveness perhaps as long as 48 hr, admitted for rhabdomyolysis and relative paralysis 1.Paralysis....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 Failed multiple voiding trials -indwelling catheter removed -patient being taught intermittent self catheterization 3.Bradycardia - Cardiology recommends no specific management for bradycardia; ischemia workup as an outpatient due to abnormal EKG. 4.OUD - -p.r.n. oxycodone -Addiction Medicine following 5.DM II -sugars normalized LMWH Full code In my clinical judgment, the patient requires continued inpatient hospitalization for the following reasons: safe disposition Time Spent With Patient Time: Total time managing care of this patient today ____ minutes. Quality Stroke Does the patient have a stroke diagnosis?: No VTE Prior VTE?: No VTE Risk Level:: Medical - moderate - high VTE Device Contraindication: Treatment Not Indicated VTE Drug Contraindication: N/A - Med Ordered
[2022-08-23] MEDS: Enoxaparin Sodium 40 MG/0.4 ML SYRINGE SUBCUT (14:11)
[2022-08-23 15:24] VITALS: BP 101/58; PULSE 50; RESP 18; TEMP 36.6; O2SAT 97
[2022-08-23 19:14] VITALS: BP 97/54; PULSE 62; RESP 18; TEMP 36.9; O2SAT 95
[2022-08-24 03:49] VITALS: BP 115/64; PULSE 50; RESP 16; TEMP 36.7; O2SAT 96
[2022-08-24 07:41] LABS: Glucose, Whole Blood 79 mg/dL (60-115)
[2022-08-24 08:00] VITALS: BP 123/71; PULSE 53; RESP 18; TEMP 36.7; O2SAT 97
[2022-08-24] MEDS: polyethylene glycoL 3350 17 GM POWD.PACK PO (09:05)
[2022-08-24] MEDS: Tamsulosin HCL 0.4 MG CAPSULE PO (09:05)
[2022-08-24] MEDS: Mineral Oil/Petrolatum,White 106 GM Tube 1 APPL TOPICAL ×3 (11:38→20:24)
[2022-08-24] MEDS: Acetaminophen 325 MG TABLET 650 MG PO ×2 (11:41→20:29)
[2022-08-24] MEDS: oxyCODONE HCl Immed Release 5 MG TABLET PO ×2 (11:41→20:29)
--- NOTE | 2022-08-24 11:57 | P.PNIM_ITS ---
Subjective Subjective Date of Service: 08/24/22 Interval History: No acute issues overnight. Continues to walk with walker and assist. Indwelling Melendrez remains Review of Systems Denies chest pain Denies shortness of breath Denies nausea vomiting diarrhea Denies fever chills Physical Exam Vital Signs: Vital Signs: Last Vital Signs Temp 98.1 F 08/24/22 08:00 Pulse 53 08/24/22 08:00 Resp 18 08/24/22 08:00 BP 123/71 08/24/22 08:00 Pulse Ox 97 08/24/22 08:00 O2 Del Method 08/24/22 08:00 O2 Flow Rate 2 07/21/22 04:09 BMI result Body Mass Index 27.2 Const: Other: No acute distress Resp: Other: Clear to auscultation bilaterally no rales rhonchi or wheezes Cardio: Other: No S4; positive S1-S2; no S3 murmurs rubs or gallops GI: Other: Soft nontender nondistended normoactive bowel sounds Neuro: Other: Cranial nerves 2-12 grossly intact motor 3 to 4/5 in the left lower extremity now right lower extremity with hip flexor/quadriceps movement 2 to 3/5. Sensation intact distally Extrem: Other: No edema bilaterally Objective Data Active Medications Acetaminophen (Acetaminophen 325 Mg Tablet) 650 mg PO Q6H PRN PRN Reason: Pain, Mild (Pain Scale 1-3) Last Admin: 08/24/22 11:41 Dose: 650 mg Documented By: YUKI Docusate Sodium (Docusate Sodium 100 Mg Capsule) 100 mg PO DAILY PRN PRN Reason: Constipation Last Admin: 08/17/22 21:03 Dose: 100 mg Documented By: DARLING Enoxaparin Sodium (Enoxaparin Sodium 40 Mg/0.4 Ml Syringe) 40 mg SUBCUT Q24H [facility] Last Admin: 08/23/22 14:11 Dose: 40 mg Documented By: CHAD Multi-Ingred Cream/Lotion/Oil/Oint (Mineral Oil/Petrolatum,White 106 Gm Tube) 1 appl TOPICAL TID [facility]; Protocol Last Admin: 08/24/22 11:38 Dose: 1 appl Documented By: YUKI Ondansetron HCl (Ondansetron Hcl 4 Mg/2 Ml Vial) 4 mg IVPUSH Q8H PRN PRN Reason: Nausea and Vomiting Last Admin: 07/20/22 21:09 Dose: 4 mg Documented By: HE Oxycodone HCl (Oxycodone Hcl Immed Release 5 Mg Tablet) 5 mg PO Q6H PRN PRN Reason: Pain, Severe (Pain Scale 7-10) Last Admin: 08/24/22 11:41 Dose: 5 mg Documented By: YUKI Pharmacy Consult (Consult Rx Perform Med Rec) 1 each MISCELLANE ONCE PRN PRN Reason: Consult order Polyethylene Glycol (Polyethylene Glycol 3350 17 Gm Powd.Pack) 17 gm PO DAILY [facility] Last Admin: 08/24/22 09:05 Dose: 17 gm Documented By: YUKI Sodium Chloride (0.9 % Sodium Chloride Flush 3 Ml Syringe) 3 ml IVFLUSH QSHIFT [facility] Last Admin: 08/24/22 08:58 Dose: Not Given Documented By: YUKI Non-Admin Reason: No Access Tamsulosin HCl (Tamsulosin Hcl 0.4 Mg Capsule) 0.4 mg PO DAILY [facility] Last Admin: 08/24/22 09:05 Dose: 0.4 mg Documented By: YUKI Labs 08/06/22 08:05 08/06/22 08:05 Labs: Laboratory Results - last 24 hr 08/24/22 07:37 POC Glucose 79 Assessment and Plan (1) Paralysis: Status: Acute (2) Urinary retention: Status: Acute Plan 36yo M with OUD, DM2 presented after overdose/LOC/unknown period of unresponsiveness perhaps as long as 48 hr, admitted for rhabdomyolysis and relative paralysis 1.Paralysis....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 Failed multiple voiding trials -patient being taught intermittent self catheterization - 3.Bradycardia - Cardiology recommends no specific management for bradycardia; ischemia workup as an outpatient due to abnormal EKG. 4.OUD - -p.r.n. oxycodone -Addiction Medicine following 5.DM II -sugars normalized LMWH Full code In my clinical judgment, the patient requires continued inpatient hospitalization for the following reasons: safe disposition Time Spent With Patient Time: Total time managing care of this patient today ____ minutes. Quality Stroke Does the patient have a stroke diagnosis?: No VTE Prior VTE?: No VTE Risk Level:: Medical - moderate - high VTE Device Contraindication: Treatment Not Indicated VTE Drug Contraindication: N/A - Med Ordered
[2022-08-24] MEDS: Enoxaparin Sodium 40 MG/0.4 ML SYRINGE SUBCUT (13:41)
[2022-08-24 15:45] VITALS: BP 104/58; PULSE 47; RESP 18; TEMP 36.8; O2SAT 96
[2022-08-24 19:09] VITALS: BP 103/54; PULSE 53; RESP 18; TEMP 37.1; O2SAT 96
[2022-08-25 03:41] VITALS: BP 113/70; PULSE 55; RESP 18; TEMP 36.5; O2SAT 97
[2022-08-25 08:00] VITALS: BP 113/70; PULSE 50; RESP 18; TEMP 36.9; O2SAT 95
[2022-08-25 08:49] VITALS: BP 113/70; PULSE 50; O2SAT 95
[2022-08-25] MEDS: Acetaminophen 325 MG TABLET 650 MG PO ×2 (10:34→17:36)
[2022-08-25] MEDS: polyethylene glycoL 3350 17 GM POWD.PACK PO (10:34)
[2022-08-25] MEDS: oxyCODONE HCl Immed Release 5 MG TABLET PO ×2 (10:34→17:36)
[2022-08-25] MEDS: Mineral Oil/Petrolatum,White 106 GM Tube 1 APPL TOPICAL ×3 (10:35→19:32)
[2022-08-25] MEDS: Tamsulosin HCL 0.4 MG CAPSULE PO (10:48)
--- NOTE | 2022-08-25 11:14 | HO.PM.IMPN ---
Subjective Subjective Date of Service: 08/25/22 Interval History: Sitting comfortably on chair, offers no acute complaints, being followed for placement Review of Systems Review of Systems: Yes all other systems are reviewed and are negative Physical Exam Vital Signs: Vital Signs: Last Vital Signs Temp 98.5 F 08/25/22 08:00 Pulse 50 08/25/22 08:49 Resp 18 08/25/22 08:00 BP 113/70 08/25/22 08:49 Pulse Ox 95 08/25/22 08:49 O2 Del Method 08/25/22 08:00 O2 Flow Rate 2 07/21/22 04:09 BMI result Body Mass Index 27.2 Const: Other: Gen: in no acute distress HEENT: sclera anicteric, moist mucus membranes Neck: supple Lungs: clear to auscultation bilaterally Heart: regular rate and rhythm, no murmurs Abd: soft, non-tender, non-distended Ext: no edema Skin: warm/well-perfused Neuro: alert and oriented x3, bilateral lower extremities with 4/5 strength throughout Psych: appropriate affect Objective Data Active Medications Acetaminophen (Acetaminophen 325 Mg Tablet) 650 mg PO Q6H PRN PRN Reason: Pain, Mild (Pain Scale 1-3) Last Admin: 08/25/22 10:34 Dose: 650 mg Documented By: CHIP Docusate Sodium (Docusate Sodium 100 Mg Capsule) 100 mg PO DAILY PRN PRN Reason: Constipation Last Admin: 08/17/22 21:03 Dose: 100 mg Documented By: DARLING Enoxaparin Sodium (Enoxaparin Sodium 40 Mg/0.4 Ml Syringe) 40 mg SUBCUT Q24H [facility] Last Admin: 08/24/22 13:41 Dose: 40 mg Documented By: YUKI Multi-Ingred Cream/Lotion/Oil/Oint (Mineral Oil/Petrolatum,White 106 Gm Tube) 1 appl TOPICAL TID [facility]; Protocol Last Admin: 08/25/22 10:35 Dose: 1 appl Documented By: CHIP Ondansetron HCl (Ondansetron Hcl 4 Mg/2 Ml Vial) 4 mg IVPUSH Q8H PRN PRN Reason: Nausea and Vomiting Last Admin: 07/20/22 21:09 Dose: 4 mg Documented By: HO.N-SVETLANA Oxycodone HCl (Oxycodone Hcl Immed Release 5 Mg Tablet) 5 mg PO Q6H PRN PRN Reason: Pain, Severe (Pain Scale 7-10) Last Admin: 08/25/22 10:34 Dose: 5 mg Documented By: CHIP Pharmacy Consult (Consult Rx Perform Med Rec) 1 each MISCELLANE ONCE PRN PRN Reason: Consult order Polyethylene Glycol (Polyethylene Glycol 3350 17 Gm Powd.Pack) 17 gm PO DAILY [facility] Last Admin: 08/25/22 10:34 Dose: 17 gm Documented By: CHIP Sodium Chloride (0.9 % Sodium Chloride Flush 3 Ml Syringe) 3 ml IVFLUSH QSHIFT [facility] Last Admin: 08/25/22 07:36 Dose: Not Given Documented By: VALENCIA Non-Admin Reason: No Access Tamsulosin HCl (Tamsulosin Hcl 0.4 Mg Capsule) 0.4 mg PO DAILY [facility] Last Admin: 08/25/22 10:48 Dose: 0.4 mg Documented By: CHIP Labs 08/06/22 08:05 08/06/22 08:05 Assessment and Plan (1) Bradycardia: Status: Acute (2) Polysubstance use disorder: Status: Acute (3) Urinary retention: Status: Acute Plan 36yo M with OUD, DM2 presented after overdose/LOC/unknown period of unresponsiveness perhaps as long as 48 hr, admitted for rhabdomyolysis and relative paralysis 1.Paralysis likely due to 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 Failed multiple voiding trials -patient being taught intermittent self catheterization 3.Bradycardia - Cardiology recommends no specific management for bradycardia; ischemia workup as an outpatient due to abnormal EKG. 4.OUD - -p.r.n. oxycodone -Addiction Medicine following 5.DM II -sugars normalized LMWH Full code In my clinical judgment, the patient requires continued inpatient hospitalization for the following reasons: safe disposition Time Spent With Patient Time: Total time managing care of this patient today ____ minutes. Quality Stroke Does the patient have a stroke diagnosis?: No VTE Prior VTE?: No VTE Risk Level:: Medical - moderate - high VTE Device Contraindication: Treatment Not Indicated VTE Drug Contraindication: N/A - Med Ordered
--- NOTE | 2022-08-25 12:28 | MHC.CM.PN ---
PT CONTINUES TO MAKE IMPROVEMENTS HOWEVER STILL NEEDS STR REFERRAL UPDATED AND EXPANDED
[2022-08-25] MEDS: Enoxaparin Sodium 40 MG/0.4 ML SYRINGE SUBCUT (14:30)
[2022-08-25 15:28] VITALS: BP 98/50; PULSE 53; RESP 18; TEMP 36.8; O2SAT 96
[2022-08-25 23:29] VITALS: BP 114/69; PULSE 39; RESP 14; TEMP 36.9; O2SAT 98
[2022-08-26] MEDS: Acetaminophen 325 MG TABLET 650 MG PO ×3 (00:45→18:17)
[2022-08-26 04:00] VITALS: BP 121/77; PULSE 45; RESP 18; TEMP 36.5; O2SAT 96
[2022-08-26 07:33] VITALS: BP 117/75; PULSE 51; RESP 16; TEMP 36.9; O2SAT 97
--- NOTE | 2022-08-26 08:52 | P.PNIM_ITS ---
Subjective Subjective Date of Service: 08/26/22 Interval History: No acute complaints, tolerating diet, no nausea, no vomiting, no abdominal pain, making slow progress with physical therapy. Review of Systems Review of Systems: Yes all other systems are reviewed and are negative Physical Exam Vital Signs: Vital Signs: Last Vital Signs Temp 98.4 F 08/26/22 07:33 Pulse 51 08/26/22 07:33 Resp 16 08/26/22 07:33 BP 117/75 08/26/22 07:33 Pulse Ox 97 08/26/22 07:33 O2 Del Method 08/26/22 07:33 O2 Flow Rate 2 07/21/22 04:09 BMI result Body Mass Index 27.2 Const: Other: Gen: in no acute distress HEENT: sclera anicteric, moist mucus membranes Neck: supple Lungs: clear to auscultation bilaterally Heart: regular rate and rhythm, no murmurs Abd: soft, non-tender, non-distended Ext: no edema Skin: warm/well-perfused Neuro: alert and oriented x3, bilateral lower extremities with 4/5 strength throughout Psych: appropriate affect Objective Data Active Medications Acetaminophen (Acetaminophen 325 Mg Tablet) 650 mg PO Q6H PRN PRN Reason: Pain, Mild (Pain Scale 1-3) Last Admin: 08/26/22 00:45 Dose: 650 mg Documented By: XANDER Docusate Sodium (Docusate Sodium 100 Mg Capsule) 100 mg PO DAILY PRN PRN Reason: Constipation Last Admin: 08/17/22 21:03 Dose: 100 mg Documented By: DARLING Enoxaparin Sodium (Enoxaparin Sodium 40 Mg/0.4 Ml Syringe) 40 mg SUBCUT Q24H [facility] Last Admin: 08/25/22 14:30 Dose: 40 mg Documented By: CHIP Multi-Ingred Cream/Lotion/Oil/Oint (Mineral Oil/Petrolatum,White 106 Gm Tube) 1 appl TOPICAL TID [facility]; Protocol Last Admin: 08/25/22 19:32 Dose: 1 appl Documented By: XANDER Ondansetron HCl (Ondansetron Hcl 4 Mg/2 Ml Vial) 4 mg IVPUSH Q8H PRN PRN Reason: Nausea and Vomiting Last Admin: 07/20/22 21:09 Dose: 4 mg Documented By: HE Pharmacy Consult (Consult Rx Perform Med Rec) 1 each MISCELLANE ONCE PRN PRN Reason: Consult order Polyethylene Glycol (Polyethylene Glycol 3350 17 Gm Powd.Pack) 17 gm PO DAILY [facility] Last Admin: 08/25/22 10:34 Dose: 17 gm Documented By: CHIP Sodium Chloride (0.9 % Sodium Chloride Flush 3 Ml Syringe) 3 ml IVFLUSH QSHIFT [facility] Last Admin: 08/26/22 00:58 Dose: Not Given Documented By: XANDER Non-Admin Reason: No Access Tamsulosin HCl (Tamsulosin Hcl 0.4 Mg Capsule) 0.4 mg PO DAILY [facility] Last Admin: 08/25/22 10:48 Dose: 0.4 mg Documented By: CHIP Labs 08/06/22 08:05 08/06/22 08:05 Assessment and Plan (1) Bradycardia: Status: Acute (2) Polysubstance use disorder: Status: Acute (3) Urinary retention: Status: Acute Plan 36yo M with OUD, DM2 presented after overdose/LOC/unknown period of unresponsiveness perhaps as long as 48 hr, admitted for rhabdomyolysis and relative paralysis 1.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 Failed multiple voiding trials -patient being taught intermittent self catheterization 3.Bradycardia - Cardiology recommends no specific management for bradycardia; ischemia workup as an outpatient due to abnormal EKG. 4.OUD - -p.r.n. oxycodone -Addiction Medicine following 5.DM II -sugars normalized LMWH Full code In my clinical judgment, the patient requires continued inpatient hospitalizat ion for the following reasons: safe disposition Time Spent With Patient Time: Total time managing care of this patient today ____ minutes. Quality Stroke Does the patient have a stroke diagnosis?: No VTE Prior VTE?: No VTE Risk Level:: Medical - moderate - high VTE Device Contraindication: Treatment Not Indicated VTE Drug Contraindication: N/A - Med Ordered
[2022-08-26] MEDS: Tamsulosin HCL 0.4 MG CAPSULE PO (09:06)
[2022-08-26] MEDS: Mineral Oil/Petrolatum,White 106 GM Tube 1 APPL TOPICAL ×3 (09:07→19:42)
[2022-08-26] MEDS: oxyCODONE HCl Immed Release 5 MG TABLET PO ×2 (10:00→18:17)
[2022-08-26] MEDS: Enoxaparin Sodium 40 MG/0.4 ML SYRINGE SUBCUT (14:43)
[2022-08-26 15:12] VITALS: BP 158/72; PULSE 70; RESP 18; TEMP 35.7; O2SAT 94
[2022-08-26 15:35] VITALS: BP 113/62; PULSE 59; RESP 18; TEMP 37.2; O2SAT 95
[2022-08-26 20:00] VITALS: BP 114/73; PULSE 55; RESP 18; TEMP 36.6; O2SAT 96
[2022-08-27] MEDS: Acetaminophen 325 MG TABLET 650 MG PO ×2 (00:20→08:28)
[2022-08-27] MEDS: oxyCODONE HCl Immed Release 5 MG TABLET PO ×2 (00:21→08:28)
[2022-08-27 01:32] VITALS: RESP 16
[2022-08-27 03:48] VITALS: BP 124/67; PULSE 42; RESP 18; TEMP 36.4; O2SAT 96
[2022-08-27 07:49] VITALS: BP 133/85; PULSE 52; RESP 18; TEMP 36.4; O2SAT 99
[2022-08-27] MEDS: Mineral Oil/Petrolatum,White 106 GM Tube 1 APPL TOPICAL ×3 (08:28→20:00)
[2022-08-27] MEDS: Tamsulosin HCL 0.4 MG CAPSULE PO (08:28)
--- NOTE | 2022-08-27 10:52 | P.PNIM_ITS ---
Subjective Subjective Date of Service: 08/27/22 Interval History: Complaining of bilateral leg pain due to bilateral foot swelling, denies chest pain, no palpitations, no lightheadedness or dizziness, tolerating diet, self catheterizing, no other acute issues overnight, no nausea, no vomiting, no abdominal pain or diarrhea. Review of Systems Review of Systems: Yes all other systems are reviewed and are negative Physical Exam Vital Signs: Vital Signs: Last Vital Signs Temp 97.5 F 08/27/22 07:49 Pulse 52 08/27/22 07:49 Resp 18 08/27/22 07:49 BP 133/85 08/27/22 07:49 Pulse Ox 99 08/27/22 07:49 O2 Del Method 08/27/22 07:49 O2 Flow Rate 2 07/21/22 04:09 BMI result Body Mass Index 27.2 Const: Other: Gen: in no acute distress HEENT: sclera anicteric, moist mucus membranes Neck: supple Lungs: clear to auscultation bilaterally Heart: regular rate and rhythm, no murmurs Abd: soft, non-tender, non-distended Ext: Bilateral pitting foot edema Skin: warm/well-perfused Neuro: alert and oriented x3, bilateral lower extremities with 4/5 strength throughout Psych: appropriate affect. Objective Data Active Medications Acetaminophen (Acetaminophen 325 Mg Tablet) 650 mg PO Q6H PRN PRN Reason: Pain, Mild (Pain Scale 1-3) Last Admin: 08/27/22 08:28 Dose: 650 mg Documented By: MARIEL Docusate Sodium (Docusate Sodium 100 Mg Capsule) 100 mg PO DAILY PRN PRN Reason: Constipation Last Admin: 08/17/22 21:03 Dose: 100 mg Documented By: DARLING Enoxaparin Sodium (Enoxaparin Sodium 40 Mg/0.4 Ml Syringe) 40 mg SUBCUT Q24H [facility] Last Admin: 08/26/22 14:43 Dose: 40 mg Documented By: MARIEL Ibuprofen (Ibuprofen 400 Mg Tablet) 400 mg PO Q8H PRN PRN Reason: Pain, Moderate (Pain Scale 4-6 Multi-Ingred Cream/Lotion/Oil/Oint (Mineral Oil/Petrolatum,White 106 Gm Tube) 1 appl TOPICAL TID [facility]; Protocol Last Admin: 08/27/22 08:28 Dose: 1 appl Documented By: MARIEL Ondansetron HCl (Ondansetron Hcl 4 Mg/2 Ml Vial) 4 mg IVPUSH Q8H PRN PRN Reason: Nausea and Vomiting Last Admin: 07/20/22 21:09 Dose: 4 mg Documented By: HE Oxycodone HCl (Oxycodone Hcl Immed Release 5 Mg Tablet) 5 mg PO Q12H PRN PRN Reason: Pain, Severe (Pain Scale 7-10) Pharmacy Consult (Consult Rx Perform Med Rec) 1 each MISCELLANE ONCE PRN PRN Reason: Consult order Polyethylene Glycol (Polyethylene Glycol 3350 17 Gm Powd.Pack) 17 gm PO DAILY [facility] Last Admin: 08/26/22 09:08 Dose: Not Given Documented By: MARIEL Non-Admin Reason: Patient Refused Sodium Chloride (0.9 % Sodium Chloride Flush 3 Ml Syringe) 3 ml IVFLUSH QSHIFT [facility] Last Admin: 08/27/22 08:28 Dose: Not Given Documented By: MARIEL Non-Admin Reason: No Access Tamsulosin HCl (Tamsulosin Hcl 0.4 Mg Capsule) 0.4 mg PO DAILY [facility] Last Admin: 08/27/22 08:28 Dose: 0.4 mg Documented By: MARIEL Labs 08/06/22 08:05 08/06/22 08:05 Assessment and Plan (1) Bradycardia: Status: Acute (2) Polysubstance use disorder: Status: Acute (3) Urinary retention: Status: Acute Plan 36yo M with OUD, DM2 presented after overdose/LOC/unknown period of unresponsiveness perhaps as long as 48 hr, admitted for rhabdomyolysis and relative paralysis 1.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 Failed multiple voiding trials -cont. intermittent self catheterization 3.Bradycardia - Cardiology recommends no specific management for bradycardia; ischemia workup as an outpatient due to abnormal EKG. 4.OUD - -p.r.n. oxycodone -Addiction Medicine following 5.DM II -sugars normalized 6. Bilateral foot edema with discomfort likely due to low albumin and sitting longer hours ,recommend to keep leg elevated,will add analgesics, and use teds LMWH Full code In my clinical judgment, the patient requires continued inpatient hospitalization for the following reasons: safe disposition Time Spent With Patient Time: Total time managing care of this patient today ____ minutes. Quality Stroke Does the patient have a stroke diagnosis?: No VTE Prior VTE?: No VTE Risk Level:: Medical - moderate - high VTE Device Contraindication: Treatment Not Indicated VTE Drug Contraindication: N/A - Med Ordered
[2022-08-27] MEDS: Enoxaparin Sodium 40 MG/0.4 ML SYRINGE SUBCUT (13:08)
[2022-08-27 15:12] VITALS: BP 100/59; PULSE 55; RESP 18; TEMP 36.6; O2SAT 100
[2022-08-27 19:35] VITALS: BP 124/59; PULSE 65; RESP 18; TEMP 36.9; O2SAT 98
[2022-08-28 03:22] VITALS: BP 125/76; PULSE 54; RESP 18; TEMP 36.3; O2SAT 96
[2022-08-28 07:59] VITALS: BP 128/82; PULSE 57; RESP 18; TEMP 37; O2SAT 98
[2022-08-28 08:00] VITALS: BP 128/82; PULSE 57; RESP 18; TEMP 36.6; O2SAT 97
[2022-08-28] MEDS: Acetaminophen 325 MG TABLET 650 MG PO ×2 (09:00→16:00)
[2022-08-28] MEDS: Tamsulosin HCL 0.4 MG CAPSULE PO (09:00)
[2022-08-28] MEDS: Mineral Oil/Petrolatum,White 106 GM Tube 1 APPL TOPICAL ×3 (09:01→20:17)
--- NOTE | 2022-08-28 10:41 | HO.PM.IMPN ---
Subjective Subjective Date of Service: 08/28/22 Interval History: Feeling better this morning leg swelling and pain has improved, moving bowels, self catheterizing 2 to 3 times a day no acute issues, no nausea, no vomiting, no abdominal pain, tolerating diet and ambulating with walker. Review of Systems Review of Systems: Yes all other systems are reviewed and are negative Physical Exam Vital Signs: Vital Signs: Last Vital Signs Temp 97.8 F 08/28/22 08:00 Pulse 57 08/28/22 08:00 Resp 18 08/28/22 08:00 BP 128/82 08/28/22 08:00 Pulse Ox 97 08/28/22 08:00 O2 Del Method 08/28/22 08:00 O2 Flow Rate 2 07/21/22 04:09 BMI result Body Mass Index 27.2 Const: Other: Gen: in no acute distress HEENT: sclera anicteric, moist mucus membranes Neck: supple Lungs: clear to auscultation bilaterally Heart: regular rate and rhythm, no murmurs Abd: soft, non-tender, non-distended Ext:? Bilateral edema improving Skin: warm/well-perfused Neuro: alert and oriented x3, bilateral lower extremities with 4/5 strength throughout Psych: appropriate affect. Objective Data Active Medications Acetaminophen (Acetaminophen 325 Mg Tablet) 650 mg PO Q6H PRN PRN Reason: Pain, Mild (Pain Scale 1-3) Last Admin: 08/28/22 09:00 Dose: 650 mg Documented By: MARIEL Docusate Sodium (Docusate Sodium 100 Mg Capsule) 100 mg PO DAILY PRN PRN Reason: Constipation Last Admin: 08/17/22 21:03 Dose: 100 mg Documented By: DARLING Enoxaparin Sodium (Enoxaparin Sodium 40 Mg/0.4 Ml Syringe) 40 mg SUBCUT Q24H [facility] Last Admin: 08/27/22 13:08 Dose: 40 mg Documented By: MARIEL Ibuprofen (Ibuprofen 400 Mg Tablet) 400 mg PO Q8H PRN PRN Reason: Pain, Moderate (Pain Scale 4-6 Multi-Ingred Cream/Lotion/Oil/Oint (Mineral Oil/Petrolatum,White 106 Gm Tube) 1 appl TOPICAL TID [facility]; Protocol Last Admin: 08/28/22 09:01 Dose: 1 appl Documented By: MARIEL Ondansetron HCl (Ondansetron Hcl 4 Mg/2 Ml Vial) 4 mg IVPUSH Q8H PRN PRN Reason: Nausea and Vomiting Last Admin: 07/20/22 21:09 Dose: 4 mg Documented By: HE Oxycodone HCl (Oxycodone Hcl Immed Release 5 Mg Tablet) 5 mg PO Q12H PRN PRN Reason: Pain, Severe (Pain Scale 7-10) Pharmacy Consult (Consult Rx Perform Med Rec) 1 each MISCELLANE ONCE PRN PRN Reason: Consult order Polyethylene Glycol (Polyethylene Glycol 3350 17 Gm Powd.Pack) 17 gm PO DAILY [facility] Last Admin: 08/27/22 10:48 Dose: Not Given Documented By: MARIEL Non-Admin Reason: Patient Refused Sodium Chloride (0.9 % Sodium Chloride Flush 3 Ml Syringe) 3 ml IVFLUSH QSHIFT [facility] Last Admin: 08/28/22 09:01 Dose: Not Given Documented By: MARIEL Non-Admin Reason: No Access Tamsulosin HCl (Tamsulosin Hcl 0.4 Mg Capsule) 0.4 mg PO DAILY [facility] Last Admin: 08/28/22 09:00 Dose: 0.4 mg Documented By: MARIEL Labs 08/06/22 08:05 08/06/22 08:05 Assessment and Plan (1) Bradycardia: Status: Acute (2) Polysubstance use disorder: Status: Acute (3) Urinary retention: Status: Acute Plan 36yo M with OUD, DM2 presented after overdose/LOC/unknown period of unresponsiveness perhaps as long as 48 hr, admitted for rhabdomyolysis and relative paralysis 1.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 Failed multiple voiding trials -cont. intermittent self catheterization 3.Bradycardia - Cardiology recommends no specific management for bradycardia; ischemia workup as an outpatient due to abnormal EKG. 4.OUD - -p.r.n. oxycodone -Addiction Medicine following 5.DM II -sugars normalized 6. Bilateral foot edema with discomfort likely due to low albumin and sitting longer hours , improving continue leg elevation, analgesics, added Ensure supplement and teds LMWH Full code In my clinical judgment, the patient requires continued inpatient hospitalization for the following reasons: safe disposition Time Spent With Patient Time: Total time managing care of this patient today ____ minutes. Quality Stroke Does the patient have a stroke diagnosis?: No VTE Prior VTE?: No VTE Risk Level:: Medical - moderate - high VTE Device Contraindication: Treatment Not Indicated VTE Drug Contraindication: N/A - Med Ordered
[2022-08-28] MEDS: Enoxaparin Sodium 40 MG/0.4 ML SYRINGE SUBCUT (12:35)
[2022-08-28 15:59] VITALS: BP 110/60; PULSE 62; RESP 18; TEMP 36.9; O2SAT 94
[2022-08-28 19:21] VITALS: BP 108/55; PULSE 55; RESP 18; TEMP 36.9; O2SAT 96
[2022-08-29 03:44] VITALS: BP 117/69; PULSE 54; RESP 18; TEMP 36.5; O2SAT 97
[2022-08-29 07:57] VITALS: BP 122/71; PULSE 55; RESP 18; TEMP 37.1; O2SAT 95
[2022-08-29] MEDS: Acetaminophen 325 MG TABLET 650 MG PO ×2 (09:20→20:43)
[2022-08-29] MEDS: oxyCODONE HCl Immed Release 5 MG TABLET PO ×2 (09:20→20:43)
[2022-08-29] MEDS: Docusate Sodium 100 MG CAPSULE PO (09:20)
[2022-08-29] MEDS: Tamsulosin HCL 0.4 MG CAPSULE PO (09:21)
[2022-08-29] MEDS: Mineral Oil/Petrolatum,White 106 GM Tube 1 APPL TOPICAL ×2 (09:23→20:38)
[2022-08-29 09:51] VITALS: BP 122/71; PULSE 55; O2SAT 95
--- NOTE | 2022-08-29 10:47 | P.PNIM_ITS ---
Subjective Subjective Date of Service: 08/29/22 Interval History: No acute complaints this morning , tolerating diet, no nausea, no vomiting, no abdominal pain, moving bowels, continue to do straight caths 3 times a day. Review of Systems Review of Systems: Yes all other systems are reviewed and are negative Physical Exam Vital Signs: Vital Signs: Last Vital Signs Temp 98.8 F 08/29/22 07:57 Pulse 55 08/29/22 09:51 Resp 18 08/29/22 07:57 BP 122/71 08/29/22 09:51 Pulse Ox 95 08/29/22 09:51 O2 Del Method 08/29/22 07:57 O2 Flow Rate 2 07/21/22 04:09 BMI result Body Mass Index 27.2 Const: Other: Gen: in no acute distress HEENT: sclera anicteric, moist mucus membranes Neck: supple Lungs: clear to auscultation bilaterally Heart: regular rate and rhythm, no murmurs Abd: soft, non-tender, non-distended Ext:? Bilateral edema improving Skin: warm/well-perfused Neuro: alert and oriented x3, bilateral lower extremities with 4/5 strength throughout Psych: appropriate affect. Objective Data Active Medications Acetaminophen (Acetaminophen 325 Mg Tablet) 650 mg PO Q6H PRN PRN Reason: Pain, Mild (Pain Scale 1-3) Last Admin: 08/29/22 09:20 Dose: 650 mg Documented By: CHAD Docusate Sodium (Docusate Sodium 100 Mg Capsule) 100 mg PO DAILY PRN PRN Reason: Constipation Last Admin: 08/29/22 09:20 Dose: 100 mg Documented By: CHAD Enoxaparin Sodium (Enoxaparin Sodium 40 Mg/0.4 Ml Syringe) 40 mg SUBCUT Q24H [facility] Last Admin: 08/28/22 12:35 Dose: 40 mg Documented By: MARIEL Ibuprofen (Ibuprofen 400 Mg Tablet) 400 mg PO Q8H PRN PRN Reason: Pain, Moderate (Pain Scale 4-6 Multi-Ingred Cream/Lotion/Oil/Oint (Mineral Oil/Petrolatum,White 106 Gm Tube) 1 appl TOPICAL TID [facility]; Protocol Last Admin: 08/29/22 09:23 Dose: 1 appl Documented By: CHAD Ondansetron HCl (Ondansetron Hcl 4 Mg/2 Ml Vial) 4 mg IVPUSH Q8H PRN PRN Reason: Nausea and Vomiting Last Admin: 07/20/22 21:09 Dose: 4 mg Documented By: HE Oxycodone HCl (Oxycodone Hcl Immed Release 5 Mg Tablet) 5 mg PO Q12H PRN PRN Reason: Pain, Severe (Pain Scale 7-10) Last Admin: 08/29/22 09:20 Dose: 5 mg Documented By: CHAD Pharmacy Consult (Consult Rx Perform Med Rec) 1 each MISCELLANE ONCE PRN PRN Reason: Consult order Polyethylene Glycol (Polyethylene Glycol 3350 17 Gm Powd.Pack) 17 gm PO DAILY [facility] Last Admin: 08/29/22 09:21 Dose: Not Given Documented By: CHAD Non-Admin Reason: regular bm Sodium Chloride (0.9 % Sodium Chloride Flush 3 Ml Syringe) 3 ml IVFLUSH QSHIFT [facility] Last Admin: 08/29/22 09:21 Dose: Not Given Documented By: CHAD Non-Admin Reason: No Access Tamsulosin HCl (Tamsulosin Hcl 0.4 Mg Capsule) 0.4 mg PO DAILY [facility] Last Admin: 08/29/22 09:21 Dose: 0.4 mg Documented By: CHAD Labs 08/06/22 08:05 08/06/22 08:05 Assessment and Plan (1) Bradycardia: Status: Acute (2) Polysubstance use disorder: Status: Acute (3) Urinary retention: Status: Acute Plan 36yo M with OUD, DM2 presented after overdose/LOC/unknown period of unresponsiveness perhaps as long as 48 hr, admitted for rhabdomyolysis and re lative paralysis 1.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 Failed multiple voiding trials -cont. intermittent self catheterization 3.Bradycardia - Cardiology recommends no specific management for bradycardia; ischemia workup as an outpatient due to abnormal EKG. 4.OUD - -p.r.n. oxycodone -Addiction Medicine following 5.DM II -sugars normalized 6. Bilateral foot edema with discomfort likely due to low albumin and sitting longer hours , improving continue leg elevation, analgesics, Ensure supplement and teds LMWH Full code In my clinical judgment, the patient requires continued inpatient hospitalization for the following reasons: safe disposition Time Spent With Patient Time: Total time managing care of this patient today ____ minutes. Quality Stroke Does the patient have a stroke diagnosis?: No VTE Prior VTE?: No VTE Risk Level:: Medical - moderate - high VTE Device Contraindication: Treatment Not Indicated VTE Drug Contraindication: N/A - Med Ordered
[2022-08-29] MEDS: Enoxaparin Sodium 40 MG/0.4 ML SYRINGE SUBCUT (12:28)
[2022-08-29 15:08] VITALS: BP 107/55; PULSE 53; RESP 18; TEMP 37.1; O2SAT 96
[2022-08-29 19:11] VITALS: BP 120/54; PULSE 56; RESP 18; TEMP 36.9; O2SAT 97
[2022-08-30 03:36] VITALS: BP 108/66; PULSE 50; RESP 16; TEMP 36.6; O2SAT 96
[2022-08-30 07:47] VITALS: BP 115/66; PULSE 51; RESP 16; TEMP 36.9; O2SAT 97
[2022-08-30] MEDS: Tamsulosin HCL 0.4 MG CAPSULE PO (09:31)
--- NOTE | 2022-08-30 09:56 | HO.PM.IMPN ---
Subjective Subjective Date of Service: 08/30/22 Interval History: Being followed for placement, resting comfortably offers no acute complaints, tolerating diet with no nausea, no vomiting, no abdominal pain, ambulating with walker, no leg pain. Review of Systems Review of Systems: Yes all other systems are reviewed and are negative Physical Exam Vital Signs: Vital Signs: Last Vital Signs Temp 98.4 F 08/30/22 07:47 Pulse 51 08/30/22 07:47 Resp 16 08/30/22 07:47 BP 115/66 08/30/22 07:47 Pulse Ox 97 08/30/22 07:47 O2 Del Method 08/30/22 07:47 O2 Flow Rate 2 07/21/22 04:09 BMI result Body Mass Index 27.2 Const: Other: Gen: in no acute d istress HEENT: scl era anicteric, jaqui st mucus membranes Neck: supple Lung s: clear to auscul tation bilaterally Heart: regular ra te and rhythm, no murmurs Abd: soft, non-tender, non-d istended Ext:? German ateral edema impro ving Skin: warm/we ll-perfused Neuro: alert and oriente d x3, bilateral lo wer extremities wi th 4/5 strength th roughout Psych: ap propriate affect. Objective Data Active Medications Acetaminophen (Acetaminophen 325 Mg Tablet) 650 mg PO Q6H PRN PRN Reason: Pain, Mild (Pain Scale 1-3) Last Admin: 08/29/22 20:43 Dose: 650 mg Documented By: QUINTIN Docusate Sodium (Docusate Sodium 100 Mg Capsule) 100 mg PO DAILY PRN PRN Reason: Constipation Last Admin: 08/29/22 09:20 Dose: 100 mg Documented By: CHAD Enoxaparin Sodium (Enoxaparin Sodium 40 Mg/0.4 Ml Syringe) 40 mg SUBCUT Q24H [facility] Last Admin: 08/29/22 12:28 Dose: 40 mg Documented By: CHAD Ibuprofen (Ibuprofen 400 Mg Tablet) 400 mg PO Q8H PRN PRN Reason: Pain, Moderate (Pain Scale 4-6 Multi-Ingred Cream/Lotion/Oil/Oint (Mineral Oil/Petrolatum,White 106 Gm Tube) 1 appl TOPICAL TID [facility]; Protocol Last Admin: 08/29/22 20:38 Dose: 1 appl Documented By: QUINTIN Ondansetron HCl (Ondansetron Hcl 4 Mg/2 Ml Vial) 4 mg IVPUSH Q8H PRN PRN Reason: Nausea and Vomiting Last Admin: 07/20/22 21:09 Dose: 4 mg Documented By: HE Oxycodone HCl (Oxycodone Hcl Immed Release 5 Mg Tablet) 5 mg PO Q12H PRN PRN Reason: Pain, Severe (Pain Scale 7-10) Last Admin: 08/29/22 20:43 Dose: 5 mg Documented By: QUINTIN Pharmacy Consult (Consult Rx Perform Med Rec) 1 each MISCELLANE ONCE PRN PRN Reason: Consult order Polyethylene Glycol (Polyethylene Glycol 3350 17 Gm Powd.Pack) 17 gm PO DAILY [facility] Last Admin: 08/30/22 09:33 Dose: Not Given Documented By: EDDIE Non-Admin Reason: Patient Refused Sodium Chloride (0.9 % Sodium Chloride Flush 3 Ml Syringe) 3 ml IVFLUSH QSHIFT [facility] Last Admin: 08/30/22 07:26 Dose: Not Given Documented By: MANOLO Non-Admin Reason: See Note Tamsulosin HCl (Tamsulosin Hcl 0.4 Mg Capsule) 0.4 mg PO DAILY [facility] Last Admin: 08/30/22 09:31 Dose: 0.4 mg Documented By: EDDIE Labs 08/06/22 08:05 08/06/22 08:05 Assessment and Plan (1) Bradycardia: Status: Acute (2) Polysubstance use disorder: Status: Acute (3) Urinary retention: Status: Acute Plan 36yo M with OUD, DM2 presented after overdose/LOC/unknown period of unresponsiveness perhaps as long as 48 hr, admitted for rhabdomyolysis and relative paralysis 1.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 Failed multiple voiding trials, cont. intermittent self catheterization 3.Bradycardia - Cardiology recommends no specific management for bradycardia; ischemia workup as an outpatient due to abnormal EKG. 4.OUD - -p.r.n. oxycodone 5.DM II -sugars normalized, hemoglobin A1c 5.7 no treatment needed 6. Bilateral foot edema with discomfort likely due to low albumin and sitting longer hours , edema resolved, continue leg elevation, analgesics, Ensure supplement and teds LMWH Full code In my clinical judgment, the patient requires continued inpatient hospitalization for the following reasons: safe disposition Time Spent With Patient Time: Total time managing care of this patient today ____ minutes. Quality Stroke Does the patient have a stroke diagnosis?: No VTE Prior VTE?: No VTE Risk Level:: Medical - moderate - high VTE Device Contraindication: Treatment Not Indicated VTE Drug Contraindication: N/A - Med Ordered
[2022-08-30 10:42] VITALS: BP 115/66; PULSE 51; O2SAT 97
[2022-08-30] MEDS: oxyCODONE HCl Immed Release 5 MG TABLET PO ×2 (10:43→20:05)
[2022-08-30] MEDS: Acetaminophen 325 MG TABLET 650 MG PO ×2 (10:43→19:46)
[2022-08-30] MEDS: Mineral Oil/Petrolatum,White 106 GM Tube 1 APPL TOPICAL ×3 (10:44→19:47)
--- NOTE | 2022-08-30 12:02 | MHC.CM.PN ---
EMR REVIEWED, CM HAS NOT BEEN ABLE TO PLACE PT IN STR/ACUTE REHAB PRIMARILY D/T RECENT SA AND OD PRIOR TO ADMISSION, PT REPORT THEY WILL START WORKIN ON STAIRS W/PT FOR RETURN HOME. THIS CM DID ATTEMPT TO CONTACT PT'S SISTER MARK AT 11:57AM AT [phone], NO ANSWER AND DETAILED MESSAGE LEFT W/CM CONTACT INFO. CM WILL CONT TO FOLLOW.
[2022-08-30] MEDS: Enoxaparin Sodium 40 MG/0.4 ML SYRINGE SUBCUT (12:27)
--- NOTE | 2022-08-30 14:00 | MHC.CM.PN ---
CM RECEIVED A CALL BACK FROM PT'S SITER RALF FLORES DISCUSSED, MARK REPORTS SHE HAS JUST RETURNED FROM WORK AFTER A 6WK FMLA AND IS UNABLE TO COME UP TO STAY W/PT AND IS PROBABLY THE FAMILY MEMBER WHO WOULD BE ABLE TO DO THAT, MARK DID CONFIRM PT COULD RETURN HOME AND CM ASKED IF THERE WAS A FAMILY MEMBER WHO COULD COME AND TRAVEL BACK W/PT, MARK REPORTS SHE WILL SPEAK W/FAMILY MEMBERS [place] TO SEE IF THEY'RE IS ARE OTHER OPTIONS AND CALL CM BACK TOMORROW 08/31. CM ALSO MET WITH PT WHO REPORTS HE WOULD LIKE TO RETURN HOME W/FAMILY AND CM WILL FOLLOW UP W/PT AFTER SPEAKING MARK. CM DISCUSSED W/PT WHO ESTIMATE PT WOULD BE READY IN ABOUT 7-10 DAYS, ALTHOUGH COULD BE SOONER, CM WILL CONT TO FOLLOW D/C NEEDS.
[2022-08-30 15:06] VITALS: BP 103/56; PULSE 64; RESP 18; TEMP 37.2; O2SAT 96
[2022-08-30 19:31] VITALS: BP 119/61; PULSE 54; RESP 18; TEMP 36.8; O2SAT 95
[2022-08-30] MEDS: 0.9 % Sodium Chloride Flush 3 ML SYRINGE IVFLUSH (19:48)
[2022-08-31 03:54] VITALS: BP 110/66; PULSE 69; RESP 17; TEMP 36.6; O2SAT 96
[2022-08-31 07:40] VITALS: BP 106/63; PULSE 51; RESP 18; TEMP 36.8; O2SAT 98
[2022-08-31] MEDS: Mineral Oil/Petrolatum,White 106 GM Tube 1 APPL TOPICAL ×2 (08:31→19:48)
[2022-08-31] MEDS: oxyCODONE HCl Immed Release 5 MG TABLET PO ×2 (08:32→19:51)
[2022-08-31] MEDS: Tamsulosin HCL 0.4 MG CAPSULE PO (08:32)
[2022-08-31] MEDS: Acetaminophen 325 MG TABLET 650 MG PO (08:32)
--- NOTE | 2022-08-31 09:58 | HO.PM.IMPN ---
Subjective Subjective Date of Service: 08/31/22 Interval History: Complaining of persistent bilateral lower extremity edema, with mild discomfort participating with physical therapy now working on stairs with attempt to transition to home with home PT, no other acute complaints overnight tolerating diet with no nausea no vomiting no abdominal pain no bowel or bladder issues continue to use straight cath. Review of Systems Review of Systems: Yes all other systems are reviewed and are negative Physical Exam Vital Signs: Vital Signs: Last Vital Signs Temp 98.3 F 08/31/22 07:40 Pulse 51 08/31/22 07:40 Resp 18 08/31/22 07:40 BP 106/63 08/31/22 07:40 Pulse Ox 98 08/31/22 07:40 O2 Del Method 08/31/22 07:40 O2 Flow Rate 2 07/21/22 04:09 BMI result Body Mass Index 27.2 Const: Other: Gen: in no acute distress HEENT: sclera anicteric, moist mucus membranes Neck: supple Lungs: clear to auscultation bilaterally Heart: regular rate and rhythm, no murmurs Abd: soft, non-tender, non-distended Ext:? Bilateral edema improving Skin: warm/well-perfused Neuro: alert and oriented x3, bilateral lower extremities with 4/5 strength throughout Psych: appropriate affect. Objective Data Active Medications Acetaminophen (Acetaminophen 325 Mg Tablet) 650 mg PO Q6H PRN PRN Reason: Pain, Mild (Pain Scale 1-3) Last Admin: 08/31/22 08:32 Dose: 650 mg Documented By: JASMINSOFFA Docusate Sodium (Docusate Sodium 100 Mg Capsule) 100 mg PO DAILY PRN PRN Reason: Constipation Last Admin: 08/29/22 09:20 Dose: 100 mg Documented By: JASMINRIVLA Enoxaparin Sodium (Enoxaparin Sodium 40 Mg/0.4 Ml Syringe) 40 mg SUBCUT Q24H [facility] Last Admin: 08/30/22 12:27 Dose: 40 mg Documented By: ANNALISERACMAURISIO Ibuprofen (Ibuprofen 400 Mg Tablet) 400 mg PO Q8H PRN PRN Reason: Pain, Moderate (Pain Scale 4-6 Multi-Ingred Cream/Lotion/Oil/Oint (Mineral Oil/Petrolatum,White 106 Gm Tube) 1 appl TOPICAL TID [facility]; Protocol Last Admin: 08/31/22 08:31 Dose: 1 appl Documented By: MANOLO Ondansetron HCl (Ondansetron Hcl 4 Mg/2 Ml Vial) 4 mg IVPUSH Q8H PRN PRN Reason: Nausea and Vomiting Last Admin: 07/20/22 21:09 Dose: 4 mg Documented By: HE Oxycodone HCl (Oxycodone Hcl Immed Release 5 Mg Tablet) 5 mg PO Q12H PRN PRN Reason: Pain, Severe (Pain Scale 7-10) Last Admin: 08/31/22 08:32 Dose: 5 mg Documented By: MANOLO Pharmacy Consult (Consult Rx Perform Med Rec) 1 each MISCELLANE ONCE PRN PRN Reason: Consult order Polyethylene Glycol (Polyethylene Glycol 3350 17 Gm Powd.Pack) 17 gm PO DAILY [facility] Last Admin: 08/31/22 08:27 Dose: Not Given Documented By: MANOLO Non-Admin Reason: Patient Refused Sodium Chloride (0.9 % Sodium Chloride Flush 3 Ml Syringe) 3 ml IVFLUSH QSHIFT [facility] Last Admin: 08/31/22 07:17 Dose: Not Given Documented By: MANOLO Non-Admin Reason: See Note Tamsulosin HCl (Tamsulosin Hcl 0.4 Mg Capsule) 0.4 mg PO DAILY [facility] Last Admin: 08/31/22 08:32 Dose: 0.4 mg Documented By: MANOLO Labs 08/06/22 08:05 08/06/22 08:05 Assessment and Plan (1) Bradycardia: Status: Acute (2) Polysubstance use disorder: Status: Acute (3) Urinary retention: Status: Acute Plan 36yo M with OUD, DM2 presented after overdose/LOC/unknown period of unresponsiveness perhaps as long as 48 hr, admitted for rhabdomyolysis and relative paralysis 1.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 Failed multiple voiding trials, cont. intermittent self catheterization 3.Bradycardia - Cardiology recommends no specific management for bradycardia; ischemia workup as an outpatient due to abnormal EKG. 4.OUD - -p.r.n. oxycodone 5.DM II -sugars normalized, hemoglobin A1c 5.7 no treatment needed 6. Bilateral foot edema with discomfort likely due to low albumin and sitting longer hours , edema improving very, continue leg elevation, analgesics, Ensure supplement and teds LMWH Full code In my clinical judgment, the patient requires continued inpatient hospitalization for the following reasons: safe disposition Time Spent With Patient Time: Total time managing care of this patient today ____ minutes. Quality Stroke Does the patient have a stroke diagnosis?: No VTE Prior VTE?: No VTE Risk Level:: Medical - moderate - high VTE Device Contraindication: Treatment Not Indicated VTE Drug Contraindication: N/A - Med Ordered
[2022-08-31 11:08] VITALS: BP 106/63; PULSE 51; O2SAT 98
[2022-08-31] MEDS: Enoxaparin Sodium 40 MG/0.4 ML SYRINGE SUBCUT (11:46)
[2022-08-31 15:22] VITALS: BP 127/66; PULSE 59; RESP 18; TEMP 36.3; O2SAT 94
[2022-08-31] MEDS: Ibuprofen 400 MG TABLET PO (15:33)
[2022-08-31 19:28] VITALS: BP 121/64; PULSE 87; RESP 18; TEMP 36.9; O2SAT 95
[2022-09-01 04:00] VITALS: BP 116/64; PULSE 51; RESP 18; TEMP 36.9; O2SAT 96
--- NOTE | 2022-09-01 07:07 | HO.PM.IMPN ---
Subjective Subjective Date of Service: 09/01/22 Interval History: No acute complaints persistent bilateral leg edema and discomfort, participating with physical therapy, tolerating diet, no nausea, no vomiting, no abdominal pain, no chest pain, no palpitations, no lightheadedness, or dizziness. Review of Systems Review of Systems: Yes all other systems are reviewed and are negative Physical Exam Vital Signs: Vital Signs: Last Vital Signs Temp 98.5 F 09/01/22 04:00 Pulse 51 09/01/22 04:00 Resp 18 09/01/22 04:00 BP 116/64 09/01/22 04:00 Pulse Ox 96 09/01/22 04:00 O2 Del Method 09/01/22 04:00 O2 Flow Rate 2 07/21/22 04:09 BMI result Body Mass Index 27.2 Const: Other: Gen: in no acute distress HEENT: sclera anicteric, moist mucus membranes Neck: supple Lungs: clear to auscultation bilaterally Heart: regular rate and rhythm, no murmurs Abd: soft, non-tender, non-distended Ext:? Bilateral edema improving Skin: warm/well-perfused Neuro: alert and oriented x3, bilateral lower extremities with 4/5 strength throughout Psych: appropriate affect. Objective Data Active Medications Acetaminophen (Acetaminophen 325 Mg Tablet) 650 mg PO Q6H PRN PRN Reason: Pain, Mild (Pain Scale 1-3) Last Admin: 08/31/22 08:32 Dose: 650 mg Documented By: KOLE-JERRY Docusate Sodium (Docusate Sodium 100 Mg Capsule) 100 mg PO DAILY PRN PRN Reason: Constipation Last Admin: 08/29/22 09:20 Dose: 100 mg Documented By: CHAD Enoxaparin Sodium (Enoxaparin Sodium 40 Mg/0.4 Ml Syringe) 40 mg SUBCUT Q24H COUNT INCLUDES [facility] Last Admin: 08/31/22 11:46 Dose: 40 mg Documented By: MANOLO Ibuprofen (Ibuprofen 400 Mg Tablet) 400 mg PO Q8H PRN PRN Reason: Pain, Moderate (Pain Scale 4-6 Last Admin: 08/31/22 15:33 Dose: 400 mg Documented By: KOLE-JERRY Multi-Ingred Cream/Lotion/Oil/Oint (Mineral Oil/Petrolatum,White 106 Gm Tube) 1 appl TOPICAL TID COUNT INCLUDES [facility]; Protocol Last Admin: 08/31/22 19:48 Dose: 1 appl Documented By: QUINTIN Ondansetron HCl (Ondansetron Hcl 4 Mg/2 Ml Vial) 4 mg IVPUSH Q8H PRN PRN Reason: Nausea and Vomiting Last Admin: 07/20/22 21:09 Dose: 4 mg Documented By: HE Oxycodone HCl (Oxycodone Hcl Immed Release 5 Mg Tablet) 5 mg PO Q12H PRN PRN Reason: Pain, Severe (Pain Scale 7-10) Last Admin: 08/31/22 19:51 Dose: 5 mg Documented By: QUINTIN Pharmacy Consult (Consult Rx Perform Med Rec) 1 each MISCELLANE ONCE PRN PRN Reason: Consult order Polyethylene Glycol (Polyethylene Glycol 3350 17 Gm Powd.Pack) 17 gm PO DAILY [facility]CLUDES [facility] Last Admin: 08/31/22 08:27 Dose: Not Given Documented By: MANOLO Non-Admin Reason: Patient Refused Sodium Chloride (0.9 % Sodium Chloride Flush 3 Ml Syringe) 3 ml IVFLUSH QSHIFT COUNT [facility]CLUDES [facility] Last Admin: 08/31/22 19:49 Dose: Not Given Documented By: QUINTIN Non-Admin Reason: No Access Tamsulosin HCl (Tamsulosin Hcl 0.4 Mg Capsule) 0.4 mg PO DAILY COUNT [facility]CLUDES [facility] Last Admin: 08/31/22 08:32 Dose: 0.4 mg Documented By: MANOLO Labs 08/06/22 08:05 08/06/22 08:05 Assessment and Plan (1) Bradycardia: Status: Acute (2) Polysubstance use disorder: Status: Acute (3) Urinary retention: Status: Acute Plan 36yo M with OUD, DM2 presented after overdose/LOC/unknown period of unresponsiveness perhaps as long as 48 hr, admitted for rhabdomyolysis and relative paralysis 1.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 Failed multiple voiding trials, cont. intermittent self catheterization 3.Bradycardia - Cardiology recommends no specific management for bradycardia; ischemia workup as an outpatient due to abnormal EKG. 4.OUD - -p.r.n. oxycodone 5.DM II -sugars normalized, hemoglobin A1c 5.7 no treatment needed 6. Bilateral foot edema with discomfort likely due to low albumin and sitting longer hours , edema improving , continue leg elevation, analgesics, Ensure supplement and teds, will DC oxycodone LMWH Full code In my clinical judgment, the patient requires continued inpatient hospitalization for the following reasons: safe disposition Time Spent With Patient Time: Total time managing care of this patient today ____ minutes. Quality Stroke Does the patient have a stroke diagnosis?: No VTE Prior VTE?: No VTE Risk Level:: Medical - moderate - high VTE Device Contraindication: Treatment Not Indicated VTE Drug Contraindication: N/A - Med Ordered
[2022-09-01 07:46] VITALS: BP 100/62; PULSE 50; RESP 18; TEMP 36.8; O2SAT 97
[2022-09-01] MEDS: polyethylene glycoL 3350 17 GM POWD.PACK PO (08:57)
[2022-09-01] MEDS: Mineral Oil/Petrolatum,White 106 GM Tube 1 APPL TOPICAL ×3 (08:57→20:31)
[2022-09-01] MEDS: Tamsulosin HCL 0.4 MG CAPSULE PO (08:57)
[2022-09-01 10:56] VITALS: BP 100/62; PULSE 50; O2SAT 97
[2022-09-01] MEDS: Enoxaparin Sodium 40 MG/0.4 ML SYRINGE SUBCUT (12:51)
[2022-09-01] MEDS: Ibuprofen 400 MG TABLET PO (12:55)
[2022-09-01 15:08] VITALS: BP 120/65; PULSE 56; RESP 18; TEMP 36.5; O2SAT 96
[2022-09-01 19:23] VITALS: BP 129/80; PULSE 51; RESP 18; TEMP 36.9; O2SAT 96
[2022-09-02 03:41] VITALS: BP 116/72; PULSE 55; RESP 18; TEMP 36.2; O2SAT 98
[2022-09-02 08:00] VITALS: BP 121/78; PULSE 51; RESP 18; TEMP 36.7; O2SAT 96
[2022-09-02] MEDS: Mineral Oil/Petrolatum,White 106 GM Tube 1 APPL TOPICAL ×3 (09:57→19:38)
[2022-09-02] MEDS: Tamsulosin HCL 0.4 MG CAPSULE PO (09:57)
--- NOTE | 2022-09-02 10:08 | HO.PM.IMPN ---
Subjective Subjective Date of Service: 09/02/22 Interval History: leg swelling + discomfort, persistent strength gradually improving Review of Systems Review of Systems: Yes all other systems are reviewed and are negative Physical Exam Vital Signs: Vital Signs: Last Vital Signs Temp 98.1 F 09/02/22 08:00 Pulse 51 09/02/22 08:00 Resp 18 09/02/22 08:00 BP 121/78 09/02/22 08:00 Pulse Ox 96 09/02/22 08:00 O2 Del Method 09/02/22 08:00 O2 Flow Rate 2 07/21/22 04:09 BMI result Body Mass Index 27.2 Const: Other: Gen: in no acute distress HEENT: sclera anicteric, moist mucus membranes Neck: supple Lungs: clear to auscultation bilaterally Heart: regular rate and rhythm, no murmurs Abd: soft, non-tender, non-distended Ext:? Bilateral edema improving Skin: warm/well-perfused Neuro: alert and oriented x3, bilateral lower extremities with 4/5 strength throughout Psych: appropriate affect.? Objective Data Active Medications Acetaminophen (Acetaminophen 325 Mg Tablet) 650 mg PO Q6H PRN PRN Reason: Pain, Mild (Pain Scale 1-3) Last Admin: 08/31/22 08:32 Dose: 650 mg Documented By: JASMINSOFFA Docusate Sodium (Docusate Sodium 100 Mg Capsule) 100 mg PO DAILY PRN PRN Reason: Constipation Last Admin: 08/29/22 09:20 Dose: 100 mg Documented By: JASMINRIVJG Enoxaparin Sodium (Enoxaparin Sodium 40 Mg/0.4 Ml Syringe) 40 mg SUBCUT Q24H [facility] Last Admin: 09/01/22 12:51 Dose: 40 mg Documented By: BONNY Ibuprofen (Ibuprofen 400 Mg Tablet) 400 mg PO Q8H PRN PRN Reason: Pain, Moderate (Pain Scale 4-6 Last Admin: 09/01/22 12:55 Dose: 400 mg Documented By: BONNY Multi-Ingred Cream/Lotion/Oil/Oint (Mineral Oil/Petrolatum,White 106 Gm Tube) 1 appl TOPICAL TID [facility]; Protocol Last Admin: 09/02/22 09:57 Dose: 1 appl Documented By: FLORIDALMA Ondansetron HCl (Ondansetron Hcl 4 Mg/2 Ml Vial) 4 mg IVPUSH Q8H PRN PRN Reason: Nausea and Vomiting Last Admin: 07/20/22 21:09 Dose: 4 mg Documented By: HE Pharmacy Consult (Consult Rx Perform Med Rec) 1 each MISCELLANE ONCE PRN PRN Reason: Consult order Polyethylene Glycol (Polyethylene Glycol 3350 17 Gm Powd.Pack) 17 gm PO DAILY [facility] Last Admin: 09/02/22 09:57 Dose: Not Given Documented By: FLORIDALMA Non-Admin Reason: patient refused; having BMs Sodium Chloride (0.9 % Sodium Chloride Flush 3 Ml Syringe) 3 ml IVFLUSH QSHIFT [facility] Last Admin: 09/02/22 09:58 Dose: Not Given Documented By: FLORIDALMA Non-Admin Reason: No Access Tamsulosin HCl (Tamsulosin Hcl 0.4 Mg Capsule) 0.4 mg PO DAILY [facility] Last Admin: 09/02/22 09:57 Dose: 0.4 mg Documented By: FLORIDALMA Labs 08/06/22 08:05 08/06/22 08:05 Assessment and Plan (1) Bradycardia: Status: Acute (2) Polysubstance use disorder: Status: Acute (3) Urinary retention: Status: Acute Plan hospital d#45 36yo M with OUD, DM2 presented after overdose/LOC/unknown period of unresponsiveness perhaps as long as 48 hr, admitted for rhabdomyolysis and relative paralysis 1.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 Failed multiple voiding trials, cont. intermittent self catheterization 3.Bradycardia - Cardiology recommends no specific management for bradycardia; ischemia workup as an outpatient due to abnormal EKG. 4.OUD - -p.r.n. oxycodone 5.DM II -sugars normalized, hemoglobin A1c 5.7 no treatment needed 6. Bilateral foot edema with discomfort likely due to low albumin and sitting longer hours , edema improving , continue leg elevation, analgesics, Ensure supplement and teds, will DC oxycodone LMWH Full code In my clinical judgment, the patient requires continued inpatient hospitalization for the following reasons: safe disposition Time Spent With Patient Time: Total time managing care of this patient today __25__ minutes. Quality Stroke Does the patient have a stroke diagnosis?: No VTE Prior VTE?: No VTE Risk Level:: Medical - moderate - high VTE Device Contraindication: Treatment Not Indicated VTE Drug Contraindication: N/A - Med Ordered
[2022-09-02] MEDS: Enoxaparin Sodium 40 MG/0.4 ML SYRINGE SUBCUT (12:56)
[2022-09-02 16:00] VITALS: BP 124/71; PULSE 55; RESP 14; TEMP 36.7; O2SAT 96
[2022-09-02 19:27] VITALS: BP 133/79; PULSE 52; RESP 16; TEMP 36.8; O2SAT 95
[2022-09-03 03:33] VITALS: BP 110/66; PULSE 51; RESP 16; TEMP 36.8; O2SAT 97
[2022-09-03 08:00] VITALS: BP 109/65; PULSE 51; RESP 18; TEMP 37.1; O2SAT 96
[2022-09-03] MEDS: Tamsulosin HCL 0.4 MG CAPSULE PO (09:57)
[2022-09-03] MEDS: Mineral Oil/Petrolatum,White 106 GM Tube 1 APPL TOPICAL ×3 (09:57→19:49)
--- NOTE | 2022-09-03 10:37 | HO.PM.IMPN ---
Subjective Subjective Date of Service: 09/03/22 Interval History: Persistent leg swelling and discomfort, no other acute issues overnight. Review of Systems Review of Systems: Yes all other systems are reviewed and are negative Physical Exam Vital Signs: Vital Signs: Last Vital Signs Temp 98.7 F 09/03/22 08:00 Pulse 51 09/03/22 08:00 Resp 18 09/03/22 08:00 BP 109/65 09/03/22 08:00 Pulse Ox 96 09/03/22 08:00 O2 Del Method 09/03/22 08:00 O2 Flow Rate 2 07/21/22 04:09 BMI result Body Mass Index 27.2 Const: Other: Gen: in no acute distress HEENT: sclera anicteric, moist mucus membranes Neck: supple Lungs: clear to auscultation bilaterally Heart: regular rate and rhythm, no murmurs Abd: soft, non-tender, non-distended Ext:? Bilateral edema improving Skin: warm/well-perfused Neuro: alert and oriented x3, bilateral lower extremities with 4/5 strength throughout Psych: appropriate affect.? Objective Data Active Medications Acetaminophen (Acetaminophen 325 Mg Tablet) 650 mg PO Q6H PRN PRN Reason: Pain, Mild (Pain Scale 1-3) Last Admin: 08/31/22 08:32 Dose: 650 mg Documented By: MANOLO Docusate Sodium (Docusate Sodium 100 Mg Capsule) 100 mg PO DAILY PRN PRN Reason: Constipation Last Admin: 08/29/22 09:20 Dose: 100 mg Documented By: CHAD Enoxaparin Sodium (Enoxaparin Sodium 40 Mg/0.4 Ml Syringe) 40 mg SUBCUT Q24H [facility] Last Admin: 09/02/22 12:56 Dose: 40 mg Documented By: FLORIDALMA Ibuprofen (Ibuprofen 400 Mg Tablet) 400 mg PO Q8H PRN PRN Reason: Pain, Moderate (Pain Scale 4-6 Last Admin: 09/01/22 12:55 Dose: 400 mg Documented By: BONNY Multi-Ingred Cream/Lotion/Oil/Oint (Mineral Oil/Petrolatum,White 106 Gm Tube) 1 appl TOPICAL TID [facility]; Protocol Last Admin: 09/03/22 09:57 Dose: 1 appl Documented By: FLORIDALMA Ondansetron HCl (Ondansetron Hcl 4 Mg/2 Ml Vial) 4 mg IVPUSH Q8H PRN PRN Reason: Nausea and Vomiting Last Admin: 07/20/22 21:09 Dose: 4 mg Documented By: HE Pharmacy Consult (Consult Rx Perform Med Rec) 1 each MISCELLANE ONCE PRN PRN Reason: Consult order Polyethylene Glycol (Polyethylene Glycol 3350 17 Gm Powd.Pack) 17 gm PO DAILY [facility] Last Admin: 09/03/22 09:57 Dose: Not Given Documented By: FLORIDALMA Non-Admin Reason: Patient Refused Sodium Chloride (0.9 % Sodium Chloride Flush 3 Ml Syringe) 3 ml IVFLUSH QSHIFT [facility] Last Admin: 09/03/22 09:57 Dose: Not Given Documented By: FLORIDALMA Non-Admin Reason: No Access Tamsulosin HCl (Tamsulosin Hcl 0.4 Mg Capsule) 0.4 mg PO DAILY [facility] Last Admin: 09/03/22 09:57 Dose: 0.4 mg Documented By: FLORIDALMA Labs 08/06/22 08:05 08/06/22 08:05 Assessment and Plan (1) Bradycardia: Status: Acute (2) Polysubstance use disorder: Status: Acute (3) Urinary retention: Status: Acute Plan hospital d#45 36yo M with OUD, DM2 presented after overdose/LOC/unknown period of unresponsiveness perhaps as long as 48 hr, admitted for rhabdomyolysis and relative paralysis 1.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 Failed multiple voiding trials, cont. intermittent self catheterization 3.Bradycardia - Cardiology recommends no specific management for bradycardia; ischemia workup as an outpatient due to abnormal EKG. 4.OUD - stable 5.DM II -sugars normalized, hemoglobin A1c 5.7 no treatment needed 6. Bilateral foot edema with discomfort likely due to low albumin and sitting longer hours , edema improving , continue leg elevation, analgesics, Ensure supplement and teds, will DC oxycodone LMWH Full code In my clinical judgment, the patient requires continued inpatient hospitalization for the following reasons: safe disposition Time Spent With Patient Time: Total time managing care of this patient today ____ minutes. Quality Stroke Does the patient have a stroke diagnosis?: No VTE Prior VTE?: No VTE Risk Level:: Medical - moderate - high VTE Device Contraindication: Treatment Not Indicated VTE Drug Contraindication: N/A - Med Ordered
[2022-09-03] MEDS: Enoxaparin Sodium 40 MG/0.4 ML SYRINGE SUBCUT (14:33)
[2022-09-03 16:00] VITALS: BP 118/70; PULSE 51; RESP 16; TEMP 36.6; O2SAT 96
[2022-09-03 20:00] VITALS: BP 120/68; PULSE 52; RESP 16; TEMP 36.9; O2SAT 95
[2022-09-04 03:50] VITALS: BP 143/87; PULSE 50; RESP 16; TEMP 36.7; O2SAT 98
[2022-09-04 07:02] VITALS: BP 108/62; PULSE 52; RESP 16; TEMP 35.5; O2SAT 96
[2022-09-04] MEDS: Tamsulosin HCL 0.4 MG CAPSULE PO (10:22)
[2022-09-04] MEDS: Mineral Oil/Petrolatum,White 106 GM Tube 1 APPL TOPICAL ×3 (10:23→19:51)
--- NOTE | 2022-09-04 11:34 | P.PNIM_ITS ---
Subjective Subjective Date of Service: 09/04/22 Interval History: No acute events overnight, persistent bilateral lower extremity edema wearing Michael stockings, no fevers, no chills,tolerating diet, ambulating with walker. Review of Systems Review of Systems: Yes all other systems are reviewed and are negative Physical Exam Vital Signs: Vital Signs: Last Vital Signs Temp 96 F L 09/04/22 07:02 Pulse 52 09/04/22 07:02 Resp 16 09/04/22 07:02 BP 108/62 09/04/22 07:02 Pulse Ox 96 09/04/22 07:02 O2 Del Method 09/04/22 07:02 O2 Flow Rate 2 07/21/22 04:09 BMI result Body Mass Index 27.2 Const: Other: Gen: in no acute distress HEENT: sclera anicteric, moist mucus membranes Neck: supple Lungs: clear to auscultation bilaterally Heart: regular rate and rhythm, no murmurs Abd: soft, non-tender, non-distended Ext:? Bilateral edema improving Skin: warm/well-perfused Neuro: alert and oriented x3, bilateral lower extremities with 4/5 strength throughout Psych: appropriate affect.? Objective Data Active Medications Acetaminophen (Acetaminophen 325 Mg Tablet) 650 mg PO Q6H PRN PRN Reason: Pain, Mild (Pain Scale 1-3) Last Admin: 08/31/22 08:32 Dose: 650 mg Documented By: JASMINSOFFA Docusate Sodium (Docusate Sodium 100 Mg Capsule) 100 mg PO DAILY PRN PRN Reason: Constipation Last Admin: 08/29/22 09:20 Dose: 100 mg Documented By: JASMINRIVJG Enoxaparin Sodium (Enoxaparin Sodium 40 Mg/0.4 Ml Syringe) 40 mg SUBCUT Q24H [facility] Last Admin: 09/03/22 14:33 Dose: 40 mg Documented By: FLORIDALMA Ibuprofen (Ibuprofen 400 Mg Tablet) 400 mg PO Q8H PRN PRN Reason: Pain, Moderate (Pain Scale 4-6 Last Admin: 09/01/22 12:55 Dose: 400 mg Documented By: BONNY Multi-Ingred Cream/Lotion/Oil/Oint (Mineral Oil/Petrolatum,White 106 Gm Tube) 1 appl TOPICAL TID [facility]; Protocol Last Admin: 09/04/22 10:23 Dose: 1 appl Documented By: FLORIDALMA Ondansetron HCl (Ondansetron Hcl 4 Mg/2 Ml Vial) 4 mg IVPUSH Q8H PRN PRN Reason: Nausea and Vomiting Last Admin: 07/20/22 21:09 Dose: 4 mg Documented By: HE Pharmacy Consult (Consult Rx Perform Med Rec) 1 each MISCELLANE ONCE PRN PRN Reason: Consult order Polyethylene Glycol (Polyethylene Glycol 3350 17 Gm Powd.Pack) 17 gm PO DAILY [facility] Last Admin: 09/04/22 10:22 Dose: Not Given Documented By: FLORIDALMA Non-Admin Reason: Patient Refused Sodium Chloride (0.9 % Sodium Chloride Flush 3 Ml Syringe) 3 ml IVFLUSH QSHIFT [facility] Last Admin: 09/04/22 10:18 Dose: Not Given Documented By: FLORIDALMA Non-Admin Reason: No Access Tamsulosin HCl (Tamsulosin Hcl 0.4 Mg Capsule) 0.4 mg PO DAILY [facility] Last Admin: 09/04/22 10:22 Dose: 0.4 mg Documented By: FLORIDALMA Labs 08/06/22 08:05 08/06/22 08:05 Assessment and Plan (1) Bradycardia: Status: Acute (2) Polysubstance use disorder: Status: Acute (3) Urinary retention: Status: Acute Plan hospital d#45 36yo M with OUD, DM2 presented after overdose/LOC/unknown period of unresponsiveness perhaps as long as 48 hr, admitted for rhabdomyolysis and relative paralysis 1.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 Failed multiple voiding trials, cont. intermittent self catheterization 3.Bradycardia - Cardiology recommends no specific management for bradycardia; ischemia workup as an outpatient due to abnormal EKG. 4.OUD - stable 5.DM II -sugars normalized, hemoglobin A1c 5.7 no treatment needed 6. Bilateral foot edema with discomfort likely due to low albumin and sitting longer hours , edema improving , continue leg elevation, analgesics, Ensure supplement and teds, will DC oxycodone LMWH Full code In my clinical judgment, the patient requires continued inpatient hospitalization for the following reasons: safe disposition Time Spent With Patient Time: Total time managing care of this patient today ____ minutes. Quality Stroke Does the patient have a stroke diagnosis?: No VTE Prior VTE?: No VTE Risk Level:: Medical - moderate - high VTE Device Contraindication: Treatment Not Indicated VTE Drug Contraindication: N/A - Med Ordered
[2022-09-04] MEDS: Enoxaparin Sodium 40 MG/0.4 ML SYRINGE SUBCUT (12:16)
[2022-09-04 15:38] VITALS: BP 112/67; PULSE 61; RESP 20; TEMP 36.3; O2SAT 97
[2022-09-04 19:32] VITALS: BP 121/71; PULSE 50; RESP 20; TEMP 36.6; O2SAT 96
[2022-09-04] MEDS: 0.9 % Sodium Chloride Flush 3 ML SYRINGE IVFLUSH (19:51)
[2022-09-05 03:29] VITALS: BP 101/56; PULSE 50; RESP 18; TEMP 36.5; O2SAT 97
[2022-09-05 07:02] VITALS: BP 109/61; PULSE 48; RESP 16; TEMP 36.1; O2SAT 98
[2022-09-05] MEDS: Tamsulosin HCL 0.4 MG CAPSULE PO (07:08)
[2022-09-05] MEDS: Mineral Oil/Petrolatum,White 106 GM Tube 1 APPL TOPICAL ×3 (07:08→20:23)
[2022-09-05] MEDS: polyethylene glycoL 3350 17 GM POWD.PACK PO (07:08)
[2022-09-05 09:38] VITALS: BP 109/61; PULSE 48; O2SAT 98
--- NOTE | 2022-09-05 10:43 | HO.PM.IMPN ---
Subjective Subjective Date of Service: 09/05/22 Interval History: Doing better less leg swelling and discomfort, working on stairs with physical therapy, denies bowel/bladder issues, no nausea, no vomiting, no acute events overnight. Review of Systems Review of Systems: Yes all other systems are reviewed and are negative Physical Exam Vital Signs: Vital Signs: Last Vital Signs Temp 97 F 09/05/22 07:02 Pulse 48 L 09/05/22 09:38 Resp 16 09/05/22 07:02 BP 109/61 09/05/22 09:38 Pulse Ox 98 09/05/22 09:38 O2 Del Method 09/05/22 07:02 O2 Flow Rate 2 07/21/22 04:09 BMI result Body Mass Index 27.2 Const: Other: Gen: in no acute distress HEENT: sclera anicteric, moist mucus membranes Neck: supple Lungs: clear to auscultation bilaterally Heart: regular rate and rhythm, no murmurs Abd: soft, non-tender, non-distended Ext:? Bilateral edema improving Skin: warm/well-perfused Neuro: alert and oriented x3, bilateral lower extremities with 4/5 strength throughout Psych: appropriate affect.? Objective Data Active Medications Acetaminophen (Acetaminophen 325 Mg Tablet) 650 mg PO Q6H PRN PRN Reason: Pain, Mild (Pain Scale 1-3) Last Admin: 08/31/22 08:32 Dose: 650 mg Documented By: JASMINSOFFA Docusate Sodium (Docusate Sodium 100 Mg Capsule) 100 mg PO DAILY PRN PRN Reason: Constipation Last Admin: 08/29/22 09:20 Dose: 100 mg Documented By: CHAD Enoxaparin Sodium (Enoxaparin Sodium 40 Mg/0.4 Ml Syringe) 40 mg SUBCUT Q24H [facility] Last Admin: 09/04/22 12:16 Dose: 40 mg Documented By: FLORIDALMA Ibuprofen (Ibuprofen 400 Mg Tablet) 400 mg PO Q8H PRN PRN Reason: Pain, Moderate (Pain Scale 4-6 Last Admin: 09/01/22 12:55 Dose: 400 mg Documented By: BONNY Multi-Ingred Cream/Lotion/Oil/Oint (Mineral Oil/Petrolatum,White 106 Gm Tube) 1 appl TOPICAL TID [facility]; Protocol Last Admin: 09/05/22 07:08 Dose: 1 appl Documented By: ALEE Ondansetron HCl (Ondansetron Hcl 4 Mg/2 Ml Vial) 4 mg IVPUSH Q8H PRN PRN Reason: Nausea and Vomiting Last Admin: 07/20/22 21:09 Dose: 4 mg Documented By: HE Pharmacy Consult (Consult Rx Perform Med Rec) 1 each MISCELLANE ONCE PRN PRN Reason: Consult order Polyethylene Glycol (Polyethylene Glycol 3350 17 Gm Powd.Pack) 17 gm PO DAILY [facility] Last Admin: 09/05/22 07:08 Dose: 17 gm Documented By: ALEE Sodium Chloride (0.9 % Sodium Chloride Flush 3 Ml Syringe) 3 ml IVFLUSH QSHIFT [facility] Last Admin: 09/05/22 08:29 Dose: Not Given Documented By: RIANNA Non-Admin Reason: No Access Tamsulosin HCl (Tamsulosin Hcl 0.4 Mg Capsule) 0.4 mg PO DAILY [facility] Last Admin: 09/05/22 07:08 Dose: 0.4 mg Documented By: ALEE Labs 08/06/22 08:05 08/06/22 08:05 Assessment and Plan (1) Bradycardia: Status: Acute (2) Polysubstance use disorder: Status: Acute (3) Urinary retention: Status: Acute Plan hospital d#45 36yo M with OUD, DM2 presented after overdose/LOC/unknown period of unresponsiveness perhaps as long as 48 hr, admitted for rhabdomyolysis and relative paralysis 1.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 Failed multiple voiding trials, cont. intermittent self catheterization 3.Bradycardia - Cardiology recommends no specific management for bradycardia; ischemia workup as an outpatient due to abnormal EKG. 4.OUD - stable 5.DM II -sugars normalized, hemoglobin A1c 5.7 no treatment needed 6. Bilateral foot edema with discomfort likely due to low albumin and sitting longer hours , edema improving , continue leg elevation, analgesics, Ensure supplement and teds, will DC oxycodone LMWH Full code In my clinical judgment, patient requires continued inpatient hospitalization for the following reasons: safe disposition Time Spent With Patient Time: Total time managing care of this patient today ____ minutes. Quality Stroke Does the patient have a stroke diagnosis?: No VTE Prior VTE?: No VTE Risk Level:: Medical - moderate - high VTE Device Contraindication: Treatment Not Indicated VTE Drug Contraindication: N/A - Med Ordered
--- NOTE | 2022-09-05 11:07 | MHC.CM.PN ---
EMR REVIEWED, PER PHYSICAL THERAPY PT SHOULD BE ABLE TO RETURN HOME BY SUNDAY, PT WILL NEED TO BE SEEN BY [facility] PRIOR TO D/C THIS TIME. PER PT'S SISTER MARK, ALTHOUGH PT HAS TOLD CM THAT HE WOULD LIKE TO RETURN HOME TO [facility] W/FAMILY WHEN MARK CALLED PT HE HAD DECLINED TO RETURN HOME. ANTIC D/C SUNDAY HOME NO SERVICES [place] [place].
[2022-09-05] MEDS: Enoxaparin Sodium 40 MG/0.4 ML SYRINGE SUBCUT (12:27)
[2022-09-05 15:13] VITALS: BP 116/59; PULSE 61; RESP 18; TEMP 37.4; O2SAT 96
[2022-09-05 19:47] VITALS: BP 120/60; PULSE 49; RESP 18; TEMP 36.8; O2SAT 97
--- NOTE | 2022-09-05 20:59 | MHC.RECOVSUP ---
? Reason for consult:OPI o? Current location:345-1? o? Identified substance use concern:? -? Overdose -? Support ? Intervention: o? Community resources provided ? Plan: o? Follow up tomorrow? ? Additional information:RC went upstairs to meet the pt, but he informed me that he has a dependency case manager and is all set, I provided him with my business card and said he can call me for any questions he may have. I followed up are you sure you are all set with a RC and/or treatment and he said yes.
[2022-09-06 03:29] VITALS: BP 124/70; PULSE 60; RESP 18; TEMP 36.7; O2SAT 96
[2022-09-06 07:45] VITALS: BP 113/54; PULSE 51; RESP 17; TEMP 37.1; O2SAT 95
[2022-09-06] MEDS: Mineral Oil/Petrolatum,White 106 GM Tube 1 APPL TOPICAL ×3 (08:02→19:48)
[2022-09-06] MEDS: Tamsulosin HCL 0.4 MG CAPSULE PO (08:03)
[2022-09-06 09:21] VITALS: BP 113/54; PULSE 51; O2SAT 95
--- NOTE | 2022-09-06 11:04 | HO.PM.IMPN ---
Subjective Subjective Date of Service: 09/06/22 Interval History: Feeling better less lower extremity edema and pain has been ambulating with cane and working with PT on stairs plan is for discharge home with services end of this week. No acute events. Review of Systems Review of Systems: Yes all other systems are reviewed and are negative Physical Exam Vital Signs: Vital Signs: Last Vital Signs Temp 98.8 F 09/06/22 07:45 Pulse 51 09/06/22 09:21 Resp 17 09/06/22 07:45 BP 113/54 L 09/06/22 09:21 Pulse Ox 95 09/06/22 09:21 O2 Del Method 09/06/22 07:45 O2 Flow Rate 2 07/21/22 04:09 BMI result Body Mass Index 27.2 Const: Other: Gen: in no acute distress HEENT: sclera anicteric, moist mucus membranes Neck: supple Lungs: clear to auscultation bilaterally Heart: regular rate and rhythm, no murmurs Abd: soft, non-tender, non-distended Ext:? Bilateral edema improving Skin: warm/well-perfused Neuro: alert and oriented x3, bilateral lower extremities with 4/5 strength throughout Psych: appropriate affect.? Objective Data Active Medications Acetaminophen (Acetaminophen 325 Mg Tablet) 650 mg PO Q6H PRN PRN Reason: Pain, Mild (Pain Scale 1-3) Last Admin: 08/31/22 08:32 Dose: 650 mg Documented By: JASMINSOFFA Docusate Sodium (Docusate Sodium 100 Mg Capsule) 100 mg PO DAILY PRN PRN Reason: Constipation Last Admin: 08/29/22 09:20 Dose: 100 mg Documented By: JASMINRIVLA Enoxaparin Sodium (Enoxaparin Sodium 40 Mg/0.4 Ml Syringe) 40 mg SUBCUT Q24H [facility] Last Admin: 09/05/22 12:27 Dose: 40 mg Documented By: GRAZIC Ibuprofen (Ibuprofen 400 Mg Tablet) 400 mg PO Q8H PRN PRN Reason: Pain, Moderate (Pain Scale 4-6 Last Admin: 09/01/22 12:55 Dose: 400 mg Documented By: BONNY Multi-Ingred Cream/Lotion/Oil/Oint (Mineral Oil/Petrolatum,White 106 Gm Tube) 1 appl TOPICAL TID [facility]; Protocol Last Admin: 09/06/22 08:02 Dose: 1 appl Documented By: ALEE Ondansetron HCl (Ondansetron Hcl 4 Mg/2 Ml Vial) 4 mg IVPUSH Q8H PRN PRN Reason: Nausea and Vomiting Last Admin: 07/20/22 21:09 Dose: 4 mg Documented By: HE Pharmacy Consult (Consult Rx Perform Med Rec) 1 each MISCELLANE ONCE PRN PRN Reason: Consult order Polyethylene Glycol (Polyethylene Glycol 3350 17 Gm Powd.Pack) 17 gm PO DAILY [facility] Last Admin: 09/06/22 08:04 Dose: Not Given Documented By: ALEE Non-Admin Reason: Patient Refused Sodium Chloride (0.9 % Sodium Chloride Flush 3 Ml Syringe) 3 ml IVFLUSH QSHIFT [facility] Last Admin: 09/06/22 07:58 Dose: Not Given Documented By: ALEE Non-Admin Reason: No Access Tamsulosin HCl (Tamsulosin Hcl 0.4 Mg Capsule) 0.4 mg PO DAILY [facility] Last Admin: 09/06/22 08:03 Dose: 0.4 mg Documented By: ALEE Labs 08/06/22 08:05 08/06/22 08:05 Assessment and Plan (1) Bradycardia: Status: Acute (2) Polysubstance use disorder: Status: Acute (3) Urinary retention: Status: Acute Plan 36yo M with OUD, DM2 presented after overdose/LOC/unknown period of unresponsiveness perhaps as long as 48 hr, admitted for rhabdomyolysis and relative paralysis 1.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 Failed multiple voiding trials, cont. intermittent self catheterization and urinating in urinal, continue Flomax 3.Bradycardia - Cardiology recommends no specific management for bradycardia; ischemia workup as an outpatient due to abnormal EKG. 4.OUD - stable, Addiction Team will see patient prior to discharge 5.DM II -sugars normalized, hemoglobin A1c 5.7 no treatment needed 6. Bilateral foot edema with discomfort likely due to low albumin and sitting longer hours , edema improving , continue leg elevation, analgesics, Ensure supplement and teds LMWH Full code In my clinical judgment, patient requires continued inpatient hospitalization for the following reasons: safe disposition Time Spent With Patient Time: Total time managing care of this patient today ____ minutes. Quality Stroke Does the patient have a stroke diagnosis?: No VTE Prior VTE?: No VTE Risk Level:: Medical - moderate - high VTE Device Contraindication: Treatment Not Indicated VTE Drug Contraindication: N/A - Med Ordered
[2022-09-06] MEDS: Enoxaparin Sodium 40 MG/0.4 ML SYRINGE SUBCUT (12:03)
--- NOTE | 2022-09-06 12:49 | MHC.CM.PN ---
Per MD rounds patient will discharge to home no services. Patient may need assist with transport home.
[2022-09-06 15:14] VITALS: BP 111/58; PULSE 61; RESP 18; TEMP 36.6; O2SAT 95
[2022-09-06 19:36] VITALS: BP 118/57; PULSE 67; RESP 18; TEMP 36.8; O2SAT 96
[2022-09-07 04:00] VITALS: BP 102/59; PULSE 51; RESP 16; TEMP 36.7; O2SAT 96
[2022-09-07] MEDS: Tamsulosin HCL 0.4 MG CAPSULE PO (07:17)
[2022-09-07] MEDS: Mineral Oil/Petrolatum,White 106 GM Tube 1 APPL TOPICAL ×3 (07:18→20:55)
[2022-09-07 07:51] VITALS: BP 120/67; PULSE 55; RESP 16; TEMP 36.9; O2SAT 94
[2022-09-07 09:55] VITALS: BP 120/67; PULSE 55; O2SAT 94
--- NOTE | 2022-09-07 11:00 | MHC.CM.PN ---
CM MET W/PT AFTER HOSPITALIST REPORTED HE TOLD HER HE HAD NO PLACE TO GO, PT CONFIRMS HE NO LONGER HAS HOUSING, PT GAVE CM HIS CASEWORKERS NUMBER AND VERBAL CONSENT TO CALL HER AND DISCUSS DISPO, CM ATTEMPTED TO CALL CHIQUI JUANITO [phone] AT 10:50AM, NO ANSWER AND MESSAGE LEFT W/CM CONTACT INFO. D/C PLAN: ?HALF-WAY AND PT WILL LIKELY NEED TRANSPORT
[2022-09-07] MEDS: Enoxaparin Sodium 40 MG/0.4 ML SYRINGE SUBCUT (13:05)
--- NOTE | 2022-09-07 14:36 | MHC.CM.PN ---
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 CHIQUI REPORTS THAT ALTHOUGH PT WAS ASKED TO LEAVE [facility] IN THE PAST HE WAS ACCEPTED LAST MAY HOWEVER DID NOT ATTEND PROGRAM. SHIVAM CONTACTED KAPIL AT [facility] [phone] AND SHE GAVE CM A DIFFERENT NUMBER FOR [facility] [phone], CM ATTEMPTED TO CALL [facility] AT 2:32PM HOWEVER NO ANSWER AND DETAILED MESSAGE LEFT. PT GIVEN REFERRAL AND IT WILL BE FAXED TO [facility] AT [phone].
[2022-09-07 15:13] VITALS: BP 107/59; PULSE 64; RESP 18; TEMP 36.9; O2SAT 96
--- NOTE | 2022-09-07 15:58 | HO.PM.IMPN ---
Subjective Subjective Date of Service: 09/07/22 Interval History: seen and examined this morning follow up for leg weakness has been working with PT, improving Review of Systems Review of Systems: Yes all other systems are reviewed and are negative Constitutional Constitutional: Denies chills and Denies fever(s) Cardiovascular Cardiovascular: Denies chest pain, Denies palpitations and Denies dyspnea Respiratory Respiratory: Denies cough and Denies dyspnea Gastrointestinal Gastrointestinal: Denies abdominal pain Endocrine Endocrine: Denies palpitations Physical Exam Vital Signs: Vital Signs: Last Vital Signs Temp 98.4 F 09/07/22 15:13 Pulse 64 09/07/22 15:13 Resp 18 09/07/22 15:13 BP 107/59 L 09/07/22 15:13 Pulse Ox 96 09/07/22 15:13 O2 Del Method 09/07/22 15:13 O2 Flow Rate 2 07/21/22 04:09 BMI result Body Mass Index 27.2 Const: General: comfortable, no acute distress, alert and awake Nutritional Appearance: average body habitus Resp: Effort & Inspection: normal respiratory effort and able to speak in complete sentences GI: Inspection: No distended Palpation (GI): Soft to palpation Extrem: Other: b/l LE 4/5 strength Objective Data Active Medications Acetaminophen (Acetaminophen 325 Mg Tablet) 650 mg PO Q6H PRN PRN Reason: Pain, Mild (Pain Scale 1-3) Last Admin: 08/31/22 08:32 Dose: 650 mg Documented By: JASMINSOFFA Docusate Sodium (Docusate Sodium 100 Mg Capsule) 100 mg PO DAILY PRN PRN Reason: Constipation Last Admin: 08/29/22 09:20 Dose: 100 mg Documented By: JASMINRIVLA Enoxaparin Sodium (Enoxaparin Sodium 40 Mg/0.4 Ml Syringe) 40 mg SUBCUT Q24H [facility] Last Admin: 09/07/22 13:05 Dose: 40 mg Documented By: DABA Ibuprofen (Ibuprofen 400 Mg Tablet) 400 mg PO Q8H PRN PRN Reason: Pain, Moderate (Pain Scale 4-6 Last Admin: 09/01/22 12:55 Dose: 400 mg Documented By: BONNY Multi-Ingred Cream/Lotion/Oil/Oint (Mineral Oil/Petrolatum,White 106 Gm Tube) 1 appl TOPICAL TID [facility]; Protocol Last Admin: 09/07/22 13:05 Dose: 1 appl Documented By: RIANNA Ondansetron HCl (Ondansetron Hcl 4 Mg/2 Ml Vial) 4 mg IVPUSH Q8H PRN PRN Reason: Nausea and Vomiting Last Admin: 07/20/22 21:09 Dose: 4 mg Documented By: HE Pharmacy Consult (Consult Rx Perform Med Rec) 1 each MISCELLANE ONCE PRN PRN Reason: Consult order Polyethylene Glycol (Polyethylene Glycol 3350 17 Gm Powd.Pack) 17 gm PO DAILY [facility] Last Admin: 09/07/22 07:18 Dose: Not Given Documented By: IRANNA Non-Admin Reason: Patient Refused Sodium Chloride (0.9 % Sodium Chloride Flush 3 Ml Syringe) 3 ml IVFLUSH QSHIFT [facility] Last Admin: 09/07/22 13:06 Dose: Not Given Documented By: RIANNA Non-Admin Reason: No Access Tamsulosin HCl (Tamsulosin Hcl 0.4 Mg Capsule) 0.4 mg PO DAILY [facility] Last Admin: 09/07/22 07:17 Dose: 0.4 mg Documented By: RIANNA Labs 08/06/22 08:05 08/06/22 08:05 Assessment and Plan (1) Urinary retention: Status: Acute (2) Bradycardia: Status: Acute Plan 36yo M with OUD, DM2 presented after overdose/LOC/unknown period of unresponsiveness perhaps as long as 48 hr, admitted for rhabdomyolysis and relative paralysis 1. 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 Failed multiple voiding trials, cont. intermittent self catheterization and urinating in urinal, continue Flomax 3.Bradycardia - Cardiology recommends no specific management for bradycardia; ischemia workup as an outpatient due to abnormal EKG. 4.OUD - stable, Addiction Team will see patient prior to discharge 5.DM II -sugars normalized, hemoglobin A1c 5.7 no treatment needed 6. Bilateral foot edema with discomfort likely due to low albumin and sitting longer hours , edema improving , continue leg elevation, analgesics, Ensure supplement and teds LMWH Full code attending - dr. lopez In my clinical judgment, patient requires continued inpatient hospitalization for the following reasons: safe disposition does not have PCP - unable to have home PT Time Spent With Patient Time: Total time managing care of this patient today ____ minutes. Quality Stroke Does the patient have a stroke diagnosis?: No VTE Prior VTE?: No VTE Risk Level:: Medical - moderate - high VTE Device Contraindication: Treatment Not Indicated VTE Drug Contraindication: N/A - Med Ordered
[2022-09-07 19:16] VITALS: BP 112/62; PULSE 59; RESP 18; TEMP 36.9; O2SAT 96
[2022-09-08 03:12] VITALS: BP 114/62; PULSE 51; RESP 16; TEMP 36.4; O2SAT 97
[2022-09-08 07:45] VITALS: BP 125/67; PULSE 67; RESP 16; TEMP 37.3; O2SAT 98
[2022-09-08] MEDS: Tamsulosin HCL 0.4 MG CAPSULE PO (10:26)
[2022-09-08] MEDS: Mineral Oil/Petrolatum,White 106 GM Tube 1 APPL TOPICAL (10:26)
--- NOTE | 2022-09-08 11:46 | MHC.CM.PN ---
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
--- NOTE | 2022-09-08 12:08 | P.DS_ITS ---
DS: Providers Provider Date of Service: 09/08/22 Date of admission: 07/20/22 12:52 Date of discharge: 09/08/22 Primary care physician: None Physician Consults: 07/20/22 12:52 Addiction Medicine Routine Consulting Provider: Addiction Covering Reason for consultation: OUD, overdose Has provider been notified: No 07/20/22 12:57 Consult to Nephrology Routine Consulting Provider: Wilbert Lua Reason for consultation: [place] Has provider been notified: No 07/24/22 09:57 Consult to Neurology Routine Consulting Provider: [facility] Reason for consultation: weakness in the legs 08/03/22 16:08 Consult to Urology Routine Consulting Provider: [facility] Reason for consultation: urinary retention. flexion myelopathy 08/07/22 09:01 Consult to Cardiology Routine Consulting Provider: Danie Dixon Reason for consultation: abnormal EKG Has provider been notified: No 09/05/22 15:21 Consult to Care Team Routine Comment: Reason for consultation: substance abuse eval prior to dc Attending physician on discharge: Steve Edwards Discharging clinician: Sun Goss DS: Diagnosis Discharge Diagnosis (1) Urinary retention: Status: Acute (2) Bradycardia: Status: Acute (3) Polysubstance use disorder: Status: Acute (4) Rhabdomyolysis: Status: Acute (5) Paralysis: Status: Acute DS: Summary Hospital Course Hospital Course: From H&P on day of admission Pt is a 36-year-old male with a PMH significant for?opiate use disorder and diabetes who presents to the ED after an apparent overdose.? Patient injected heroin abuse cocaine last night, went to kitchen and then passed out.? Was on the floor unresponsive for an undetermined amount of time, somewhere between 4 and 8 hours.? When he awoke he could not move and called out to a neighbor who called for an ambulance.? Patient complains of overall body weakness and numbness especially in his hands and feet.? Also has tingling in fingertips and toes.? Patient also complains of right sided facial pain where he says he likely struck the floor.? Endorses abdominal pain as well.? Patient said he has not been able to urinate on his own.? ? In the ED patient was hypothermic 94.6 F. Labs were significant for no leukocytosis, AST 489, ALT of 145, creatinine kinase 31,433. Tox screen positive for opiates, fentanyl, cocaine. CT?of head, face, cervical spine were negative for acute intracranial pathology.? CT of chest and abdomen found no evidence of traumatic injury to chest abdomen pelvis, were positive for extensive right- sided pneumonia with likely etiology of aspiration.? Also found bladder distended.? EKG negative for acute ischemia. Pt was placed in a Bear Hugger and treated with 3 L of warm saline and treated with morphine and Zosyn. Pt will be admitted to the hospital for treatment of rhabdomyolysis with aggressive IV fluids. paralysis. 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 Patient received high-dose steroids and aggressive physical therapy and gradually improved and is able to ambulate with assistance of a cane. He is unable to have outpatient physical therapy until he is able to obtain a PCP. Urinary retention. Likely result of above. Initially required intermittent straight catheterization, now able to void independently. Continue Flomax. bradycardia Heart rate fluctuates in the mid 40-50s range, patient asymptomatic; no chest pain, not on beta-blockers or rate-controlling medication. Echo showed EF 73%. ? Abnormal EKG with coving of the anterior ST segments with T-wave inversions; also T-wave inversions in lead 1 and aVL.? Normal troponin. Seen by Cardiology recommend no specific management for bradycardia; ischemia workup as an outpatient due to abnormal EKG. Type 2 diabetes. Hemoglobin A1c 5.7. recommend diabetic diet Hepatitis C virus positive. recommend outpatient viral load and treatment if positive. rhabdomyolysis. Creatinine kinase 31,000 and resolved with IV fluid. Hypothermia resolved with Rodriguez Hugger and warm IV fluids in the emergency department. Aspiration pneumonia. Treated with IV Zosyn. opiate use disorder. seen by addiction medicine. patient declined MAT. Time Spent with Patient Time attestation: Total time managing care of this patient today ____ minutes. Discharge coordination time: Greater than 30 minutes Quality: Safe Use of Opioids Does Pt have an Active Cancer Diagnosis on the Problem List?: No Quality: Stroke Does the patient have a stroke diagnosis?: No Physical Exam Vital Signs: Vital Signs: Last Vital Signs Temp 99.1 F 09/08/22 07:45 Pulse 67 02/24/23 07:45 Resp 16 09/08/22 07:45 BP 125/67 09/08/22 07:45 Pulse Ox 98 09/08/22 07:45 O2 Del Method 09/08/22 07:45 O2 Flow Rate 2 07/21/22 04:09 BMI result Body Mass Index 27.2 Const: General: cooperative, comfortable, alert and awake Nutritional Appearance: average body habitus Orientation/consciousness: patient oriented x3 Resp: Effort & Inspection: normal respiratory effort, able to speak in complete sentences, no respiratory distress and no use of accessory muscles Cardio: Rate: regular rate GI: Inspection: No distended Palpation (GI): Soft to palpation Neuro: General: patient oriented x3 Extrem: Other: lower extremity strength improving Discharge Plan Discharge Anticipated Discharge Date/Time: 09/08/22 11:57 Patient Disposition: Correction Discharge Diagnosis: Paralysis related to 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 Referrals: Physician,None [Primary Care Provider] - 1 Week Danie Dixon MD [Physician] - 1 Week Discharge Medications: New tamsulosin 0.4 mg Capsule 0.4 mg PO DAILY 30 Days Qty: 30 0RF Discharge Orders: Discharge Order (Routine); Ordered 09/08/22 Ordered By: Sun Goss Diet: Diabetic diet Activity on Discharge: As tolerated Stand Alone Forms: Patient Portal Discharge page Care Plan Goals: Resolution of leg weakness Health Concerns: Bradycardia Paralysis diabetes - Hba1c 5.7 - recommend diabetic diet urinary retention - resolved, voiding independently opiate use disorder Plan of Treatment: For leg weakness - continue working with physical therapy if able. will need to establish with PCP to obtain outpatient physical therapy Bradycardia - Call to schedule follow-up appointment with Cardiology for outpatient ischemic workup urinary retention - take flomax as prescribed Assessment: see full discharge summary Discharge Date/Time: 09/08/22 13:49
[2022-09-08 12:45] LABS: COVID-19 Test Negative (Negative); IDNOW Serial# 9DB6401D
== END 2022-09-08 13:49 | disposition home or self-care (01) | DRG 917 ==
LOC: HO.ED 11:32 → HO.EDOVER 13:09 → HO.S3 07-21 13:33
PROVIDERS: Emergency Medicine; Family Medicine; Hospitalist; Internal Medicine; Nurse Practitioner Acute Care; Admitting Provider Student in an Organized Health Care Education/Training Program; Emergency Provider Emergency Medicine Emergency Medical Services; Visit Provider Physician Assistant Medical
DX: T40.1X1A Poisoning by heroin, accidental (unintentional), initial encounter (principal); G95.11 Acute infarction of spinal cord (embolic) (nonembolic); J69.0 Pneumonitis due to inhalation of food and vomit; M62.82 Rhabdomyolysis; G95.89 Other specified diseases of spinal cord; E11.65 Type 2 diabetes mellitus with hyperglycemia; T68.XXXA Hypothermia, initial encounter; F11.10 Opioid abuse, uncomplicated; R00.1 Bradycardia, unspecified; R33.9 Retention of urine, unspecified; B19.20 Unspecified viral hepatitis C without hepatic coma; K59.00 Constipation, unspecified; T40.5X1A Poisoning by cocaine, accidental (unintentional), initial encounter; F17.210 Nicotine dependence, cigarettes, uncomplicated; Z71.6 Tobacco abuse counseling; Z75.1 Person awaiting admission to adequate facility elsewhere; Z20.822 Contact with and (suspected) exposure to COVID-19; Z79.899 Other long term (current) drug therapy
CPT/HCPCS: 0241U; 36415; 70450; 70486; 71260; 72141; 72146; 74177; 80048; 80053; 80076; 80307; 81001; 82077; 82550; 82947; 83036; 83605; 83690; 83880; 84443; 84484; 85025; 85027; 86704; 86706; 86803; 87040; 87340; 87389; 87635; 93005; 93306; 97110; 97112; 97116; 97162; 97166; 97530; 97535; 99285; C1758; J1650; J2270; J2405; J2543; J2930; Q9957; Q9967